=== PATIENT | male | born 1970 | race Caucasian/White ===

== ENCOUNTER 2017-02-27 18:07 | Emergency (ER) | payer SELFPAY ==
[2017-02-27 18:12] VITALS: BP 128/78
[2017-02-27] MEDS ORDERED: IBUPROFEN 800 MG TABLET PO ONE (21:12)
[2017-02-27] MEDS ORDERED: DIPH/PERTUSS(ACELL)/TETANUS VAC/PF 0.5 ML SYR (>=10YO) IM ONE (21:12)
[2017-02-27] MEDS ORDERED: AMOXICILLIN TR/POT CLAVULANATE 500-125 MG TAB PO ONE (21:12)
[2017-02-27] MEDS ORDERED: AMOXICILLIN TRIHYD 250 MG CAPSULE PO ONE (21:12)
[2017-02-27] MEDS ORDERED: CIPROFLOXACIN HCL 500 MG TABLET PO ONE (21:12)
--- NOTE | 2017-02-27 21:18 | ER Document Report ---
HPI - HPI Patient complains to provider of: Skin rash, arm swelling Onset: Other - 3 days Onset/Duration: Worse Quality of pain: Achy Pain Level: 2 Context: Patient complains of skin rash for the past several weeks to the extremities. Patient is concerned that he might have scabies. Patient additionally complains of a swollen knot to his right upper arm for the past 3 days. Patient does state that he got scratched and bit by a 4 days ago. Patient denies any fever. Associated Symptoms: Other - Skin rash, swollen not to right upper extremity. denies: Fever Exacerbated by: Movement Relieved by: Denies Similar symptoms previously: No Recently seen / treated by doctor: No - ROS ROS below otherwise negative: Yes Systems Reviewed and Negative: Yes All other systems reviewed and negative - CONSTITUTIONAL Constitutional: DENIES: Fever, Chills - EENT EENT: DENIES: Sore Throat, Ear Pain, Eye problems - NEURO Neurology: DENIES: Headache - CARDIOVASCULAR Cardiovascular: DENIES: Chest pain - RESPIRATORY Respiratory: DENIES: Trouble Breathing, Coughing - GASTROINTESTINAL Gastrointestinal: DENIES: Abdominal Pain, Black / Bloody Stools - URINARY Urinary: DENIES: Dysuria, Urgency, Frequency - MUSCULOSKELETAL Musculoskeletal: REPORTS: Extremity pain - DERM Skin Color: Erythema Skin Problems: Rash Past Medical History - General Information source: Patient - Social History Smoking Status: Current Every Day Smoker Frequency of alcohol use: None Drug Abuse: None Family History: Reviewed & Not Pertinent, Hypertension Patient has suicidal ideation: No Patient has homicidal ideation: No - Past Medical History Cardiac Medical History: Reports: Hx Congestive Heart Failure, Hx Heart Attack Renal/ Medical History: Denies: Hx Peritoneal Dialysis Past Surgical History: Reports: Hx Cardiac Surgery - AICD. Denies: Hx Cardiac Catheterization Vertical Provider Document - CONSTITUTIONAL Agree With Documented VS: Yes Exam Limitations: No Limitations General Appearance: WD/WN, No Apparent Distress - INFECTION CONTROL TRAVEL OUTSIDE OF THE [place] IN LAST 30 DAYS: No - HEENT HEENT: Atraumatic, Normal ENT Exam, Normocephalic - NECK Neck: Normal Inspection, Supple. negative: Lymphadenopathy-Left, Lymphadenopathy-Right - RESPIRATORY Respiratory: Breath Sounds Normal, No Respiratory Distress O2 Sat by Pulse Oximetry: 97 - CARDIOVASCULAR Cardiovascular: Regular Rate, Regular Rhythm Pulses: Normal: Radial - BACK Back: Normal Inspection - MUSCULOSKELETAL/EXTREMETIES Musculoskeletal/Extremeties: MAEW, Tender - Right epitrochlear lymph node tenderness swelling with mild erythema over the area, full range of motion to joint, no concern for joint infection at this time, Edema. negative: Eccymosis Notes: Patient with mildly enlarged right axillary lymph node, normal skin color and temperature - NEURO Level of Consciousness: Awake, Alert, Appropriate Motor/Sensory: No Motor Deficit - DERM Integumentary: Warm, Dry, Rash Course - Re-evaluation Re-evalutation: 02/27/17 21:14 Consulted with an antibiotic choice to treat both cat scratch disease as well as Bite. Recommends Augmentin and Cipro for coverage. 02/27/17 21:15 Patient without fever patient with symptoms concerning for cat scratch disease given lymphadenopathy to right epitrochlear area and right axillary area. No concern for drainable abscess at this time. No concern for sepsis. - Vital Signs Vital signs: Temp Pulse Resp BP Pulse Ox 98.5 F 107 H 18 128/78 H 97 02/27/17 18:11 02/27/17 18:11 02/27/17 18:11 02/27/17 18:11 02/27/17 18:11 Discharge - Discharge Clinical Impression: Cat-scratch disease, Scabies Cat bite Qualifiers: Encounter type: initial encounter Qualified Code(s): W55.01XA - Bitten by cat, initial encounter Condition: Stable Disposition: HOME, SELF-CARE Instructions: Animal Bites ([facility]), Anti-Mite Skin Creams, Augmentin ([facility]), Cat Scratch Fever ([facility]), Ciprofloxacin ([facility]), Scabies ([facility]), Tetanus Immunization Given ([facility]) Additional Instructions: Return immediately for any new or worsening symptoms Followup with your primary care provider, call tomorrow to make a followup appointment If it is determined that you need the rabies vaccination series, return here for additional treatment. Follow-up with animal control regarding rabies vaccination status of the cat. Prescriptions: Amox Tr/Potassium Clavulanate [Augmentin 875-125 Tablet] 1 tab PO BID 5 Days tablet Ciprofloxacin HCl [Cipro 500 mg Tablet] 500 mg PO BID #20 tablet Naproxen [Naprosyn 250 Nmg Tablet] 1 tab PO BID #14 tablet Permethrin [Elimite] 60 gm TP ONCE #60 gm Forms: Return to Work Referrals: [facility] [NO LOCAL MD] - Follow up as needed [facility] [Provider Group] - Follow up as needed
== END 2017-02-27 21:38 | disposition home or self-care (01) ==
LOC: ER 18:07
DX: A28.1 Cat-scratch disease (principal); B86 Scabies; R21 Rash and other nonspecific skin eruption; M79.89 Other specified soft tissue disorders; F17.200 Nicotine dependence, unspecified, uncomplicated; W55.01XA Bitten by cat, initial encounter
CPT/HCPCS: 99282; 90471; 90715; J3490

== ENCOUNTER 2017-03-26 15:01 | Inpatient (IN) | payer SELFPAY ==
--- NOTE | 2017-03-26 16:08 | ER Document Report ---
ED Medical Screen (RME) - General Chief Complaint: Breathing Difficulty Stated Complaint: COUGH,DIZZY Time Seen by Provider: 03/26/17 16:06 Mode of Arrival: Ambulatory Information source: Patient TRAVEL OUTSIDE OF THE [place] IN LAST 30 DAYS: No - HPI Patient complains to provider of: sob Onset: This morning - pt with h/o chf with c/o coughing up blood and sob -- "I think I have fluid in my lungs." - Related Data Allergies/Adverse Reactions: No Known Allergies Allergy (Verified 03/26/17 15:03) Past Medical History - Social History Chew tobacco use (# tins/day): No Frequency of alcohol use: None Drug Abuse: None - Past Medical History Cardiac Medical History: Reports: Hx Congestive Heart Failure, Hx Heart Attack Renal/ Medical History: Denies: Hx Peritoneal Dialysis Past Surgical History: Reports: Hx Cardiac Surgery - AICD. Denies: Hx Cardiac Catheterization Physical Exam - Vital signs Vitals: Temp Pulse Resp BP Pulse Ox 99.5 F 115 H 16 116/82 90 L 03/26/17 15:06 03/26/17 15:06 03/26/17 15:06 03/26/17 15:06 03/26/17 15:06 Course - Vital Signs Vital signs: Temp Pulse Resp BP Pulse Ox 99.5 F 115 H 16 116/82 90 L 03/26/17 15:06 03/26/17 15:06 03/26/17 15:06 03/26/17 15:06 03/26/17 15:06
[2017-03-26 16:51] LABS: ABSOLUTE BASOPHILS # (AUTO) 0.1 10^3/uL (0.0-0.2); ABSOLUTE EOSINOPHILS # (AUTO) 0.1 10^3/uL (0.0-0.6); ABSOLUTE MONOCYTES (AUTO) 1.9 10^3/uL (0.1-1.4); BASOPHILS % (AUTO) 0.5 % (0-2); EOSINOPHILS % (AUTO) 0.6 % (0-6); HEMATOCRIT 46.2 % (37.9-51.0); HEMOGLOBIN 15.4 g/dL (13.5-17.0); LYMPHOCYTES % (AUTO) 11.9 % (13-45); MEAN CORPUSCULAR HEMOGLOBIN 28.9 pg (27.0-33.4); MEAN CORPUSCULAR HGB CONC 33.4 g/dL (32.0-36.0); MEAN CORPUSCULAR VOLUME 87 fl (80-97); MONOCYTES % (AUTO) 11.3 % (3-13); PLATELET COUNT 296 10^3/uL (150-450); RED BLOOD COUNT 5.33 10^6/uL (4.35-5.55); RED CELL DISTRIBUTION WIDTH 13.6 % (11.5-14.0); SEGMENTED NEUTROPHILS % (AUTO) 75.7 % (42-78); TOTAL CELLS COUNTED % (AUTO) 100 %; WHITE BLOOD COUNT 17.1 10^3/uL (4.0-10.5)
--- NOTE | 2017-03-26 16:58 | RADIOLOGY REPORT (SQ) ---
EXAM DESCRIPTION: CHEST PA/LAT COMPLETED DATE/TIME: 03/26/2017 4:49 pm REASON FOR STUDY: sob COMPARISON: 01/06/2016 EXAM PARAMETERS: NUMBER OF VIEWS: two views TECHNIQUE: Digital Frontal and Lateral radiographic views of the chest acquired. RADIATION DOSE: NA LIMITATIONS: none FINDINGS: LUNGS AND PLEURA: Patchy airspace opacities are seen throughout the right lobes. No pneum othorax. No pleural effusion. MEDIASTINUM AND HILAR STRUCTURES: No masses or contour abnormalities. HEART AND VASCULAR STRUCTURES: Borderline cardiomegaly. No evidence for failure. BONES: No acute findings. HARDWARE: Cardiac pacer appears stable in position and appearance. OTHER: No other significant finding. IMPRESSION: In the appropriate clinical setting, findings are consistent with multi lobar pneumonia. TECHNICAL DOCUMENTATION: JOB ID: [id number] [employer]- All Rights Reserved
[2017-03-26 17:09] LABS: ALANINE AMINOTRANSFERASE 31 U/L (21-72); ALBUMIN 3.9 g/dL (3.5-5.0); ALKALINE PHOSPHATASE 56 U/L (38-126); ANION GAP 7 (5-19); ASPARTATE AMINO TRANSFERASE 28 U/L (17-59); BILIRUBIN,DIRECT 0.4 mg/dL (0.0-0.4); BILIRUBIN,TOTAL 1.3 mg/dL (0.2-1.3); BLOOD UREA NITROGEN 15 mg/dL (7-20); CALCIUM 9.5 mg/dL (8.4-10.2); CARBON DIOXIDE 27 mmol/L (22-30); CHLORIDE 107 mmol/L (98-107); GLUCOSE 111 mg/dL (75-110); POTASSIUM 4.7 mmol/L (3.6-5.0); SODIUM 141.1 mmol/L (137-145); TOTAL PROTEIN 6.8 g/dL (6.3-8.2)
[2017-03-26] MEDS ORDERED: FUROSEMIDE INJ/PF 40 MG/4 ML SDV IV ONE (19:19)
[2017-03-26] MEDS ORDERED: CEFTRIAXONE 1 GM/D5W RTU 1 GM/50 ML RTUPB IV ONE (19:20)
[2017-03-26] MEDS ORDERED: AZITHROMYCIN INJ 500 MG VIAL IV ONE (19:20)
--- NOTE | 2017-03-26 19:31 | ER Document Report ---
ED Respiratory Problem - General Chief Complaint: Breathing Difficulty Stated Complaint: COUGH,DIZZY Time Seen by Provider: 03/26/17 16:06 Mode of Arrival: Ambulatory Notes: Patient is a 47-year-old male that comes emergency department for chief complaint of 3 days of worsening difficulty breathing, cough, intermittent chills, and the sensation of "fluid on the lungs". He reports intermittent pain in his chest, mostly with cough. He states that today he coughed up a few flecks of blood. He smokes a few cigarettes daily, has a history of ID in 2015 , AICD, CHF. He is supposed to be on carvedilol, lisinopril, and an unknown dose of a diuretic but he is currently taking no medications, he sees no provider currently. He has not had the influenza vaccine this year. TRAVEL OUTSIDE OF THE [place] IN LAST 30 DAYS: No - Related Data Allergies/Adverse Reactions: No Known Allergies Allergy (Verified 03/26/17 15:03) Past Medical History - General Information source: Patient - Social History Smoking Status: Current Some Day Smoker Chew tobacco use (# tins/day): No Smoking Education Provided: Yes - <3 min Frequency of alcohol use: None Drug Abuse: None Lives with: Family Family History: Reviewed & Not Pertinent, Hypertension Patient has suicidal ideation: No Patient has homicidal ideation: No - Past Medical History Cardiac Medical History: Reports: Hx Congestive Heart Failure, Hx Heart Attack - 2013 Renal/ Medical History: Denies: Hx Peritoneal Dialysis Past Surgical History: Reports: Hx Cardiac Surgery - AICD. Denies: Hx Cardiac Catheterization Review of Systems - Review of Systems Constitutional: See HPI EENT: No symptoms reported Cardiovascular: See HPI Respiratory: See HPI Gastrointestinal: No symptoms reported Genitourinary: No symptoms reported Male Genitourinary: No symptoms reported Musculoskeletal: No symptoms reported Skin: No symptoms reported Hematologic/Lymphatic: No symptoms reported Neurological/Psychological: No symptoms reported Physical Exam - Vital signs Vitals: Temp Pulse Resp BP Pulse Ox 99.5 F 115 H 16 116/82 90 L 03/26/17 15:06 03/26/17 15:06 03/26/17 15:06 03/26/17 15:06 03/26/17 15:06 Interpretation: Normal - General General appearance: Appears well, Alert In distress: None - HEENT Head: Normocephalic, Atraumatic Eyes: Normal Conjunctiva: Normal Extraocular movements intact: Yes Eyelashes: Normal Pupils: PERRL Mouth/Lips: Normal Mucous membranes: Normal Pharynx: Normal Neck: Normal - Respiratory Respiratory status: Tachypnea - Patient has very mild tachypnea, no labored breathing or retractions Chest status: Nontender Breath sounds: Nonproductive cough, Rales, Rhonchi, Other - Bilateral rales and rhonchi in the lower lobes, slightly worse on the right, air movement is still good, no wheezing. No: Wheezing Chest palpation: Normal - Cardiovascular Rhythm: Regular, Tachycardia Heart sounds: Normal auscultation, S1 appreciated, S2 appreciated Murmur: No - Abdominal Inspection: Normal Distension: No distension Bowel sounds: Normal Tenderness: Nontender. No: Tender, Guarding - Back Back: No: Tender, CVA tenderness - Extremities General upper extremity: Normal inspection, Nontender, Normal color, Normal ROM , Normal temperature General lower extremity: Normal inspection, Nontender, Normal color, Normal ROM , Normal temperature, Normal weight bearing. No: Edema - Neurological Neuro grossly intact: Yes Cognition: Normal Orientation: AAOx4 Keyes Coma Scale Eye Opening: Spontaneous Darrick Coma Scale Verbal: Oriented Darrick Coma Scale Motor: Obeys Commands Darrick Coma Scale Total: 15 Speech: Normal Cranial nerves: Normal Cerebellar coordination: Normal Motor strength normal: LUE, RUE, LLE, RLE Additional motor exam normals: Equal promotion producer Sensory: Normal - Psychological Associated symptoms: Normal affect, Normal mood - Skin Skin Temperature: Warm Skin Moisture: Dry Skin Color: Normal Course - Re-evaluation Re-evalutation: Patient with mild tachypnea on exam, rales and rhonchi in the lung bases, tachycardia. CBC shows leukocytosis at greater than 17,000 with no bandemia. Blood pressure is normal. BNP is elevated. No lower extremity edema. Chest x- ray consistent with multifocal pneumonia, probable vascular congestion as well per my read and based on patient's presentation. Starting Lasix, antibiotics. Because of tachypnea, hypoxia (occasionally drops down to 90-92 on room air just while sitting), tachycardia, multifocal pneumonia I discussed with patient potential admission to the hospital. He is agreeable with this. 03/26/[address] Dennis, internal medicine, patient will be admitted to the hospital. - Vital Signs Vital signs: Temp Pulse Resp BP Pulse Ox 102.0 F H 129 H 27 H 114/71 91 L 03/27/17 00:00 03/27/17 00:00 03/27/17 00:00 03/27/17 00:00 03/27/17 02:32 - Laboratory Result Diagrams: 03/26/17 16:30 03/26/17 16:30 Laboratory results interpreted by me: 03/26/17 03/26/17 03/26/17 16:30 16:30 16:30 WBC 17.1 H Lymphocytes % 11.9 L Absolute Neutrophils 13.0 H Absolute Monocytes 1.9 H Glucose 111 H NT-Pro-B Natriuret Pep 1050 H Discharge - Discharge Clinical Impression: Hypoxia, Tachycardia, Cough Pneumonia Qualifiers: Pneumonia type: due to unspecified organism Laterality: bilateral Lung location : unspecified part of lung Qualified Code(s): J18.9 - Pneumonia, unspecified organism Acute exacerbation of CHF (congestive heart failure) Qualifiers: Heart failure type: unspecified Qualified Code(s): I50.9 - Heart failure, unspecified Condition: Fair Disposition: ADMITTED INPATIENT Admitting Provider: Hospitalist Unit Admitted: Telemetry
[2017-03-26] MEDS ORDERED: CEFTRIAXONE INJ 1000 MG VIAL IV ONE (19:51)
[2017-03-26] MEDS ORDERED: NORMAL SALINE 1000 ML 1,000 ML IV PRN ×2 (20:43→20:51)
[2017-03-26] MEDS ORDERED: NICOTINE 7 MG/24 HR PATCH.TD24 TD SCH (21:00)
[2017-03-26] MEDS ORDERED: OSELTAMIVIR PHOSPHATE 75 MG CAPSULE PO ONE (21:14)
[2017-03-26] MEDS ORDERED: HYDROCODONE BIT/HOMATROPINE 5-1.5 MG TABLET PO PRN (21:26)
[2017-03-26] MEDS ORDERED: ACETAMINOPHEN 325 MG TABLET PO PRN (21:27)
[2017-03-26] MEDS ORDERED: LEVALBUTEROL HCL NEB 1.25 MG/3 ML AMPUL NEB ONE (21:30)
[2017-03-26] MEDS ORDERED: LANSOPRAZOLE 30 MG TAB.RAP.DR PO ONE (21:45)
--- NOTE | 2017-03-26 21:51 | PDOC H&P ---
History of Present Illness Admission Date/PCP: 03/26/17 20:39 Patient complains of: Not feeling well for the last several days History of Present Illness: PRISCA ARMENTA is a 47 year old male history of IL and possible CHF status post AICD in June of 2014. Patient states that he has not been feeling well. Patient reports flu like symptoms. He reports being hot and cold. Patient having cough and shortness of breathe. 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 Patient states that he cannot lay flat to sleep. He denies any swelling in the feet. Patient states he has some chest discomfort with coughing. The ED staff patient is very dyspneic with ambulation and has been hypoxic without oxygen. He started coughing up blood will in the ED. In the ED patient was given ceftriaxone and azithromycin. Patient chest x-ray was concerning for multifocal pneumonia. Patient was found to be tachycardic, hypoxic with leukocytosis. Hospitalist was called to admit patient for multifocal pneumonia and hypoxia. Past Medical History Cardiac Medical History: Reports: Congestive Heart Failure, Myocardial Infarction - 2013 Past Surgical History Past Surgical History: Reports: Other - AICD in June of 2014 Denies: Cardiac Catheterization Social History Smoking Status: Current Some Day Smoker Frequency of Alcohol Use: None Hx Recreational Drug Use: No Hx Prescription Drug Abuse: No - Advance Directive Resuscitation Status: Full Code Family History Family History: Other - Patient adopted and does not know history Parental Family History Reviewed: No Children Family History Reviewed: No Sibling(s) Family History Reviewed.: No Medication/Allergy Home Medications: Nicotine [Nicotine Patch] 1 each TD ASDIR #5 patch.td24 10/17/14 Furosemide [Lasix 20 mg Tablet] 40 mg PO BID #360 tablet 01/15/15 Amox Tr/Potassium Clavulanate [Augmentin 875-125 Tablet] 1 tab PO BID 5 Days tablet 02/27/17 Ciprofloxacin HCl [Cipro 500 mg Tablet] 500 mg PO BID #20 tablet 02/27/17 Naproxen [Naprosyn 250 Nmg Tablet] 1 tab PO BID #14 tablet 02/27/17 Permethrin [Elimite] 60 gm TP ONCE #60 gm 02/27/17 Allergies/Adverse Reactions: No Known Allergies Allergy (Verified 03/26/17 15:03) Review of Systems Constitutional: PRESENT: chills, fever(s). ABSENT: headache(s), weight gain, weight loss Eyes: ABSENT: visual disturbances Ears: ABSENT: hearing changes Cardiovascular: PRESENT: chest pain. ABSENT: dyspnea on exertion, edema, orthropnea, palpitations Respiratory: PRESENT: cough, sputum. ABSENT: hemoptysis Gastrointestinal: ABSENT: abdominal pain, constipation, diarrhea, hematemesis, hematochezia, nausea, vomiting Genitourinary: ABSENT: dysuria, hematuria Musculoskeletal: ABSENT: joint swelling Integumentary: ABSENT: rash, wounds Neurological: ABSENT: abnormal gait, abnormal speech, confusion, dizziness, focal weakness, syncope Psychiatric: ABSENT: anxiety, depression, homidical ideation, suicidal ideation Endocrine: ABSENT: cold intolerance, heat intolerance, polydipsia, polyuria Hematologic/Lymphatic: ABSENT: easy bleeding, easy bruising Physical Exam Vital Signs: Temp Pulse Resp BP Pulse Ox 99.5 F 115 H 14 142/89 H 93 03/26/17 15:06 03/26/17 15:06 03/26/17 19:00 03/26/17 19:00 03/26/17 19:00 Intake & Output 03/25/17 03/26/17 03/27/17 06:59 06:59 06:59 Output Total 700 Balance -700 General appearance: PRESENT: no acute distress, well-developed, well-nourished Head exam: PRESENT: normocephalic Eye exam: PRESENT: EOMI. ABSENT: scleral icterus Ear exam: PRESENT: normal external ear exam Mouth exam: PRESENT: moist Neck exam: ABSENT: carotid bruit, JVD, lymphadenopathy, thyromegaly Respiratory exam: PRESENT: crackles, decreased breath sounds. ABSENT: rales, rhonchi, unlabored, wheezes Cardiovascular exam: PRESENT: RRR. ABSENT: diastolic murmur, rubs, systolic murmur Pulses: PRESENT: normal dorsalis pedis pul Vascular exam: PRESENT: normal capillary refill GI/Abdominal exam: PRESENT: normal bowel sounds, soft. ABSENT: distended, guarding, mass, organolmegaly, rebound, tenderness Rectal exam: PRESENT: deferred Extremities exam: PRESENT: full ROM. ABSENT: calf tenderness, clubbing, pedal edema Neurological exam: PRESENT: alert, awake, oriented to person, oriented to place , oriented to time, oriented to situation, CN II-XII grossly intact. ABSENT: motor sensory deficit Psychiatric exam: PRESENT: appropriate affect, normal mood. ABSENT: homicidal ideation, suicidal ideation Skin exam: PRESENT: dry, intact, warm. ABSENT: cyanosis, rash Results Laboratory Results: 03/26/17 03/26/17 03/26/17 16:30 16:30 16:30 WBC 17.1 H RBC 5.33 Hgb 15.4 Hct 46.2 MCV 87 MCH 28.9 MCHC 33.4 RDW 13.6 Plt Count 296 Seg Neutrophils % 75.7 Lymphocytes % 11.9 L Monocytes % 11.3 Eosinophils % 0.6 Basophils % 0.5 Absolute Neutrophils 13.0 H Absolute Lymphocytes 2.0 Absolute Monocytes 1.9 H Absolute Eosinophils 0.1 Absolute Basophils 0.1 Sodium 141.1 Potassium 4.7 Chloride 107 Carbon Dioxide 27 Anion Gap 7 BUN 15 Creatinine 1.09 Est GFR ( Amer) > 60 Est GFR (Non-Af Amer) > 60 Glucose 111 H Calcium 9.5 Total Bilirubin 1.3 Direct Bilirubin 0.4 AST 28 ALT 31 Alkaline Phosphatase 56 NT-Pro-B Natriuret Pep 1050 H Total Protein 6.8 Albumin 3.9 Impressions: Chest X-Ray 03/26/17 16:06 IMPRESSION: In the appropriate clinical setting, findings are consistent with multi lobar pneumonia. Assessment & Plan - Diagnosis (1) Sepsis Is this a current diagnosis for this admission?: Yes Plan: Patient presented with tachycardia, leukocytosis and pneumonia. Patient started on ceftriaxone and azithromycin in the ED. Will continue this management. Patient pneumonia appears multifocal and could be viral in nature. Patient reports having flulike symptoms and working with the public. Rapid influenza ordered and patient started on Tamiflu. Blood cultures are ordered. Patient being given gentle hydration. (2) Pneumonia Qualifiers: Pneumonia type: due to unspecified organism Laterality: bilateral Lung location: unspecified part of lung Qualified Code(s): J18.9 - Pneumonia, unspecified organism Plan: Patient currently on ceftriaxone and azithromycin. Patient pneumonia is multifocal and could be viral. Patient also started on Tamiflu and rapid flu ordered. CT a ordered to evaluate the complexity of the pneumonia as patient is also having hemoptysis. Blood cultures were ordered. Incentive spirometry ordered. Will encourage activity as tolerated. (3) Respiratory failure with hypoxia Qualifiers: Chronicity: acute Qualified Code(s): J96.01 - Acute respiratory failure with hypoxia Is this a current diagnosis for this admission?: Yes Plan: This is mostly secondary to his multifocal pneumonia. The lowest recorded oxygen saturation was 90. However the ED reports that patient was desaturating even lower. Patient currently on supplemental oxygen. Will monitor and wean as tolerated. (4) Hemoptysis Is this a current diagnosis for this admission?: Yes Plan: Patient reports hemoptysis. This could be due to irritation from the lungs from the pneumonia. Will order a CTA of the chest to make sure we are not dealing with a more complicated pneumonia. Will monitor. NICHOLAS precious for DVT prophylaxis no subcu heparin or Lovenox. (5) Tobacco abuse Is this a current diagnosis for this admission?: Yes Plan: Patient continues to smoke. Will patient financial counselor patient on smoking cessation. Nicotine patch ordered. (6) AICD (automatic cardioverter/defibrillator) present Is this a current diagnosis for this admission?: Yes Plan: She reports AICD secondary to IL. Uncertain if patient develops CHF as a result of his IL. This was about 3 years ago. Will order cardiac echo to evaluate. Patient BNP is elevated and has some crackles however these can both be due to his multifocal pneumonia. Will monitor for signs for a volume overload. - Time Time Spent: 30 to 50 Minutes
[2017-03-26] MEDS ORDERED: GUAIFENESIN 600 MG TABLET.SA PO SCH (22:00)
[2017-03-26 22:25] LABS: A TYPE INFLUENZA AG NEGATIVE (NEGATIVE); B INFLUENZA AG NEGATIVE (NEGATIVE)
--- NOTE | 2017-03-26 22:55 | RADIOLOGY REPORT (SQ) ---
EXAM DESCRIPTION: CTA CHEST COMPLETED DATE/TIME: 03/26/2017 10:39 pm REASON FOR STUDY: hypoxia COMPARISON: Chest radiograph 03/26/2017 TECHNIQUE: CT scan of the chest performed using helical scanning technique with dynamic intravenous contrast injection. Images reviewed with lung, soft tissue and bone windows. Reconstructed coronal and sagittal MPR images reviewed. Additional 3 dimensional post-processing performed to develop Maximal Intensity Projection images (DE P). All images stored on PACS. All CT scanners at this facility use dose modulation, iterative reconstruction, and/or weight based d osing when appropriate to reduce radiation dose to as low as reasonably achievable (ALARA). [facility]: Dose Right [facility]: CareDose [facility]: Dose Right [facility]: Teradose 4D [facility]: SoothEase CONTRAST TYPE AND DOSE: contrast/concentration: Isovue 370.00 mg/ml; Total Contrast Delivered: 90.0 ml; Total Saline Delivered: 74.0 ml Contrast bolus optimized for the pulmonary arteries. Not diagnostic for the aorta. RENAL FUNCTION: BUN 15; creatinine 1.09 RADIATION DOSE: CT Rad equipment meets quality standard of care and radiation dose reduction techniq ues were employed. CTDIvol: 16.6 - 26.4 mGy. DLP: 649 mGy-cm. . LIMITATIONS: None. FINDINGS: LUNGS AND PLEURA: Re- demonstration of diffuse airspace and ground-glass opacities with re lative subpleural sparing. Small bilateral pleural effusions. No pneumothorax. AORTA AND GREAT VESSELS: No aneurysm. Contrast bolus not optimized for the aorta. HEART: Trace pericardial fluid. No significant coronary artery calcifications. PULMONARY ARTERIES: No emboli visualized in the main pulmonary arteries or the segmental branches. HILAR AND MEDIASTINAL STRUCTURES: No identified masses or abnormal nodes. HARDWARE: Dual-chamber pacer. UPPER ABDOMEN: No significant findings. Limited exam. THYROID AND OTHER SOFT TISSUES: No masses. No adenopathy. BONES: No acute or significant finding. 3D MIPS: Confirm above findings. OTHER: No other significant finding. IMPRESSION: 1. No pulmonary emboli. 2. Diffuse mixed interstitial and airspace opacities remain in nonspecific finding. In the appropri ate clinical setting, findings are consistent with a multi lobar pneumonia ; given distribution, hardik mmend consideration for atypical organisms in treatment planning. Alternate processes to include inf lammatory and neoplastic causes are not entirely excluded. COMMENT: Quality ID # [id number]: Final reports with documentation of one or more dose reduction techniques (e.g., Automated exposure control, adjustment of the mA and/or kV according to patient size, use of iterative reconstruction technique) TECHNICAL DOCUMENTATION: JOB ID: [id number] [employer]- All Rights Reserved
[2017-03-27] MEDS ORDERED: INFLUENZA ADLT QUAD (36MOS+) 2017-18 VAC 0.5 ML SYR IM PRN (00:49)
[2017-03-27] MEDS ORDERED: RINGERS SOLUTION,LACTATED 1,000 ML IV PRN ×2 (01:07→01:08)
[2017-03-27 06:20] LABS: ABSOLUTE BASOPHILS # (AUTO) 0.1 10^3/uL (0.0-0.2); ABSOLUTE EOSINOPHILS # (AUTO) 0.1 10^3/uL (0.0-0.6); ABSOLUTE LYMPHOCYTES (AUTO) 2.5 10^3/uL (0.5-4.7); BASOPHILS % (AUTO) 0.5 % (0-2); EOSINOPHILS % (AUTO) 0.7 % (0-6); HEMATOCRIT 43.7 % (37.9-51.0); HEMOGLOBIN 14.9 g/dL (13.5-17.0); LYMPHOCYTES % (AUTO) 13.4 % (13-45); MEAN CORPUSCULAR HEMOGLOBIN 29.4 pg (27.0-33.4); MEAN CORPUSCULAR VOLUME 87 fl (80-97); MONOCYTES % (AUTO) 10.8 % (3-13); PLATELET COUNT 249 10^3/uL (150-450); RED BLOOD COUNT 5.05 10^6/uL (4.35-5.55); RED CELL DISTRIBUTION WIDTH 13.6 % (11.5-14.0); SEGMENTED NEUTROPHILS % (AUTO) 74.6 % (42-78); TOTAL CELLS COUNTED % (AUTO) 100 %; WHITE BLOOD COUNT 18.7 10^3/uL (4.0-10.5)
[2017-03-27] MEDS: LANSOPRAZOLE 30 MG TAB.RAP.DR PO SCH (06:44)
[2017-03-27 06:46] LABS: ANION GAP 9 (5-19); BLOOD UREA NITROGEN 16 mg/dL (7-20); CALCIUM 9.2 mg/dL (8.4-10.2); CARBON DIOXIDE 27 mmol/L (22-30); CHLORIDE 105 mmol/L (98-107); GLUCOSE 109 mg/dL (75-110); POTASSIUM 4.6 mmol/L (3.6-5.0)
[2017-03-27] MEDS ORDERED: LEVALBUTEROL HCL NEB 1.25 MG/3 ML AMPUL NEB SCH (08:00)
--- NOTE | 2017-03-27 09:04 | EKG REPORT ---
SEVERITY:- ABNORMAL ECG - SINUS TACHYCARDIA PROBABLE LEFT ATRIAL ABNORMALITY NONSPECIFIC T ABNORMALITIES, LATERAL LEADS : Confirmed by: Uli Willams 27-Mar-2017 09:03:37
[2017-03-27] MEDS ORDERED: CEFTRIAXONE 1 GM/D5W RTU 1 GM/50 ML RTUPB IV SCH (10:00)
[2017-03-27] MEDS ORDERED: ENOXAPARIN SODIUM INJ 40 MG/0.4 ML DISP.SYRIN SUBCUT SCH (10:00)
[2017-03-27] MEDS: AZITHROMYCIN 250 MG TABLET PO SCH (10:26)
[2017-03-27] MEDS ORDERED: DEXTROSE 40% GEL 15 GM TUBE PO PRN ×2 (13:13)
[2017-03-27] MEDS ORDERED: DEXTROSE 50%-WATER 25 GM/50 ML DISP.SYRIN IV PRN ×2 (13:13)
[2017-03-27] MEDS ORDERED: GLUCAGON,HUMAN RECOMB 1 MG INJ IM PRN (13:13)
--- NOTE | 2017-03-27 13:33 | PDOC PROGRESS REPORT ---
Subjective Progress Note for:: 03/27/17 Subjective:: Patient refers that the breathing is slightly better when compared to admission. Review of systems All organ systems evaluated and negative except as in subjective All significant laboratories and diagnostics have been reviewed Reason For Visit: PNEUMONIA Physical Exam Vital Signs: Temp Pulse Resp BP Pulse Ox 102.0 F H 129 H 27 H 114/71 91 L 03/27/17 00:00 03/27/17 00:00 03/27/17 00:00 03/27/17 00:00 03/27/17 04:00 Pulse Oximeter Continuous Start: 03/26/17 20: 44 Freq: RTQ4 Status: Active Document 03/27/17 04:00 SFL (Rec: 03/27/17 05:52 SFL [email or web address]) Pulse Oximetry Assessment Oxygen Saturation (92-100) 91 Oxygen Delivery Method Room Air Equipment Usage Equipment in Use Continuous SpO2 Machine # 4 Intake & Output 03/26/17 03/27/17 03/28/17 06:59 06:59 06:59 Intake Total 400 Output Total 1950 Balance -1550 Weight 82.3 kg General appearance: PRESENT: cooperative, obese Head exam: PRESENT: atraumatic, normocephalic Eye exam: PRESENT: conjunctiva pink, EOMI, PERRLA Ear exam: PRESENT: normal external ear exam, TM's normal bilaterally Neck exam: PRESENT: full ROM. ABSENT: JVD, lymphadenopathy, tenderness Respiratory exam: PRESENT: crackles, decreased breath sounds, wheezes Cardiovascular exam: PRESENT: RRR Vascular exam: PRESENT: normal capillary refill GI/Abdominal exam: PRESENT: normal bowel sounds, soft. ABSENT: tenderness Extremities exam: PRESENT: full ROM. ABSENT: pedal edema Musculoskeletal exam: PRESENT: ambulatory Neurological exam: PRESENT: alert, awake, oriented to person, oriented to place , oriented to time, oriented to situation, CN II-XII grossly intact Psychiatric exam: PRESENT: appropriate affect Skin exam: PRESENT: intact, normal color Results Laboratory Results: 03/27/17 05:56 03/27/17 05:56 03/27/17 03/27/17 05:56 05:56 WBC 18.7 H RBC 5.05 Hgb 14.9 Hct 43.7 MCV 87 MCH 29.4 MCHC 34.0 RDW 13.6 Plt Count 249 Seg Neutrophils % 74.6 Lymphocytes % 13.4 Monocytes % 10.8 Eosinophils % 0.7 Basophils % 0.5 Absolute Neutrophils 14.0 H Absolute Lymphocytes 2.5 Absolute Monocytes 2.0 H Absolute Eosinophils 0.1 Absolute Basophils 0.1 Sodium 141.0 Potassium 4.6 Chloride 105 Carbon Dioxide 27 Anion Gap 9 BUN 16 Creatinine 1.16 Est GFR ( Amer) > 60 Est GFR (Non-Af Amer) > 60 Glucose 109 Calcium 9.2 Impressions: Chest/Abdomen CTA 03/26/17 00:00 IMPRESSION: 1. No pulmonary emboli. 2. Diffuse mixed interstitial and airspace opacities remain in nonspecific finding. In the appropriate clinical setting, findings are consistent with a multi lobar pneumonia ; given distribution, recommend consideration for atypical organisms in treatment planning. Alternate processes to include inflammatory and neoplastic causes are not entirely excluded. Chest X-Ray 03/26/17 16:06 IMPRESSION: In the appropriate clinical setting, findings are consistent with multi lobar pneumonia. Assessment & Plan - Diagnosis (1) Acute respiratory failure with hypoxia Is this a current diagnosis for this admission?: Yes Plan: Continue oxygen supplementation and wean off as tolerated (2) Pneumonia Qualifiers: Pneumonia type: due to unspecified organism Laterality: bilateral Lung location: unspecified part of lung Qualified Code(s): J18.9 - Pneumonia, unspecified organism Is this a current diagnosis for this admission?: Yes Plan: Continue current management. Will place on DuoNeb's and IV steroids and suspecting his COPD component (3) Tobacco abuse Is this a current diagnosis for this admission?: Yes Plan: Has been educated about quitting (4) Acute on chronic systolic CHF (congestive heart failure) Is this a current diagnosis for this admission?: Yes Plan: To place on Lasix IV - Time Time Spent with patient: 15-24 minutes Medications reviewed and adjusted accordingly: Yes Anticipated discharge: Home Within: within 72 hours - Inpatient Certification Based on my medical assessment, after consideration of the patient's comorbidities, presenting symptoms, or acuity I expect that the services needed warrant INPATIENT care.: Yes I certify that my determination is in accordance with my understanding of Medicare's requirements for reasonable and necessary INPATIENT services [42 CFR 412.3e].: Yes Medical Necessity: Need Close Monitoring Due to Risk of Patient Decompensation, Need for Nebulizer Therapy and Monitoring of Response, Need for IV Antibiotics
[2017-03-27] MEDS ORDERED: METOPROLOL SUCCINATE 25 MG TAB.SR.24H PO ONE (13:34)
[2017-03-27] MEDS: IPRATROPIUM/ALBUTEROL 0.5-2.5 MG/3 ML AMPUL NEB SCH ×2 (14:23→21:09)
[2017-03-27] MEDS: OSELTAMIVIR PHOSPHATE 75 MG CAPSULE PO SCH ×2 (15:25→17:14)
[2017-03-27] MEDS: GUAIFENESIN 600 MG TABLET.SA PO SCH (17:14)
[2017-03-27] MEDS: CEFTRIAXONE SODIUM 1,000 MG in DEXTROSE 5%-WATER 100 ML IV SCH (17:14)
[2017-03-27] MEDS: FUROSEMIDE INJ/PF 20 MG/2 ML SDV IV SCH (21:09)
[2017-03-27] MEDS: METHYLPREDNISOLONE INJ 40 MG/1 ML SDV IV SCH (21:09)
[2017-03-28 06:48] LABS: HEMATOCRIT 38.9 % (37.9-51.0); HEMOGLOBIN 13.1 g/dL (13.5-17.0); MEAN CORPUSCULAR HEMOGLOBIN 29.1 pg (27.0-33.4); MEAN CORPUSCULAR HGB CONC 33.6 g/dL (32.0-36.0); MEAN CORPUSCULAR VOLUME 87 fl (80-97); PLATELET COUNT 237 10^3/uL (150-450); RED BLOOD COUNT 4.49 10^6/uL (4.35-5.55); RED CELL DISTRIBUTION WIDTH 13.4 % (11.5-14.0); WHITE BLOOD COUNT 15.7 10^3/uL (4.0-10.5)
[2017-03-28 06:58] LABS: ANION GAP 13 (5-19); BLOOD UREA NITROGEN 16 mg/dL (7-20); CALCIUM 8.6 mg/dL (8.4-10.2); CARBON DIOXIDE 22 mmol/L (22-30); CHLORIDE 104 mmol/L (98-107); GLUCOSE 217 mg/dL (75-110); MAGNESIUM 2.1 mg/dL (1.6-2.3); POTASSIUM 4.3 mmol/L (3.6-5.0); SODIUM 139.3 mmol/L (137-145)
[2017-03-28 07:16] LABS: ABSOLUTE LYMPHOCYTES# (MANUAL) 1.1 10^3/uL (0.5-4.7); ABSOLUTE MONOCYTES # (MANUAL) 0.5 10^3/uL (0.1-1.4); ABSOLUTE NEUTROPHILS# (MANUAL) 14.1 10^3/uL (1.7-8.2); BASOPHILS % (MANUAL) 0 % (0-2); EOSINOPHILS % (MANUAL) 0 % (0-6); LYMPHOCYTES % (MANUAL) 7 % (13-45); MONOCYTES % (MANUAL) 3 % (3-13); SEGMENTED NEUTROPHILS % (MAN) 90 % (42-78); TOTAL CELLS COUNTED 100
[2017-03-28 07:17] LABS: PLATELET COMMENT ADEQUATE; PLATELET LARGE PRESENT; SCHISTOCYTES SLIGHT; TOXIC GRANULATION 1+
[2017-03-28] MEDS: GUAIFENESIN 600 MG TABLET.SA PO SCH ×2 (07:55→18:14)
[2017-03-28] MEDS: LANSOPRAZOLE 30 MG TAB.RAP.DR PO SCH (07:55)
[2017-03-28] MEDS: IPRATROPIUM/ALBUTEROL 0.5-2.5 MG/3 ML AMPUL NEB SCH ×3 (08:16→20:52)
[2017-03-28] MEDS: INSULIN LISPRO 100 UNIT/ML 3 ML VIAL SUBCUT PRN ×2 (08:45→18:14)
[2017-03-28] MEDS ORDERED: LISINOPRIL 5 MG TABLET PO SCH (10:00)
[2017-03-28] MEDS: AZITHROMYCIN 250 MG TABLET PO SCH (10:22)
[2017-03-28] MEDS: FUROSEMIDE INJ/PF 20 MG/2 ML SDV IV SCH (10:23)
[2017-03-28] MEDS: METHYLPREDNISOLONE INJ 40 MG/1 ML SDV IV SCH ×2 (10:24→21:31)
--- NOTE | 2017-03-28 16:00 | PDOC PROGRESS REPORT ---
Subjective Progress Note for:: 03/28/17 Subjective:: Patient reports that breathing is getting better and has been able to ambulate. Went down on oxygen at bedside and patient desaturated to the upper 80s Review of systems All organ systems evaluated and negative except as in subjective All significant laboratories and diagnostics have been reviewed Reason For Visit: PNEUMONIA Physical Exam Vital Signs: Temp Pulse Resp BP Pulse Ox 98.8 F 108 H 18 113/74 95 03/28/17 04:00 03/28/17 04:00 03/28/17 04:00 03/28/17 04:00 03/28/17 04:00 Pulse Oximeter Continuous Start: 03/26/17 20: 44 Freq: RTQ4 Status: Active Document 03/28/17 04:00 SFL (Rec: 03/28/17 05:35 SFL [email or web address]) Pulse Oximetry Assessment Oxygen Saturation (92-100) 95 Oxygen Flow Rate (L/min) 4 Oxygen Delivery Method Nasal Cannula Equipment Usage Equipment in Use Continuous SpO2 Machine # 4 Intake & Output 03/27/17 03/28/17 03/29/17 06:59 06:59 06:59 Intake Total 400 5224 Output Total 1950 1850 Balance -1550 3374 Weight 82.3 kg 85 kg General appearance: PRESENT: cooperative, obese Head exam: PRESENT: atraumatic, normocephalic Eye exam: PRESENT: conjunctiva pink, EOMI, PERRLA Ear exam: PRESENT: normal external ear exam Mouth exam: PRESENT: moist, neck supple Neck exam: PRESENT: full ROM, tenderness. ABSENT: JVD, lymphadenopathy Respiratory exam: PRESENT: other - Improvement of movement of air with scattered crackles. ABSENT: tachypnea, unlabored Cardiovascular exam: PRESENT: RRR. ABSENT: diastolic murmur, systolic murmur Vascular exam: PRESENT: normal capillary refill GI/Abdominal exam: PRESENT: normal bowel sounds, soft. ABSENT: tenderness Extremities exam: PRESENT: full ROM. ABSENT: pedal edema Musculoskeletal exam: PRESENT: ambulatory Neurological exam: PRESENT: alert, awake, oriented to person, oriented to place , oriented to time, oriented to situation, CN II-XII grossly intact Psychiatric exam: PRESENT: appropriate affect, normal mood Skin exam: PRESENT: intact, normal color Results Laboratory Results: 03/28/17 05:12 03/28/17 05:12 03/28/17 03/28/17 05:12 05:12 WBC 15.7 H RBC 4.49 Hgb 13.1 L Hct 38.9 MCV 87 MCH 29.1 MCHC 33.6 RDW 13.4 Plt Count 237 Seg Neutrophils % Not Reportable Lymphocytes % Not Reportable Monocytes % Not Reportable Eosinophils % Not Reportable Basophils % Not Reportable Absolute Neutrophils Not Reportable Absolute Lymphocytes Not Reportable Absolute Monocytes Not Reportable Absolute Eosinophils Not Reportable Absolute Basophils Not Reportable Sodium 139.3 Potassium 4.3 Chloride 104 Carbon Dioxide 22 Anion Gap 13 BUN 16 Creatinine 0.94 Est GFR ( Amer) > 60 Est GFR (Non-Af Amer) > 60 Glucose 217 H Calcium 8.6 Magnesium 2.1 03/27/17 07:35 Troponin I 0.062 Impressions: Chest/Abdomen CTA 03/26/17 00:00 IMPRESSION: 1. No pulmonary emboli. 2. Diffuse mixed interstitial and airspace opacities remain in nonspecific finding. In the appropriate clinical setting, findings are consistent with a multi lobar pneumonia ; given distribution, recommend consideration for atypical organisms in treatment planning. Alternate processes to include inflammatory and neoplastic causes are not entirely excluded. Chest X-Ray 03/26/17 16:06 IMPRESSION: In the appropriate clinical setting, findings are consistent with multi lobar pneumonia. Assessment & Plan - Diagnosis (1) Acute respiratory failure with hypoxia Is this a current diagnosis for this admission?: Yes Plan: Continue oxygen supplementation and wean off as tolerated (2) Pneumonia Qualifiers: Pneumonia type: due to unspecified organism Laterality: bilateral Lung location: unspecified part of lung Qualified Code(s): J18.9 - Pneumonia, unspecified organism Is this a current diagnosis for this admission?: Yes Plan: Continue current management. Continue duo nebs and IV steroids for the possibility of COPD (3) Tobacco abuse Is this a current diagnosis for this admission?: Yes Plan: Has been educated about quitting (4) Acute on chronic systolic CHF (congestive heart failure) Is this a current diagnosis for this admission?: Yes Plan: Discontinue IV Lasix and lisinopril and follow up response. BNP elevation on admission could relate to pneumonia - Time Time Spent with patient: 15-24 minutes Medications reviewed and adjusted accordingly: Yes Anticipated discharge: Home Within: within 48 hours - Inpatient Certification Based on my medical assessment, after consideration of the patient's comorbidities, presenting symptoms, or acuity I expect that the services needed warrant INPATIENT care.: Yes I certify that my determination is in accordance with my understanding of Medicare's requirements for reasonable and necessary INPATIENT services [42 CFR 412.3e].: Yes Medical Necessity: Need Close Monitoring Due to Risk of Patient Decompensation, Need For Continuous Telemetry Monitoring, Need for Nebulizer Therapy and Monitoring of Response
[2017-03-28] MEDS: CEFTRIAXONE SODIUM 1,000 MG in DEXTROSE 5%-WATER 100 ML IV SCH (18:14)
[2017-03-29 05:23] LABS: HEMATOCRIT 36.2 % (37.9-51.0); HEMOGLOBIN 12.3 g/dL (13.5-17.0); MEAN CORPUSCULAR HEMOGLOBIN 29.2 pg (27.0-33.4); MEAN CORPUSCULAR HGB CONC 33.9 g/dL (32.0-36.0); MEAN CORPUSCULAR VOLUME 86 fl (80-97); PLATELET COUNT 221 10^3/uL (150-450); RED BLOOD COUNT 4.21 10^6/uL (4.35-5.55); RED CELL DISTRIBUTION WIDTH 13.5 % (11.5-14.0); WHITE BLOOD COUNT 21.5 10^3/uL (4.0-10.5)
[2017-03-29] MEDS: INSULIN LISPRO 100 UNIT/ML 3 ML VIAL SUBCUT PRN (05:39)
[2017-03-29] MEDS: GUAIFENESIN 600 MG TABLET.SA PO SCH (05:39)
[2017-03-29 05:40] LABS: ANION GAP 11 (5-19); BLOOD UREA NITROGEN 29 mg/dL (7-20); CALCIUM 8.9 mg/dL (8.4-10.2); CARBON DIOXIDE 20 mmol/L (22-30); CHLORIDE 109 mmol/L (98-107); GLUCOSE 157 mg/dL (75-110); POTASSIUM 4.5 mmol/L (3.6-5.0); SODIUM 140.3 mmol/L (137-145)
[2017-03-29] MEDS: LANSOPRAZOLE 30 MG TAB.RAP.DR PO SCH (05:40)
[2017-03-29 06:37] LABS: ABSOLUTE LYMPHOCYTES# (MANUAL) 0.4 10^3/uL (0.5-4.7); ABSOLUTE MONOCYTES # (MANUAL) 1.3 10^3/uL (0.1-1.4); ABSOLUTE NEUTROPHILS# (MANUAL) 19.8 10^3/uL (1.7-8.2); BASOPHILS % (MANUAL) 0 % (0-2); EOSINOPHILS % (MANUAL) 0 % (0-6); LYMPHOCYTES % (MANUAL) 2 % (13-45); MONOCYTES % (MANUAL) 6 % (3-13); SEGMENTED NEUTROPHILS % (MAN) 92 % (42-78); TOTAL CELLS COUNTED 100
[2017-03-29 06:38] LABS: PLATELET COMMENT ADEQUATE; PLATELET LARGE PRESENT; RBC MORPHOLOGY COMMENT NORMO-CYTIC/CHROMIC
[2017-03-29] MEDS: IPRATROPIUM/ALBUTEROL 0.5-2.5 MG/3 ML AMPUL NEB SCH ×2 (07:52→13:39)
[2017-03-29] MEDS: AZITHROMYCIN 250 MG TABLET PO SCH (11:13)
[2017-03-29] MEDS: METHYLPREDNISOLONE INJ 40 MG/1 ML SDV IV SCH (11:14)
--- NOTE | 2017-03-29 12:49 | PDOC DISCHARGE SUMMARY ---
General - Admit/Disc Date/PCP Admission Date/Primary Care Provider: 03/26/17 20:39 No primary care provider. He has been set up with the [facility] at the time of discharge. Discharge Date: 03/29/17 - Discharge Diagnosis (1) Acute respiratory failure with hypoxia Is this a current diagnosis for this admission?: Yes Summary: Secondary to multifocal pneumonia. Resolved. There also may have been an element of acute congestive heart failure as well. (2) Pneumonia Is this a current diagnosis for this admission?: Yes Summary: Concerns for gram positives are atypicals. This is most likely an atypical pneumonia. He will complete a course of Zithromax as well as Keflex as an outpatient. His pneumonia is much improved. He did have a multifocal pneumonia at the time of admission. (3) Acute on chronic systolic CHF (congestive heart failure) Is this a current diagnosis for this admission?: Yes Summary: He was diuresed with IV Lasix. Currently he is euvolemic. He would like to be placed back on his heart failure medications as he had run out of refills and no longer has insurance. I have held his lisinopril. I wrote him a prescription for his carvedilol as well as his daily Lasix to take at home. I have asked him to check his blood pressure prior to taking these and if his systolic blood pressure is less than 100 to hold them. We are getting him an appointment to follow-up with the [facility]. (4) Sepsis Is this a current diagnosis for this admission?: Yes Summary: Present on admission manifested by high fever, elevated white blood cell count, tachypnea and tachycardia associated with a multifocal pneumonia. Resolved (5) Tobacco abuse Is this a current diagnosis for this admission?: Yes Summary: The patient is encouraged not to smoke. (6) Hemoptysis Is this a current diagnosis for this admission?: Yes Summary: He reported hemoptysis at the time of admission. He had no further episodes. His hemoglobin is stable. CT of the chest revealed groundglass opacities but no evidence of nodules or underlying malignancies. Certainly needs to quit smoking. This will need to be followed up as an outpatient. (7) AICD (automatic cardioverter/defibrillator) present Is this a current diagnosis for this admission?: Yes Summary: The patient has lost his medical insurance and has not been following with cardiology. We will get him set up at the [facility] and hopefully they can refer him. (8) Hyperglycemia Is this a current diagnosis for this admission?: Yes Summary: Secondary to steroids. Hopefully this will improve after he stops his steroid burst that is prescribed at discharge. - Additional Information Resuscitation Status: Full Code Discharge Diet: Cardiac, Other (Comments) - no added salt Discharge Activity: Activity As Tolerated, Balance Activity w/Rest, Slowly Increase Activity Prescriptions: Hydrocodone Bit/Homatropine [Hycodan Syrup 5-1.5 mg/5 ml Ud Cup] 5 ml PO Q4HP PRN #120 ml PRN Reason: Azithromycin [Zithromax 250 mg Tablet] 500 mg PO DAILY #2 tablet Carvedilol 12.5 mg PO BID #30 tablet Cephalexin [Cephalexin 500 MG Capsule] 1 cap PO QID #12 capsule Furosemide [Lasix 20 mg Tablet] 20 mg PO QAM #30 tablet Prednisone 60 mg PO DAILY #15 tablet Home Medications: Azithromycin [Zithromax 250 mg Tablet] 500 mg PO DAILY #2 tablet 03/29/17 Carvedilol 12.5 mg PO BID #30 tablet 03/29/17 Cephalexin [Cephalexin 500 MG Capsule] 1 cap PO QID #12 capsule 03/29/17 Furosemide [Lasix 20 mg Tablet] 20 mg PO QAM #30 tablet 03/29/17 Hydrocodone Bit/Homatropine [Hycodan Syrup 5-1.5 mg/5 ml Ud Cup] 5 ml PO Q4HP PRN #120 ml 03/29/17 Prednisone 60 mg PO DAILY #15 tablet 03/29/17 History of Present Illness History of Present Illness: PRISCA ARMENTA is a 47 year old male Hospital Course Hospital Course: The patient is an extremely pleasant 47-year-old male with a past medical history significant for an NM and possible congestive heart failure status post AICD placement in June 2014. 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 In any event the patient presented to the emergency room with flulike symptoms. He was running fevers and had increased cough and congestion. In the emergency room he was found to be hypoxic with evidence of a septic picture. A CT angiography and chest x-ray was concerning for multifocal pneumonia. At the time of admission the patient had been complaining of hemoptysis and actually coughed up some blood in the ED. He was admitted to the hospital start. He was started on IV Zithromax and Rocephin. He was also started on IV Solu-Medrol and aggressive breathing treatments. Over the next several the patient did respond quite well to therapy. He is totally been weaned off of his oxygen at this point. He is up ambulating around the unit and desires to go home. I am going to ask the discharge planners to please get him set up at the [facility] in [place] as he does need a physician to follow him closely as an outpatient in light of his cardiac history. He is requesting refills for his cardiac medications to include carvedilol, Lasix and lisinopril. I have written him a prescription at discharge for carvedilol as well as his Lasix however I did not write for lisinopril. The patient's blood pressure has been on the low side. I have asked the patient to check his bloods blood pressure prior to taking the medication and if his systolic blood pressures less than 100 to hold it. Hopefully [facility] and they can manage this going forward. At this point maximum hospital benefit has been reached. The patient will be discharged home today in stable condition Physical Exam Vital Signs: Temp Pulse Resp BP Pulse Ox 98.2 F 108 H 20 93/60 L 94 03/29/17 08:00 03/29/17 08:00 03/29/17 08:00 03/29/17 08:00 03/29/17 08:00 Pulse Oximeter Continuous Start: 03/26/17 20: 44 Freq: RTQ4 Status: Active Document 03/29/17 07:52 [facility] (Rec: 03/29/17 12:33 [facility] [id number]) Pulse Oximetry Assessment Oxygen Saturation (92-100) 95 Oxygen Delivery Method Room Air Fraction of Inspired Oxygen (FIO2) 21 Equipment Usage Equipment in Use Continuous SpO2 Machine # N 4 Intake & Output 03/28/17 03/29/17 03/30/17 06:59 06:59 06:59 Intake Total 5204 1756 Output Total 1850 Balance 3374 1756 Weight 85 kg 86 kg General appearance: PRESENT: no acute distress, well-developed, well-nourished Head exam: PRESENT: atraumatic, normocephalic Eye exam: PRESENT: conjunctiva pink, EOMI, PERRLA. ABSENT: scleral icterus Mouth exam: PRESENT: moist, tongue midline Neck exam: ABSENT: carotid bruit, JVD, lymphadenopathy, thyromegaly Respiratory exam: PRESENT: clear to auscultation brigido, decreased breath sounds. ABSENT: rales, rhonchi, wheezes Cardiovascular exam: PRESENT: RRR. ABSENT: diastolic murmur, rubs, systolic murmur Pulses: PRESENT: normal dorsalis pedis pul GI/Abdominal exam: PRESENT: normal bowel sounds, soft. ABSENT: distended, guarding, mass, organolmegaly, rebound, tenderness Rectal exam: PRESENT: deferred Extremities exam: PRESENT: full ROM. ABSENT: calf tenderness, clubbing, pedal edema Musculoskeletal exam: PRESENT: ambulatory Neurological exam: PRESENT: alert, awake, oriented to person, oriented to place , oriented to time, oriented to situation, CN II-XII grossly intact. ABSENT: motor sensory deficit Psychiatric exam: PRESENT: appropriate affect, normal mood. ABSENT: homicidal ideation, suicidal ideation Skin exam: PRESENT: dry, intact, warm. ABSENT: cyanosis, rash Results Laboratory Results: 03/29/17 04:31 03/29/17 04:31 03/29/17 03/29/17 04:31 04:31 WBC 21.5 H RBC 4.21 L Hgb 12.3 L Hct 36.2 L MCV 86 MCH 29.2 MCHC 33.9 RDW 13.5 Plt Count 221 Seg Neutrophils % Not Reportable Lymphocytes % Not Reportable Monocytes % Not Reportable Eosinophils % Not Reportable Basophils % Not Reportable Absolute Neutrophils Not Reportable Absolute Lymphocytes Not Reportable Absolute Monocytes Not Reportable Absolute Eosinophils Not Reportable Absolute Basophils Not Reportable Sodium 140.3 Potassium 4.5 Chloride 109 H Carbon Dioxide 20 L Anion Gap 11 BUN 29 H Creatinine 0.95 Est GFR ( Amer) > 60 Est GFR (Non-Af Amer) > 60 Glucose 157 H Calcium 8.9 03/27/17 07:35 Troponin I 0.062 Impressions: Chest/Abdomen CTA 03/26/17 00:00 IMPRESSION: 1. No pulmonary emboli. 2. Diffuse mixed interstitial and airspace opacities remain in nonspecific finding. In the appropriate clinical setting, findings are consistent with a multi lobar pneumonia ; given distribution, recommend consideration for atypical organisms in treatment planning. Alternate processes to include inflammatory and neoplastic causes are not entirely excluded. Chest X-Ray 03/26/17 16:06 IMPRESSION: In the appropriate clinical setting, findings are consistent with multi lobar pneumonia. Qualifiers PATEINT BEING DISCHARGED WITH ANY OF THE FOLLOWING DIAGNOSIS?: Heart Failure HF Pt being discharged on ACEI for LVEF less than 40%?: No Plan Discharge Plan: Discharge to home Time Spent: Greater than 30 Minutes
[2017-03-29 13:02] VITALS: BP 93/60
== END 2017-03-29 14:30 | disposition home or self-care (01) | DRG 871 ==
LOC: ER 15:01 → EH 20:39 → 4W 23:50
PROVIDERS: ADMIT Pediatrics; ATTEND Pediatrics
PROC: 3E0234Z Introduction of Serum, Toxoid and Vaccine into Muscle, Percutaneous Approach (ICD-10-PCS; principal; 2017-03-29)
DX: A41.9 Sepsis, unspecified organism (principal); J18.9 Pneumonia, unspecified organism; J96.01 Acute respiratory failure with hypoxia; I50.23 Acute on chronic systolic (congestive) heart failure; R04.2 Hemoptysis; R73.9 Hyperglycemia, unspecified; F17.210 Nicotine dependence, cigarettes, uncomplicated; I25.2 Old myocardial infarction; Z95.810 Presence of automatic (implantable) cardiac defibrillator; Z23 Encounter for immunization
CPT/HCPCS: 36415; 71046; 71275; 80048; 80053; 82962; 83735; 83880; 84484; 85025; 87040; 87804; 90686; 93005; 93010; 94762; 94799; 96374; 99285; J0456; J0696; J1815; J1940; J2920; J3490; J7030; J7120; J7620

== ENCOUNTER 2017-04-01 14:34 | Inpatient (IN) | payer SELFPAY ==
--- NOTE | 2017-04-01 16:05 | ER Document Report ---
ED Medical Screen (RME) - General Chief Complaint: Productive Cough Stated Complaint: COUGHING UP BLOOD Time Seen by Provider: 04/01/17 15:55 Mode of Arrival: Ambulatory Information source: Patient Notes: This is a 47-year-old man with underlying heart disease (CHF, pacemaker defibrillator), status post recent multifocal pneumonia with admission ( discharged last Tuesday) who presents to the emergency room with persistent cough, blood in the sputum, shortness of breath. Patient does say that other than the blood in the sputum, he has improved. TRAVEL OUTSIDE OF THE [place] IN LAST 30 DAYS: No - Related Data Allergies/Adverse Reactions: No Known Allergies Allergy (Verified 04/01/17 14:36) Past Medical History - Social History Chew tobacco use (# tins/day): No Frequency of alcohol use: None Drug Abuse: None - Past Medical History Cardiac Medical History: Reports: Hx Congestive Heart Failure, Hx Heart Attack - 2013 Pulmonary Medical History: Reports: Hx Pneumonia Renal/ Medical History: Denies: Hx Peritoneal Dialysis Psychiatric Medical History: Reports: Hx Depression Past Surgical History: Reports: Hx Cardiac Surgery - AICD, Other - AICD in June of 2014. Denies: Hx Cardiac Catheterization - Immunizations History of Influenza Vaccine for 11/2016 - 04/2017 Season: No Physical Exam - Vital signs Vitals: Temp Pulse Resp BP Pulse Ox 98.7 F 117 H 20 133/84 H 92 04/01/17 14:45 04/01/17 14:45 04/01/17 14:45 04/01/17 14:45 04/01/17 14:45 Course - Vital Signs Vital signs: Temp Pulse Resp BP Pulse Ox 98.7 F 117 H 20 133/84 H 92 04/01/17 14:45 04/01/17 14:45 04/01/17 14:45 04/01/17 14:45 04/01/17 14:45
[2017-04-01 16:43] LABS: HEMATOCRIT 41.6 % (37.9-51.0); HEMOGLOBIN 13.8 g/dL (13.5-17.0); MEAN CORPUSCULAR HEMOGLOBIN 28.9 pg (27.0-33.4); MEAN CORPUSCULAR HGB CONC 33.3 g/dL (32.0-36.0); MEAN CORPUSCULAR VOLUME 87 fl (80-97); PLATELET COUNT 368 10^3/uL (150-450); RED BLOOD COUNT 4.79 10^6/uL (4.35-5.55); WHITE BLOOD COUNT 28.9 10^3/uL (4.0-10.5)
[2017-04-01 16:58] LABS: ALANINE AMINOTRANSFERASE 157 U/L (21-72); ALBUMIN 3.2 g/dL (3.5-5.0); ALKALINE PHOSPHATASE 80 U/L (38-126); ANION GAP 11 (5-19); ASPARTATE AMINO TRANSFERASE 47 U/L (17-59); BILIRUBIN,DIRECT 0.1 mg/dL (0.0-0.4); BILIRUBIN,TOTAL 0.4 mg/dL (0.2-1.3); BLOOD UREA NITROGEN 23 mg/dL (7-20); CALCIUM 8.6 mg/dL (8.4-10.2); CARBON DIOXIDE 23 mmol/L (22-30); CHLORIDE 106 mmol/L (98-107); GLUCOSE 205 mg/dL (75-110); SODIUM 139.9 mmol/L (137-145); TOTAL PROTEIN 5.7 g/dL (6.3-8.2)
--- NOTE | 2017-04-01 16:59 | RADIOLOGY REPORT (SQ) ---
EXAM DESCRIPTION: CHEST PA/LAT COMPLETED DATE/TIME: 04/01/2017 4:44 pm REASON FOR STUDY: cough, sob COMPARISON: 03/26/2017 NUMBER OF VIEWS: Two view TECHNIQUE: Frontal and lateral radiographic images of the chest acquired. LIMITATIONS: None. FINDINGS: LUNGS AND PLEURA: Bilateral airspace disease with increasing density in the right lung. MEDIASTINUM AND HILAR STRUCTURES: Stable heart size and mediastinal structures. HEART AND VASCULAR STRUCTURES: Stable appearance. SUPPORT DEVICES: Stable position of defibrillator. BONES: No acute findings. OTHER: No other significant finding. IMPRESSION: Rehydration versus progressing pneumonia. Perihilar distribution could represent concur rent volume overload or congestive heart failure. Clinical correlation is needed. TECHNICAL DOCUMENTATION: JOB ID: [id number] [employer]- All Rights Reserved
[2017-04-01 17:05] LABS: BASOPHILS % (MANUAL) 0 % (0-2); EOSINOPHILS % (MANUAL) 0 % (0-6)
[2017-04-01 17:06] LABS: ABSOLUTE LYMPHOCYTES# (MANUAL) 1.2 10^3/uL (0.5-4.7); ABSOLUTE NEUTROPHILS# (MANUAL) 25.7 10^3/uL (1.7-8.2); LYMPHOCYTES % (MANUAL) 4 % (13-45); MONOCYTES % (MANUAL) 7 % (3-13); SEGMENTED NEUTROPHILS % (MAN) 89 % (42-78); TOTAL CELLS COUNTED 100
[2017-04-01 17:09] LABS: PLATELET CLUMPS PRESENT; PLATELET COMMENT ADEQUATE; PLATELET LARGE PRESENT; RBC MORPHOLOGY COMMENT NORMO-CYTIC/CHROMIC
--- NOTE | 2017-04-01 19:02 | ER Document Report ---
ED General - General Chief Complaint: Productive Cough Stated Complaint: COUGHING UP BLOOD Time Seen by Provider: 04/01/17 15:55 Mode of Arrival: Ambulatory Notes: Patient is a 47-year-old male with a past medical history of an PA with associated congestive heart failure status post AICD placement who presents with ongoing shortness of breath, cough, hemoptysis, and fever. Patient was seen 6 days ago and hospitalized for 3 days with the diagnosis of an acute pneumonia. He states he completed the entirety of the antibiotic course but has not had any improvement of his symptoms and reports they have gotten significantly worse. He reports a constant shortness of breath that is worsened by exertion. Nothing improves his symptoms. He notes that he feels much worse at night and typically becomes diaphoretic and febrile in the evening and feels relatively well during the day. He has been unable to follow- up with any primary care physician as he does not have access to insurance. He denies any medication noncompliance, dietary indiscretions, or significant lower extremity edema. He denies that anything improves his symptoms. He denies any syncope, chest pain, headache, neck pain or altered mental status. TRAVEL OUTSIDE OF THE [place] IN LAST 30 DAYS: No - Related Data Allergies/Adverse Reactions: No Known Allergies Allergy (Verified 04/01/17 14:36) Past Medical History - General Information source: Patient - Social History Smoking Status: Former Smoker Chew tobacco use (# tins/day): No Frequency of alcohol use: None Drug Abuse: None Lives with: Alone Family History: Reviewed & Not Pertinent, Hypertension Patient has suicidal ideation: No Patient has homicidal ideation: No - Past Medical History Cardiac Medical History: Reports: Hx Congestive Heart Failure, Hx Heart Attack - 2013 Pulmonary Medical History: Reports: Hx Pneumonia Renal/ Medical History: Denies: Hx Peritoneal Dialysis Psychiatric Medical History: Reports: Hx Depression Past Surgical History: Reports: Hx Cardiac Surgery - AICD, Other - AICD in June of 2014. Denies: Hx Cardiac Catheterization Review of Systems - Review of Systems Notes: Constitutional: Positive for fever. HENT: Negative for sore throat. Eyes: Negative for visual changes. Cardiovascular: Negative for chest pain. Respiratory: Positive for shortness of breath. Gastrointestinal: Negative for abdominal pain, vomiting or diarrhea. Genitourinary: Negative for dysuria. Musculoskeletal: Negative for back pain. Skin: Negative for rash. Neurological: Negative for headaches, weakness or numbness. 10 point ROS negative except as marked above and in HPI. Physical Exam - Vital signs Vitals: Temp Pulse Resp BP Pulse Ox 98.7 F 117 H 20 133/84 H 92 04/01/17 14:45 04/01/17 14:45 04/01/17 14:45 04/01/17 14:45 04/01/17 14:45 Interpretation: Tachycardic, Hypoxic, Tachypneic Notes: PHYSICAL EXAMINATION: GENERAL: Appears moderately uncomfortable but in no acute distress HEAD: Atraumatic, normocephalic. EYES: Pupils equal round and reactive to light, extraocular movements intact, sclera anicteric, conjunctiva are normal. ENT: nares patent, oropharynx clear without exudates. Mild dry mucous membranes. NECK: Normal range of motion, supple without lymphadenopathy LUNGS: Rhonchorous breath sounds throughout. Mild tachypnea but no respiratory distress. HEART: Regular tachycardia without murmurs ABDOMEN: Soft, nontender, normoactive bowel sounds. No guarding, no rebound. No masses appreciated. EXTREMITIES: Normal range of motion, trace edema bilateral lower extremities. No cyanosis. NEUROLOGICAL: No focal neurological deficits. Moves all extremities spontaneously and on command. PSYCH: Normal mood, normal affect. SKIN: Warm, Dry, normal turgor, no rashes or lesions noted. Course - Re-evaluation Re-evalutation: 04/01/17 19:00 Patient presents with signs and symptoms very worrisome for possible tuberculosis. Patient is having night sweats, nighttime fevers, exertional dyspnea, gross hemoptysis, and has had clinical worsening of his symptoms despite appropriate treatment for community-acquired and atypical pneumonia. He presents tachycardic, tachypneic, but in no acute distress. The patient has multiple risk factors for tuberculosis including a prior extended period of incarceration, prior IV drug use, and his mother had tuberculosis as a child. I immediately placed the patient on isolation with respiratory precautions. I have spoke with radiology regarding his chest x-ray which is clearly much worse than the chest x-ray from the . He confirms that tuberculosis can have this appearance but that the chest x-ray itself is not diagnostic. I have sent appropriate TB tests, and will discuss with hospitalist for admission. 04/01/17 19:39 I discussed this case with Dr. Murphy who is agreed to hospitalize the patient and begin the appropriate antibiotic therapies. - Vital Signs Vital signs: Temp Pulse Resp BP Pulse Ox 98.7 F 102 H 40 H 109/87 H 97 04/01/17 14:45 04/02/17 01:55 04/02/17 01:55 04/02/17 00:33 04/02/17 01:00 - Laboratory Result Diagrams: 04/01/17 16:16 04/01/17 16:16 Laboratory results interpreted by me: 04/01/17 04/01/17 04/01/17 16:16 16:16 16:16 WBC 28.9 H Seg Neuts % (Manual) 89 H Lymphocytes % (Manual) 4 L Abs Neuts (Manual) 25.7 H Abs Monocytes (Manual) 2.0 H BUN 23 H Glucose 205 H Hemoglobin A1c % ALT 157 H Lactate Dehydrogenase 968 H Total Protein 5.7 L Albumin 3.2 L 04/01/17 16:16 WBC Seg Neuts % (Manual) Lymphocytes % (Manual) Abs Neuts (Manual) Abs Monocytes (Manual) BUN Glucose Hemoglobin A1c % 6.1 H ALT Lactate Dehydrogenase Total Protein Albumin - Diagnostic Test Radiology reviewed: Image reviewed, Reports reviewed Radiology results interpreted by me: 04/01/17 19:39 Chest x-ray: Markedly increased prominence of infiltrates bilaterally worse in the right in the perihilar region - EKG Interpretation by Me Additional EKG results interpreted by me: 04/02/17 02:55 Sinus tachycardia. Rate 120. No ST elevations or depressions. QTC is 470. Discharge - Discharge Clinical Impression: Hemoptysis, Hypoxia, Acute respiratory failure with hypoxia Sepsis Qualifiers: Sepsis type: sepsis due to unspecified organism Qualified Code(s): A41.9 - Sepsis, unspecified organism Condition: Fair Disposition: ADMITTED INPATIENT Admitting Provider: Giuliano Murphy Unit Admitted: [facility]
[2017-04-01] MEDS ORDERED: NORMAL SALINE 1000 ML 1,000 ML IV ONE (19:37)
[2017-04-01] MEDS ORDERED: ACETAMINOPHEN 325 MG TABLET PO PRN (19:46)
[2017-04-01] MEDS ORDERED: IPRATROPIUM/ALBUTEROL 0.5-2.5 MG/3 ML AMPUL NEB PRN (19:46)
[2017-04-01] MEDS ORDERED: GUAIFENESIN SYRP 200 MG/10 ML UDC PO PRN (19:46)
[2017-04-01] MEDS ORDERED: CEFTRIAXONE 1 GM/D5W RTU 50 ML IV SCH (20:00)
[2017-04-01] MEDS: IPRATROPIUM/ALBUTEROL 0.5-2.5 MG/3 ML AMPUL NEB SCH (21:10)
[2017-04-01] MEDS: CARVEDILOL 12.5 MG TABLET PO SCH (21:58)
[2017-04-01] MEDS: GUAIFENESIN 600 MG TABLET.SA PO SCH (21:59)
[2017-04-01] MEDS: METHYLPREDNISOLONE INJ 125 MG/2 ML SDV IV SCH (21:59)
[2017-04-01] MEDS: HEPARIN SOD (PORCINE) 5,000 UNIT/ML 1 ML SYRINGE SUBCUT SCH (22:00)
[2017-04-01] MEDS ORDERED: TUBERCULIN,PURIF.PROT.DERIV. 5 TU/0.1 ML TEST 1 ML VIAL ID ONE (22:00)
[2017-04-01] MEDS ORDERED: AZITHROMYCIN 500 MG in DEXTROSE 5%-WATER 250 ML IV SCH (22:00)
[2017-04-01] MEDS ORDERED: FUROSEMIDE INJ/PF 40 MG/4 ML SDV IV ONE (22:15)
[2017-04-01] MEDS ORDERED: CEFTRIAXONE SODIUM 1,000 MG in NORMAL SALINE 100 ML IV SCH (23:00)
[2017-04-01 23:54] LABS: CREATINE KINASE MB 2.03 ng/mL (<4.55)
[2017-04-02 00:05] LABS: TROPONIN I 0.057 ng/mL
[2017-04-02] MEDS ORDERED: MORPHINE SULFATE 10 MG/ML INJ IV ONE (00:23)
[2017-04-02] MEDS: PIPERACILLIN SODIUM/TAZOBACTAM 4.5 GM in NORMAL SALINE 100 ML IV SCH ×2 (00:50→05:54)
[2017-04-02 01:34] LABS: ARTERIAL BLOOD BASE EXCESS -2.8 mmol/L; ARTERIAL BLOOD H2CO3 0.95 mmol/L (1.05-1.35); ARTERIAL BLOOD HCO3 20.4 mmol/L (20-26); ARTERIAL BLOOD O2 SATURATION 97.7 % (94-98); ARTERIAL BLOOD PCO2 31.4 mmHg (35-45); ARTERIAL BLOOD PH 7.43 (7.35-7.45); ARTERIAL BLOOD PO2 97.8 mmHg (80-100); ARTERIAL BLOOD TOTAL CO2 21.4 mmol/L (23-27)
[2017-04-02] MEDS: IPRATROPIUM/ALBUTEROL 0.5-2.5 MG/3 ML AMPUL NEB SCH ×4 (01:57→20:36)
[2017-04-02 02:25] LABS: INTERNATIONAL RATION (INR) 1.02; PROTHROMBIN TIME 14.1 SEC (11.4-15.4)
[2017-04-02 02:29] LABS: URINE AMPHETAMINES SCREEN NEGATIVE; URINE BARBITURATES SCREEN NEGATIVE; URINE BENZODIAZEPINES SCREEN NEGATIVE; URINE COCAINE SCREEN NEGATIVE; URINE MARIJUANA (THC) SCREEN NEGATIVE; URINE METHADONE SCREEN NEGATIVE; URINE PHENCYCLIDINE SCREEN NEGATIVE
[2017-04-02 04:28] LABS: HEMATOCRIT 40.2 % (37.9-51.0); HEMOGLOBIN 13.5 g/dL (13.5-17.0); MEAN CORPUSCULAR HGB CONC 33.5 g/dL (32.0-36.0); MEAN CORPUSCULAR VOLUME 87 fl (80-97); PLATELET COUNT 337 10^3/uL (150-450); RED BLOOD COUNT 4.64 10^6/uL (4.35-5.55); WHITE BLOOD COUNT 25.7 10^3/uL (4.0-10.5)
[2017-04-02 04:45] LABS: ANION GAP 11 (5-19); BLOOD UREA NITROGEN 24 mg/dL (7-20); CALCIUM 8.5 mg/dL (8.4-10.2); CARBON DIOXIDE 19 mmol/L (22-30); CHLORIDE 105 mmol/L (98-107); CREATINE KINASE 89 U/L (55-170); GLUCOSE 266 mg/dL (75-110); POTASSIUM 5.4 mmol/L (3.6-5.0); SODIUM 134.9 mmol/L (137-145)
[2017-04-02 04:57] LABS: CREATINE KINASE MB 1.95 ng/mL (<4.55); TROPONIN I 0.055 ng/mL
[2017-04-02 05:00] LABS: ABSOLUTE LYMPHOCYTES# (MANUAL) 1.8 10^3/uL (0.5-4.7); ABSOLUTE NEUTROPHILS# (MANUAL) 22.9 10^3/uL (1.7-8.2); BASOPHILS % (MANUAL) 0 % (0-2); EOSINOPHILS % (MANUAL) 0 % (0-6); LYMPHOCYTES % (MANUAL) 7 % (13-45); MONOCYTES % (MANUAL) 4 % (3-13); SEGMENTED NEUTROPHILS % (MAN) 89 % (42-78); TOTAL CELLS COUNTED 100
[2017-04-02 05:03] LABS: ANISOCYTOSIS SLIGHT; PLATELET COMMENT ADEQUATE; PLATELET LARGE PRESENT; POLYCHROMASIA SLIGHT
[2017-04-02] MEDS: HEPARIN SOD (PORCINE) 5,000 UNIT/ML 1 ML SYRINGE SUBCUT SCH ×3 (06:30→21:20)
[2017-04-02] MEDS: METHYLPREDNISOLONE INJ 125 MG/2 ML SDV IV SCH (06:30)
--- NOTE | 2017-04-02 06:53 | PDOC H&P ---
History of Present Illness Admission Date/PCP: 04/01/17 19:54 Patient complains of: Shortness of breath and orthopnea History of Present Illness: PRISCA ARMENTA is a 47 year old male with a past medical history of coronary artery disease, congestive heart failure status post permanent pacemaker defibrillator placement, polysubstance abuse, tobacco, incarceration and recent pneumonia. Patient was treated and released 3 days ago for pneumonia, he was unable to fill prescriptions for antibiotic. He returns without fever but tachypnea, cough, orthopnea, markedly leukocytosis, BNP of 3000 and a chest x- ray suggestive of pulmonary edema versus multifocal pneumonia. He is placed on empiric antibiotics and referred to the hospitalist for admission. Past Medical History Cardiac Medical History: Reports: Congestive Heart Failure, Myocardial Infarction - 2013 Pulmonary Medical History: Reports: Pneumonia Psychiatric Medical History: Reports: Depression, Substance Abuse, Tobacco Dependency Past Surgical History Past Surgical History: Reports: Other - AICD in June of 2014 Denies: Cardiac Catheterization Social History Information Source: Patient, [facility] Records Lives with: Alone Smoking Status: Former Smoker Frequency of Alcohol Use: None Hx Recreational Drug Use: Yes Drugs: Cocaine, Other Hx Prescription Drug Abuse: No - denied Family History Family History: Hypertension Parental Family History Reviewed: Yes Children Family History Reviewed: Yes Sibling(s) Family History Reviewed.: Yes Medication/Allergy Home Medications: Carvedilol 12.5 mg PO BID #30 tablet 03/29/17 Furosemide [Lasix 20 mg Tablet] 20 mg PO QAM #30 tablet 03/29/17 Prednisone 60 mg PO DAILY #15 tablet 03/29/17 Allergies/Adverse Reactions: No Known Allergies Allergy (Verified 04/01/17 14:36) Physical Exam Vital Signs: Temp Pulse Resp BP Pulse Ox 98.7 F 102 H 34 H 93/70 L 89 L 04/01/17 14:45 04/02/17 01:55 04/02/17 06:31 04/02/17 06:31 04/02/17 06:31 General appearance: PRESENT: cooperative, severe distress Head exam: PRESENT: atraumatic, normocephalic Eye exam: PRESENT: conjunctiva pink, EOMI, PERRLA. ABSENT: scleral icterus Ear exam: PRESENT: normal external ear exam Mouth exam: PRESENT: moist, tongue midline Neck exam: PRESENT: JVD Respiratory exam: PRESENT: accessory muscle use, decreased breath sounds, rales , retraction, tachypnea, wheezes Cardiovascular exam: PRESENT: gallop, RRR, tachycardia. ABSENT: diastolic murmur, rubs, systolic murmur Pulses: PRESENT: normal dorsalis pedis pul Vascular exam: PRESENT: normal capillary refill GI/Abdominal exam: PRESENT: normal bowel sounds, soft. ABSENT: distended, guarding, mass, organolmegaly, rebound, tenderness Rectal exam: PRESENT: deferred Extremities exam: PRESENT: +1 edema Neurological exam: PRESENT: alert, awake, oriented to person, oriented to place , oriented to time, oriented to situation, CN II-XII grossly intact. ABSENT: motor sensory deficit Psychiatric exam: PRESENT: appropriate affect, normal mood. ABSENT: homicidal ideation, suicidal ideation Skin exam: PRESENT: dry, intact, warm. ABSENT: cyanosis, rash Results Laboratory Results: 04/02/17 04:08 04/02/17 04:08 04/02/17 04/02/17 04/02/17 00:55 04:08 04:08 WBC 25.7 H RBC 4.64 Hgb 13.5 Hct 40.2 MCV 87 MCH 29.0 MCHC 33.5 RDW 14.0 Plt Count 337 Seg Neutrophils % Not Reportable Lymphocytes % Not Reportable Monocytes % Not Reportable Eosinophils % Not Reportable Basophils % Not Reportable Absolute Neutrophils Not Reportable Absolute Lymphocytes Not Reportable Absolute Monocytes Not Reportable Absolute Eosinophils Not Reportable Absolute Basophils Not Reportable Carbonic Acid 0.95 L HCO3/H2CO3 Ratio 21:1 ABG pH 7.43 ABG pCO2 31.4 L ABG pO2 97.8 ABG HCO3 20.4 ABG O2 Saturation 97.7 ABG Base Excess -2.8 FiO2 41% Sodium 134.9 L Potassium 5.4 H Chloride 105 Carbon Dioxide 19 L Anion Gap 11 BUN 24 H Creatinine 0.96 Est GFR ( Amer) > 60 Est GFR (Non-Af Amer) > 60 Glucose 266 H Calcium 8.5 04/01/17 04/01/17 04/01/17 23:20 23:20 23:20 Creatine Kinase 92 CK-MB (CK-2) 2.03 Troponin I 0.057 NT-Pro-B Natriuret Pep 2780 H 04/02/17 04/02/17 04:08 04:08 Creatine Kinase 89 CK-MB (CK-2) 1.95 Troponin I 0.055 NT-Pro-B Natriuret Pep Impressions: Chest X-Ray 04/01/17 16:04 IMPRESSION: Rehydration versus progressing pneumonia. Perihilar distribution could represent concurrent volume overload or congestive heart failure. Clinical correlation is needed. Assessment & Plan - Diagnosis (1) Acute exacerbation of congestive heart failure Is this a current diagnosis for this admission?: Yes Plan: BiPAP, loop diuretic, NIKHIL inhibitor and education obtain 2D echo follow-up cardiac enzymes. (2) Acute respiratory failure with hypoxia Is this a current diagnosis for this admission?: Yes Plan: Likely multifactorial secondary to pneumonia and congestive heart failure. Please see #1 and 3, supplemental oxygen and BiPAP (3) Pneumonia Qualifiers: Pneumonia type: due to unspecified organism Laterality: bilateral Lung location: unspecified part of lung Qualified Code(s): J18.9 - Pneumonia, unspecified organism Is this a current diagnosis for this admission?: Yes Plan: Given history of IV drug abuse and incarceration AFB and mycoplasma PCR pending , otherwise empiric antibiotics as patient felt improved following Rocephin and azithromycin 3 days. Follow-up CBC, blood culture and PPD. - Time Time Spent: 50 to 70 Minutes - Inpatient Certification Medical Necessity: Need Close Monitoring Due to Risk of Patient Decompensation
[2017-04-02] MEDS ORDERED: VANCOMYCIN HCL 0 MG in DEXTROSE 5%-WATER 250 ML IV NR (08:45)
[2017-04-02] MEDS ORDERED: CEFEPIME 1 GM/D5W RTU 1 GM/50 ML RTUPB IV SCH (09:00)
--- NOTE | 2017-04-02 09:53 | EKG REPORT ---
SEVERITY:- BORDERLINE ECG - SINUS TACHYCARDIA PROBABLE LEFT ATRIAL ABNORMALITY BORDERLINE LEFT AXIS DEVIATION : Confirmed by: Uli Willams 02-Apr-2017 09:53:08
[2017-04-02] MEDS: GUAIFENESIN 600 MG TABLET.SA PO SCH ×2 (10:38→21:21)
[2017-04-02] MEDS: CARVEDILOL 12.5 MG TABLET PO SCH ×2 (10:39→21:20)
[2017-04-02] MEDS ORDERED: NORMAL SALINE 1000 ML 1,000 ML IV PRN (10:58)
[2017-04-02] MEDS: VANCOMYCIN HCL 1,500 MG in DEXTROSE 5%-WATER 250 ML IV SCH ×2 (11:06→23:20)
[2017-04-02] MEDS ORDERED: NORMAL SALINE 1000 ML 1,000 ML IV ONE (11:30)
--- NOTE | 2017-04-02 12:05 | PDOC PROGRESS REPORT ---
Subjective Progress Note for:: 04/02/17 Subjective:: F/U PNEUMONIA, acute hypoxic resp failure, hemoptysis SUMMARY: per H&P - "PRISCA ARMENTA is a 47 year old male with a past medical history of coronary artery disease, congestive heart failure status post permanent pacemaker defibrillator placement, polysubstance abuse, tobacco, incarceration and recent pneumonia. Patient was treated and released 3 days ago for pneumonia, he was unable to fill prescriptions for antibiotic. He returns without fever but tachypnea, cough, orthopnea, markedly leukocytosis, BNP of 3000 and a chest x-ray suggestive of pulmonary edema versus multifocal pneumonia. He is placed on empiric antibiotics and referred to the hospitalist for admission." I inherited his care the next morning and he is resting comfortably on BiPAP for increased WOB, FiO2 40% and maintaining his sats at present. he is able to speak in sentences without pausing for resp's and overall feels better. he reports to me that he DID get his abx filled and has been taking at home; he didn't get the coreg or the lasix Rx'd at discharge. ROS: he denies chest pain, fevers/chills, ENRIQUE, swelling of his legs, orthopnea, weight gain or loss, night sweats; all systems reviewed, see above, remaining systems negative. Reason For Visit: HEMOPTYSIS,HYPOXIA,ACUTE RESPIRATORY FAILURE WITH Physical Exam Vital Signs: Temp Pulse Resp BP Pulse Ox 97.5 F 102 H 41 H 92/75 L 91 L 04/02/17 06:54 04/02/17 01:55 04/02/17 09:31 04/02/17 10:32 04/02/17 10:32 General appearance: PRESENT: no acute distress, well-developed, well-nourished Head exam: PRESENT: atraumatic, normocephalic Eye exam: PRESENT: EOMI. ABSENT: scleral icterus Mouth exam: PRESENT: moist, neck supple Neck exam: PRESENT: full ROM. ABSENT: carotid bruit, JVD, lymphadenopathy, tenderness Respiratory exam: PRESENT: crackles - and coarse throughout both lung ramos. ABSENT: accessory muscle use Cardiovascular exam: PRESENT: RRR, systolic murmur - soft at apex Pulses: PRESENT: normal carotid pulses, normal radial pulses GI/Abdominal exam: PRESENT: normal bowel sounds, soft. ABSENT: tenderness Extremities exam: ABSENT: calf tenderness, pedal edema Musculoskeletal exam: PRESENT: ambulatory, full ROM Neurological exam: PRESENT: alert, awake, oriented to person, oriented to place , oriented to time, oriented to situation Psychiatric exam: PRESENT: appropriate affect, normal mood Skin exam: PRESENT: warm. ABSENT: dry Results Laboratory Results: 04/02/17 04:08 04/02/17 04:08 04/02/17 04/02/17 04/02/17 00:55 04:08 04:08 WBC 25.7 H RBC 4.64 Hgb 13.5 Hct 40.2 MCV 87 MCH 29.0 MCHC 33.5 RDW 14.0 Plt Count 337 Seg Neutrophils % Not Reportable Lymphocytes % Not Reportable Monocytes % Not Reportable Eosinophils % Not Reportable Basophils % Not Reportable Absolute Neutrophils Not Reportable Absolute Lymphocytes Not Reportable Absolute Monocytes Not Reportable Absolute Eosinophils Not Reportable Absolute Basophils Not Reportable Carbonic Acid 0.95 L HCO3/H2CO3 Ratio 21:1 ABG pH 7.43 ABG pCO2 31.4 L ABG pO2 97.8 ABG HCO3 20.4 ABG O2 Saturation 97.7 ABG Base Excess -2.8 FiO2 41% Sodium 134.9 L Potassium 5.4 H Chloride 105 Carbon Dioxide 19 L Anion Gap 11 BUN 24 H Creatinine 0.96 Est GFR ( Amer) > 60 Est GFR (Non-Af Amer) > 60 Glucose 266 H Lactic Acid Calcium 8.5 04/02/17 09:24 WBC RBC Hgb Hct MCV MCH MCHC RDW Plt Count Seg Neutrophils % Lymphocytes % Monocytes % Eosinophils % Basophils % Absolute Neutrophils Absolute Lymphocytes Absolute Monocytes Absolute Eosinophils Absolute Basophils Carbonic Acid HCO3/H2CO3 Ratio ABG pH ABG pCO2 ABG pO2 ABG HCO3 ABG O2 Saturation ABG Base Excess FiO2 Sodium Potassium Chloride Carbon Dioxide Anion Gap BUN Creatinine Est GFR ( Amer) Est GFR (Non-Af Amer) Glucose Lactic Acid 3.3 H Calcium 04/01/17 04/01/17 04/01/17 23:20 23:20 23:20 Creatine Kinase 92 CK-MB (CK-2) 2.03 Troponin I 0.057 NT-Pro-B Natriuret Pep 2780 H 04/02/17 04/02/17 04:08 04:08 Creatine Kinase 89 CK-MB (CK-2) 1.95 Troponin I 0.055 NT-Pro-B Natriuret Pep Impressions: Chest X-Ray 04/01/17 16:04 IMPRESSION: Rehydration versus progressing pneumonia. Perihilar distribution could represent concurrent volume overload or congestive heart failure. Clinical correlation is needed. Status: Image reviewed by me - bilquita airspace disease R>L, worse than when he left the hospital a few days ago. Assessment & Plan - Diagnosis (1) Pneumonia Qualifiers: Pneumonia type: due to unspecified organism Laterality: bilateral Lung location: unspecified part of lung Qualified Code(s): J18.9 - Pneumonia, unspecified organism Is this a current diagnosis for this admission?: Yes Plan: unchanged; broaden his abx for nosocomial and resistant pathogens. continue prn BiPAP for increased WOB or distress and wean as tolerated. wean O2 as afshan. Agree with pulmonary consult for bronch. monitor for ARDS, clearly at risk. if worsens, then get repeat ct chest to monitor for empyema, cxr hard to interpret due to dense airspace disease. agree with airborne precautions; ck sputum for TB given his risk factors. place ppd (2) Acute respiratory failure with hypoxia Is this a current diagnosis for this admission?: Yes Plan: unchanged; aggressive pulm toilet, o/w as above (3) Hemoptysis Plan: unclear whether true hemoptysis, to me he described pulm edema type, pink frothy sputum and no bright red blood. continue to monitor and f/u on testing as ordered above (4) Sepsis Qualifiers: Sepsis type: sepsis due to unspecified organism Qualified Code(s): A41.9 - Sepsis, unspecified organism Is this a current diagnosis for this admission?: Yes Plan: present on admission evidenced by tachypnea, leukocytosis and a bacterial pneumonia as source (5) Tobacco abuse Is this a current diagnosis for this admission?: Yes Plan: says he quit as of this admission. - Time Time Spent with patient: 35 or more minutes Medications reviewed and adjusted accordingly: Yes Anticipated discharge: Home Within: within 72 hours
[2017-04-02 12:15] LABS: CREATINE KINASE MB 1.65 ng/mL (<4.55); TROPONIN I 0.037 ng/mL
--- NOTE | 2017-04-02 13:59 | CONSULTATION REPORT E ---
Consultation Report NAME: PRISCA ARMENTA : 1970 AGE: 47Y DATE: 04/02/2017 335 A TO: LUZ QUINONES M.D. FROM: JESSICA YOUNGER M.D. Requesting Physician HISTORY OF PRESENT ILLNESS: Patient is a 47-year-old male who came in for increased shortness of breath yesterday, worsening, coughing yellow-green phlegm and blood-streaked sputum. Patient claimed that he was admitted last week, Sunday 03/26, and was hospitalized for 3 days, managed and treated for CHF and pneumonia, and sent home on Augmentin and Z-Galdino and prednisone on Tuesday. Came back Tuesday, yesterday, about 4 days later, with worsening dyspnea. Chest x-ray showed worsening pulmonary infiltrate, right lung more than the left lung, compared to the chest x-ray when the patient came on 03/26/2017. Patient denied any fever. Patient was started on IV vancomycin, IV azithromycin, and IV cefepime. This morning, blood pressure dipped down to 90/60. Patient was given 2 boluses of 1 L of 0.9 NS in the ED. Patient was given Lasix and carvedilol since last hospitalization. No chest pain and no nausea. No vomiting. No diarrhea. 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. Patient was incarcerated in the past, at least several years ago. Patient has a history of illicit drug use when he was younger. Currently he has 1 sex partner, his girlfriend for the last several years. Claims that he was tested for HIV several years ago in [place], and he was negative. PAST MEDICAL HISTORY: History of heart attack and history of heart failure. No previous cardiac cath done. Patient was on Lasix and carvedilol. No known history of asthma. ALLERGIES: None. SOCIAL HISTORY: Patient lives with girlfriend, has 1 child. Has been having 1 sex partner for the last several years. Has history of illicit drug use when he was younger. The patient smokes about 3-5 cigarettes a day, never smoked heavily in the past. MEDICATIONS AT HOME: Include azithromycin which he was taking every day for the last 5 days since hospital discharge. Also claimed to be taking Augmentin for the last several days but also noted Keflex 500 mg 4 times daily. Patient is on Lasix, varvidelol, hydrocodone, and prednisone 60 mg daily since discharge. Patient reported taking 2 antibiotics since hospital discharge and prednisone. Review of discharge medications was a bit murky, but patient reported that he was taking 2 antibiotics since he was discharged. REVIEW OF SYSTEMS: CONSTITUTIONAL: No fever or chills. EYES: No jaundice or pallor or eye pain. EARS, NOSE AND THROAT: No ear drainage. No nasal discharge. HEAD AND NECK: No scalp swelling. No neck pain. No headache. CHEST AND LUNGS/RESPIRATION: Complaining of increased shortness of breath, increasing coughing with purulent sputum production and blood-tinged sputum production. CARDIAC: History of heart failure. History of hypertension, heart attack. GASTROINTESTINAL: No nausea, vomiting, diarrhea. GENITOURINARY: No dysuria or hematuria. EXTREMITIES: No joint swelling. No cellulitis. No bipedal edema. PHYSICAL EXAMINATION: GENERAL: Patient is awake, alert, oriented. Slight respiratory distress. VITAL SIGNS: Blood pressure of 92/75 around 10:00 and recently about 107/70. Heart rate is 98 per minute. Respiratory rate is 24 per minute. Saturation is 91% on BiPAP. EYES: No jaundice or pallor. EARS, NOSE AND THROAT: No ear drainage. No nasal discharge. HEAD AND NECK: No scalp swelling. No neck tenderness. CHEST AND LUNGS: No wheezing. Fine rales bilaterally. No coarse crackles. No rhonchi. CARDIOVASCULAR: S1, S2 distinct. Normal rate and regular rate. ABDOMEN: Flabby. Positive bowel sounds. Soft. Nondistended. Nontender. EXTREMITIES: No joint swelling. No cellulitis. LABORATORY: CBC done today showed white count of 25.7, down from 28.9 yesterday. Hemoglobin is 13.5. Hematocrit is 40.2. Platelet count is 237. No bands noted. Neutrophils are about 89%, which is high. PT is 14.4, and INR is 1.02. ABG done at midnight last night showed a pH of 7.43; pCO2 is 31.4; pO2 is 97.8 on 41% FIO2. Chemistry showed sodium of 134.9, potassium 5.4, chloride 105. CO2 is 19. Anion gap is 11. Creatinine is 0.96. Glucose is 266. Lactate is 3.3. Calcium is 8.5. Cardiac enzymes appeared to be normal. CK-MB is 1.95 and troponin I 0.055. Chest x-ray on 04/01/2017 showed worsening pulmonary infiltrate bilaterally, more on the right side and worse than the previous x-ray on 03/26/2017. Chest CT scan done on 03/26/2017 showed infiltrate, ground glass opacities alveolar bilaterally suggestive of pulmonary edema versus pneumonia or other atypical infection. ASSESSMENT: 1. PNEUMONIA, MULTILOBAR AND BILATERAL. APPEARS TO BE WORSENING. 2. HYPOTENSION. 3. HEMOPTYSIS PROBABLY DUE TO CONCOMITANT PULMONARY EDEMA PLUS PNEUMONIA. ATYPICAL MYCOBACTERIUM OR PULMONARY TUBERCULOSIS COULD NOT BE COMPLETELY EXCLUDED. 4. HISTORY OF HEART FAILURE AND HEART ATTACK. PLAN/RECOMMENDATIONS: 1. Will do a sputum AFB for 3 days and will discontinue the respiratory isolation after 3 negative sputum AFB exams. 2. Blood cultures and sputum cultures. 3. Will discontinue the IV azithromycin and IV cefepime. Patient is a little bit sicker. Patient will require broader-spectrum antibiotics for now, considering the hypotension noted this morning to 90/60 and markedly severe leukocytosis. Patient also was on azithromycin and Augmentin or cephalexin when he was discharged 5 days ago, and he was taking the 2 antibiotics for the last 5 days prior to this hospitalization. We will start patient on IV Levaquin 750 mg IV piggyback now and once daily thereafter, and we will start patient on IV Zosyn 3.375 gm IV piggyback every 6 hours, first dose now. We will continue the vancomycin 1 gm IV piggyback once daily. Pharmacy to adjust dosing the vancomycin dose based on the serum vancomycin trough level. 4. Will continue the albuterol nebulizer treatment every 6 hours. 5. Continue to optimize CHF therapy. Currently on carvedilol and Lasix. May need to hold Lasix and carvedilol if patient becomes more hypotensive. May use BiPAP therapy as already prescribed. Continuous pulse ox at bedside. DICTATING PHYSICIAN: LUZ QUINONES MD,GREGG,MPH [id number] PHY#: [id number] ID: [id number] JOB#: [id number] ACCT: [id number] cc:LUZ QUINONES M.D. > YAHIR
[2017-04-02] MEDS: LEVOFLOXACIN 750 MG/D5W RTU 750 MG/150 ML RTUPB IV SCH (14:53)
[2017-04-02] MEDS: PIPERACILLIN SODIUM/TAZOBACTAM 3.375 GM in NORMAL SALINE 100 ML IV SCH ×2 (17:58→21:20)
[2017-04-03] MEDS: IPRATROPIUM/ALBUTEROL 0.5-2.5 MG/3 ML AMPUL NEB SCH ×4 (02:10→21:27)
[2017-04-03] MEDS: HEPARIN SOD (PORCINE) 5,000 UNIT/ML 1 ML SYRINGE SUBCUT SCH ×3 (06:20→22:43)
[2017-04-03] MEDS: PIPERACILLIN SODIUM/TAZOBACTAM 3.375 GM in NORMAL SALINE 100 ML IV SCH ×4 (06:23→21:46)
[2017-04-03 06:59] LABS: HEMOGLOBIN 13.3 g/dL (13.5-17.0); MEAN CORPUSCULAR HEMOGLOBIN 28.5 pg (27.0-33.4); MEAN CORPUSCULAR HGB CONC 32.3 g/dL (32.0-36.0); MEAN CORPUSCULAR VOLUME 88 fl (80-97); PLATELET COUNT 359 10^3/uL (150-450); RED BLOOD COUNT 4.65 10^6/uL (4.35-5.55); RED CELL DISTRIBUTION WIDTH 14.1 % (11.5-14.0); WHITE BLOOD COUNT 29.2 10^3/uL (4.0-10.5)
[2017-04-03 07:01] LABS: ANION GAP 11 (5-19); BLOOD UREA NITROGEN 31 mg/dL (7-20); CALCIUM 8.6 mg/dL (8.4-10.2); CARBON DIOXIDE 23 mmol/L (22-30); CHLORIDE 105 mmol/L (98-107); GLUCOSE 194 mg/dL (75-110); SODIUM 139.3 mmol/L (137-145)
[2017-04-03 07:03] LABS: ABSOLUTE LYMPHOCYTES# (MANUAL) 2.3 10^3/uL (0.5-4.7); ABSOLUTE MONOCYTES # (MANUAL) 3.2 10^3/uL (0.1-1.4); ABSOLUTE NEUTROPHILS# (MANUAL) 23.7 10^3/uL (1.7-8.2); BAND NEUTROPHILS % (MANUAL) 1 % (3-5); BASOPHILS % (MANUAL) 0 % (0-2); EOSINOPHILS % (MANUAL) 0 % (0-6); LYMPHOCYTES % (MANUAL) 5 % (13-45); MONOCYTES % (MANUAL) 11 % (3-13); NUCLEATED RED BLOOD CELLS 1 /100 WBC (0); SEGMENTED NEUTROPHILS % (MAN) 80 % (42-78); TOTAL CELLS COUNTED 100
[2017-04-03 07:04] LABS: PLATELET CLUMPS PRESENT; PLATELET COMMENT ADEQUATE
[2017-04-03 07:05] LABS: ANISOCYTOSIS SLIGHT; POLYCHROMASIA SLIGHT
[2017-04-03 07:15] LABS: POTASSIUM 4.8 mmol/L (3.6-5.0)
[2017-04-03] MEDS: GUAIFENESIN 600 MG TABLET.SA PO SCH ×2 (10:10→22:42)
[2017-04-03] MEDS: CARVEDILOL 12.5 MG TABLET PO SCH (10:13)
[2017-04-03] MEDS ORDERED: DIAZEPAM 2 MG TABLET PO PRN (10:52)
[2017-04-03] MEDS: VANCOMYCIN HCL 1,000 MG in DEXTROSE 5%-WATER 250 ML IV SCH (12:38)
--- NOTE | 2017-04-03 13:10 | PDOC PROGRESS REPORT ---
Subjective Progress Note for:: 04/03/17 Subjective:: F/U PNEUMONIA, acute hypoxic resp failure, hemoptysis SUMMARY: per H&P - "PRISCA ARMENTA is a 47 year old male with a past medical history of coronary artery disease, congestive heart failure status post permanent pacemaker defibrillator placement, polysubstance abuse, tobacco, incarceration and recent pneumonia. Patient was treated and released 3 days ago for pneumonia, he was unable to fill prescriptions for antibiotic. He returns without fever but tachypnea, cough, orthopnea, markedly leukocytosis, BNP of 3000 and a chest x-ray suggestive of pulmonary edema versus multifocal pneumonia. He is placed on empiric antibiotics and referred to the hospitalist for admission." I inherited his care the next morning and he appeared comfortable on BiPAP with FiO2 40% and maintaining his sats, overall seemed improved. This morning however , he behaving very bizarre, almost manic like a steroid chito though he isn't receiving those at present. He refuses to wear the BiPAP now due to claustrophobia, he insists on sitting on his hands and knees in the bed, has inappropriately forceful cough to the point of gagging and vomiting bright pink , sometimes blood tinged phlegm. he will take his meds and cooperate with the nurses otherwise. he denies chest pain, palpitations, fevers/chills. he reports to me that he DID get his abx filled and has been taking at home; he didn't get the coreg or the lasix Rx'd at discharge. ROS: he denies chest pain, fevers/chills, ENRIQUE, swelling of his legs, orthopnea, weight gain or loss, night sweats; all systems reviewed, see above, remaining systems negative. Reason For Visit: HEMOPTYSIS,HYPOXIA,ACUTE RESPIRATORY FAILURE WITH Physical Exam Vital Signs: Temp Pulse Resp BP Pulse Ox 97.9 F 123 H 31 H 93/63 L 88 L 04/03/17 07:49 04/03/17 07:49 04/03/17 07:49 04/03/17 07:49 04/03/17 07:49 Intake & Output 04/02/17 04/03/17 04/04/17 06:59 06:59 06:59 Intake Total 657 Output Total 550 Balance 107 Weight 88.8 kg General appearance: PRESENT: mod emotional distress, well-developed, well- nourished Head exam: PRESENT: atraumatic, normocephalic Mouth exam: PRESENT: moist, neck supple Neck exam: PRESENT: full ROM. ABSENT: carotid bruit, JVD, lymphadenopathy, tenderness Respiratory exam: PRESENT: crackles - and coarse throughout both lung ramos. ABSENT: accessory muscle use, wheeze, rales or rhonchi Cardiovascular exam: PRESENT: tachycardic, RRR, systolic murmur - soft at apex Pulses: PRESENT: normal carotid pulses, normal radial pulses GI/Abdominal exam: PRESENT: normal bowel sounds, soft. ABSENT: tenderness Extremities exam: ABSENT: calf tenderness, pedal edema Neurological exam: PRESENT: alert, awake, oriented to person, oriented to place , oriented to time, oriented to situation Psychiatric exam: PRESENT: pressured speech, tangential thinking and perseverating about the BiPAP mask refusing to wear it, odd behaviors - insisting on sleeping on his hands and knees in the bed for instance. cooperative with the staff otherwise Skin exam: PRESENT: warm. ABSENT: dry Results Laboratory Results: 04/03/17 05:45 04/03/17 05:45 04/02/17 04/03/17 04/03/17 13:34 05:45 05:45 WBC 29.2 H RBC 4.65 Hgb 13.3 L Hct 41.0 MCV 88 MCH 28.5 MCHC 32.3 RDW 14.1 H Plt Count 359 Seg Neutrophils % Not Reportable Lymphocytes % Not Reportable Monocytes % Not Reportable Eosinophils % Not Reportable Basophils % Not Reportable Absolute Neutrophils Not Reportable Absolute Lymphocytes Not Reportable Absolute Monocytes Not Reportable Absolute Eosinophils Not Reportable Absolute Basophils Not Reportable Sodium 139.3 Potassium 4.8 Chloride 105 Carbon Dioxide 23 Anion Gap 11 BUN 31 H Creatinine 1.22 Est GFR ( Amer) > 60 Est GFR (Non-Af Amer) > 60 Glucose 194 H Lactic Acid 2.5 H Calcium 8.6 04/01/17 21:15 Sputum Gram Stain - Final 04/01/17 21:15 Sputum Sputum Culture - Final NORMAL KOFI 04/01/17 04/01/17 04/01/17 23:20 23:20 23:20 Creatine Kinase 92 CK-MB (CK-2) 2.03 Troponin I 0.057 NT-Pro-B Natriuret Pep 2780 H 04/02/17 04/02/17 04/02/17 04:08 04:08 11:15 Creatine Kinase 89 72 CK-MB (CK-2) 1.95 Troponin I 0.055 NT-Pro-B Natriuret Pep 04/02/17 11:15 Creatine Kinase CK-MB (CK-2) 1.65 Troponin I 0.037 NT-Pro-B Natriuret Pep Assessment & Plan - Diagnosis (1) Pneumonia Qualifiers: Pneumonia type: due to unspecified organism Laterality: bilateral Lung location: unspecified part of lung Qualified Code(s): J18.9 - Pneumonia, unspecified organism Is this a current diagnosis for this admission?: Yes Plan: unchanged; broad spectrum abx, pathogen unclear. continue prn BiPAP for increased WOB or distress and wean as tolerated. Agree with pulmonary consult for possible bronch. monitor for ARDS, clearly at risk. if worsens, then get repeat ct chest to monitor for empyema, cxr hard to interpret due to dense airspace disease. agree with airborne precautions; ck sputum for TB given his risk factors. read ppd Tuesday (2) Acute respiratory failure with hypoxia Is this a current diagnosis for this admission?: Yes Plan: unchanged; aggressive pulm toilet, o/w as above (3) Hemoptysis Is this a current diagnosis for this admission?: Yes Plan: unclear whether true hemoptysis, to me he described pulm edema type, pink frothy sputum and no bright red blood initially but today is blood tinged, concerned for forceful paroxysms of cough contributing; add tessalon perles. continue to monitor and f/u on testing as ordered above (4) Sepsis Qualifiers: Sepsis type: sepsis due to unspecified organism Qualified Code(s): A41.9 - Sepsis, unspecified organism Is this a current diagnosis for this admission?: Yes Plan: unchanged; present on admission evidenced by tachypnea, leukocytosis and a bacterial pneumonia as source (5) Tobacco abuse Is this a current diagnosis for this admission?: Yes (6) Manic behavior Is this a current diagnosis for this admission?: Yes Plan: unclear etiology, not sure if he has an undiagnosed psychiatric ailment or just sequela of his acute illness and sepsis. will add low dose valium and monitor for response. - Time Time Spent with patient: 35 or more minutes - Plan Summary Plan Summary: appreciate pulmonary assistance. still in a very dangerous place at high risk for morbidity and mortality due to the sepsis.
[2017-04-03] MEDS ORDERED: SUCCINYLCHOLINE CHLORIDE INJ 200 MG/10 ML VIAL ONE (13:51)
[2017-04-03] MEDS: LEVOFLOXACIN 750 MG/D5W RTU 750 MG/150 ML RTUPB IV SCH (14:40)
--- NOTE | 2017-04-03 16:37 | RADIOLOGY REPORT (SQ) ---
EXAM DESCRIPTION: CHEST SINGLE VIEW COMPLETED DATE/TIME: 04/03/2017 4:26 pm REASON FOR STUDY: hypoxia, acute respiratory failure COMPARISON: 04/01/2017 EXAM PARAMETERS: NUMBER OF VIEWS: One view. TECHNIQUE: Single frontal radiographic view of the chest acquired. RADIATION DOSE: NA LIMITATIONS: None. FINDINGS: LUNGS AND PLEURA: Increased bilateral airspace opacities, particularly on the left compare d with the prior study. No significant effusion. No pneumothorax. MEDIASTINUM AND HILAR STRUCTURES: Stable. HEART AND VASCULAR STRUCTURES: Similar cardiomegaly. BONES: No acute findings. HARDWARE: Single lead cardiac defibrillator. OTHER: No other significant finding. IMPRESSION: Increased bilateral airspace opacities, particularly on the left compared with the prior study. TECHNICAL DOCUMENTATION: JOB ID: [id number] [place]-72 2010 [email or web address]- All Rights Reserved
--- NOTE | 2017-04-03 16:43 | PROGRESS NOTE E ---
Progress Note NAME: PRISCA ARMENTA : 1970 AGE: 47Y DATE: 04/03/2017 ROOM: 335 SUBJECTIVE: Patient is a 47-year-old male who came in with increased shortness of breath, coughing yellow-green phlegm with hemoptysis. Treated for bacterial pneumonia and sepsis. Currently on Zosyn 3.375 gm, Levaquin 750 mg, and vancomycin. Still coughing blood-tinged sputum. No fever overnight. No nausea, vomiting or diarrhea. Still short of breath, but breathing appeared to be stable. OBJECTIVE: GENERAL: Patient is awake, alert, coherent, afebrile, not in acute respiratory distress. VITAL SIGNS: Temperature is 98.1 with a T-MAX of 98.3. Blood pressure is 125/88. Pulse rate of 106 beats per minute. Respiratory rate is 26. Saturation is 94% on 6 L of oxygen. EYES: No jaundice or pallor. EARS, NOSE AND THROAT: No ear drainage noted. No nasal discharge. HEAD AND NECK: No scalp swelling, tenderness. Neck supple. CHEST AND LUNGS: No wheezing. No rhonchi noted. Fine rales bilaterally. HEART: S1, S2 distinct. Normal rate. Regular rhythm. ABDOMEN: Flabby. Positive bowel sounds. Soft, nondistended. EXTREMITIES: No joint pain. No cellulitis. LABORATORY: CBC done at 5:45 today showed white count was 29.2, up from 25.7. Hemoglobin is 13.3. Hematocrit is 41. Platelet count is 259. Neutrophils are 80%. Band neutrophils are 1%. Chemistry done today showed sodium 139, potassium 4.8. Chloride is 105. Bicarbonate 23. BUN is 31. Creatinine is 1.22. Glucose 194. Calcium is 8.9. Lactate was 2.5 at 1:00 p.m. yesterday. ASSESSMENT: 1. HEMOPTYSIS - possible due to pulmonary tuberculosis vs atypical mycobacterial infection vs pneumonia vs pulmonary edema vs auto-immune vasculitis 2. PNEUMONIA, BILATERAL. 3. PULMONARY EDEMA. 4. SEVERE SEPSIS. Currently on 3 antibiotics, Zosyn, Levaquin 750 mg, and vancomycin. PLAN: 1. Will discontinue the respiratory isolation after 3 negative sputum AFBs. The third sputum AFB will be done tomorrow. 2. Will do a CBC and differential and PT/PTT and INR at 6:00 p.m. tonight to evaluate progression of the sepsis and etiology of the hemoptysis. 3. Continue IV antibiotics, Zosyn, Levaquin and vancomycin. 4. Will plan to perform bronchoscopy on Tuesday if that third sputum AFB collected tomorrow will be negative. DICTATING PHYSICIAN: LUZ QUINONES MD,GREGG,MPH [id number] PHY#: [id number] ID: [id number] JOB#: [id number] ACCT: [id number] cc: > MTDD
[2017-04-03] MEDS ORDERED: HYDROMORPHONE HCL INJ/PF 2 MG/ML AMPULE IV PRN (16:56)
[2017-04-03] MEDS ORDERED: FLUCONAZOLE 200 MG/NS RTU 100 ML IV ONE (17:30)
[2017-04-03] MEDS: HYDROMORPHONE HCL INJ/PF 2 MG/ML AMPULE IV PRN (17:54)
[2017-04-03] MEDS ORDERED: THIAMINE HCL 100 MG TABLET PO ONE (18:30)
[2017-04-03 19:13] LABS: HEMATOCRIT 41.3 % (37.9-51.0); HEMOGLOBIN 13.2 g/dL (13.5-17.0); MEAN CORPUSCULAR HEMOGLOBIN 28.4 pg (27.0-33.4); MEAN CORPUSCULAR VOLUME 89 fl (80-97); PLATELET COUNT 412 10^3/uL (150-450); RED BLOOD COUNT 4.66 10^6/uL (4.35-5.55); RED CELL DISTRIBUTION WIDTH 14.4 % (11.5-14.0)
[2017-04-03 19:17] LABS: INTERNATIONAL RATION (INR) 1.15; PROTHROMBIN TIME 15.5 SEC (11.4-15.4)
[2017-04-03 19:44] LABS: ABSOLUTE LYMPHOCYTES# (MANUAL) 1.5 10^3/uL (0.5-4.7); ABSOLUTE MONOCYTES # (MANUAL) 3.4 10^3/uL (0.1-1.4); ABSOLUTE NEUTROPHILS# (MANUAL) 25.8 10^3/uL (1.7-8.2); BASOPHILS % (MANUAL) 0 % (0-2); EOSINOPHILS % (MANUAL) 0 % (0-6); LYMPHOCYTES % (MANUAL) 5 % (13-45); MONOCYTES % (MANUAL) 11 % (3-13); SEGMENTED NEUTROPHILS % (MAN) 84 % (42-78); TOTAL CELLS COUNTED 100
[2017-04-03 19:45] LABS: TOXIC GRANULATION SLIGHT; TOXIC VACUOLATION PRESENT
[2017-04-03 19:46] LABS: ANISOCYTOSIS SLIGHT; PLATELET COMMENT ADEQUATE
[2017-04-03 19:50] LABS: WHITE BLOOD COUNT 30.7 10^3/uL (4.0-10.5)
[2017-04-03] MEDS: LORAZEPAM INJ 2 MG/1 ML VIAL IV PRN (20:38)
[2017-04-03] MEDS ORDERED: DILTIAZEM HCL/D5W 125 MG/125 ML RTUINJ IV PRN (21:30)
[2017-04-03 22:12] LABS: ARTERIAL BLOOD BASE EXCESS -3.5 mmol/L; ARTERIAL BLOOD H2CO3 1.06 mmol/L (1.05-1.35); ARTERIAL BLOOD HCO3 20.7 mmol/L (20-26); ARTERIAL BLOOD PCO2 35.2 mmHg (35-45); ARTERIAL BLOOD PH 7.39 (7.35-7.45); ARTERIAL BLOOD TOTAL CO2 21.8 mmol/L (23-27)
[2017-04-03 22:14] LABS: ARTERIAL BLOOD FIO2 6L
[2017-04-03 22:18] LABS: ARTERIAL BLOOD PO2 40.8 mmHg (80-100)
[2017-04-03 22:28] LABS: CREATINE KINASE MB 3.44 ng/mL (<4.55); TROPONIN I 0.053 ng/mL
[2017-04-03] MEDS ORDERED: FUROSEMIDE INJ/PF 40 MG/4 ML SDV IV ONE (22:41)
[2017-04-03] MEDS ORDERED: DEXTROSE 5%-WATER 250 ML with PHENYLEPHRINE HCL 40 MG IV PRN ×2 (22:41)
[2017-04-03] MEDS ORDERED: PHARMACY COMMUNICATION ORDER MC NR (22:45)
[2017-04-03] MEDS ORDERED: IMIPENEM/CILASTATIN SODIUM 500 MG in NORMAL SALINE 100 ML IV ONE (23:15)
--- NOTE | 2017-04-04 00:30 | RADIOLOGY REPORT (SQ) ---
EXAM DESCRIPTION: CHEST SINGLE VIEW CLINICAL HISTORY: 47 years Male, sob COMPARISON: 2.18.18 NUMBER OF VIEWS/TECHNIQUE: 1/AP LIMITATIONS: None. FINDINGS: Extensive moderate to severe patchy airspace opacities of both lung ramos, mildly enlarged cardiac silhouette, left cardiac stimulation device and leads, no pneumothorax, no acute bone defect. IMPRESSION: Interval worsening includes moderate to severe extensive bilateral airspace opacities.
--- NOTE | 2017-04-04 00:32 | RADIOLOGY REPORT (SQ) ---
EXAM DESCRIPTION: CHEST SINGLE VIEW CLINICAL HISTORY: 47 years Male, intubation COMPARISON: 2.18.18 NUMBER OF VIEWS/TECHNIQUE: 1/AP LIMITATIONS: None. FINDINGS: Moderate to severe extensive airspace opacities of both lung ramos, mildly enlarged cardiac silhouette, moderate lung volume, endotracheal tube tip is 1 cm from the baljinder; recommend 2 cm retraction of the endotracheal tube. Likely adequate and enteric tube tip obscured distally. Left cardiac stimulation device and leads. No pneumothorax. No acute bone defect. IMPRESSION: Endotracheal tube tip is 1 cm from the baljinder; 2 cm endotracheal tube retraction recommended. Interval worsening includes moderate-severe extensive airspace opacities.
[2017-04-04] MEDS ORDERED: NOREPINEPHRINE BITARTRATE INJ/PF 4 MG/4 ML SDV IV ONE (00:46)
[2017-04-04] MEDS ORDERED: LIDOCAINE 2% INJ (20 MG/ML) 20 ML MDV ONE (01:02)
[2017-04-04] MEDS ORDERED: EPINEPHRINE INJ 1 MG/10 ML DISP.SYRIN ONE (01:02)
[2017-04-04 01:07] LABS: APPEARANCE,URINE CLEAR; BILIRUBIN,URINE NEGATIVE (NEGATIVE); COLOR,URINE YELLOW; GLUCOSE, URINE NEGATIVE (NEGATIVE); KETONES,URINE NEGATIVE (NEGATIVE); LEUKOCYTE ESTERASE,URINE NEGATIVE (NEGATIVE); NITRITE,URINE NEGATIVE (NEGATIVE); PROTEIN,URINE 30 mg/dL (NEGATIVE); URINE SPECIFIC GRAVITY 1.029; UROBILINOGEN,URINE NEGATIVE mg/dL (<2.0)
--- NOTE | 2017-04-04 01:10 | RADIOLOGY REPORT (SQ) ---
EXAM DESCRIPTION: CHEST SINGLE VIEW CLINICAL HISTORY: 47 years Male, after endotracheal tube pulled out by 2 cm COMPARISON: 2.19.18 NUMBER OF VIEWS/TECHNIQUE: 1/AP LIMITATIONS: None. FINDINGS: Moderate to severe extensive airspace opacities of both lung ramos, mild-moderate cardiac enlargement, left cardiac stimulation device and leads, adequate endotracheal tube tip is 3.4 cm from the baljinder with interval tube adjustment, likely adequate enteric tube with distal tip partially obscured, no pneumothorax, and no acute bone defect. IMPRESSION: No significant change.
[2017-04-04] MEDS: VANCOMYCIN HCL 1,000 MG in DEXTROSE 5%-WATER 250 ML IV SCH ×3 (01:16→16:17)
[2017-04-04] MEDS: DEXTROSE 5%-WATER 250 ML with NOREPINEPHRINE BITARTRATE 4 MG IV PRN ×4 (01:20→21:40)
[2017-04-04] MEDS: LORAZEPAM 24 MG/240 ML BAG IV PRN ×5 (01:21→21:39)
[2017-04-04] MEDS ORDERED: PROPOFOL 100 ML IV ONE (01:22)
[2017-04-04 01:29] LABS: CREATINE KINASE MB 2.92 ng/mL (<4.55); TROPONIN I 0.054 ng/mL
[2017-04-04] MEDS: FENTANYL CITRATE INJ/PF 100 MCG/2 ML AMPUL IV PRN ×3 (02:07→16:21)
[2017-04-04] MEDS: IMIPENEM/CILASTATIN SODIUM INJ 500 MG VIAL IV PRN ×2 (02:08→06:33)
[2017-04-04] MEDS: IPRATROPIUM/ALBUTEROL 0.5-2.5 MG/3 ML AMPUL NEB SCH ×4 (02:54→19:27)
[2017-04-04 03:07] LABS: ARTERIAL BLOOD BASE EXCESS -2.9 mmol/L; ARTERIAL BLOOD H2CO3 1.22 mmol/L (1.05-1.35); ARTERIAL BLOOD HCO3 22.4 mmol/L (20-26); ARTERIAL BLOOD O2 SATURATION 97.1 % (94-98); ARTERIAL BLOOD PCO2 40.5 mmHg (35-45); ARTERIAL BLOOD PH 7.36 (7.35-7.45); ARTERIAL BLOOD PO2 95.8 mmHg (80-100); ARTERIAL BLOOD TOTAL CO2 23.6 mmol/L (23-27)
[2017-04-04 03:11] LABS: ARTERIAL BLOOD FIO2 80%
[2017-04-04] MEDS: PROPOFOL 100 ML IV PRN ×5 (05:30→23:47)
[2017-04-04] MEDS: HEPARIN SOD (PORCINE) 5,000 UNIT/ML 1 ML SYRINGE SUBCUT SCH ×3 (06:33→21:41)
[2017-04-04] MEDS: IMIPENEM/CILASTATIN SODIUM 500 MG in NORMAL SALINE 100 ML IV SCH ×4 (06:34→23:47)
--- NOTE | 2017-04-04 06:59 | OPERATIVE REPORT E ---
Operative Report NAME: PRISCA ARMENTA : 1970 AGE: 47Y DATE OF SURGERY: 04/03/2017 ROOM: 604 PROCEDURE: Flexible bronchoscopy with bronchial washings. INDICATIONS: Pulmonary hemorrhage, massive hemoptysis. Acute respiratory failure requiring invasive mechanical ventilation. SURGEON: LUZ QUINONES M.D. SPECIMENS: Obtained bronchial washings both lungs. PROCEDURE DETAIL: Consent was from obtained the patient's girlfriend, who has power of air defense artillery senior sergeant for healthcare for the patient. The patient was adopted and no parents. Flexible bronchoscopy was inserted through the endotracheal tube. The patient was endotracheally intubated about 2 hours ago because of acute respiratory failure due to worsening pneumonia, massive hemoptysis and severe sepsis. Bronchial washing was performed on the right lung and the left lung. There are no active lesions or active bleeding noted from the trachea, mainstem bronchi, secondary bronchi, tertiary bronchi in both lungs. No active bleeding noted. Some hemes were suctioned plus yellow phlegm suctioned from the left lung more than right lung. There is more profuse secretions in the left lung. The patient was on propofol and Versed drip. Fentanyl 50 mcg IV was given during the flexible bronchoscopy procedure. The patient tolerated the procedure well. The bronchial washing specimen will be sent for cytology, bronchial washing culture for AFB, bacteria and fungi. DICTATING PHYSICIAN: LUZ QUINONES MD,GREGG,MPH [id number] PHY#: [id number] ID: [id number] JOB#: [id number] ACCT: [id number] cc:LUZ QUINONES M.D. > [facility]ITALCecilio
[2017-04-04 07:27] LABS: HEMATOCRIT 34.1 % (37.9-51.0); HEMOGLOBIN 11.2 g/dL (13.5-17.0); MEAN CORPUSCULAR HEMOGLOBIN 28.8 pg (27.0-33.4); MEAN CORPUSCULAR HGB CONC 32.8 g/dL (32.0-36.0); MEAN CORPUSCULAR VOLUME 88 fl (80-97); PLATELET COUNT 340 10^3/uL (150-450); RED BLOOD COUNT 3.88 10^6/uL (4.35-5.55); RED CELL DISTRIBUTION WIDTH 14.4 % (11.5-14.0); WHITE BLOOD COUNT 24.1 10^3/uL (4.0-10.5)
[2017-04-04 07:50] LABS: ANION GAP 5 (5-19); BLOOD UREA NITROGEN 22 mg/dL (7-20); CALCIUM 7.5 mg/dL (8.4-10.2); CARBON DIOXIDE 25 mmol/L (22-30); CHLORIDE 106 mmol/L (98-107); GLUCOSE 205 mg/dL (75-110); POTASSIUM 4.7 mmol/L (3.6-5.0); SODIUM 136.4 mmol/L (137-145)
[2017-04-04 07:56] LABS: CREATINE KINASE MB 2.36 ng/mL (<4.55); TROPONIN I 0.051 ng/mL
[2017-04-04 08:16] LABS: ABSOLUTE LYMPHOCYTES# (MANUAL) 1.9 10^3/uL (0.5-4.7); ABSOLUTE MONOCYTES # (MANUAL) 0.7 10^3/uL (0.1-1.4); ABSOLUTE NEUTROPHILS# (MANUAL) 21.4 10^3/uL (1.7-8.2); BAND NEUTROPHILS % (MANUAL) 2 % (3-5); BASOPHILS % (MANUAL) 0 % (0-2); EOSINOPHILS % (MANUAL) 0 % (0-6); LYMPHOCYTES % (MANUAL) 8 % (13-45); MONOCYTES % (MANUAL) 3 % (3-13); SEGMENTED NEUTROPHILS % (MAN) 87 % (42-78); TOTAL CELLS COUNTED 100
[2017-04-04 08:17] LABS: ANISOCYTOSIS SLIGHT; OVALOCYTES SLIGHT; PLATELET COMMENT ADEQUATE; POIKILOCYTOSIS SLIGHT; POLYCHROMASIA SLIGHT; TOXIC VACUOLATION PRESENT
[2017-04-04] MEDS: GUAIFENESIN 600 MG TABLET.SA PO SCH ×2 (08:54→21:39)
[2017-04-04] MEDS: FLUCONAZOLE 200 MG/NS RTU 100 ML IV SCH (08:55)
[2017-04-04] MEDS: THIAMINE HCL 100 MG TABLET NG SCH (08:56)
--- NOTE | 2017-04-04 09:06 | PDOC PROGRESS REPORT ---
Subjective Progress Note for:: 04/04/17 Subjective:: This is a follow-up visit for acute respiratory failure secondary to pneumonia. unfortunately the patient has been intubated and review of systems cannot be obtained. Overnight the patient received a bronchoscopy. No source of hemoptysis was discovered on bronchoscopy. Sputum samples were obtained and sent. Reason For Visit: ACUTE RESPIRATORY FAILURE Physical Exam Vital Signs: Temp Pulse Resp BP Pulse Ox 98.2 F 87 25 H 97/70 L 100 04/04/17 08:00 04/04/17 08:00 04/04/17 08:00 04/04/17 08:00 04/04/17 08:00 Intake & Output 04/03/17 04/04/17 04/05/17 06:59 06:59 06:59 Intake Total 1099 Output Total 2159 230 Balance -1060 -230 Weight 91.4 kg Ventilator: FiO2 30%. Tidal volume 500. Respiratory rate Drips: Deprivation, Levophed, Ativan, Lines: 2 peripheral lines established. 118 and 120-gauge. Antibiotics: Primaxin, Levaquin, vancomycin and fluconazole GENERAL: This is a well-developed and nourished appearing white male resting in bed currently intubated. HEART: [Regular rate and rhythm. No murmurs, rubs or gallops.] LUNGS: [Clear to auscultation anteriorly bilaterally with equal rise and fall of the chest. Endotracheal tube in place. Scant old blood in the tube. : Toney catheter is in place draining wu colored urine] ABDOMEN: [Soft, nontender, nondistended with hypoactive bowel sounds] EXTREMETIES: [No clubbing, cyanosis. 1+ nonpitting edema. 2+ peripheral pulses bilaterally.] NEURO: Sedated and intubated. Results Laboratory Results: 04/04/17 07:10 04/04/17 07:10 04/04/17 04/04/17 04/04/17 00:50 02:42 07:10 WBC 24.1 H RBC 3.88 L Hgb 11.2 L Hct 34.1 L MCV 88 MCH 28.8 MCHC 32.8 RDW 14.4 H Plt Count 340 Seg Neutrophils % Not Reportable Lymphocytes % Not Reportable Monocytes % Not Reportable Eosinophils % Not Reportable Basophils % Not Reportable Absolute Neutrophils Not Reportable Absolute Lymphocytes Not Reportable Absolute Monocytes Not Reportable Absolute Eosinophils Not Reportable Absolute Basophils Not Reportable Carbonic Acid 1.22 HCO3/H2CO3 Ratio 18:1 ABG pH 7.36 ABG pCO2 40.5 ABG pO2 95.8 ABG HCO3 22.4 ABG O2 Saturation 97.1 ABG Base Excess -2.9 FiO2 80% Sodium Potassium Chloride Carbon Dioxide Anion Gap BUN Creatinine Est GFR ( Amer) Est GFR (Non-Af Amer) Glucose Calcium Urine Color YELLOW Urine Appearance CLEAR Urine pH 5.0 Ur Specific [place] 1.029 Urine Protein 30 H Urine Glucose (UA) NEGATIVE Urine Ketones NEGATIVE Urine Blood NEGATIVE Urine Nitrite NEGATIVE Ur Leukocyte Esterase NEGATIVE Urine WBC (Auto) 1 Urine RBC (Auto) 1 04/04/17 07:10 WBC RBC Hgb Hct MCV MCH MCHC RDW Plt Count Seg Neutrophils % Lymphocytes % Monocytes % Eosinophils % Basophils % Absolute Neutrophils Absolute Lymphocytes Absolute Monocytes Absolute Eosinophils Absolute Basophils Carbonic Acid HCO3/H2CO3 Ratio ABG pH ABG pCO2 ABG pO2 ABG HCO3 ABG O2 Saturation ABG Base Excess FiO2 Sodium 136.4 L Potassium 4.7 Chloride 106 Carbon Dioxide 25 Anion Gap 5 BUN 22 H Creatinine 0.92 Est GFR ( Amer) > 60 Est GFR (Non-Af Amer) > 60 Glucose 205 H Calcium 7.5 L Urine Color Urine Appearance Urine pH Ur Specific [place] Urine Protein Urine Glucose (UA) Urine Ketones Urine Blood Urine Nitrite Ur Leukocyte Esterase Urine WBC (Auto) Urine RBC (Auto) 04/04/17 04/04/17 04/04/17 00:30 00:30 07:10 Creatine Kinase 181 H CK-MB (CK-2) 2.92 2.36 Troponin I 0.054 0.051 Impressions: Chest X-Ray 04/04/17 00:33 IMPRESSION: No significant change. Assessment & Plan - Diagnosis (1) Acute respiratory failure with hypoxia Is this a current diagnosis for this admission?: Yes Plan: Multifactorial secondary to underlying diastolic heart failure as well as left lower lobe pneumonia. Continue endotracheal intubation. FiO2 is currently at 30%. We will try and wean some sedation as tolerated. Patient is status post bronchoscopy with TB rule out. Sputum cultures have been sent. Further workup for CHITO and rheumatologic disorders have also been sent (2) Sepsis Qualifiers: Sepsis type: sepsis due to unspecified organism Qualified Code(s): A41.9 - Sepsis, unspecified organism Is this a current diagnosis for this admission?: Yes Plan: Sepsis secondary to underlying pneumonia. Sepsis as evidenced by tachypnea, hypotension, elevated white blood cell count, acute respiratory failure with a depressed PaO2 FiO2 ratio. The patient is currently on Primaxin, Levaquin and vancomycin. Patient is also on fluconazole. He is status post bronched to rule out etiology for hemoptysis. He is currently on isolation until TB is also ruled out. I do not see a lactic acid. (3) Pneumonia Qualifiers: Pneumonia type: due to unspecified organism Laterality: bilateral Lung location: unspecified part of lung Qualified Code(s): J18.9 - Pneumonia, unspecified organism Is this a current diagnosis for this admission?: Yes Plan: Mostly left lower lobe pneumonia. Likely from gram-negative organisms. This is superimposed on heart failure. Status post bronchoscopy as mentioned above. Continue above antibiotics. Pulmonary is following. (4) Acute exacerbation of CHF (congestive heart failure) Qualifiers: Heart failure type: diastolic Qualified Code(s): I50.33 - Acute on chronic diastolic (congestive) heart failure Is this a current diagnosis for this admission?: Yes Plan: Presumed diastolic heart failure. Check echocardiogram. Cardiology has already been consulted. The patient received diuresis overnight. Caution with hypotension. (5) Hemoptysis Is this a current diagnosis for this admission?: Yes Plan: No source for hemoptysis identified. No bronchiectasis on bronchoscopy. Patient did have pulmonary edema from underlying CHF. Certainly bleeding could have occurred secondary to this. Pulmonology is following. (6) Tobacco abuse Is this a current diagnosis for this admission?: Yes Plan: Smoking cessation is advised. (7) Anemia Is this a current diagnosis for this admission?: Yes Plan: Likely delusional from fluid resuscitation. Hemoglobin was 13 and is now down to 11. Continue to monitor. (8) Hyponatremia Is this a current diagnosis for this admission?: Yes Plan: Likely SIADH from underlying pneumonia and sepsis. Continue to monitor. Continue fluid administration. (9) Hypoalbuminemia Is this a current diagnosis for this admission?: Yes Plan: Likely due to underlying sepsis and depressed p.o. intake over the last several days. The patient does not look malnourished on exam. He will begin tube feeds today after dietary has been consulted. - Time Time Spent with patient: 35 or more minutes - Inpatient Certification Medical Necessity: Need for IV Antibiotics
[2017-04-04 11:11] LABS: CREATINE KINASE 106 U/L (55-170)
[2017-04-04 11:14] LABS: VANCOMYCIN,TROUGH 8.8 ug/mL (5.0-20.0)
[2017-04-04] MEDS: LEVOFLOXACIN 750 MG/D5W RTU 750 MG/150 ML RTUPB IV SCH (13:57)
[2017-04-04 14:27] LABS: PATH REVIEW PATHOLOGIST REVIEWED
--- NOTE | 2017-04-04 19:34 | XCELERA REPORT ---
[address] [address] Transthoracic Echocardiogram Report Name: PRISCA ARMENTA Age: 47 yrs Gender: Male : 1970 Patient Status: Inpatient Patient Location: ICU^604^A Study Date: 04/04/2017 09:30 AM Height: 66 in Weight: 195 lb BSA: 2.0 m2 Procedure: A complete two-dimensional transthoracic echocardiogram was performed (2D, M-mode, spectral and color flow Doppler). The study was technically difficult with many images being suboptimal in quality. Reason For Study: pulmon edema; poss severe mitral stenosis/PuHTN Ordering Physician: LUZ QUINONES Performed By: Marcella Baltazar Interpretation Summary LV EF is 35% Left ventricular systolic function is moderate to severely reduced. Doppler measurements suggest reversible restrictive left ventricular relaxation, which is associated with grade III/IV or moderate diastolic dysfunction Regional wall motion abnormalities cannot be excluded due to limited visualization. The right ventricular systolic function is normal. The left atrium is mildly dilated. The right atrium is normal in size There is a moderate amount of mitral regurgitation There is no mitral valve stenosis. No aortic regurgitation is present. There is no aortic valve stenosis There is a moderate to severe amount of tricuspid regurgitation There is moderate pulmonary hypertension by echo Right ventricular systolic pressure is estimated to be elevated at 50- 60mmHg. The aortic root is not well visualized but is probably normal size. The inferior vena cava appeared dilated and decreased < 50% with respiration (RAP 15-20 mmHg) Minimal pericardial effusion. MMode/2D Measurements & Calculations RVDd: 3.1 cm LVIDd: 6.1 cm FS: 20.1 % EPSS: 1.8 cm IVSd: 0.90 cm LVIDs: 4.9 cm EDV(Teich): 189.0 mlMV Diam: 3.2 cm LVPWd: 0.86 cm ESV(Teich): 112.8 ml EF(Teich): 40.3 % Ao root diam: 2.9 cm LVOT diam: 2.3 cm Ao root area: 6.5 [id number] area: 4.1 cm2 LA dimension: 4.2 cm Doppler Measurements & Calculations MV E max reece: MV area (1 diam): MV P1/2t max reece: Ao V2 max: 130.8 cm/sec 8.0 cm2 131.8 cm/sec 93.6 cm/sec MV A max reece: MV Flow area MV P1/2t: 37.1 msec Ao max P.4 cm/sec (1diam): 8.0 cm2 MVA(P1/2t): 5.9 cm2 3.5 mmHg MV E/A: 3.0 MV dec slope: KAILYN(V,D): 3.2 cm2 1040 cm/sec2 LV V1 max PG: MR max reece: PA V2 max: PI end-d reece: 2.2 mmHg 455.5 cm/sec 72.1 cm/sec 194.1 cm/sec LV V1 max: MR max PG: PA max P.1 mmHg 73.7 cm/sec 83.0 mmHg LV dP/dt: 757.0 mmHg/s TR max reece: 323.1 cm/sec TR max P.7 mmHg Left Ventricle The left ventricle is mildly dilated. There is borderline concentric left ventricular hypertrophy. Left ventricular systolic function is moderate to severely reduced. LV EF is 35%. Doppler measurements suggest reversible restrictive left ventricular relaxation, which is associated with grade III/IV or moderate diastolic dysfunction. Regional wall motion abnormalities cannot be excluded due to limited visualization. Right Ventricle The right ventricle is grossly normal size. The right ventricular systolic function is normal. Atria The right atrium is normal in size. The left atrium is mildly dilated. Interarterial septum not well visualized and not well dopplered. Cannot comment on ASD/PFO presence. Mitral Valve There is mild mitral leaflet calcification. There is no mitral valve stenosis. There is a moderate amount of mitral regurgitation. Aortic Valve The aortic valve is grossly normal. There is no aortic valve stenosis. No aortic regurgitation is present. Tricuspid Valve The tricuspid valve is not well visualized, but is grossly normal. There is no tricuspid stenosis. There is a moderate to severe amount of tricuspid regurgitation. There is moderate pulmonary hypertension by echo. Right ventricular systolic pressure is estimated to be elevated at 50-60mmHg. Pulmonic Valve The pulmonic valve is not well visualized. Great Vessels The aortic root is not well visualized but is probably normal size. The inferior vena cava appeared dilated and decreased < 50% with respiration (RAP 15-20 mmHg). Effusions Minimal pericardial effusion. Incidental Findings Pacemaker wire noted. : LUZ QUINONES > Uli Willams
--- NOTE | 2017-04-04 19:55 | PDOC CONSULTATION ---
Consultation Consult Date: 04/04/17 Attending physician:: NORBERT QUAN Consult reason:: Respiratory distress History of Present Illness Admission Date/PCP: 04/03/17 23:04 Patient complains of: Shortness of breath History of Present Illness: PRISCA ARMENTA is a 47 year old male with a past medical history of coronary artery disease, congestive heart failure status post permanent pacemaker defibrillator placement, polysubstance abuse, tobacco, incarceration and recent pneumonia. Patient was treated and released 3 days ago for pneumonia, he was unable to fill prescriptions for antibiotic. He returns without fever but tachypnea, cough, orthopnea, markedly leukocytosis, BNP of 3000 and a chest x- ray suggestive of pulmonary edema versus multifocal pneumonia. He is placed on empiric antibiotics and referred to the hospitalist for admission. This history was reviewed and confirmed. Patient unable to give any history at this point. Patient currently intubated. No family members available. Chart reviewed. Discussed with nurse and also hospitalist. Past Medical History Cardiac Medical History: Reports: Congestive Heart Failure, Myocardial Infarction - 2013 Pulmonary Medical History: Reports: Pneumonia Neurological Medical History: Denies: Seizures Psychiatric Medical History: Reports: Depression, Substance Abuse, Tobacco Dependency Past Surgical History Past Surgical History: Reports: Other - AICD in June of 2014 Denies: Cardiac Catheterization Social History Information Source: [facility] Records Lives with: Alone Smoking Status: Former Smoker Frequency of Alcohol Use: None Hx Recreational Drug Use: Yes Drugs: Cocaine, Other Hx Prescription Drug Abuse: No - denied - Advance Directive Resuscitation Status: Full Code Surrogate healthcare decision maker:: Surrogate decision not available at this point Family History Family History: Hypertension Parental Family History Reviewed: No Children Family History Reviewed: No Sibling(s) Family History Reviewed.: No - No family member available to confirm Medication/Allergy Home Medications: Carvedilol 12.5 mg PO BID #30 tablet 03/29/17 Furosemide [Lasix 20 mg Tablet] 20 mg PO QAM #30 tablet 03/29/17 Prednisone 60 mg PO DAILY #15 tablet 03/29/17 Allergies/Adverse Reactions: No Known Allergies Allergy (Verified 04/01/17 14:36) Review of Systems ROS unobtainable: Due to endotracheal tube Physical Exam Vital Signs: Temp Pulse Resp BP Pulse Ox 98.2 F 87 25 H 97/70 L 100 04/04/17 08:00 04/04/17 08:00 04/04/17 08:00 04/04/17 08:00 04/04/17 08:00 Intake & Output 04/03/17 04/04/17 04/05/17 06:59 06:59 06:59 Intake Total 1099 Output Total 2159 230 Balance -1060 -230 Weight 91.4 kg Exam: GENERAL: well-nourished and in no acute distress. Patient is intubated and sedated. Orientation cannot be checked HEAD: Atraumatic, normocephalic. EYES: Pupils equal round and reactive to light, extraocular movements could not be checked, sclera anicteric, conjunctiva are normal. ENT: TMs normal, nares patent, oropharynx clear without exudates. Moist mucous membranes. No oral ulcerations or bleeding gums noted NECK: supple without lymphadenopathy or JVD. Trachea is central. No cervical or axillary lymphadenopathy noted. Carotids are 2+ LUNGS: Breath sounds mostly clear to auscultation patient is noted to have bibasal crackles. Occasional scattered wheezing noted CHEST: Palpation of the chest wall shows no significant chest wall tenderness or abnormalities. Defibrillator related noted left-sided chest HEART: [place] [employer], No PSH, 2/6 SOPHIE aortic area, 1/6 anaya systolic murmur mitral area , no rubs or gallops. ABDOMEN: Soft, no significant tenderness appreciated, normoactive bowel sounds. No guarding, no rebound. No rigidity noted . No masses appreciated. EXTREMITIES: Pedal pulses are 1-2+, no calf tenderness noted, 1+ pedal edema noted. No clubbing or cyanosis. NEUROLOGICAL: The patient cannot participate in the neurological exam but no facial asymmetry noted. Extremities slightly hypotonic PSYCH: This cannot be evaluated. Patient cannot participate. SKIN: No significant ecchymosis, rash, or signs of pruritus noted. MUSCULOSKELETAL EXAM: No significant joint swelling noted. Patient cannot participate in musculoskeletal exam Results Laboratory Results: 04/04/17 07:10 04/04/17 04/04/17 04/04/17 00:50 02:42 07:10 WBC 24.1 H RBC 3.88 L Hgb 11.2 L Hct 34.1 L MCV 88 MCH 28.8 MCHC 32.8 RDW 14.4 H Plt Count 340 Seg Neutrophils % Not Reportable Lymphocytes % Not Reportable Monocytes % Not Reportable Eosinophils % Not Reportable Basophils % Not Reportable Absolute Neutrophils Not Reportable Absolute Lymphocytes Not Reportable Absolute Monocytes Not Reportable Absolute Eosinophils Not Reportable Absolute Basophils Not Reportable Carbonic Acid 1.22 HCO3/H2CO3 Ratio 18:1 ABG pH 7.36 ABG pCO2 40.5 ABG pO2 95.8 ABG HCO3 22.4 ABG O2 Saturation 97.1 ABG Base Excess -2.9 FiO2 80% Sodium Potassium Chloride Carbon Dioxide Anion Gap BUN Creatinine Est GFR ( Amer) Est GFR (Non-Af Amer) Glucose Calcium Urine Color YELLOW Urine Appearance CLEAR Urine pH 5.0 Ur Specific [place] 1.029 Urine Protein 30 H Urine Glucose (UA) NEGATIVE Urine Ketones NEGATIVE Urine Blood NEGATIVE Urine Nitrite NEGATIVE Ur Leukocyte Esterase NEGATIVE Urine WBC (Auto) 1 Urine RBC (Auto) 1 04/04/17 07:10 WBC RBC Hgb Hct MCV MCH MCHC RDW Plt Count Seg Neutrophils % Lymphocytes % Monocytes % Eosinophils % Basophils % Absolute Neutrophils Absolute Lymphocytes Absolute Monocytes Absolute Eosinophils Absolute Basophils Carbonic Acid HCO3/H2CO3 Ratio ABG pH ABG pCO2 ABG pO2 ABG HCO3 ABG O2 Saturation ABG Base Excess FiO2 Sodium 136.4 L Potassium 4.7 Chloride 106 Carbon Dioxide 25 Anion Gap 5 BUN 22 H Creatinine 0.92 Est GFR ( Amer) > 60 Est GFR (Non-Af Amer) > 60 Glucose 205 H Calcium 7.5 L Urine Color Urine Appearance Urine pH Ur Specific [place] Urine Protein Urine Glucose (UA) Urine Ketones Urine Blood Urine Nitrite Ur Leukocyte Esterase Urine WBC (Auto) Urine RBC (Auto) 04/04/17 04/04/17 04/04/17 00:30 00:30 07:10 Creatine Kinase 181 H CK-MB (CK-2) 2.92 2.36 Troponin I 0.054 0.051 EKG Comments: Sinus tachycardia, without any acute ST-T wave changes Impressions: Chest X-Ray 04/04/17 00:33 IMPRESSION: No significant change. Assessment & Plan - Diagnosis (1) Acute respiratory failure with hypoxia Is this a current diagnosis for this admission?: Yes (2) Pneumonia Qualifiers: Pneumonia type: due to unspecified organism Laterality: bilateral Lung location: unspecified part of lung Qualified Code(s): J18.9 - Pneumonia, unspecified organism Is this a current diagnosis for this admission?: Yes (3) Tachycardia Is this a current diagnosis for this admission?: Yes (4) Cardiomyopathy Qualifiers: Cardiomyopathy type: unspecified Qualified Code(s): I42.9 - Cardiomyopathy , unspecified Is this a current diagnosis for this admission?: Yes (5) Presence of automatic cardioverter/defibrillator (AICD) Is this a current diagnosis for this admission?: Yes (6) Hypotension Qualifiers: Hypotension type: unspecified hypotension type Qualified Code(s): I95.9 - Hypotension, unspecified Is this a current diagnosis for this admission?: Yes - Notes Notes: Acute respiratory failure: Patient has predominantly hypoxemic respiratory failure. Currently intubated and being artificially ventilated. Respiratory failure most likely related to bilateral pneumonia. Do not see much evidence of fluid overload or CHF this point. However will recommend obtaining a 2D echo as this will help in overall management. Bilateral pneumonia: Chest x-ray showed this being very significant. Continue antibiotic therapy. Cardiomyopathy: Patient does have a single-chamber defibrillator present. Will consider starting therapy with entresto once blood pressure is noted to be stable. Continue carvedilol. We will consider adding digoxin. Hypotension: Use vasopressors only for symptomatic hypotension with reduced urine output. Presence of AICD: Will evaluate this but so far patient is maintaining a good heart rhythm. - Time Time Spent: 30 to 50 Minutes - More than 50% of the time spent coordinating care , discussing management plans with involved caregivers. Management plans discussed with involved personnels. Medical decision making was of moderate to high complexity, patient's has multiple comorbidities. Medications reviewed and adjusted accordingly: Yes
[2017-04-04] MEDS ORDERED: DIGOXIN 0.125 MG TABLET PO ONE (20:00)
[2017-04-05] MEDS: VANCOMYCIN HCL 1,000 MG in DEXTROSE 5%-WATER 250 ML IV SCH ×3 (01:13→16:02)
[2017-04-05] MEDS: LORAZEPAM 24 MG/240 ML BAG IV PRN ×4 (01:14→20:09)
[2017-04-05] MEDS: IPRATROPIUM/ALBUTEROL 0.5-2.5 MG/3 ML AMPUL NEB SCH ×4 (02:04→19:43)
[2017-04-05] MEDS: PROPOFOL 100 ML IV PRN ×4 (04:07→22:33)
[2017-04-05 05:21] LABS: ARTERIAL BLOOD BASE EXCESS 3.1 mmol/L; ARTERIAL BLOOD H2CO3 1.18 mmol/L (1.05-1.35); ARTERIAL BLOOD HCO3 27.1 mmol/L (20-26); ARTERIAL BLOOD O2 SATURATION 94.1 % (94-98); ARTERIAL BLOOD PCO2 39.1 mmHg (35-45); ARTERIAL BLOOD PH 7.46 (7.35-7.45); ARTERIAL BLOOD PO2 66.2 mmHg (80-100); ARTERIAL BLOOD TOTAL CO2 28.3 mmol/L (23-27)
[2017-04-05 05:21] LABS: HEMATOCRIT 32.8 % (37.9-51.0); HEMOGLOBIN 10.9 g/dL (13.5-17.0); MEAN CORPUSCULAR HGB CONC 33.2 g/dL (32.0-36.0); MEAN CORPUSCULAR VOLUME 87 fl (80-97); PLATELET COUNT 277 10^3/uL (150-450); RED BLOOD COUNT 3.75 10^6/uL (4.35-5.55); RED CELL DISTRIBUTION WIDTH 14.5 % (11.5-14.0); WHITE BLOOD COUNT 19.8 10^3/uL (4.0-10.5)
[2017-04-05 05:22] LABS: ARTERIAL BLOOD FIO2 35%
[2017-04-05 05:39] LABS: ALANINE AMINOTRANSFERASE 93 U/L (21-72); ALBUMIN 2.4 g/dL (3.5-5.0); ALKALINE PHOSPHATASE 62 U/L (38-126); ANION GAP 6 (5-19); ASPARTATE AMINO TRANSFERASE 34 U/L (17-59); BILIRUBIN,DIRECT 0.1 mg/dL (0.0-0.4); BILIRUBIN,TOTAL 0.3 mg/dL (0.2-1.3); BLOOD UREA NITROGEN 14 mg/dL (7-20); CALCIUM 7.7 mg/dL (8.4-10.2); CARBON DIOXIDE 27 mmol/L (22-30); CHLORIDE 107 mmol/L (98-107); GLUCOSE 179 mg/dL (75-110); POTASSIUM 4.7 mmol/L (3.6-5.0); SODIUM 139.8 mmol/L (137-145); TOTAL PROTEIN 4.5 g/dL (6.3-8.2)
[2017-04-05 06:00] LABS: ABSOLUTE LYMPHOCYTES# (MANUAL) 1.6 10^3/uL (0.5-4.7); ABSOLUTE NEUTROPHILS# (MANUAL) 16.6 10^3/uL (1.7-8.2); BAND NEUTROPHILS % (MANUAL) 2 % (3-5); BASOPHILS % (MANUAL) 0 % (0-2); EOSINOPHILS % (MANUAL) 3 % (0-6); LYMPHOCYTES % (MANUAL) 8 % (13-45); MONOCYTES % (MANUAL) 5 % (3-13); NUCLEATED RED BLOOD CELLS 2 /100 WBC (0); SEGMENTED NEUTROPHILS % (MAN) 82 % (42-78); TOTAL CELLS COUNTED 100
[2017-04-05] MEDS: HEPARIN SOD (PORCINE) 5,000 UNIT/ML 1 ML SYRINGE SUBCUT SCH ×3 (06:08→22:33)
[2017-04-05] MEDS: IMIPENEM/CILASTATIN SODIUM 500 MG in NORMAL SALINE 100 ML IV SCH ×3 (06:08→18:00)
[2017-04-05 06:15] LABS: ANISOCYTOSIS SLIGHT
[2017-04-05 06:18] LABS: PLATELET COMMENT ADEQUATE; PLATELET LARGE PRESENT; POLYCHROMASIA SLIGHT
[2017-04-05 07:04] LABS: MYCOPLASMA PNEUMONIAE IGG AB 313 U/mL (0-99); MYCOPLASMA PNEUMONIAE IGM AB <770 U/mL (0-769)
--- NOTE | 2017-04-05 07:09 | RADIOLOGY REPORT (SQ) ---
EXAM DESCRIPTION: CHEST SINGLE VIEW CLINICAL HISTORY: acute respiratory failure; ventilator dependence COMPARISON: 04/04/2017 FINDINGS: Single frontal view of the chest. Endotracheal tube with tip 6 cm above the baljinder. NG tube with tip below the diaphragm. Left-sided pacemaker. Improved aeration bilaterally with patchy bilateral airspace opacities. Heart is not enlarged. No pneumothorax. Leads overlie the chest. No acute osseous abnormality. Upper abdominal soft tissues are unremarkable. IMPRESSION: 1. Improved aeration bilaterally with persistent diffuse bilateral airspace opacity.
[2017-04-05 09:45] LABS: GLOMERULAR BASMENT MEMBRANE AB 4 units (0-20)
[2017-04-05] MEDS ORDERED: DEXTROSE 50%-WATER 25 GM/50 ML DISP.SYRIN IV PRN ×2 (09:46)
[2017-04-05] MEDS ORDERED: GLUCAGON,HUMAN RECOMB 1 MG INJ IM PRN (09:46)
[2017-04-05] MEDS ORDERED: DEXTROSE 40% GEL 15 GM TUBE PO PRN ×2 (09:46)
[2017-04-05] MEDS ORDERED: INSULIN LISPRO 100 UNIT/ML 3 ML VIAL SUBCUT PRN (09:46)
--- NOTE | 2017-04-05 09:52 | PDOC PROGRESS REPORT ---
Subjective Progress Note for:: 04/05/17 Subjective:: Nursing states that family has called requesting for update on patient's care. Also spoke to community organization worker who states that family has called her as well and have reported that they will be arriving to the hospital today. Reason For Visit: ACUTE RESPIRATORY FAILURE Physical Exam Vital Signs: Temp Pulse Resp BP Pulse Ox 98.6 F 83 24 H 107/81 94 04/05/17 07:29 04/05/17 08:22 04/05/17 08:22 04/05/17 07:29 04/05/17 08:22 Intake & Output 04/04/17 04/05/17 04/06/17 06:59 06:59 06:59 Intake Total 2192 3814 Output Total 2459 1695 650 Balance -267 239 -650 Weight 91.4 kg 90.7 kg General appearance: PRESENT: other - Sedated Head exam: PRESENT: atraumatic, normocephalic Eye exam: PRESENT: other - Sedated Ear exam: PRESENT: normal external ear exam Mouth exam: PRESENT: moist, tongue midline, other - ETT in place Neck exam: ABSENT: carotid bruit, JVD, lymphadenopathy, thyromegaly Respiratory exam: PRESENT: other - + right upper lobe coarse breath sounds. Diminished breath sounds at bases Cardiovascular exam: PRESENT: RRR, other - + trace edema of lower ext.. ABSENT : diastolic murmur, rubs, systolic murmur Pulses: PRESENT: normal dorsalis pedis pul Vascular exam: PRESENT: normal capillary refill GI/Abdominal exam: PRESENT: normal bowel sounds, soft. ABSENT: distended, guarding, mass, organolmegaly, rebound, tenderness Rectal exam: PRESENT: deferred Extremities exam: PRESENT: pedal edema - trace edema bilaterally. ABSENT: calf tenderness, clubbing Neurological exam: PRESENT: other - sedated Psychiatric exam: PRESENT: other - sedated Skin exam: PRESENT: dry, intact, warm Results Laboratory Results: 04/05/17 05:14 04/05/17 05:14 04/04/17 04/05/17 04/05/17 10:32 05:05 05:14 WBC 19.8 H RBC 3.75 L Hgb 10.9 L Hct 32.8 L MCV 87 MCH 29.0 MCHC 33.2 RDW 14.5 H Plt Count 277 Seg Neutrophils % Not Reportable Lymphocytes % Not Reportable Monocytes % Not Reportable Eosinophils % Not Reportable Basophils % Not Reportable Absolute Neutrophils Not Reportable Absolute Lymphocytes Not Reportable Absolute Monocytes Not Reportable Absolute Eosinophils Not Reportable Absolute Basophils Not Reportable Carbonic Acid 1.18 HCO3/H2CO3 Ratio 22:1 ABG pH 7.46 H ABG pCO2 39.1 ABG pO2 66.2 L ABG HCO3 27.1 H ABG O2 Saturation 94.1 ABG Base Excess 3.1 FiO2 35% Sodium Potassium Chloride Carbon Dioxide Anion Gap BUN Creatinine 0.87 Est GFR ( Amer) > 60 Est GFR (Non-Af Amer) > 60 Glucose Calcium Magnesium Total Bilirubin AST ALT Alkaline Phosphatase Total Protein Albumin 04/05/17 05:14 WBC RBC Hgb Hct MCV MCH MCHC RDW Plt Count Seg Neutrophils % Lymphocytes % Monocytes % Eosinophils % Basophils % Absolute Neutrophils Absolute Lymphocytes Absolute Monocytes Absolute Eosinophils Absolute Basophils Carbonic Acid HCO3/H2CO3 Ratio ABG pH ABG pCO2 ABG pO2 ABG HCO3 ABG O2 Saturation ABG Base Excess FiO2 Sodium 139.8 Potassium 4.7 Chloride 107 Carbon Dioxide 27 Anion Gap 6 BUN 14 Creatinine 0.78 Est GFR ( Amer) > 60 Est GFR (Non-Af Amer) > 60 Glucose 179 H Calcium 7.7 L Magnesium 2.5 H Total Bilirubin 0.3 AST 34 ALT 93 H Alkaline Phosphatase 62 Total Protein 4.5 L Albumin 2.4 L 04/01/17 04/01/17 04/01/17 23:20 23:20 23:20 Creatine Kinase 92 CK-MB (CK-2) 2.03 Troponin I 0.057 NT-Pro-B Natriuret Pep 2780 H 04/02/17 04/02/17 04/02/17 04:08 04:08 11:15 Creatine Kinase 89 72 CK-MB (CK-2) 1.95 Troponin I 0.055 NT-Pro-B Natriuret Pep 04/02/17 04/03/17 04/03/17 11:15 18:35 18:35 Creatine Kinase 235 H CK-MB (CK-2) 1.65 3.44 Troponin I 0.037 0.053 NT-Pro-B Natriuret Pep 2540 H 04/04/17 04/04/17 04/04/17 00:30 00:30 07:10 Creatine Kinase 181 H CK-MB (CK-2) 2.92 2.36 Troponin I 0.054 0.051 NT-Pro-B Natriuret Pep 04/04/17 10:32 Creatine Kinase 106 CK-MB (CK-2) Troponin I NT-Pro-B Natriuret Pep Impressions: Chest X-Ray 04/05/17 05:30 IMPRESSION: 1. Improved aeration bilaterally with persistent diffuse bilateral airspace opacity. Assessment & Plan - Diagnosis (1) Acute respiratory failure with hypoxia Is this a current diagnosis for this admission?: Yes Plan: Secondary to nosocomial acquired pneumonia and acute on chronic CHF exacerbation : We will continue patient on vancomycin, Levaquin, and Primaxin. We will try to wean patient off of propofol in hopes that patient's blood pressure improved which will allow us to be due to diurese patient. Will also repeat CT of chest. (2) Leukocytosis Is this a current diagnosis for this admission?: Yes Plan: Patient's white blood cell count is trending down. Will continue current antibiotics. (3) Glucose intolerance (impaired glucose tolerance) Is this a current diagnosis for this admission?: Yes Plan: Hemoglobin A1c of 6.1: We will place on sliding scale insulin. (4) Acute exacerbation of congestive heart failure Is this a current diagnosis for this admission?: Yes Plan: Patient with history of known EF of 35% with AICD in place: We will try to wean patient off of propofol in order to be able to diurese patient. Patient is currently hypotensive most likely secondary to medication. CT of chest is pending to evaluate pneumonia and also for pulmonary edema. (5) Anemia Is this a current diagnosis for this admission?: Yes Plan: We will monitor patient's hemoglobin closely. Will order for occult stools. Will also do anemia workup. (6) Cardiomyopathy Qualifiers: Cardiomyopathy type: unspecified Qualified Code(s): I42.9 - Cardiomyopathy , unspecified Is this a current diagnosis for this admission?: Yes Plan: Patient with known EF of 35% with AICD placed: Patient with evidence of acute on chronic CHF exacerbation secondary to IV fluid administration. We will try to diurese patient once blood pressure has improved. Patient is currently hypotensive. (7) Presence of automatic cardioverter/defibrillator (AICD) Is this a current diagnosis for this admission?: Yes Plan: in setting of EF 35%: Will continue to monitor. (8) Tachycardia Is this a current diagnosis for this admission?: Yes (9) Obesity (BMI 30.0-34.9) Is this a current diagnosis for this admission?: Yes Plan: Will encourage dietary changes. (10) Sepsis Qualifiers: Sepsis type: sepsis due to unspecified organism Qualified Code(s): A41.9 - Sepsis, unspecified organism Is this a current diagnosis for this admission?: Yes Plan: ( RR 24, WBC 23,0000, Resp Failure, identified source, and hypotension) secondary to nosocomial acquired pneumonia: We will continue patient with current antibiotics. Patient has been bronched by pulmonary. Cultures have not demonstrated any growth. Patient is currently being evaluated for tuberculosis. (11) Hypotension Is this a current diagnosis for this admission?: Yes Plan: Most likely secondary to Propofol: Plan is to try to wean patient off of propofol in hopes that blood pressure will improve. Goal will be to try to diurese patient. - Time Time Spent with patient: 25-34 minutes
[2017-04-05] MEDS: GUAIFENESIN 600 MG TABLET.SA PO SCH ×2 (11:26→22:32)
[2017-04-05] MEDS: DIGOXIN 0.125 MG TABLET PO SCH (11:27)
[2017-04-05] MEDS: ACETAMINOPHEN 325 MG TABLET NG PRN (11:27)
[2017-04-05] MEDS: THIAMINE HCL 100 MG TABLET NG SCH (11:29)
[2017-04-05] MEDS: FLUCONAZOLE 200 MG/NS RTU 100 ML IV SCH (11:29)
[2017-04-05] MEDS: FENTANYL CITRATE INJ/PF 100 MCG/2 ML AMPUL IV PRN (11:30)
--- NOTE | 2017-04-05 12:52 | PROGRESS NOTE E ---
Progress Note NAME: PRISCA ARMENTA : 1970 AGE: 47Y DATE: 04/04/2017 ROOM: 604 SUBJECTIVE: The patient is a 47-year-old male who was transferred to ICU at 10:00 p.m. because of increased worsening of breath, acute respiratory failure requiring endotracheal intubation and invasive mechanical ventilation. When the patient was in ICU, profuse amount of the blood was suctioned from the endotracheal tube. Patient underwent flexible bronchoscopy last night around 2:00 in the morning. There was no bleeding around the airway. There was no bleeding from the trachea. No bleeding from the baljinder, mainstem bronchi, secondary bronchi, and tertiary bronchi. Some hemes were noted coming out peripherally. Secretions were suctioned as the bronchoscope was advanced. About 2 cups of bronchial secretions and washing fluids were collected from the patient. No tumors noted in the trachea and in the airway. No bleeding lesions also noted in the trachea and airway. No Levophed was started last night because the patient's blood pressure was on the low side. Levophed drip has been weaned down and blood pressure seems to be becoming stable. No fever spikes noted overnight. Saturation has improved on a SIMV rate of 24 tidal volume of 500, FiO2 of about 40%, pressure support of 10, PEEP of 5, and rate of 24. This afternoon, patient became tachypneic and pressure support was increased to 16 cm of water pressure. Patient appeared to do better afterwards. OBJECTIVE: GENERAL: Patient currently sedated, afebrile, breathing comfortably. VITAL SIGNS: Saturation of about 97% on SIMV rate of 24, tidal volume 500, pressure support of 16, PEEP of 8, FiO2 40% with a peak airway pressure of 29 and a plateau of 27 and mean airway pressure of 17. EYES: No jaundice or pallor. EAR NOSE AND THROAT: No ear drainage noted. No nasal discharge. HEAD AND NECK: No scalp swelling. No neck swelling or erythema. CHEST AND LUNGS: Fine rales bilaterally. No coarse crackles. No wheezing noted. CARDIOVASCULAR: S1, S2 distant. Normal rate. Regular rhythm. ABDOMEN: Flabby. Positive bowel sounds. Soft, nondistended, nontender. EXTREMITIES: No joint swelling or cellulitis. LABORATORY: A CBC done today showed white count of 24.1, hemoglobin is 11.2, hematocrit is 34.1, platelet count is 240. ABG done at 2:00 this morning showed pH of 7.36, pCO2 40.5, the oxygen saturation 97.1. Chemistry done this morning showed sodium of 136.4, potassium 4.7, chloride is 106, CO2 is 25, BUN 22, creatinine is 0.92, glucose is 205, calcium 7.5. CK-MB is 2.36. Troponin is 0.051. Chest x-ray done this morning at 12:33 a.m. showed the endotracheal tube is in place, more pulmonary edema bilaterally with cardiomegaly and pacemaker in place. ASSESSMENT: 1. ACUTE RESPIRATORY FAILURE REQUIRING INVASIVE MECHANICAL VENTILATION. 2. PULMONARY EDEMA BILATERALLY. 3. HEMOPTYSIS, MOST LIKELY DUE TO PULMONARY EDEMA +/- MULTIPLE LOBAR PNEUMONIA BILATERAL, currently on IV Primaxin 500 mg IV piggyback every 6 hours, Levaquin 750 mg IV piggyback once daily, and vancomycin 1 g daily, and pharmacy dosing the vancomycin IV. 4. SEVERE SEPSIS. PLAN AND RECOMMENDATIONS: 1. We will continue IV antibiotics, Primaxin 500 mg, vancomycin, Levaquin 750. 2. We will continue the ventilator support. We will decrease the FiO2 to 35% and titrate to keep saturation 91-95% and decrease the PEEP to 6 and decrease pressure support to 12. 3. We will start the patient on NG tube feeding using Jevity 1.2 at 20 mL per hour. DICTATING PHYSICIAN: LUZ QUINONES MD,GREGG,MPH [id number] PHY#: [id number] ID: [id number] JOB#: [id number] ACCT: [id number] cc: > [facility]
[2017-04-05 15:10] LABS: ANTINUCLEAR ANTIBODIES Negative (Negative)
[2017-04-05] MEDS: LEVOFLOXACIN 750 MG/D5W RTU 750 MG/150 ML RTUPB IV SCH (15:19)
[2017-04-05 21:07] LABS: ANTIMYELOPEROXIDASE (MPO) AB <9.0 U/mL (0.0-9.0); ANTIPROTEINASE 3 (PR-3) AB <3.5 U/mL (0.0-3.5); CYTOPLASMIC (C-ANCA) <1:20 titer (Neg:<1:20)
--- NOTE | 2017-04-05 22:09 | RADIOLOGY REPORT (SQ) ---
EXAM DESCRIPTION: CT CHEST WITHOUT COMPLETED DATE/TIME: 04/05/2017 9:36 pm REASON FOR STUDY: Resp Failure COMPARISON: None. TECHNIQUE: CT scan performed of the chest without intravenous contrast. Images reviewed with lung, soft tissue and bone windows. Reconstructed coronal and sagittal MPR images reviewed. All images st ored on PACS. All CT scanners at this facility use dose modulation, iterative reconstruction, and/or weight based d osing when appropriate to reduce radiation dose to as low as reasonably achievable (ALARA). [facility]: Dose Right [facility]: CareDose [facility]: Dose Right [facility]: Teradose 4D [facility]: [employer] RADIATION DOSE: CT Rad equipment meets quality standard of care and radiation dose reduction techniq ues were employed. CTDIvol: 20.5 mGy. DLP: 734 mGy-cm. mGy. LIMITATIONS: No technical limitations. FINDINGS: LUNGS AND PLEURA: Diffuse consolidation is present throughout both lungs. Small pleural e ffusions, right greater than left. No pneumothorax. HILAR AND MEDIASTINAL STRUCTURES: Multiple reactive nodes. No obvious aneurysm. HEART AND VASCULAR STRUCTURES: No aneurysm. No pericardial effusion. UPPER ABDOMEN: No significant findings. Limited exam. THYROID AND OTHER SOFT TISSUES: No masses. No adenopathy. BONES: No acute finding. HARDWARE: Endotracheal tube is present with tip approximately 3.5 cm above the level of the baljinder. Nasogastric catheter is present with tip overlying the body of the stomach. Cardiac defibrillator is present. OTHER: No other significant findings. IMPRESSION: Diffuse consolidation is present throughout both lungs. Small pleural effusions, right g reater than left. Endotracheal tube is present with tip approximately 3.5 cm above the level of the c radha. Nasogastric catheter is present with tip overlying the body of the stomach. TECHNICAL DOCUMENTATION: JOB ID: [id number] [place]-72 Quality ID # [id number]: Final reports with documentation of one or more dose reduction techniques (e.g., Au tomated exposure control, adjustment of the mA and/or kV according to patient size, use of iterative reconstruction technique) 2010 [employer]- All Rights Reserved
--- NOTE | 2017-04-05 23:25 | PROGRESS NOTE E ---
Progress Note NAME: PRISCA ARMENTA : 1970 AGE: 47Y DATE: 04/05/2017 ROOM: 604 SUBJECTIVE: The patient is a 47-year-old male who came to the ICU 2 days ago for acute respiratory failure requiring invasive mechanical ventilation due to pulmonary edema, hemoptysis, and pneumonia. There were scanty endotracheal secretions noted this morning. No vomiting. No diarrhea. Blood pressure has been stable. The patient was not started on NG tube feeding yet. The sputum AFB and bronchial washing, AFB smears are still pending. Blood cultures are also pending. OBJECTIVE: GENERAL: The patient is sedated, afebrile, not in apparent respiratory distress currently. VITAL SIGNS: Temperature of 99 degrees Fahrenheit, pulse rate of 90, respiratory rate is 25, the blood pressure is 118/84. The patient is not on vasopressors. Saturation is 96% on SIMV rate of 24, tidal volume 500, pressure support of 12, PEEP of 5, and FiO2 is 35%, peak area pressure is 24, O2 pressure is a minute, intubation is 10. EYES: No jaundice or pallor. EARS, NOSE, AND THROAT: No ear drainage. No nasal discharge. HEAD AND NECK: No scalp swelling. Neck is supple. CHEST AND LUNGS: No wheezing, no rhonchi, no coarse crackles. CARDIOVASCULAR: S1/S2 distant. Normal rate and rhythm. ABDOMEN: Flabby, positive bowel sounds, soft, nondistended, nontender. EXTREMITIES: There is no joint swelling, no cellulitis. LABORATORY DATA: CBC done today showed a white count of 19,800 down from 24,100 yesterday; hemoglobin is 10.9; hematocrit 32.8; platelet count is 227; bands is 2%. Chemistry done today showed sodium of 139, potassium 4.7, chloride 107, CO2 is 27, BUN 14, creatinine 0.78, calcium is 7.7, glucose 179, SGOT is 93, SGPT is 62, albumin 2.4. IMAGING STUDIES: Chest x-ray done today showed endotracheal tube tip is in place about 4 cm above the baljinder below the clavicle. Pacemaker appeared in place. No pneumothorax noted. Pulmonary infiltrate bilaterally. Chest x-ray done today showed consolidation on both lungs, a small amount of pleural effusion bilaterally. ASSESSMENT: 1. ACUTE RESPIRATORY FAILURE REQUIRING INVASIVE MECHANICAL VENTILATION. 2. PULMONARY EDEMA, STATUS POST ICD PLACEMENT. 3. HEMOPTYSIS, CURRENTLY RESOLVED. 4. PNEUMONIA, MOST LIKELY COMORBID CONDITION. 5. SEVERE LEUKOCYTOSIS, SEVERE SEPSIS. CURRENTLY APPEARS TO BE IMPROVING. PLAN/RECOMMENDATIONS: 1. We will continue the IV vancomycin, Levaquin 750 mg, and Primaxin. 2. We will continue to optimize ventilator support. Currently on SIMV rate of 34, tidal volume of 500, pressure support 12, PEEP of 6, and FiO2 of 35% and titrated to keep sats between 91-94%. 3. We will start NG tube feeding tonight. DICTATING PHYSICIAN: LUZ QUINONES MD,GREGG,MPH [id number] [id number] PHY#: [id number] ID: [id number] JOB#: [id number] ACCT: [id number] cc: > [facility]
[2017-04-06] MEDS: IMIPENEM/CILASTATIN SODIUM 500 MG in NORMAL SALINE 100 ML IV SCH ×5 (00:35→23:43)
[2017-04-06] MEDS: LORAZEPAM 24 MG/240 ML BAG IV PRN ×2 (00:36→03:39)
[2017-04-06] MEDS: VANCOMYCIN HCL 1,000 MG in DEXTROSE 5%-WATER 250 ML IV SCH ×3 (00:36→17:06)
[2017-04-06] MEDS: IPRATROPIUM/ALBUTEROL 0.5-2.5 MG/3 ML AMPUL NEB SCH ×4 (02:07→20:04)
[2017-04-06] MEDS: FENTANYL CITRATE INJ/PF 100 MCG/2 ML AMPUL IV PRN ×3 (02:46→19:37)
[2017-04-06] MEDS: PROPOFOL 100 ML IV PRN (03:38)
[2017-04-06] MEDS: HEPARIN SOD (PORCINE) 5,000 UNIT/ML 1 ML SYRINGE SUBCUT SCH ×3 (05:20→21:11)
[2017-04-06 06:52] LABS: ALANINE AMINOTRANSFERASE 105 U/L (21-72); ALBUMIN 2.2 g/dL (3.5-5.0); ALKALINE PHOSPHATASE 67 U/L (38-126); ANION GAP 6 (5-19); ASPARTATE AMINO TRANSFERASE 62 U/L (17-59); BILIRUBIN,DIRECT 0.3 mg/dL (0.0-0.4); BILIRUBIN,TOTAL 0.3 mg/dL (0.2-1.3); BLOOD UREA NITROGEN 13 mg/dL (7-20); CALCIUM 7.3 mg/dL (8.4-10.2); CARBON DIOXIDE 28 mmol/L (22-30); CHLORIDE 106 mmol/L (98-107); FOLATE 6.96 ng/mL (>2.76); GLUCOSE 118 mg/dL (75-110); POTASSIUM 4.2 mmol/L (3.6-5.0); SODIUM 139.9 mmol/L (137-145); TOTAL PROTEIN 4.5 g/dL (6.3-8.2)
[2017-04-06 07:20] LABS: IRON(TIBC) 30.3 ug/dL (49-181)
[2017-04-06 08:06] LABS: ATYPICAL PANCA <1:20 titer (Neg:<1:20); PERINUCLEAR (P-ANCA) <1:20 titer (Neg:<1:20)
[2017-04-06 08:43] LABS: ABSOLUTE RETICS # 0.134 10^6/uL (0.028-0.122); HEMOGLOBIN 10.4 g/dL (13.5-17.0); MEAN CORPUSCULAR HEMOGLOBIN 28.3 pg (27.0-33.4); MEAN CORPUSCULAR HGB CONC 31.6 g/dL (32.0-36.0); MEAN CORPUSCULAR VOLUME 90 fl (80-97); PLATELET COUNT 235 10^3/uL (150-450); RED BLOOD COUNT 3.68 10^6/uL (4.35-5.55); RED CELL DISTRIBUTION WIDTH 14.9 % (11.5-14.0); RETICULOCYTE COUNT (AUTO) 3.64 % (0.66-2.85); WHITE BLOOD COUNT 20.3 10^3/uL (4.0-10.5)
[2017-04-06] MEDS: GUAIFENESIN 600 MG TABLET.SA PO SCH (09:33)
[2017-04-06] MEDS: FAMOTIDINE INJ/PF 20 MG/2 ML SDV IV SCH ×2 (09:48→21:09)
[2017-04-06] MEDS: FLUCONAZOLE 200 MG/NS RTU 100 ML IV SCH (09:48)
[2017-04-06] MEDS: DIGOXIN 0.125 MG TABLET PO SCH (09:48)
[2017-04-06] MEDS: THIAMINE HCL 100 MG TABLET NG SCH (09:48)
[2017-04-06] MEDS: MIDAZOLAM HCL 50 MG/100 ML RTUINJ IV PRN ×3 (09:49→23:43)
[2017-04-06] MEDS: HYDROMORPHONE HCL INJ/PF 2 MG/ML AMPULE IV PRN ×2 (09:49→23:43)
--- NOTE | 2017-04-06 09:50 | PDOC PROGRESS REPORT ---
Subjective Progress Note for:: 04/06/17 Subjective:: Nursing overnight states that patient has remained stable. Nurse states that patient's respiratory rate was in the 30s and therefore she increased his propofol. Have asked that they try to wean patient off of propofol. Explained that propofol is drop in patient's blood pressure requiring a staff to give him additional fluid. Explained to nurse that patient has an EF of around 35% and when it comes time to extubate the patient will have to focus on diuresing for that process to be successful. Reason For Visit: ACUTE RESPIRATORY FAILURE Physical Exam Vital Signs: Temp Pulse Resp BP Pulse Ox 101.5 F H 105 H 34 H 109/80 99 04/06/17 07:59 04/06/17 07:59 04/06/17 07:59 04/06/17 07:59 04/06/17 07:59 Intake & Output 04/05/17 04/06/17 04/07/17 06:59 06:59 06:59 Intake Total 3814 2971 Output Total 3575 2875 175 Balance 239 96 -175 Weight 90.7 kg 90.8 kg General appearance: PRESENT: other - sedated Head exam: PRESENT: atraumatic, normocephalic Eye exam: PRESENT: conjunctiva pink Ear exam: PRESENT: normal external ear exam Mouth exam: PRESENT: moist, other - ETT in place Neck exam: ABSENT: carotid bruit, JVD, lymphadenopathy, thyromegaly Respiratory exam: PRESENT: other - diminished breath sounds at bases bilaterally , + fair airmovement Cardiovascular exam: PRESENT: RRR. ABSENT: diastolic murmur, rubs, systolic murmur Pulses: PRESENT: normal dorsalis pedis pul Vascular exam: PRESENT: normal capillary refill GI/Abdominal exam: PRESENT: normal bowel sounds, soft. ABSENT: distended, guarding, mass, organolmegaly, rebound, tenderness Rectal exam: PRESENT: deferred Extremities exam: PRESENT: other - trace edema bilateral lower ext.. ABSENT: calf tenderness, clubbing Musculoskeletal exam: ABSENT: tenderness Neurological exam: PRESENT: other - sedated Psychiatric exam: PRESENT: other - sedated. ABSENT: homicidal ideation, suicidal ideation Skin exam: PRESENT: dry, intact, warm. ABSENT: cyanosis, rash Results Laboratory Results: 04/06/17 03:52 04/06/17 03:52 Sodium 139.9 Potassium 4.2 Chloride 106 Carbon Dioxide 28 Anion Gap 6 BUN 13 Creatinine 0.81 Est GFR ( Amer) > 60 Est GFR (Non-Af Amer) > 60 Glucose 118 H Calcium 7.3 L Phosphorus 3.0 Magnesium 2.4 H Iron 30.3 L TIBC 215 L % Saturation 14 Ferritin 475.00 H Total Bilirubin 0.3 AST 62 H ALT 105 H Alkaline Phosphatase 67 Total Protein 4.5 L Albumin 2.2 L Vitamin B12 > 1000.0 H Folate 6.96 04/04/17 01:43 Bronchial Washings AFB Smear Concentration - Final 04/04/17 01:43 Bronchial Washings Acid Fast Bacilli Smear - Final 04/04/17 00:10 Sputum AFB Smear Concentration - Final 04/04/17 00:10 Sputum Acid Fast Bacilli Smear - Final 04/03/17 06:30 Sputum AFB Smear Concentration - Final 04/03/17 06:30 Sputum Acid Fast Bacilli Smear - Final 04/04/17 01:43 Bronchial Washings Gram Stain - Final 04/04/17 01:43 Bronchial Washings Bronchial Washings Culture - Final C.albicans/C.dubliniensis Normal Dayanna Absent 04/02/17 08:45 Sputum Fungal Smear - Final 04/02/17 08:45 Sputum Fungal Smear - Final 04/02/17 18:02 Sputum Gram Stain - Final 04/02/17 18:02 Sputum Sputum Culture - Final C.albicans/C.dubliniensis Greatly Reduced Normal Dayanna 04/01/17 04/01/17 04/01/17 23:20 23:20 23:20 Creatine Kinase 92 CK-MB (CK-2) 2.03 Troponin I 0.057 NT-Pro-B Natriuret Pep 2780 H 04/02/17 04/02/17 04/02/17 04:08 04:08 11:15 Creatine Kinase 89 72 CK-MB (CK-2) 1.95 Troponin I 0.055 NT-Pro-B Natriuret Pep 04/02/17 04/03/17 04/03/17 11:15 18:35 18:35 Creatine Kinase 235 H CK-MB (CK-2) 1.65 3.44 Troponin I 0.037 0.053 NT-Pro-B Natriuret Pep 2540 H 04/04/17 04/04/17 04/04/17 00:30 00:30 07:10 Creatine Kinase 181 H CK-MB (CK-2) 2.92 2.36 Troponin I 0.054 0.051 NT-Pro-B Natriuret Pep 04/04/17 10:32 Creatine Kinase 106 CK-MB (CK-2) Troponin I NT-Pro-B Natriuret Pep Impressions: Chest CT 04/05/17 00:00 IMPRESSION: Diffuse consolidation is present throughout both lungs. Small pleural effusions, right greater than left. Endotracheal tube is present with tip approximately 3.5 cm above the level of the baljinder. Nasogastric catheter is present with tip overlying the body of the stomach. Chest X-Ray 04/05/17 05:30 IMPRESSION: 1. Improved aeration bilaterally with persistent diffuse bilateral airspace opacity. Assessment & Plan - Diagnosis (1) Acute respiratory failure with hypoxia Is this a current diagnosis for this admission?: Yes Plan: Secondary to nosocomial acquired pneumonia and acute on chronic CHF exacerbation : Will continue vancomycin, Levaquin, and Primaxin. CT of chest demonstrates diffuse consolidation throughout both lungs. Only small pleural effusion was noted right greater than left. Appreciate pulmonary's assistance with assistant corporate controller with patient's care. (2) Leukocytosis Is this a current diagnosis for this admission?: Yes Plan: Patient noted to be afebrile. White count today is 20,000. Will continue current antibiotics. (3) Glucose intolerance (impaired glucose tolerance) Is this a current diagnosis for this admission?: Yes Plan: Hemoglobin A1c of 6.1: We will continue sliding scale insulin (4) Acute exacerbation of congestive heart failure Is this a current diagnosis for this admission?: Yes Plan: Patient with history of known EF of 35% with AICD in place: We will discontinue propofol and place patient on Versed drip and will also DC Ativan drip. If blood pressure improves will place on diuretics. We will continue to monitor patient's urine output closely. Patient's CT of chest demonstrates small pleural effusions right greater than left (5) Anemia Is this a current diagnosis for this admission?: Yes Plan: Consistent with component of iron deficiency anemia: Once patient has been extubated will place patient on iron replacement. (6) Cardiomyopathy Qualifiers: Cardiomyopathy type: unspecified Qualified Code(s): I42.9 - Cardiomyopathy , unspecified Is this a current diagnosis for this admission?: Yes Plan: Patient with known EF of 35% with AICD placed: Patient with evidence of acute on chronic CHF exacerbation secondary to IV fluid administration. We will try to diurese patient once blood pressure has improved. Patient is currently hypotensive. Requested for patient to be put on Versed drip. Will discontinue Ativan and DC propofol drip (7) Presence of automatic cardioverter/defibrillator (AICD) Is this a current diagnosis for this admission?: Yes Plan: in setting of EF 35%: Will continue to monitor. (8) Tachycardia Is this a current diagnosis for this admission?: Yes Plan: Secondary to fever: We will continue to monitor patient closely. (9) Obesity (BMI 30.0-34.9) Is this a current diagnosis for this admission?: Yes Plan: Will encourage dietary changes. (10) Sepsis Qualifiers: Sepsis type: sepsis due to unspecified organism Qualified Code(s): A41.9 - Sepsis, unspecified organism Is this a current diagnosis for this admission?: Yes Plan: ( RR 24, WBC 23,0000, Resp Failure, identified source, and hypotension) secondary to nosocomial acquired pneumonia: We will continue patient with current antibiotics. Patient has been bronched by pulmonary. Cultures have not demonstrated any growth. Patient is currently being evaluated for tuberculosis. (11) Hypotension Is this a current diagnosis for this admission?: Yes Plan: Most likely secondary to Propofol: Plan is to try to wean patient off of propofol in hopes that blood pressure will improve. Goal will be to try to diurese patient. (12) Pleural effusion Is this a current diagnosis for this admission?: Yes Plan: In setting of EF of 35%: Will continue to monitor. We will continue to monitor patient's urine output. Once patient's blood pressure is improved we will try to diurese patient. - Time Time Spent with patient: 25-34 minutes
--- NOTE | 2017-04-06 11:12 | PDOC PROGRESS REPORT ---
Subjective Progress Note for:: 04/05/17 Subjective:: Patient about the same and has made very little progress. There is no significant change in general condition. Patient remains on vasopressors. Patient remains intubated, sedated, patient however looks comfortable and in acute distress. Medications reviewed. Reason For Visit: ACUTE RESPIRATORY FAILURE Physical Exam Vital Signs: Temp Pulse Resp BP Pulse Ox 37.7 F L 92 32 H 118/84 96 04/05/17 18:14 04/05/17 14:20 04/05/17 16:01 04/05/17 16:00 04/05/17 16:34 Intake & Output 04/04/17 04/05/17 04/06/17 06:59 06:59 06:59 Intake Total 2192 3814 1480 Output Total 2459 3575 1500 Balance -267 239 -20 Weight 91.4 kg 90.7 kg Exam: GENERAL: well-nourished and in no acute distress. Patient is intubated and sedated. Orientation cannot be checked HEAD: Atraumatic, normocephalic. EYES: Pupils equal round and reactive to light, extraocular movements could not be checked, sclera anicteric, conjunctiva are normal. ENT: TMs normal, nares patent, oropharynx clear without exudates. Moist mucous membranes. No oral ulcerations or bleeding gums noted NECK: supple without lymphadenopathy or JVD. Trachea is central. No cervical or axillary lymphadenopathy noted. Carotids are 2+ LUNGS: Breath sounds mostly clear to auscultation patient is noted to have bibasal crackles at the extreme bases CHEST: Palpation of the chest wall shows no significant chest wall tenderness or abnormalities. 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 ABDOMEN: Soft, no significant tenderness appreciated, normoactive bowel sounds. No guarding, no rebound. No rigidity noted . No masses appreciated. EXTREMITIES: Pedal pulses are 1-2+, no calf tenderness noted, 1+ pedal edema noted. No clubbing or cyanosis. NEUROLOGICAL: The patient cannot participate in the neurological exam but no facial asymmetry noted. Extremities slightly hypotonic PSYCH: This cannot be evaluated. Patient cannot participate. SKIN: No significant ecchymosis, rash, or signs of pruritus noted. MUSCULOSKELETAL EXAM: No significant joint swelling noted. Patient cannot participate in musculoskeletal exam Results Laboratory Results: 04/05/17 05:14 04/05/17 05:14 04/05/17 04/05/17 04/05/17 05:05 05:14 05:14 WBC 19.8 H RBC 3.75 L Hgb 10.9 L Hct 32.8 L MCV 87 MCH 29.0 MCHC 33.2 RDW 14.5 H Plt Count 277 Seg Neutrophils % Not Reportable Lymphocytes % Not Reportable Monocytes % Not Reportable Eosinophils % Not Reportable Basophils % Not Reportable Absolute Neutrophils Not Reportable Absolute Lymphocytes Not Reportable Absolute Monocytes Not Reportable Absolute Eosinophils Not Reportable Absolute Basophils Not Reportable Carbonic Acid 1.18 HCO3/H2CO3 Ratio 22:1 ABG pH 7.46 H ABG pCO2 39.1 ABG pO2 66.2 L ABG HCO3 27.1 H ABG O2 Saturation 94.1 ABG Base Excess 3.1 FiO2 35% Sodium 139.8 Potassium 4.7 Chloride 107 Carbon Dioxide 27 Anion Gap 6 BUN 14 Creatinine 0.78 Est GFR ( Amer) > 60 Est GFR (Non-Af Amer) > 60 Glucose 179 H Calcium 7.7 L Magnesium 2.5 H Total Bilirubin 0.3 AST 34 ALT 93 H Alkaline Phosphatase 62 Total Protein 4.5 L Albumin 2.4 L 04/04/17 01:43 Bronchial Washings Gram Stain - Final 04/04/17 01:43 Bronchial Washings Bronchial Washings Culture - Final C.albicans/C.dubliniensis Normal Dayanna Absent 04/02/17 08:45 Sputum Fungal Smear - Final 04/02/17 08:45 Sputum Fungal Smear - Final 04/02/17 18:02 Sputum Gram Stain - Final 04/02/17 18:02 Sputum Sputum Culture - Final C.albicans/C.dubliniensis Greatly Reduced Normal Dayanna 04/01/17 04/01/17 04/01/17 23:20 23:20 23:20 Creatine Kinase 92 CK-MB (CK-2) 2.03 Troponin I 0.057 NT-Pro-B Natriuret Pep 2780 H 04/02/17 04/02/17 04/02/17 04:08 04:08 11:15 Creatine Kinase 89 72 CK-MB (CK-2) 1.95 Troponin I 0.055 NT-Pro-B Natriuret Pep 04/02/17 04/03/17 04/03/17 11:15 18:35 18:35 Creatine Kinase 235 H CK-MB (CK-2) 1.65 3.44 Troponin I 0.037 0.053 NT-Pro-B Natriuret Pep 2540 H 04/04/17 04/04/17 04/04/17 00:30 00:30 07:10 Creatine Kinase 181 H CK-MB (CK-2) 2.92 2.36 Troponin I 0.054 0.051 NT-Pro-B Natriuret Pep 04/04/17 10:32 Creatine Kinase 106 CK-MB (CK-2) Troponin I NT-Pro-B Natriuret Pep EKG Comments: Telemetry strip shows sinus rhythm with intermittent sinus tachycardia Impressions: Chest X-Ray 04/05/17 05:30 IMPRESSION: 1. Improved aeration bilaterally with persistent diffuse bilateral airspace opacity. Assessment & Plan - Diagnosis (1) Acute respiratory failure with hypoxia Is this a current diagnosis for this admission?: Yes (2) Pneumonia Qualifiers: Pneumonia type: due to unspecified organism Laterality: bilateral Lung location: unspecified part of lung Qualified Code(s): J18.9 - Pneumonia, unspecified organism Is this a current diagnosis for this admission?: Yes (3) Tachycardia Is this a current diagnosis for this admission?: Yes (4) Cardiomyopathy Qualifiers: Cardiomyopathy type: unspecified Qualified Code(s): I42.9 - Cardiomyopathy , unspecified Is this a current diagnosis for this admission?: Yes (5) Presence of automatic cardioverter/defibrillator (AICD) Is this a current diagnosis for this admission?: Yes (6) Hypotension Qualifiers: Hypotension type: unspecified hypotension type Qualified Code(s): I95.9 - Hypotension, unspecified Is this a current diagnosis for this admission?: Yes - Notes Notes: Acute respiratory failure: Patient has predominantly hypoxemic respiratory failure. Currently intubated and being artificially ventilated. Respiratory failure most likely related to bilateral pneumonia. Do not see much evidence of fluid overload or CHF this point. 2D echo shows severely depressed LVEF with moderate valvular regurgitation. 2D echo results discussed with and other nurses. Will try optimize therapy for underlying cardiomyopathy. Bilateral pneumonia: Chest x-ray showed this being very significant. Continue antibiotic therapy. Cardiomyopathy: Patient does have a single-chamber defibrillator present. Will consider starting therapy with entresto once blood pressure is noted to be stable. Continue carvedilol. We will add digoxin. Hypotension: Patient no longer on vasopressors. If vasopressors are used, vasopressin is probably the preferred first-line agent. Presence of AICD: Will evaluate this but so far patient is maintaining a good heart rhythm. - Time Time with patient: Greater than 35 minutes - CODE STATUS was discussed, patient remains full code. Surrogate decision-maker unchanged. Multiple medical problems were addressed. More than 50% of the time spent coordinating care, discussing management plans with involved caregivers. Management plans discussed with involved personnels. Medical decision making was of moderate to high complexity, patient's has multiple comorbidities. Medications reviewed and adjusted accordingly: Yes
[2017-04-06 11:29] LABS: VANCOMYCIN,TROUGH 10.4 ug/mL (5.0-20.0)
--- NOTE | 2017-04-06 11:32 | PDOC PROGRESS REPORT ---
Subjective Progress Note for:: 04/06/17 Subjective:: Patient about the same and has made very little progress. There is no significant change in general condition. Patient currently off vasopressors and just on propofol drip and antibiotics. Patient's mother in the room.. Patient remains intubated, sedated, patient however looks comfortable and in acute distress. Medications reviewed. Reason For Visit: ACUTE RESPIRATORY FAILURE Physical Exam Vital Signs: Temp Pulse Resp BP Pulse Ox 101.1 F H 96 30 H 90/70 L 94 04/06/17 10:35 04/06/17 10:00 04/06/17 10:35 04/06/17 10:35 04/06/17 10:35 Intake & Output 04/05/17 04/06/17 04/07/17 06:59 06:59 06:59 Intake Total 3814 2971 Output Total 3575 2875 275 Balance 239 96 -275 Weight 90.7 kg 90.8 kg Exam: GENERAL: well-nourished and in no acute distress. Patient is intubated and sedated. Orientation cannot be checked HEAD: Atraumatic, normocephalic. EYES: Pupils equal round and reactive to light, extraocular movements could not be checked, sclera anicteric, conjunctiva are normal. ENT: TMs normal, nares patent, oropharynx clear without exudates. Moist mucous membranes. No oral ulcerations or bleeding gums noted NECK: supple without lymphadenopathy or JVD. Trachea is central. No cervical or axillary lymphadenopathy noted. Carotids are 2+ LUNGS: Breath sounds mostly clear to auscultation patient is noted to have bibasal crackles right more than left at the extreme bases CHEST: Palpation of the chest wall shows no significant chest wall tenderness or abnormalities. 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 ABDOMEN: Soft, no significant tenderness appreciated, normoactive bowel sounds. No guarding, no rebound. No rigidity noted . No masses appreciated. EXTREMITIES: Pedal pulses are 1-2+, no calf tenderness noted, 1+ pedal edema noted. No clubbing or cyanosis. NEUROLOGICAL: The patient cannot participate in the neurological exam but no facial asymmetry noted. Extremities slightly hypotonic PSYCH: This cannot be evaluated. Patient cannot participate. SKIN: No significant ecchymosis, rash, or signs of pruritus noted. MUSCULOSKELETAL EXAM: No significant joint swelling noted. Patient cannot participate in musculoskeletal exam Results Laboratory Results: 04/06/17 03:52 04/06/17 04/06/17 03:52 03:52 WBC 20.3 H RBC 3.68 L Hgb 10.4 L Hct 33.0 L MCV 90 MCH 28.3 MCHC 31.6 L RDW 14.9 H Plt Count 235 Retic Count (auto) 3.64 H Absolute Retic 0.134 H Sodium 139.9 Potassium 4.2 Chloride 106 Carbon Dioxide 28 Anion Gap 6 BUN 13 Creatinine 0.81 Est GFR ( Amer) > 60 Est GFR (Non-Af Amer) > 60 Glucose 118 H Calcium 7.3 L Phosphorus 3.0 Magnesium 2.4 H Iron 30.3 L TIBC 215 L % Saturation 14 Ferritin 475.00 H Total Bilirubin 0.3 AST 62 H ALT 105 H Alkaline Phosphatase 67 Total Protein 4.5 L Albumin 2.2 L Vitamin B12 > 1000.0 H Folate 6.96 04/04/17 01:43 Bronchial Washings AFB Smear Concentration - Final 04/04/17 01:43 Bronchial Washings Acid Fast Bacilli Smear - Final 04/04/17 00:10 Sputum AFB Smear Concentration - Final 04/04/17 00:10 Sputum Acid Fast Bacilli Smear - Final 04/03/17 06:30 Sputum AFB Smear Concentration - Final 04/03/17 06:30 Sputum Acid Fast Bacilli Smear - Final 04/04/17 01:43 Bronchial Washings Gram Stain - Final 04/04/17 01:43 Bronchial Washings Bronchial Washings Culture - Final C.albicans/C.dubliniensis Normal Dayanna Absent 04/02/17 08:45 Sputum Fungal Smear - Final 04/02/17 08:45 Sputum Fungal Smear - Final 04/02/17 18:02 Sputum Gram Stain - Final 04/02/17 18:02 Sputum Sputum Culture - Final C.albicans/C.dubliniensis Greatly Reduced Normal Dayanna 04/01/17 04/01/17 04/01/17 23:20 23:20 23:20 Creatine Kinase 92 CK-MB (CK-2) 2.03 Troponin I 0.057 NT-Pro-B Natriuret Pep 2780 H 04/02/17 04/02/17 04/02/17 04:08 04:08 11:15 Creatine Kinase 89 72 CK-MB (CK-2) 1.95 Troponin I 0.055 NT-Pro-B Natriuret Pep 04/02/17 04/03/17 04/03/17 11:15 18:35 18:35 Creatine Kinase 235 H CK-MB (CK-2) 1.65 3.44 Troponin I 0.037 0.053 NT-Pro-B Natriuret Pep 2540 H 04/04/17 04/04/17 04/04/17 00:30 00:30 07:10 Creatine Kinase 181 H CK-MB (CK-2) 2.92 2.36 Troponin I 0.054 0.051 NT-Pro-B Natriuret Pep 04/04/17 10:32 Creatine Kinase 106 CK-MB (CK-2) Troponin I NT-Pro-B Natriuret Pep Impressions: Chest CT 04/05/17 00:00 IMPRESSION: Diffuse consolidation is present throughout both lungs. Small pleural effusions, right greater than left. Endotracheal tube is present with tip approximately 3.5 cm above the level of the baljinder. Nasogastric catheter is present with tip overlying the body of the stomach. Chest X-Ray 04/05/17 05:30 IMPRESSION: 1. Improved aeration bilaterally with persistent diffuse bilateral airspace opacity. Assessment & Plan - Diagnosis (1) Acute respiratory failure with hypoxia Is this a current diagnosis for this admission?: Yes (2) Pneumonia Qualifiers: Pneumonia type: due to unspecified organism Laterality: bilateral Lung location: unspecified part of lung Qualified Code(s): J18.9 - Pneumonia, unspecified organism Is this a current diagnosis for this admission?: Yes (3) Tachycardia Is this a current diagnosis for this admission?: Yes (4) Cardiomyopathy Qualifiers: Cardiomyopathy type: unspecified Qualified Code(s): I42.9 - Cardiomyopathy , unspecified Is this a current diagnosis for this admission?: Yes (5) Presence of automatic cardioverter/defibrillator (AICD) Is this a current diagnosis for this admission?: Yes (6) Hypotension Qualifiers: Hypotension type: unspecified hypotension type Qualified Code(s): I95.9 - Hypotension, unspecified Is this a current diagnosis for this admission?: Yes - Notes Notes: Acute respiratory failure: Patient has predominantly hypoxemic respiratory failure. Currently intubated and being artificially ventilated. Respiratory failure most likely related to bilateral pneumonia. Do not see much evidence of fluid overload or CHF this point. 2D echo results were reviewed with hospitalist and other staffs. Bilateral pneumonia: Chest x-ray showed this being very significant. Continue antibiotic therapy. Cardiomyopathy: Patient does have a single-chamber defibrillator present. Will consider starting therapy with entresto once blood pressure is noted to be stable. Continue carvedilol. Digoxin added yesterday. Hypotension: Currently resolved. Presence of AICD: Will evaluate this but so far patient is maintaining a good heart rhythm. - Time Time with patient: Greater than 35 minutes - CODE STATUS was discussed, patient remains full code. Surrogate decision-maker unchanged. Multiple medical problems were addressed. More than 50% of the time spent coordinating care, discussing management plans with involved caregivers. Management plans discussed with involved personnels. Medical decision making was of moderate to high complexity, patient's has multiple comorbidities. Medications reviewed and adjusted accordingly: Yes
[2017-04-06] MEDS ORDERED: SACUBITRIL/VALSARTAN 24 MG/26 MG TABLET PO ONE (13:00)
[2017-04-06] MEDS: LEVOFLOXACIN 750 MG/D5W RTU 750 MG/150 ML RTUPB IV SCH (14:46)
[2017-04-06 18:45] LABS: ARTERIAL BLOOD BASE EXCESS 3.9 mmol/L; ARTERIAL BLOOD H2CO3 1.15 mmol/L (1.05-1.35); ARTERIAL BLOOD HCO3 27.5 mmol/L (20-26); ARTERIAL BLOOD O2 SATURATION 96.5 % (94-98); ARTERIAL BLOOD PCO2 38.1 mmHg (35-45); ARTERIAL BLOOD PH 7.48 (7.35-7.45); ARTERIAL BLOOD PO2 79.4 mmHg (80-100); ARTERIAL BLOOD TOTAL CO2 28.7 mmol/L (23-27)
[2017-04-06 18:46] LABS: ARTERIAL BLOOD FIO2 50%
--- NOTE | 2017-04-06 20:13 | PROGRESS NOTE E ---
Progress Note NAME: PRISCA ARMENTA : 1970 AGE: 47Y DATE: 04/06/2017 ROOM: 604 SUBJECTIVE: Patient is a 47-year-old male admitted for acute respiratory failure requiring invasive mechanical ventilation, pulmonary edema, hemoptysis and pneumonia, bilateral. Patient was admitted, evaluated and mechanical ventilated about 2 days ago, and transferred to ICU from the floor. Sputum, AFB and bronchial washings were negative. The rest of the cultures are pending. There are scanty endotracheal tube secretions. Patient spiked a fever to 100 degrees Fahrenheit. No vomiting, no diarrhea. Tolerated the NG tube feeding at 20 mL per hour. OBJECTIVE: VITAL SIGNS: The patient appears sedated, slightly febrile, and not in acute respiratory distress, with a blood pressure of 104/80, temperature is 100.6, with T-max of 100.8, heart rate of 101, respiratory rate is 28, saturation is 96% on FiO2 of 50%, pressure support of 12, PEEP of 6, tidal volume of 500, with a peak airway pressure of 28, plateau pressure is 26 and ventilation is 11. EYES: No jaundice or pallor. EARS, NOSE AND THROAT: No ear drainage. No nasal discharge. HEAD AND NECK: No scalp swelling or tenderness. Neck supple. CHEST: No rhonchi, no wheezing. CARDIOVASCULAR: S1, S2 distinct. Slightly tachycardic. Regular rate. ABDOMEN: Flabby. Positive bowel sounds. Nondistended. EXTREMITIES: No joint swelling or cellulitis. LABORATORY DATA: CBC done today showed white count of 20,300 from 19,800 yesterday. Chemistry done today showed sodium 139.9, potassium 4.2, chloride is 106, CO2 is 28, BUN 13, creatinine 0.81. Glucose 118. Calcium is 7.3, phosphorus 3, magnesium is 2.4. Total bilirubin is 0.3 and direct bilirubin is 0.3. SGOT is 52, slightly elevated, and SGPT 105. Alkaline phosphatase 57. Chest x-ray showed infiltrate bilaterally. Aortic arch is in place. ASSESSMENT: 1. ACUTE RESPIRATORY FAILURE, REQUIRING INVASIVE MECHANICAL VENTILATION. - not ready to be extubated yet 2. SEVERE SEPSIS, DUE TO MARKEDLY ELEVATED LEUKOCYTOSIS. 3. PNEUMONIA, BILATERAL. 4. CONCOMITANT PULMONARY EDEMA. Low ejection fraction of about 40%. 5. HISTORY OF RECENT DRUG USE. PLAN: Continue the IV antibiotics. Will repeat the CBC and chemistry tomorrow. Check ABGs tomorrow. Increase the NG tube feeding to 40 mL/hr. We will continue the same antibiotics for now, vancomycin 1 gram, Levaquin 750 mg and meropenem 5 mg q.6 hours. DICTATING PHYSICIAN: LUZ QUINONES MD,GREGG,MPH [id number] 1948 PHY#: [id number] ID: [id number] JOB#: [id number] ACCT: [id number] cc: > MTDD
[2017-04-06] MEDS: SACUBITRIL/VALSARTAN 24 MG/26 MG TABLET PO SCH (21:08)
[2017-04-06] MEDS: CARVEDILOL 3.125 MG TABLET PO SCH (21:10)
[2017-04-07] MEDS: VANCOMYCIN HCL 1,000 MG in DEXTROSE 5%-WATER 250 ML IV SCH ×2 (00:57→09:49)
[2017-04-07] MEDS: IPRATROPIUM/ALBUTEROL 0.5-2.5 MG/3 ML AMPUL NEB SCH ×3 (01:52→13:19)
[2017-04-07] MEDS: FENTANYL CITRATE INJ/PF 100 MCG/2 ML AMPUL IV PRN (02:32)
[2017-04-07] MEDS: LORAZEPAM INJ 2 MG/1 ML VIAL IV PRN (02:49)
[2017-04-07] MEDS: MIDAZOLAM HCL 50 MG/100 ML RTUINJ IV PRN ×4 (03:42→15:55)
[2017-04-07 04:33] LABS: HEMATOCRIT 30.5 % (37.9-51.0); MEAN CORPUSCULAR HEMOGLOBIN 28.8 pg (27.0-33.4); MEAN CORPUSCULAR HGB CONC 32.6 g/dL (32.0-36.0); MEAN CORPUSCULAR VOLUME 88 fl (80-97); PLATELET COUNT 263 10^3/uL (150-450); RED BLOOD COUNT 3.45 10^6/uL (4.35-5.55); RED CELL DISTRIBUTION WIDTH 14.5 % (11.5-14.0); WHITE BLOOD COUNT 23.6 10^3/uL (4.0-10.5)
[2017-04-07 04:41] LABS: ALANINE AMINOTRANSFERASE 92 U/L (21-72); ALBUMIN 2.2 g/dL (3.5-5.0); ALKALINE PHOSPHATASE 68 U/L (38-126); ANION GAP 5 (5-19); ASPARTATE AMINO TRANSFERASE 58 U/L (17-59); BILIRUBIN,DIRECT 0.4 mg/dL (0.0-0.4); BILIRUBIN,TOTAL 0.5 mg/dL (0.2-1.3); BLOOD UREA NITROGEN 15 mg/dL (7-20); CALCIUM 7.4 mg/dL (8.4-10.2); CARBON DIOXIDE 27 mmol/L (22-30); CHLORIDE 106 mmol/L (98-107); GLUCOSE 106 mg/dL (75-110); PHOSPHORUS 3.2 mg/dL (2.5-4.5); POTASSIUM 4.3 mmol/L (3.6-5.0); SODIUM 138.2 mmol/L (137-145); TOTAL PROTEIN 4.6 g/dL (6.3-8.2)
[2017-04-07 05:02] LABS: ABSOLUTE LYMPHOCYTES# (MANUAL) 2.4 10^3/uL (0.5-4.7); ABSOLUTE MONOCYTES # (MANUAL) 0.9 10^3/uL (0.1-1.4); ABSOLUTE NEUTROPHILS# (MANUAL) 20.3 10^3/uL (1.7-8.2); BAND NEUTROPHILS % (MANUAL) 2 % (3-5); BASOPHILS % (MANUAL) 0 % (0-2); EOSINOPHILS % (MANUAL) 0 % (0-6); LYMPHOCYTES % (MANUAL) 10 % (13-45); MONOCYTES % (MANUAL) 4 % (3-13); SEGMENTED NEUTROPHILS % (MAN) 84 % (42-78); TOTAL CELLS COUNTED 100
[2017-04-07 05:04] LABS: PLATELET COMMENT ADEQUATE; POLYCHROMASIA SLIGHT; SCHISTOCYTES SLIGHT; TEAR DROP CELLS SLIGHT; TOXIC GRANULATION 1+; TOXIC VACUOLATION PRESENT
[2017-04-07 05:07] LABS: ARTERIAL BLOOD BASE EXCESS 1.3 mmol/L; ARTERIAL BLOOD FIO2 50%; ARTERIAL BLOOD H2CO3 1.08 mmol/L (1.05-1.35); ARTERIAL BLOOD HCO3 24.9 mmol/L (20-26); ARTERIAL BLOOD O2 SATURATION 88.9 % (94-98); ARTERIAL BLOOD PCO2 35.9 mmHg (35-45); ARTERIAL BLOOD PH 7.46 (7.35-7.45); ARTERIAL BLOOD PO2 52.1 mmHg (80-100)
[2017-04-07] MEDS: IMIPENEM/CILASTATIN SODIUM 500 MG in NORMAL SALINE 100 ML IV SCH ×2 (05:10→12:47)
[2017-04-07] MEDS: HEPARIN SOD (PORCINE) 5,000 UNIT/ML 1 ML SYRINGE SUBCUT SCH ×2 (05:11→14:01)
[2017-04-07] MEDS: ACETAMINOPHEN 325 MG TABLET NG PRN ×2 (05:15→15:03)
--- NOTE | 2017-04-07 06:13 | RADIOLOGY REPORT (SQ) ---
EXAM DESCRIPTION: CHEST SINGLE VIEW CLINICAL HISTORY: on ventilator; intubated COMPARISON: 04/05/2017 FINDINGS: Single frontal view of the chest. Endotracheal tube with tip 6 cm above the baljinder. NG tube with tip below the diaphragm. Left-sided pacemaker. Interval increase in bilateral patchy airspace opacities. Heart is enlarged. No pneumothorax. Leads overlie the chest. No acute osseous abnormality. Upper abdominal soft tissues are unremarkable. IMPRESSION: 1. Interval increase in diffuse bilateral airspace opacity. This could be seen with ARDS, bilateral pneumonia or alveolar edema. Electronically signed by: Eder Ibrahim 04/07/2017 5:12 AM
--- NOTE | 2017-04-07 08:48 | PDOC PROGRESS REPORT ---
Subjective Progress Note for:: 04/07/17 Subjective:: Spoke with patient's mother this morning. Patient's mother states that she does not feel that her son is doing well. Mother also states that she understands that patient has used drugs for several years and that this has damages body. Reason For Visit: ACUTE RESPIRATORY FAILURE Physical Exam Vital Signs: Temp Pulse Resp BP Pulse Ox 99.9 F 83 28 H 94/66 L 98 04/07/17 08:00 04/07/17 08:05 04/07/17 08:05 04/07/17 08:00 04/07/17 08:05 Intake & Output 04/06/17 04/07/17 04/08/17 06:59 06:59 06:59 Intake Total 2971 2902 Output Total 2875 1360 20 Balance 96 1542 -20 Weight 90.8 kg 92.7 kg General appearance: PRESENT: other - sedated Head exam: PRESENT: atraumatic, normocephalic Eye exam: PRESENT: conjunctiva pink. ABSENT: scleral icterus Ear exam: PRESENT: normal external ear exam Mouth exam: PRESENT: moist, tongue midline, other - ETT in place Neck exam: ABSENT: carotid bruit, JVD, lymphadenopathy, thyromegaly Respiratory exam: PRESENT: decreased breath sounds. ABSENT: rales, rhonchi, wheezes Cardiovascular exam: PRESENT: RRR. ABSENT: diastolic murmur, rubs, systolic murmur Pulses: PRESENT: normal dorsalis pedis pul Vascular exam: PRESENT: normal capillary refill GI/Abdominal exam: PRESENT: normal bowel sounds, soft. ABSENT: distended, guarding, mass, organolmegaly, rebound, tenderness Rectal exam: PRESENT: deferred Extremities exam: ABSENT: calf tenderness, clubbing, pedal edema Neurological exam: PRESENT: other - sedated Psychiatric exam: PRESENT: other - sedated Skin exam: PRESENT: dry, intact, warm Results Laboratory Results: 04/07/17 03:59 04/07/17 03:59 04/06/17 04/06/17 04/06/17 03:52 03:52 10:39 WBC 20.3 H RBC 3.68 L Hgb 10.4 L Hct 33.0 L MCV 90 MCH 28.3 MCHC 31.6 L RDW 14.9 H Plt Count 235 Seg Neutrophils % Lymphocytes % Monocytes % Eosinophils % Basophils % Absolute Neutrophils Absolute Lymphocytes Absolute Monocytes Absolute Eosinophils Absolute Basophils Retic Count (auto) 3.64 H Absolute Retic 0.134 H Carbonic Acid HCO3/H2CO3 Ratio ABG pH ABG pCO2 ABG pO2 ABG HCO3 ABG O2 Saturation ABG Base Excess FiO2 Sodium Potassium Chloride Carbon Dioxide Anion Gap BUN Creatinine 0.80 Est GFR ( Amer) > 60 Est GFR (Non-Af Amer) > 60 Glucose Calcium Phosphorus Magnesium Transferrin 129 L Total Bilirubin AST ALT Alkaline Phosphatase Total Protein Albumin 04/06/17 04/07/17 04/07/17 17:57 03:59 03:59 WBC 23.6 H RBC 3.45 L Hgb 10.0 L Hct 30.5 L MCV 88 MCH 28.8 MCHC 32.6 RDW 14.5 H Plt Count 263 Seg Neutrophils % Not Reportable Lymphocytes % Not Reportable Monocytes % Not Reportable Eosinophils % Not Reportable Basophils % Not Reportable Absolute Neutrophils Not Reportable Absolute Lymphocytes Not Reportable Absolute Monocytes Not Reportable Absolute Eosinophils Not Reportable Absolute Basophils Not Reportable Retic Count (auto) Absolute Retic Carbonic Acid 1.15 HCO3/H2CO3 Ratio 23:1 ABG pH 7.48 H ABG pCO2 38.1 ABG pO2 79.4 L ABG HCO3 27.5 H ABG O2 Saturation 96.5 ABG Base Excess 3.9 FiO2 50% Sodium 138.2 Potassium 4.3 Chloride 106 Carbon Dioxide 27 Anion Gap 5 BUN 15 Creatinine 0.75 Est GFR ( Amer) > 60 Est GFR (Non-Af Amer) > 60 Glucose 106 Calcium 7.4 L Phosphorus 3.2 Magnesium 2.4 H Transferrin Total Bilirubin 0.5 AST 58 ALT 92 H Alkaline Phosphatase 68 Total Protein 4.6 L Albumin 2.2 L 04/07/17 05:00 WBC RBC Hgb Hct MCV MCH MCHC RDW Plt Count Seg Neutrophils % Lymphocytes % Monocytes % Eosinophils % Basophils % Absolute Neutrophils Absolute Lymphocytes Absolute Monocytes Absolute Eosinophils Absolute Basophils Retic Count (auto) Absolute Retic Carbonic Acid 1.08 HCO3/H2CO3 Ratio 23:1 ABG pH 7.46 H ABG pCO2 35.9 ABG pO2 52.1 L ABG HCO3 24.9 ABG O2 Saturation 88.9 L ABG Base Excess 1.3 FiO2 50% Sodium Potassium Chloride Carbon Dioxide Anion Gap BUN Creatinine Est GFR ( Amer) Est GFR (Non-Af Amer) Glucose Calcium Phosphorus Magnesium Transferrin Total Bilirubin AST ALT Alkaline Phosphatase Total Protein Albumin 04/02/17 08:45 Sputum AFB Smear Concentration - Final 04/02/17 08:45 Sputum Acid Fast Bacilli Smear - Final 04/04/17 00:10 Sputum Fungal Smear - Final 04/04/17 00:10 Sputum Fungal Smear - Final 04/04/17 01:43 Bronchial Washings Fungal Smear - Final 04/04/17 01:43 Bronchial Washings Fungal Smear - Final 04/03/17 06:30 Sputum Fungal Smear - Final 04/03/17 06:30 Sputum Fungal Smear - Final 04/04/17 01:43 Bronchial Washings AFB Smear Concentration - Final 04/04/17 01:43 Bronchial Washings Acid Fast Bacilli Smear - Final 04/04/17 00:10 Sputum AFB Smear Concentration - Final 04/04/17 00:10 Sputum Acid Fast Bacilli Smear - Final 04/03/17 06:30 Sputum AFB Smear Concentration - Final 04/03/17 06:30 Sputum Acid Fast Bacilli Smear - Final 04/01/17 04/01/17 04/01/17 23:20 23:20 23:20 Creatine Kinase 92 CK-MB (CK-2) 2.03 Troponin I 0.057 NT-Pro-B Natriuret Pep 2780 H 04/02/17 04/02/17 04/02/17 04:08 04:08 11:15 Creatine Kinase 89 72 CK-MB (CK-2) 1.95 Troponin I 0.055 NT-Pro-B Natriuret Pep 04/02/17 04/03/17 04/03/17 11:15 18:35 18:35 Creatine Kinase 235 H CK-MB (CK-2) 1.65 3.44 Troponin I 0.037 0.053 NT-Pro-B Natriuret Pep 2540 H 04/04/17 04/04/17 04/04/17 00:30 00:30 07:10 Creatine Kinase 181 H CK-MB (CK-2) 2.92 2.36 Troponin I 0.054 0.051 NT-Pro-B Natriuret Pep 04/04/17 10:32 Creatine Kinase 106 CK-MB (CK-2) Troponin I NT-Pro-B Natriuret Pep Impressions: Chest CT 04/05/17 00:00 IMPRESSION: Diffuse consolidation is present throughout both lungs. Small pleural effusions, right greater than left. Endotracheal tube is present with tip approximately 3.5 cm above the level of the baljinder. Nasogastric catheter is present with tip overlying the body of the stomach. Chest X-Ray 04/07/17 05:00 IMPRESSION: 1. Interval increase in diffuse bilateral airspace opacity. This could be seen with ARDS, bilateral pneumonia or alveolar edema. Assessment & Plan - Diagnosis (1) Acute respiratory failure with hypoxia Is this a current diagnosis for this admission?: Yes Plan: Secondary to nosocomial acquired pneumonia and acute on chronic CHF exacerbation : Will continue vancomycin, Levaquin, and Primaxin. CT of chest demonstrates diffuse consolidation throughout both lungs. Only small pleural effusion was noted right greater than left. Appreciate pulmonary's assistance with facilities maintenance assistant with patient's care. (2) Leukocytosis Is this a current diagnosis for this admission?: Yes Plan: Patient noted to be febrile. White count today is 23,000. Will continue current antibiotics. (3) Glucose intolerance (impaired glucose tolerance) Is this a current diagnosis for this admission?: Yes Plan: Hemoglobin A1c of 6.1: We will continue sliding scale insulin (4) Acute exacerbation of congestive heart failure Is this a current diagnosis for this admission?: Yes Plan: Patient with history of known EF of 35% with AICD in place: Patient currently off propofol. Patient is only on Versed. Patient's blood pressure is improving. We will continue to monitor today. If patient's blood pressure remained stable will order low-dose diuretic (5) Anemia Is this a current diagnosis for this admission?: Yes Plan: Consistent with component of iron deficiency anemia: Once patient has been extubated will place patient on iron replacement. (6) Cardiomyopathy Qualifiers: Cardiomyopathy type: unspecified Qualified Code(s): I42.9 - Cardiomyopathy , unspecified Is this a current diagnosis for this admission?: Yes Plan: Patient with known EF of 35% with AICD placed: Patient off propofol. Patient on Versed drip. Patient's blood pressure has improved. We will try to place patient on low dose diuretic and blood pressure remained stable throughout today. (7) Presence of automatic cardioverter/defibrillator (AICD) Is this a current diagnosis for this admission?: Yes Plan: in setting of EF 35%: Will continue to monitor. (8) Tachycardia Is this a current diagnosis for this admission?: Yes Plan: Secondary to fever: We will continue to monitor patient closely. (9) Obesity (BMI 30.0-34.9) Is this a current diagnosis for this admission?: Yes Plan: Will encourage dietary changes. (10) Sepsis Qualifiers: Sepsis type: sepsis due to unspecified organism Qualified Code(s): A41.9 - Sepsis, unspecified organism Is this a current diagnosis for this admission?: Yes Plan: ( RR 24, WBC 23,0000, Resp Failure, identified source, and hypotension) secondary to nosocomial acquired pneumonia: We will continue patient with current antibiotics. Patient has been bronched by pulmonary. Cultures have not demonstrated any growth. AFB negative. Will check HIV (11) Hypotension Qualifiers: Hypotension type: unspecified hypotension type Qualified Code(s): I95.9 - Hypotension, unspecified Is this a current diagnosis for this admission?: Yes Plan: Most likely secondary to Propofol: Patient currently off propofol. Blood pressure has improved. Will monitor blood pressure throughout today if it remains stable will start patient on low-dose diuretic. (12) Pleural effusion Is this a current diagnosis for this admission?: Yes Plan: In setting of EF of 35%: Will continue to monitor. - Time Time Spent with patient: 25-34 minutes - Spoke to patient's mother this morning. Mother states the patient is not therefore have encouraged that mother remains patient's medical decision-maker.
[2017-04-07] MEDS: SACUBITRIL/VALSARTAN 24 MG/26 MG TABLET PO SCH (09:41)
[2017-04-07] MEDS: CARVEDILOL 3.125 MG TABLET PO SCH (09:41)
[2017-04-07] MEDS: FLUCONAZOLE 200 MG/NS RTU 100 ML IV SCH (09:49)
[2017-04-07] MEDS: THIAMINE HCL 100 MG TABLET NG SCH (09:49)
[2017-04-07] MEDS: FAMOTIDINE INJ/PF 20 MG/2 ML SDV IV SCH (09:49)
[2017-04-07] MEDS: DIGOXIN 0.125 MG TABLET PO SCH (09:49)
--- NOTE | 2017-04-07 13:11 | PDOC PROGRESS REPORT ---
Subjective Progress Note for:: 04/07/17 Subjective:: Patient about the same and has made very little progress. In fact the nurse is telling me that it is difficult to ventilate him. His BNP has not been that high. There is no significant change in general condition. Patient currently off vasopressors. Chest x-ray showed significant infiltrate indicative of possible pneumonia. Patient remains intubated, sedated, patient however looks comfortable and in acute distress. Telemetry strip shows sinus rhythm. Medications reviewed. Reason For Visit: ACUTE RESPIRATORY FAILURE Physical Exam Vital Signs: Temp Pulse Resp BP Pulse Ox 99.7 F 90 28 H 106/80 97 04/07/17 10:00 04/07/17 10:00 04/07/17 10:00 04/07/17 10:00 04/07/17 10:00 Intake & Output 04/06/17 04/07/17 04/08/17 06:59 06:59 06:59 Intake Total 2971 2902 Output Total 2875 1360 145 Balance 96 1542 -145 Weight 90.8 kg 92.7 kg Exam: GENERAL: well-nourished and in no acute distress. Patient is intubated and sedated. Orientation cannot be checked HEAD: Atraumatic, normocephalic. EYES: Pupils equal round and reactive to light, extraocular movements could not be checked, sclera anicteric, conjunctiva are normal. ENT: TMs normal, nares patent, oropharynx clear without exudates. Moist mucous membranes. No oral ulcerations or bleeding gums noted NECK: supple without lymphadenopathy or JVD. Trachea is central. No cervical or axillary lymphadenopathy noted. Carotids are 2+ LUNGS: Bilateral coarse crackles are noted. CHEST: Palpation of the chest wall shows no significant chest wall tenderness or abnormalities. HEART: [place] ACCESS MANAGER, No PSH, 2/6 SOPHIE aortic area, 1/6 anaya systolic murmur mitral area , no rubs or gallops. ABDOMEN: Soft, no significant tenderness appreciated, normoactive bowel sounds. No guarding, no rebound. No rigidity noted . No masses appreciated. EXTREMITIES: Pedal pulses are 1-2+, no calf tenderness noted, 1+ pedal edema noted. No clubbing or cyanosis. NEUROLOGICAL: The patient cannot participate in the neurological exam but no facial asymmetry noted. Extremities slightly hypotonic PSYCH: This cannot be evaluated. Patient cannot participate. SKIN: No significant ecchymosis, rash, or signs of pruritus noted. MUSCULOSKELETAL EXAM: No significant joint swelling noted. Patient cannot participate in musculoskeletal exam Results Laboratory Results: 04/07/17 03:59 04/07/17 03:59 04/06/17 04/06/17 04/07/17 03:52 17:57 03:59 WBC 23.6 H RBC 3.45 L Hgb 10.0 L Hct 30.5 L MCV 88 MCH 28.8 MCHC 32.6 RDW 14.5 H Plt Count 263 Seg Neutrophils % Not Reportable Lymphocytes % Not Reportable Monocytes % Not Reportable Eosinophils % Not Reportable Basophils % Not Reportable Absolute Neutrophils Not Reportable Absolute Lymphocytes Not Reportable Absolute Monocytes Not Reportable Absolute Eosinophils Not Reportable Absolute Basophils Not Reportable Carbonic Acid 1.15 HCO3/H2CO3 Ratio 23:1 ABG pH 7.48 H ABG pCO2 38.1 ABG pO2 79.4 L ABG HCO3 27.5 H ABG O2 Saturation 96.5 ABG Base Excess 3.9 FiO2 50% Sodium Potassium Chloride Carbon Dioxide Anion Gap BUN Creatinine Est GFR ( Amer) Est GFR (Non-Af Amer) Glucose Calcium Phosphorus Magnesium Transferrin 129 L Total Bilirubin AST ALT Alkaline Phosphatase Total Protein Albumin 04/07/17 04/07/17 03:59 05:00 WBC RBC Hgb Hct MCV MCH MCHC RDW Plt Count Seg Neutrophils % Lymphocytes % Monocytes % Eosinophils % Basophils % Absolute Neutrophils Absolute Lymphocytes Absolute Monocytes Absolute Eosinophils Absolute Basophils Carbonic Acid 1.08 HCO3/H2CO3 Ratio 23:1 ABG pH 7.46 H ABG pCO2 35.9 ABG pO2 52.1 L ABG HCO3 24.9 ABG O2 Saturation 88.9 L ABG Base Excess 1.3 FiO2 50% Sodium 138.2 Potassium 4.3 Chloride 106 Carbon Dioxide 27 Anion Gap 5 BUN 15 Creatinine 0.75 Est GFR ( Amer) > 60 Est GFR (Non-Af Amer) > 60 Glucose 106 Calcium 7.4 L Phosphorus 3.2 Magnesium 2.4 H Transferrin Total Bilirubin 0.5 AST 58 ALT 92 H Alkaline Phosphatase 68 Total Protein 4.6 L Albumin 2.2 L 04/02/17 08:45 Sputum AFB Smear Concentration - Final 04/02/17 08:45 Sputum Acid Fast Bacilli Smear - Final 04/04/17 00:10 Sputum Fungal Smear - Final 04/04/17 00:10 Sputum Fungal Smear - Final 04/04/17 01:43 Bronchial Washings Fungal Smear - Final 04/04/17 01:43 Bronchial Washings Fungal Smear - Final 04/03/17 06:30 Sputum Fungal Smear - Final 04/03/17 06:30 Sputum Fungal Smear - Final 04/01/17 04/01/17 04/01/17 23:20 23:20 23:20 Creatine Kinase 92 CK-MB (CK-2) 2.03 Troponin I 0.057 NT-Pro-B Natriuret Pep 2780 H 04/02/17 04/02/17 04/02/17 04:08 04:08 11:15 Creatine Kinase 89 72 CK-MB (CK-2) 1.95 Troponin I 0.055 NT-Pro-B Natriuret Pep 04/02/17 04/03/17 04/03/17 11:15 18:35 18:35 Creatine Kinase 235 H CK-MB (CK-2) 1.65 3.44 Troponin I 0.037 0.053 NT-Pro-B Natriuret Pep 2540 H 04/04/17 04/04/17 04/04/17 00:30 00:30 07:10 Creatine Kinase 181 H CK-MB (CK-2) 2.92 2.36 Troponin I 0.054 0.051 NT-Pro-B Natriuret Pep 04/04/17 10:32 Creatine Kinase 106 CK-MB (CK-2) Troponin I NT-Pro-B Natriuret Pep EKG Comments: Telemetry shows sinus rhythm without any sustained tacky or bradycardia arrhythmias. Impressions: Chest CT 04/05/17 00:00 IMPRESSION: Diffuse consolidation is present throughout both lungs. Small pleural effusions, right greater than left. Endotracheal tube is present with tip approximately 3.5 cm above the level of the baljinder. Nasogastric catheter is present with tip overlying the body of the stomach. Chest X-Ray 04/07/17 05:00 IMPRESSION: 1. Interval increase in diffuse bilateral airspace opacity. This could be seen with ARDS, bilateral pneumonia or alveolar edema. Assessment & Plan - Diagnosis (1) Acute respiratory failure with hypoxia Is this a current diagnosis for this admission?: Yes (2) Pneumonia Qualifiers: Pneumonia type: due to unspecified organism Laterality: bilateral Lung location: unspecified part of lung Qualified Code(s): J18.9 - Pneumonia, unspecified organism Is this a current diagnosis for this admission?: Yes (3) Tachycardia Is this a current diagnosis for this admission?: Yes (4) Cardiomyopathy Qualifiers: Cardiomyopathy type: unspecified Qualified Code(s): I42.9 - Cardiomyopathy , unspecified Is this a current diagnosis for this admission?: Yes (5) Presence of automatic cardioverter/defibrillator (AICD) Is this a current diagnosis for this admission?: Yes (6) Hypotension Qualifiers: Hypotension type: unspecified hypotension type Qualified Code(s): I95.9 - Hypotension, unspecified Is this a current diagnosis for this admission?: Yes - Notes Notes: Acute respiratory failure: Patient has predominantly hypoxemic respiratory failure. Currently intubated and being artificially ventilated. Respiratory failure most likely related to bilateral pneumonia. Do not see much evidence of fluid overload or CHF this point. However, based on arcade games mechanic recommendation, will try patient on IV diuretics on a trial basis. Patient however may need tertiary care in view of significant pneumonia, ARDS and that patient has not made much progress here in this institution. May also need ID consultation. Bilateral pneumonia: Chest x-ray showed this being very significant. Continue antibiotic therapy. Cardiomyopathy: Patient does have a single-chamber defibrillator present. Will consider starting therapy with entresto once blood pressure is noted to be stable. Continue carvedilol. Digoxin added yesterday. Hypotension: Currently resolved. Presence of AICD: Will evaluate this but so far patient is maintaining a good heart rhythm. - Time Time with patient: Greater than 35 minutes - CODE STATUS was discussed, patient remains full code. Surrogate decision-maker unchanged. Multiple medical problems were addressed. More than 50% of the time spent coordinating care, discussing management plans with involved caregivers. Management plans discussed with involved personnels. Medical decision making was of moderate to high complexity, patient's has multiple comorbidities. Medications reviewed and adjusted accordingly: Yes
[2017-04-07] MEDS: LEVOFLOXACIN 750 MG/D5W RTU 750 MG/150 ML RTUPB IV SCH (14:01)
--- NOTE | 2017-04-07 14:10 | PDOC TRANSFER SUMMARY ---
General Admission Date/PCP: 04/01/17 19:47 Admission Date: 04/02/17 Transfer Date: 04/07/17 Accepting Facility: [facility] Accepting Physician: Dr. Salgado Resuscitation Status: Full Code - Transfer Diagnosis (1) Acute respiratory failure with hypoxia Is this a current diagnosis for this admission?: Yes Diagnosis Summary: Patient was readmitted to hospital due to respiratory distress. Patient was placed on BiPAP and respiratory function continued to worsen. Patient was intubated and bronched. Patient's cultures have demonstrated no growth from bronc. Patient is also been evaluated for TB and AFBs were negative. Patient is currently on broad-spectrum antibiotics with no signs of improvement. Pulmonary is requesting transfer to tertiary center due to patient exceeding care that our facility is not able to provide. Pulmonary and cardiology feel that patient would benefit from ID and footwear stitcher. Feel that patient's presentation could represent viral illness. Patient did not have flu screen. (2) Leukocytosis Is this a current diagnosis for this admission?: Yes Diagnosis Summary: White count today is 23,000. Patient is on broad-spectrum antibiotics. Feel that this could most likely represent a viral illness. Patient did not have flu screen. (3) Acute exacerbation of congestive heart failure Is this a current diagnosis for this admission?: Yes (4) Glucose intolerance (impaired glucose tolerance) Is this a current diagnosis for this admission?: Yes Diagnosis Summary: Patient on sliding scale insulin. (5) Anemia Is this a current diagnosis for this admission?: Yes Diagnosis Summary: We will continue to monitor. (6) Cardiomyopathy Is this a current diagnosis for this admission?: Yes Diagnosis Summary: Patient with EF of 35%. Cardiology does not feel that patient is exhibiting evidence of volume overload/congestive heart failure. (7) Presence of automatic cardioverter/defibrillator (AICD) Is this a current diagnosis for this admission?: Yes Diagnosis Summary: Due to EF of 35%. Patient has history of polysubstance abuse and coronary disease (8) Tachycardia Is this a current diagnosis for this admission?: Yes Diagnosis Summary: Supportive care. (9) Obesity (BMI 30.0-34.9) Is this a current diagnosis for this admission?: Yes Diagnosis Summary: Supportive care. Patient is receiving tube feeds. (10) Sepsis Is this a current diagnosis for this admission?: Yes Diagnosis Summary: Patient currently being treated for nosocomial acquired pneumonia however suspect that this most likely is a viral. Patient on broad-spectrum antibiotics. (11) Hypotension Is this a current diagnosis for this admission?: Yes Diagnosis Summary: Hypotension secondary to propofol. Patient has been off propofol now for 2 days and blood pressure is much improved. Patient is currently sedated with Versed. (12) Pleural effusion Is this a current diagnosis for this admission?: Yes Diagnosis Summary: CT of chest demonstrated of small pleural effusions. CT however does demonstrate diffuse bilateral consolidation of lungs. - Transfer Medications Transfer Medications: Current Medications Acetaminophen (Tylenol 325 Mg Tablet) 650 mg NG Q4HP PRN PRN Reason: pain or temp greater than 101F Stop: 05/01/17 19:45 Last Admin: 04/07/17 05:15 Dose: 650 mg Albuterol/Ipratropium (Duoneb 3 Ml Ampul) 3 ml NEB RTQ6 EDMUND Stop: 05/06/17 19:59 Last Admin: 04/07/17 13:19 Dose: 3 ml Carvedilol (Coreg 3.125 Mg Tablet) 3.125 mg PO Q12 EDMUND Stop: 05/06/17 21:59 Last Admin: 04/07/17 09:41 Dose: Not Given Dextrose (Dextrose Inj 50% Syringe (25 Gm/50 Ml)) 12.5 gm IV PRN PRN; Protocol PRN Reason: FOR BG 50-69 IN ALERT PATIENT Stop: 05/05/17 09:45 Dextrose (Dextrose Inj 50% Syringe (25 Gm/50 Ml)) 25 gm IV PRN PRN; Protocol PRN Reason: PER PROTOCOL Stop: 05/05/17 09:45 Digoxin (Lanoxin 0.125 Mg Tablet) 0.125 mg PO DAILY EDMUND Stop: 05/05/17 09:59 Last Admin: 04/07/17 09:49 Dose: 0.125 mg Famotidine (Pepcid Inj/Pf 20 Mg/2 Ml Sdv) 20 mg IV Q12 EDMUND Stop: 05/06/17 09:59 Last Admin: 04/07/17 09:49 Dose: 20 mg Fentanyl Citrate (Sublimaze Inj/Pf 100 Mcg/2 Ml Ampule) 100 mcg IV Q4HP PRN Stop: 04/10/17 22:40 Last Admin: 04/07/17 02:32 Dose: 100 mcg Furosemide (Lasix Inj/Pf 20 Mg/2 Ml Sdv) 20 mg IV DAILY [facility] Stop: 05/07/17 13:14 Glucagon (Glucagen Inj 1 Mg Vial) 1 mg IM PRN PRN; Protocol PRN Reason: Evaluate for BG < 70 Stop: 05/05/17 09:45 Glucose (Glutose 40% Gel 15 Gm Tube) 15 gm PO PRN PRN; Protocol PRN Reason: FOR BG 50-69 IN ALERT PATIENT Stop: 05/05/17 09:45 Glucose (Glutose 40% Gel 15 Gm Tube) 30 gm PO PRN PRN; Protocol PRN Reason: FOR BG < 50 IN ALERT PATIENT Stop: 05/05/17 09:45 Heparin Sodium (Porcine) (Heparin Inj 5,000 Units/Ml 1 Ml Syringe) 5,000 unit SUBCUT Q8 [facility] Stop: 05/01/17 21:59 Last Admin: 04/07/17 05:11 Dose: 5,000 unit Hydromorphone HCl (Dilaudid Inj/Pf 2 Mg/Ml Ampule) 1 mg IV Q4HP PRN PRN Reason: ANXIETY/AGITATION Stop: 04/10/17 16:55 Last Admin: 04/06/17 23:43 Dose: 1 mg Levofloxacin/Dextrose (Levaquin Rtu 750 Mg/D5w 150 Ml Premix) 750 mg in 150 mls @ 100 mls/hr IV DAILY@1400 [facility] Stop: 04/09/17 13:59 Last Admin: 04/06/17 14:46 Dose: 150 ml Fluconazole/Sodium Chloride (Diflucan Rtu 200 Mg/Ns 100 Ml Premix) 100 mls @ 100 mls/hr IV DAILY [facility] Stop: 04/11/17 09:59 Last Admin: 04/07/17 09:49 Dose: 100 ml Hard Fat/Phenylephrine 40 mg/ (Dextrose) 250 mls @ 0 mls/hr IV CONTINUOUS PRN; Protocol; Titrate PRN Reason: THIS MED IS NOT "PRN" Stop: 05/03/17 22:40 Imipenem/Cilastatin Sodium 500 (mg/ Sodium Chloride) 100 mls @ 100 mls/hr IV Q6 [facility] Stop: 04/11/17 05:59 Last Admin: 04/07/17 12:47 Dose: 500 mg Norepinephrine Bitartrate 4 mg (/ Dextrose) 250 mls @ 0 mls/hr IV CONTINUOUS PRN; Protocol; Titrate PRN Reason: THIS MED IS NOT "PRN" Stop: 05/04/17 00:29 Last Admin: 04/04/17 21:40 Dose: 4 mg Vancomycin HCl 1,000 mg/ (Dextrose) 250 mls @ 166.667 mls/hr IV Q8@0100,0900, 1700 [facility] Stop: 04/11/17 16:59 Last Admin: 04/07/17 09:49 Dose: 1,000 mg Midazolam HCl (Versed Rtu 50 Mg/100 Ml Premix Bag) 50 mg in 100 mls @ 0 mls/hr IV CONTINUOUS PRN; Protocol; Titrate PRN Reason: THIS MED IS NOT "PRN" Stop: 04/13/17 09:28 Last Admin: 04/07/17 12:46 Dose: 100 ml Insulin Human Lispro (Humalog Insulin 100 Unit/1 Ml 3 Ml Vial) 0 - 12 unit SUBCUT Q6HP PRN; Protocol PRN Reason: PER PROTOCOL Stop: 05/05/17 09:45 Lorazepam (Ativan Inj 2 Mg/1 Ml Vial) 1 mg IV Q4HP PRN PRN Reason: ANXIETY/AGITATION Stop: 04/10/17 16:55 Last Admin: 04/07/17 02:49 Dose: 1 mg Pharmacy Profile Note (Medication Communication Order) 1 each [facility] .NOTICE NR Stop: 05/03/17 22:44 Sacubitril/Valsartan (Entresto 24 Mg/26 Mg Tablet) 1 tab PO Q12 [facility] Stop: 05/06/17 21:59 Last Admin: 04/07/17 09:41 Dose: Not Given Sodium Chloride (Saline Flush 2.5 Ml Monoject Prefil Syrin) 2.5 ml IV Q8 [facility] Stop: 05/01/17 21:59 Last Admin: 04/07/17 05:13 Dose: Not Given Thiamine HCl (Thiamine 100 Mg Tablet) 100 mg NG DAILY [facility] Stop: 05/04/17 09:59 Last Admin: 04/07/17 09:49 Dose: 100 mg - Allergies Allergies/Adverse Reactions: No Known Allergies Allergy (Verified 04/01/17 14:36) - Diet/Activity Discharge Diet: Tube Feeding (Comments) Discharge Activity: Bedrest Hospital Course Hospital Course: Patient is a 47-year-old gentleman that was admitted to our facility after worsening respiratory function. Patient had presented earlier where he stayed for 3 days and received treatment and was discharged home with antibiotics. Patient reappeared due to worsening respiratory symptoms. On readmission patient was placed on BiPAP however patient's Restoril function continued to worsen and therefore patient was intubated. Patient underwent bronchial that has demonstrated no obvious source of infection. Patient do not have flu screen done at time of admission. Concerned that patient most likely has a viral etiology that is resulting in patient's current clinical picture. Patient had been placed on propofol which cause hypotension which resulted in patient receiving IV fluids and pressors. Once propofol was discontinued and patient was placed on Versed we were able to wean patient off of pressors. Patient has not required pressors for 2 days. Cardiology has evaluated patient and found the patient has an EF of 35% patient has been placed on entresto. Patient has not received any diuretics at this time due to blood pressures range in the low 100s. Cardiology does not feel that patient is volume overloaded at this time. On exam patient does have evidence of trace edema and CT demonstrated small pleural effusions. Pulmonry has requested for transfer due to patient exceeding what he feels comfortable doing here at this facility. Pulmonary feels that patient would benefit from infectious disease and footwear stitcher care. Physical Exam Vital Signs: Temp Pulse Resp BP Pulse Ox 101.3 F H 97 26 H 119/89 H 98 04/07/17 13:00 04/07/17 13:22 04/07/17 13:22 04/07/17 12:55 04/07/17 13:22 Intake & Output 04/06/17 04/07/17 04/08/17 06:59 06:59 06:59 Intake Total 2971 2902 Output Total 2875 1360 145 Balance 96 1542 -145 Weight 90.8 kg 92.7 kg General appearance: PRESENT: other - sedated Head exam: PRESENT: atraumatic, normocephalic Eye exam: PRESENT: other - ETT in place Ear exam: PRESENT: normal external ear exam Mouth exam: PRESENT: other - ETT in place Neck exam: ABSENT: carotid bruit, JVD, lymphadenopathy, thyromegaly Respiratory exam: PRESENT: other - Coarse breath sounds heard bilaterally diminished at bases Cardiovascular exam: PRESENT: RRR. ABSENT: diastolic murmur, rubs, systolic murmur Pulses: PRESENT: normal dorsalis pedis pul Vascular exam: PRESENT: normal capillary refill GI/Abdominal exam: PRESENT: normal bowel sounds, soft. ABSENT: distended, guarding, mass, organolmegaly, rebound, tenderness Rectal exam: PRESENT: deferred Extremities exam: PRESENT: other - Trace lower extremity edema of lower extremities Neurological exam: PRESENT: other - Sedated Psychiatric exam: PRESENT: other - Sedated Focused psych exam: PRESENT: other - Sedated Skin exam: PRESENT: dry, intact, warm Results Laboratory Results: 04/07/17 03:59 04/07/17 03:59 04/06/17 04/06/17 04/07/17 03:52 17:57 03:59 WBC 23.6 H RBC 3.45 L Hgb 10.0 L Hct 30.5 L MCV 88 MCH 28.8 MCHC 32.6 RDW 14.5 H Plt Count 263 Seg Neutrophils % Not Reportable Lymphocytes % Not Reportable Monocytes % Not Reportable Eosinophils % Not Reportable Basophils % Not Reportable Absolute Neutrophils Not Reportable Absolute Lymphocytes Not Reportable Absolute Monocytes Not Reportable Absolute Eosinophils Not Reportable Absolute Basophils Not Reportable Carbonic Acid 1.15 HCO3/H2CO3 Ratio 23:1 ABG pH 7.48 H ABG pCO2 38.1 ABG pO2 79.4 L ABG HCO3 27.5 H ABG O2 Saturation 96.5 ABG Base Excess 3.9 FiO2 50% Sodium Potassium Chloride Carbon Dioxide Anion Gap BUN Creatinine Est GFR ( Amer) Est GFR (Non-Af Amer) Glucose Calcium Phosphorus Magnesium Transferrin 129 L Total Bilirubin AST ALT Alkaline Phosphatase Total Protein Albumin 04/07/17 04/07/17 03:59 05:00 WBC RBC Hgb Hct MCV MCH MCHC RDW Plt Count Seg Neutrophils % Lymphocytes % Monocytes % Eosinophils % Basophils % Absolute Neutrophils Absolute Lymphocytes Absolute Monocytes Absolute Eosinophils Absolute Basophils Carbonic Acid 1.08 HCO3/H2CO3 Ratio 23:1 ABG pH 7.46 H ABG pCO2 35.9 ABG pO2 52.1 L ABG HCO3 24.9 ABG O2 Saturation 88.9 L ABG Base Excess 1.3 FiO2 50% Sodium 138.2 Potassium 4.3 Chloride 106 Carbon Dioxide 27 Anion Gap 5 BUN 15 Creatinine 0.75 Est GFR ( Amer) > 60 Est GFR (Non-Af Amer) > 60 Glucose 106 Calcium 7.4 L Phosphorus 3.2 Magnesium 2.4 H Transferrin Total Bilirubin 0.5 AST 58 ALT 92 H Alkaline Phosphatase 68 Total Protein 4.6 L Albumin 2.2 L 04/02/17 08:45 Sputum AFB Smear Concentration - Final 04/02/17 08:45 Sputum Acid Fast Bacilli Smear - Final 04/04/17 00:10 Sputum Fungal Smear - Final 04/04/17 00:10 Sputum Fungal Smear - Final 04/04/17 01:43 Bronchial Washings Fungal Smear - Final 04/04/17 01:43 Bronchial Washings Fungal Smear - Final 04/03/17 06:30 Sputum Fungal Smear - Final 04/03/17 06:30 Sputum Fungal Smear - Final 04/01/17 04/01/17 04/01/17 23:20 23:20 23:20 Creatine Kinase 92 CK-MB (CK-2) 2.03 Troponin I 0.057 NT-Pro-B Natriuret Pep 2780 H 04/02/17 04/02/17 04/02/17 04:08 04:08 11:15 Creatine Kinase 89 72 CK-MB (CK-2) 1.95 Troponin I 0.055 NT-Pro-B Natriuret Pep 04/02/17 04/03/17 04/03/17 11:15 18:35 18:35 Creatine Kinase 235 H CK-MB (CK-2) 1.65 3.44 Troponin I 0.037 0.053 NT-Pro-B Natriuret Pep 2540 H 04/04/17 04/04/17 04/04/17 00:30 00:30 07:10 Creatine Kinase 181 H CK-MB (CK-2) 2.92 2.36 Troponin I 0.054 0.051 NT-Pro-B Natriuret Pep 04/04/17 10:32 Creatine Kinase 106 CK-MB (CK-2) Troponin I NT-Pro-B Natriuret Pep Impressions: Chest CT 04/05/17 00:00 IMPRESSION: Diffuse consolidation is present throughout both lungs. Small pleural effusions, right greater than left. Endotracheal tube is present with tip approximately 3.5 cm above the level of the baljinder. Nasogastric catheter is present with tip overlying the body of the stomach. Chest X-Ray 04/07/17 05:00 IMPRESSION: 1. Interval increase in diffuse bilateral airspace opacity. This could be seen with ARDS, bilateral pneumonia or alveolar edema. Plan Time Spent: Greater than 30 Minutes
[2017-04-07] MEDS ORDERED: FUROSEMIDE INJ/PF 20 MG/2 ML SDV IV ONE (14:15)
--- NOTE | 2017-04-07 14:22 | PROGRESS NOTE E ---
Progress Note NAME: PRISCA ARMENTA : 1970 AGE: 47Y DATE: 04/07/2017 ROOM: 604 SUBJECTIVE: The patient is a 47-year-old male who came in with hemoptysis and increased respiratory distress, who got worse during 1-2 days upon the admission; went into respiratory failure requiring invasive mechanical ventilation. The patient went on to have severe pulmonary edema and massive hemoptysis. Bronchial washing was done following endotracheal intubation. Bronchial washing of both lungs showed negative cultures for AFB and bacteria. Today, the patient is still expectorating blood-tinged secretions through the ET when coughing, and the pulmonary edema in both lungs appeared to be worsening. The patient is requiring higher FIO2 to 7 and 8 cm H2O pressure and 100% FIO2, and the tidal volume adjusted to 7.8 mL per predicted body weight. Leukocytosis spiked to 22,000 also this morning. Blood cultures and sputum cultures and urine cultures were sent. OBJECTIVE: GENERAL: The patient is afebrile, sedated, and not in apparent respiratory distress. VITAL SIGNS: Temperature of 99.7 with a T-max of 99.9, blood pressure is 106/80, heart rate is 90, respiratory rate is 28, saturation is 97% and goes down to 88 and 78 earlier. Suction was done with blood-tinged secretions, but not purulent. EYES: No jaundice or pallor. EARS, NOSE, MOUTH, THROAT: No ear drainage noted. No nasal discharge. Orotracheal tube is intact. HEAD/NECK: No scalp swelling. No neck swelling. CHEST/LUNGS: Crackling sounds bilaterally. No wheezing. rhonchi on both sides. CARDIOVASCULAR: S1 and S2 distant. Normal rate and regular rhythm. ABDOMEN: Flabby. Positive bowel sounds. Nondistended. EXTREMITIES: No joint swelling or cellulitis. DIAGNOSTIC DATA: CBC done today showed white count of 23,600 from 20,300; hemoglobin is 10; hematocrit is 30.5; platelet count is 253 and bands of 2%. ABG done this morning at 5:00 a.m. showed pH of 7.46, pCO2 is 35.9, PO2 is 52.1, and saturation is 89% on 50% FIO2, pressure support of 10, PEEP of 7, and tidal volume of 500, ventilatory rate of 24. Chemistries done today showed a sodium of 138, potassium 4.3, chloride 106, CO2 is 27, BUN 15, creatinine 0.75, calcium 7.4, magnesium is 2.4, phosphorus 3.2, SGPT is 92, alkaline phos 68, SGOT is 59. Chest x-ray done today showed pulmonary edema, infiltrates bilaterally, and the endotracheal tube is in place. ASSESSMENT: 1. ACUTE RESPIRATORY FAILURE REQUIRING INVASIVE MECHANICAL VENTILATION DUE TO WORSENING PULMONARY EDEMA DUE TO DILATED CARDIOMYOPATHY, STATUS POST AICD PLACEMENT, WITH AN ECHO SHOWING EJECTION FRACTIONLESS THAN 30% ON 02/01/2017, ALTHOUGH REPORTED 40%. 2. PNEUMONIA, BILATERAL. BRONCHIAL WASHING CULTURES AND SPUTUM CULTURES APPEAR NEGATIVE AT THIS TIME. BLOOD CULTURES WERE NEGATIVE WELL. 3. PNEUMONIA, BILATERAL, MOST LIKELY. CURRENTLY ON IV VANCOMYCIN, IV LEVAQUIN 250 MG, AND IV PRIMAXIN 500 MG. ASSOCIATED WITH WORSENING LEUKOCYTOSIS. SPUTUM CULTURES AND BRONCHIAL WASHINGS WERE NEGATIVE FOR AFB, AND BACTERIA. INFECTIVE ENDOCARDITIS MAY BE THE SOURCE OF WORSENING SEVERE LEUKOCYTOSIS. THE PATIENT MAY REQUIRE A TRANSESOPHAGEAL ECHOCARDIOGRAPHY. PLAN AND RECOMMENDATIONS: 1. I spoke to the equipment maintenance supervisor - Dr Willams about the patient's situation and he recommended that patient be transferred to a tertiary care center for further evaluation and treatment. 2. I spoke to the hospitalist and discussed about the patient's condition. We will continue the same IV antibiotics. We will try to optimize ventilatory support. 3. Recommend transferring the patient to a tertiary care center for further evaluation and management. DICTATING PHYSICIAN: LUZ QUINONES MD,GREGG,MPH [id number] PHY#: [id number] [id number] JOB#: [id number] ACCT: [id number] cc: > MTDD
[2017-04-07 16:40] VITALS: BP 111/79
[2017-04-08] MEDS ORDERED: FUROSEMIDE INJ/PF 20 MG/2 ML SDV IV SCH (10:00)
== END 2017-04-07 16:50 | disposition short-term general hospital (02) | DRG 853 ==
LOC: ER 14:34 → EH 19:47 → UNDOADMIN 19:54 → EH 19:54 → 3S 04-02 12:37 → EH 04-03 23:04 → UNDOADMIN 04-03 23:04 → 3S 04-03 23:25 → ICU 04-03 23:25
PROVIDERS: ADMIT Internal Medicine; ATTEND Internal Medicine
PROC: 5A09357 Assistance with Respiratory Ventilation, Less than 24 Consecutive Hours, Continuous Positive Airway Pressure (ICD-10-PCS; 2017-04-01)
PROC: 3E0F73Z Introduction of Anti-inflammatory into Respiratory Tract, Via Natural or Artificial Opening (ICD-10-PCS; 2017-04-02)
PROC: 0B9M8ZZ Drainage of Bilateral Lungs, Via Natural or Artificial Opening Endoscopic (ICD-10-PCS; principal; 2017-04-03)
PROC: 5A1945Z Respiratory Ventilation, 24-96 Consecutive Hours (ICD-10-PCS; 2017-04-04)
PROC: 0BH17EZ Insertion of Endotracheal Airway into Trachea, Via Natural or Artificial Opening (ICD-10-PCS; 2017-04-04)
DX: A41.9 Sepsis, unspecified organism (principal); J96.01 Acute respiratory failure with hypoxia; J18.9 Pneumonia, unspecified organism; I50.33 Acute on chronic diastolic (congestive) heart failure; I42.9 Cardiomyopathy, unspecified; R04.2 Hemoptysis; F30.9 Manic episode, unspecified; E22.2 Syndrome of inappropriate secretion of antidiuretic hormone; R73.02 Impaired glucose tolerance (oral); R00.0 Tachycardia, unspecified; I95.9 Hypotension, unspecified; E66.9 Obesity, unspecified; F40.240 Claustrophobia; F32.9 Major depressive disorder, single episode, unspecified; I25.10 Atherosclerotic heart disease of native coronary artery without angina pectoris; D50.9 Iron deficiency anemia, unspecified; E88.09 Other disorders of plasma-protein metabolism, not elsewhere classified; Z68.30 Body mass index [BMI] 30.0-30.9, adult; I25.2 Old myocardial infarction; Z95.810 Presence of automatic (implantable) cardiac defibrillator; Z87.891 Personal history of nicotine dependence; Z79.4 Long term (current) use of insulin; Z79.899 Other long term (current) drug therapy; Z60.2 Problems related to living alone; Z78.1 Physical restraint status; Z82.49 Family history of ischemic heart disease and other diseases of the circulatory system
CPT/HCPCS: 31500; 31624; 36415; 36600; 71045; 71046; 71250; 80048; 80053; 80202; 80307; 81001; 82550; 82553; 82565; 82607; 82728; 82746; 82803; 82962; 83036; 83516; 83540; 83550; 83605; 83615; 83735; 83880; 84100; 84466; 84484; 85025; 85027; 85045; 85610; 85652; 85730; 86038; 86256; 86701; 86738; 87015; 87040; 87070; 87101; 87116; 87205; 87206; 88104; 93005; 93010; 93306; 94002; 94003; 94640; 94660; 99285; J0171; J0330; J0456; J0692; J0696; J0743; J1170; J1450; J1644; J1940; J1956; J2060; J2250; J2270; J2543; J2704; J2930; J3010; J3370; J3490; J7030; J7060; J7620; S0028

== ENCOUNTER 2017-11-03 06:19 | Inpatient (IN) | payer SELFPAY ==
--- NOTE | 2017-11-03 06:52 | ER Document Report ---
ED General - General Mode of Arrival: Ambulatory Information source: Patient TRAVEL OUTSIDE OF THE [place] IN LAST 30 DAYS: No <HUNTER ASH - Last Filed: 11/03/17 06:54> <LYNETTE HANNAH - Last Filed: 11/03/17 10:27> - General Chief Complaint: Chest Pain Stated Complaint: CHEST PAIN Time Seen by Provider: 11/03/17 06:45 Notes: 47-year-old male who presents to the emergency department today with complaints of 2 weeks of "edema". Patient goes on to describe the "edema" as epigastric abdominal pain. Patient states he ran out of most of his medication today, he ran out of Lasix yesterday so did not take his morning dose however did take his daily dose of all other medications. (HUNTER ASH) - Related Data Allergies/Adverse Reactions: No Known Allergies Allergy (Verified 04/01/17 14:36) Past Medical History - General Information source: Patient - Social History Smoking Status: Current Every Day Smoker Cigarette use (# per day): Yes Drug Abuse: Methamphetamine Family History: Hypertension Patient has suicidal ideation: No Patient has homicidal ideation: No - Past Medical History Cardiac Medical History: Reports: Hx Congestive Heart Failure, Hx Heart Attack - 2013 Pulmonary Medical History: Reports: Hx Pneumonia Psychiatric Medical History: Reports: Hx Depression Past Surgical History: Reports: Hx Cardiac Surgery - AICD, Other - AICD in June of 2014 <HUNTER ASH - Last Filed: 11/03/17 06:54> Review of Systems - Review of Systems Constitutional: See HPI, Other - "the edema" EENT: No symptoms reported Cardiovascular: No symptoms reported Respiratory: No symptoms reported Gastrointestinal: See HPI, Abdominal pain Genitourinary: No symptoms reported Male Genitourinary: No symptoms reported Musculoskeletal: No symptoms reported Skin: No symptoms reported Hematologic/Lymphatic: No symptoms reported Neurological/Psychological: No symptoms reported -: Yes All other systems reviewed and negative <HUNTER ASH - Last Filed: 11/03/17 06:54> Physical Exam <HUNTER ASH - Last Filed: 11/03/17 06:54> <LYNETTE HANNAH - Last Filed: 11/03/17 10:27> - Vital signs Vitals: Resp Pulse Ox 34 H 98 11/03/17 06:36 11/03/17 06:36 - Notes Notes: Physical Exam: General: Alert. HEENT: Normocephalic. Atraumatic. PERRL. Extraocular movements intact. Oropharynx clear. Neck: Supple. Non-tender. Respiratory: No respiratory distress. Clear and equal breath sounds bilaterally. Cardiovascular: Regular rate and rhythm. Abdominal: Exquisite tenderness over the epigastrium. No distension. Normal Bowel Sounds. Back: Non-tender. No deformity or step off. Extremities: Moves all four extremities. Upper extremities: Normal inspection. Normal ROM. Lower extremities: Normal inspection. No edema. Normal ROM. Neurological: Normal cognition. AAOx4. Normal speech. Psychological: Normal affect. Normal Mood. Skin: Warm. Dry. Normal color. (HUNTER ASH) Course - Laboratory Result Diagrams: 11/03/17 06:44 11/03/17 06:44 - Diagnostic Test Radiology reviewed: Image reviewed, Reports reviewed - Chest x-ray shows cardiomegaly without heart failure. A bladder ultrasound shows gallstones, gallbladder wall thickening, trace pericholecystic fluid worrisome for cholecystitis. Negative De La Cruz sign. - EKG Interpretation by Ok EKG shows normal: Sinus rhythm, [place]. abnormal: Intervals - Borderline prolonged QT interval, QRS Complexes - Old anterior NH, ST-T Waves - Borderline diffuse ST abnormalities Rate: Normal - 91 Rhythm: NSR [place]/QRS: LAHB/LAFB When compared to previous EKG there are: No significant change - Consults Dr. Quinones Consulted provider: will see as inpatient Tiffanie Greer NP Consulted provider: will come to ER <LYNETTE HANNAH - Last Filed: 11/03/17 10:27> - Vital Signs Vital signs: Temp Pulse Resp BP Pulse Ox 97.7 F 14 81/63 L 100 11/03/17 07:12 11/03/17 08:01 11/03/17 08:01 11/03/17 08:01 - Laboratory Laboratory results interpreted by me: 11/03/17 11/03/17 11/03/17 06:44 06:44 06:44 WBC 11.9 H RDW 15.6 H Absolute Neutrophils 8.8 H Sodium 135.8 L Potassium 5.7 H BUN 24 H Creatinine 1.51 H Est GFR (Non-Af Amer) 49 L Glucose 144 H Total Bilirubin 1.8 H Direct Bilirubin 1.0 H AST 263 H ALT 230 H NT-Pro-B Natriuret Pep 2570 H Discharge <HUNTER ASH - Last Filed: 11/03/17 06:54> - Discharge Admitting Provider: Hospitalist Unit Admitted: IMCU <LYNETTE HANNAH - Last Filed: 11/03/17 10:27> - Discharge Clinical Impression: Cholelithiasis and cholecystitis without obstruction Qualifiers: Cholelithiasis location: gallbladder Cholecystitis acuity: unspecified acuity Qualified Code(s): K80.10 - Calculus of gallbladder with chronic cholecystitis without obstruction Condition: Stable Disposition: ADMITTED INPATIENT Scribe Attestation: 11/03/17 07:42 I personally performed the services described in the documentation, reviewed and edited the documentation which was dictated to the scribe in my presence, and it accurately records my words and actions. (LYNETTE HANNAH) Scribe Documentation - Scribe Written by Juan:: Juan Gramajo, 11/03/2017 0719 acting as scribe for :: Elizabeth <HUNTER ASH - Last Filed: 11/03/17 06:54>
[2017-11-03 07:09] LABS: ABSOLUTE BASOPHILS # (AUTO) 0.1 10^3/uL (0.0-0.2); ABSOLUTE EOSINOPHILS # (AUTO) 0.1 10^3/uL (0.0-0.6); ABSOLUTE MONOCYTES (AUTO) 0.9 10^3/uL (0.1-1.4); ABSOLUTE NEUT (AUTO) 8.8 10^3/uL (1.7-8.2); BASOPHILS % (AUTO) 0.8 % (0-2); HEMATOCRIT 44.5 % (37.9-51.0); HEMOGLOBIN 14.4 g/dL (13.5-17.0); LYMPHOCYTES % (AUTO) 16.7 % (13-45); MEAN CORPUSCULAR HEMOGLOBIN 27.8 pg (27.0-33.4); MEAN CORPUSCULAR HGB CONC 32.5 g/dL (32.0-36.0); MEAN CORPUSCULAR VOLUME 86 fl (80-97); MONOCYTES % (AUTO) 7.8 % (3-13); PLATELET COUNT 291 10^3/uL (150-450); RED CELL DISTRIBUTION WIDTH 15.6 % (11.5-14.0); SEGMENTED NEUTROPHILS % (AUTO) 73.7 % (42-78); TOTAL CELLS COUNTED % (AUTO) 100 %; WHITE BLOOD COUNT 11.9 10^3/uL (4.0-10.5)
[2017-11-03 07:23] LABS: ALANINE AMINOTRANSFERASE 230 U/L (21-72); ALBUMIN 3.6 g/dL (3.5-5.0); ALKALINE PHOSPHATASE 86 U/L (38-126); ANION GAP 9 (5-19); ASPARTATE AMINO TRANSFERASE 263 U/L (17-59); BILIRUBIN,TOTAL 1.8 mg/dL (0.2-1.3); BLOOD UREA NITROGEN 24 mg/dL (7-20); CALCIUM 8.8 mg/dL (8.4-10.2); CARBON DIOXIDE 27 mmol/L (22-30); CHLORIDE 100 mmol/L (98-107); CREATINE KINASE 161 U/L (55-170); GLUCOSE 144 mg/dL (75-110); LIPASE 113.1 U/L (23-300); POTASSIUM 5.7 mmol/L (3.6-5.0); SODIUM 135.8 mmol/L (137-145); TOTAL PROTEIN 6.8 g/dL (6.3-8.2)
[2017-11-03] MEDS ORDERED: NORMAL SALINE 1000 ML 250 ML IV ONE (07:23)
--- NOTE | 2017-11-03 07:25 | RADIOLOGY REPORT (SQ) ---
EXAM DESCRIPTION: XR CHEST 1 VIEW COMPLETED DATE/TME: 11/03/2017 06:53 CLINICAL HISTORY: Short of breath, ran out of Lasix COMPARISON: 04/07/2017 FINDINGS: Single frontal view of the chest. Cardiomegaly. Left-sided pacemaker. Leads overlie the chest. No consolidation, pneumothorax, or pleural effusion. No displaced rib fractures identified. Upper abdominal soft tissues are unremarkable. IMPRESSION: 1. No acute pulmonary process identified. Cardiomegaly.
[2017-11-03 07:34] LABS: CREATINE KINASE MB 1.66 ng/mL (<4.55); TROPONIN I 0.031 ng/mL
--- NOTE | 2017-11-03 09:43 | RADIOLOGY REPORT (SQ) ---
EXAM DESCRIPTION: U/S ABDOMEN LIMITED W/O DOP COMPLETED DATE/TIME: 11/03/2017 8:58 am REASON FOR STUDY: Abdominal pain with elevated liver enzymes COMPARISON: CT chest 04/05/2017, 03/26/2017 TECHNIQUE: Dynamic and static grayscale images acquired of the abdomen and recorded on PACS. Additio nal selected color Doppler and spectral images recorded. LIMITATIONS: None. FINDINGS: PANCREAS: Midline pancreas unremarkable LIVER: No masses. Echotexture normal. LIVER VASCULATURE: Normal directional flow of the main portal vein and hepatic veins. GALLBLADDER: Multiple shadowing gallstones are present in the gallbladder. Diffuse gallbladder wall thickening and pericholecystic fluid. ULTRASOUND-DETECTED DE LA CRUZ'S SIGN: Negative. INTRAHEPATIC DUCTS AND COMMON DUCT: CBD and intrahepatic ducts normal caliber. No filling defects. INFERIOR VENA CAVA: Normal flow. AORTA: No aneurysm. RIGHT KIDNEY: Normal size. Normal echogenicity. No solid or suspicious masses. No hydronephrosis. No calcifications. PERITONEAL AND RIGHT PLEURAL SPACE: No ascites or effusions. OTHER: No other significant findings. IMPRESSION: Gallstones, gallbladder wall thickening and trace pericholecystic fluid worrisome for ch olecystitis. However, patient's sonographic De La Cruz's sign is negative. TECHNICAL DOCUMENTATION: JOB ID: [id number] [employer]- All Rights Reserved Reading location - IP/workstation name: [email or web address]
[2017-11-03] MEDS ORDERED: PIPERACILLIN/TAZOBACTAM 3.375 GM VIAL IV ONE (10:25)
[2017-11-03 11:20] LABS: APPEARANCE,URINE SLIGHTLY-CLOUDY; BILIRUBIN,URINE SMALL (NEGATIVE); COLOR,URINE AMBER; GLUCOSE, URINE NEGATIVE (NEGATIVE); KETONES,URINE NEGATIVE (NEGATIVE); LEUKOCYTE ESTERASE,URINE NEGATIVE (NEGATIVE); NITRITE,URINE NEGATIVE (NEGATIVE); PROTEIN,URINE 30 mg/dL (NEGATIVE); URINE SPECIFIC GRAVITY 1.024
[2017-11-03] MEDS ORDERED: DEXTROSE 40% GEL 15 GM TUBE PO PRN ×2 (13:12)
[2017-11-03] MEDS ORDERED: GLUCAGON,HUMAN RECOMB 1 MG INJ SUBCUT PRN (13:12)
[2017-11-03] MEDS ORDERED: DEXTROSE 50%-WATER 25 GM/50 ML DISP.SYRIN IV PRN ×2 (13:12)
--- NOTE | 2017-11-03 13:12 | PDOC CONSULTATION ---
History of Present Illness Admission Date/PCP: 11/03/17 10:40 Patient complains of: Lower chest and right upper quadrant abdominal pain History of Present Illness: PRISCA ARMENTA is a 47 year old male with history of congestive heart failure with EF of 30% with a frequent episodes of chest pain now presenting with lower chest pain along with right upper quadrant abdominal pain for the past couple of weeks. Patient has had associated nausea and vomiting. No fevers or chills. Some loose bowel movements. Patient has chronic dyspnea on exertion. He has had multiple MIs in the past. He has a defibrillator implant. He has had no prior abdominal surgeries. He denies any history of jaundice. Denies any history of liver disease in the past. Past Medical History Cardiac Medical History: Reports: Congestive Heart Failure, Myocardial Infarction - 2013 Pulmonary Medical History: Reports: Pneumonia Neurological Medical History: Denies: Seizures Endocrine Medical History: Reports: Diabetes Mellitus Type 2 Psychiatric Medical History: Reports: Bipolar Disorder, Depression Past Surgical History Past Surgical History: Reports: Other - AICD in June of 2014 Denies: Cardiac Catheterization Social History Smoking Status: Current Every Day Smoker Frequency of Alcohol Use: None Hx Recreational Drug Use: Yes Drugs: Cocaine, Other - Methamphetamine abuse Hx Prescription Drug Abuse: No - denied Family History Family History: Hypertension Parental Family History Reviewed: No Children Family History Reviewed: No Sibling(s) Family History Reviewed.: No Medication/Allergy Home Medications: Aspirin [Adult Low Dose Aspirin EC] 81 mg PO DAILY 11/03/17 Carvedilol [Coreg 3.125 mg Tablet] 3.125 mg PO BID 11/03/17 Furosemide [Lasix 40 mg Tablet] 40 mg PO DAILY 11/03/17 Lisinopril [Zestril] 5 mg PO DAILY 11/03/17 Simvastatin [Zocor 40 mg Tablet] 40 mg PO QPM 11/03/17 Allergies/Adverse Reactions: No Known Allergies Allergy (Verified 04/01/17 14:36) Physical Exam Vital Signs: Temp Pulse Resp BP Pulse Ox 97.7 F 14 81/63 L 100 11/03/17 07:12 11/03/17 08:01 11/03/17 08:01 11/03/17 08:01 General appearance: PRESENT: no acute distress, cooperative Eye exam: PRESENT: conjunctiva pink Neck exam: PRESENT: other - Supple with no masses and no tenderness Respiratory exam: PRESENT: clear to auscultation brigido Cardiovascular exam: PRESENT: RRR GI/Abdominal exam: PRESENT: other - Soft, protuberant, focal tenderness to palpation in the right upper quadrant. Extremities exam: PRESENT: other - No swelling and no tenderness Neurological exam: PRESENT: alert, awake Psychiatric exam: PRESENT: appropriate affect Skin exam: PRESENT: warm Results Impressions: Chest X-Ray 11/03/17 06:53 IMPRESSION: 1. No acute pulmonary process identified. Cardiomegaly. Abdomen Ultrasound 11/03/17 08:21 IMPRESSION: Gallstones, gallbladder wall thickening and trace pericholecystic fluid worrisome for cholecystitis. However, patient's sonographic De La Cruz's sign is negative. Assessment & Plan - Diagnosis (1) Cholecystitis with cholelithiasis Qualifiers: Cholecystitis acuity: acute and chronic Is this a current diagnosis for this admission?: Yes Plan: Possible associated choledocholithiasis as well as indicated by elevated liver enzymes. Patient would benefit from a laparoscopic cholecystectomy with intraoperative cholangiogram however he does have a significant cardiac history with a diminished ejection fraction and active cardiac symptoms. Patient will be admitted to the medical service. We will initially treat with antibiotics and bowel rest. Will consult cardiology and determine fitness for surgery. If he is an extremely high risk for perioperative complications, will plan cholecystostomy tube placement and MRCP with possible ERCP. If he is a surgical candidate but with significant cardiac risk, he may be better served to have his gallbladder surgery at a tertiary care institution. Will await cardiology recommendation.
--- NOTE | 2017-11-03 13:46 | EKG REPORT ---
SEVERITY:- ABNORMAL ECG - SINUS RHYTHM LEFT ANTERIOR FASCICULAR BLOCK CONSIDER ANTERIOR INFARCT BORDERLINE T ABNORMALITIES, DIFFUSE LEADS BORDERLINE PROLONGED QT INTERVAL : Confirmed by: Gale Hewitt MD 03-Nov-2017 13:46:02
[2017-11-03] MEDS: PIPERACILLIN SODIUM/TAZOBACTAM 3.375 GM in NORMAL SALINE 100 ML IV SCH (18:08)
[2017-11-03] MEDS: LANSOPRAZOLE 30 MG TAB.RAP.DR PO SCH (18:08)
--- NOTE | 2017-11-03 19:22 | PDOC CONSULTATION ---
Consultation Consult Date: 11/03/17 Attending physician:: KAILYN CULVER Consult reason:: Abdominal pain History of Present Illness Admission Date/PCP: 11/03/17 10:40 Patient complains of: Abdominal pain History of Present Illness: PRISCA ARMENTA is a 47 year old male with history of congestive heart failure with EF of 35% with a frequent episodes of chest pain now presenting with lower chest pain along with right upper quadrant abdominal pain for the past couple of weeks. Patient has had associated nausea and vomiting. No fevers or chills. Some loose bowel movements. Patient has chronic dyspnea on exertion. He has had multiple MIs in the past. He has a defibrillator implant. He has had no prior abdominal surgeries. He denies any history of jaundice. Denies any history of liver disease in the past. Patient claims having had heart catheterization, [place] catheterization etc. in the past. He had a defibrillator placed which is noted to be single-chamber on chest x-ray at the [facility] in [place] where he also had a heart catheterization. I have requested these records and is pending. Past Medical History Cardiac Medical History: Reports: Congestive Heart Failure, Myocardial Infarction - 2013 Pulmonary Medical History: Reports: Pneumonia Neurological Medical History: Denies: Seizures Endocrine Medical History: Reports: Diabetes Mellitus Type 2 Psychiatric Medical History: Reports: Bipolar Disorder, Depression Past Surgical History Past Surgical History: Reports: Cardiac Catheterization, Internal Defibrillator , Other - AICD in June of 2014 Social History Information Source: Patient Smoking Status: Current Every Day Smoker Cigarettes Packs Per Day: 0.5 Number of Years Smokin Last Time Smoked: 11/03/17 Frequency of Alcohol Use: None Hx Recreational Drug Use: Yes Drugs: Cocaine, Other - Methamphetamine abuse Hx Prescription Drug Abuse: No - Advance Directive Resuscitation Status: Full Code Family History Family History: Hypertension Parental Family History Reviewed: Yes Children Family History Reviewed: Yes Sibling(s) Family History Reviewed.: Yes Medication/Allergy Home Medications: Aspirin [Adult Low Dose Aspirin EC] 81 mg PO DAILY 11/03/17 Carvedilol [Coreg 3.125 mg Tablet] 3.125 mg PO BID 11/03/17 Furosemide [Lasix 40 mg Tablet] 40 mg PO DAILY 11/03/17 Lisinopril [Zestril] 5 mg PO DAILY 11/03/17 Simvastatin [Zocor 40 mg Tablet] 40 mg PO QPM 11/03/17 Allergies/Adverse Reactions: No Known Allergies Allergy (Unverified 11/03/17 18:01) Review of Systems Review of Systems: Please see history of present illness and past medical history as wall. Constitutional: No fever or chills reported. Head : No recent chronic headaches, recent head injury. Eyes: No recent eye pain, diplopia, redness, discharge, acute visual changes. Ears: No recent chronic ear pain, acute hearing loss, ear discharge. Oral cavity: No recent ulcerations, bleeding, oral cavity discomfort. Neck: No recent acute neck pain reported. Hematologic: No recent easy bruising or bleeding. Lymphatic: No recent lymph node enlargement reported. Cardiovascular system review: See history of present illness. Respiratory system review: No hemoptysis or blood clots in the lungs reported. Mild Shortness of breath on exertion Gastrointestinal system review: Negative for any recent acute hematemesis, melena. Genitourinary system review: No recent acute or chronic hematuria, flank pain, UTI etc. reported. Skin system review: Negative for any recent abnormal bruising, no rash, no pruritus reported. Neurologic: No prior history of strokes, mini strokes, seizure disorder. Psychologic: No history of major psychosis or major depression reported. Musculoskeletal: Minor aches and pains reported. No acute joint swelling reported. Endocrine: No recent polyuria, polydipsia, recent heat or cold intolerance. Physical Exam Vital Signs: Temp Pulse Resp BP Pulse Ox 97.9 F 99 20 101/82 100 11/03/17 17:35 11/03/17 17:35 11/03/17 17:35 11/03/17 17:35 11/03/17 17:35 Intake & Output 11/02/17 11/03/17 11/04/17 06:59 06:59 06:59 Intake Total 0 Balance 0 Weight 81.8 kg Exam: GENERAL: well-nourished and in no acute distress. Alert and oriented x3 HEAD: Atraumatic, normocephalic. EYES: Pupils equal round and reactive to light, extraocular movements intact, sclera anicteric, conjunctiva are normal. ENT: TMs normal, nares patent, oropharynx clear without exudates. Moist mucous membranes. No oral ulcerations or bleeding gums noted NECK: supple without lymphadenopathy. Trachea is central. No cervical or axillary lymphadenopathy noted. Carotids are 2+, JVD WNL LUNGS: Respiration seems nonlabored, no significant accessory muscle action noted. Breath sounds clear to auscultation bilaterally and equal noted. No wheezes rales or rhonchi noted. No significant dullness noted on percussion. CHEST: Palpation of the chest wall shows no significant chest wall tenderness. Defibrillator noted left-sided chest HEART: [place] CURATOR, No PSH, 1/6 SOPHIE aortic area, 1/6 anaya systolic murmur mitral area, no rubs, no gallops. ABDOMEN: Soft, right upper quadrant mild tenderness appreciated, normoactive bowel sounds. No guarding, no rebound. No rigidity noted . No masses appreciated. EXTREMITIES: Pedal pulses are 1-2+, no calf tenderness noted. No clubbing or cyanosis. negative pedal edema noted NEUROLOGICAL: Focused neurological exam showed no significant neurologic deficit. Normal speech, no focal weakness appreciated. PSYCH: Normal mood, normal affect. Judgment and insight within normal limits. SKIN: No significant ecchymosis, skin is noted to be warm. MUSCULOSKELETAL EXAM: No significant acute joint swelling noted. Results Laboratory Results: 11/03/17 11/03/17 12:20 12:20 Creatine Kinase 151 Troponin I 0.025 EKG Comments: Sinus rhythm, left axis deviation, LVH, nonspecific T-wave changes Impressions: Chest X-Ray 11/03/17 06:53 IMPRESSION: 1. No acute pulmonary process identified. Cardiomegaly. Abdomen Ultrasound 11/03/17 08:21 IMPRESSION: Gallstones, gallbladder wall thickening and trace pericholecystic fluid worrisome for cholecystitis. However, patient's sonographic De La Cruz's sign is negative. Assessment & Plan - Diagnosis (1) Cholecystitis with cholelithiasis Qualifiers: Cholecystitis acuity: acute and chronic Is this a current diagnosis for this admission?: Yes (2) Cardiomyopathy Qualifiers: Cardiomyopathy type: unspecified Qualified Code(s): I42.9 - Cardiomyopathy , unspecified Is this a current diagnosis for this admission?: Yes (3) Tobacco abuse Is this a current diagnosis for this admission?: Yes (4) Hyperkalemia Is this a current diagnosis for this admission?: Yes (5) Preoperative cardiovascular examination Is this a current diagnosis for this admission?: Yes - Notes Notes: Cholecystitis with cholelithiasis: Patient is noted to have that. Currently on antibiotic therapy. Congestive heart failure: BNP is elevated. Patient may have some element of right-sided heart failure. Recommend resuming diuretics and also other home medications. Chest x-ray shows cardiomegaly and no pulmonary venous congestion. Cardiomyopathy: Have requested a 2D echo to be performed. Have requested previous cardiac evaluation from outside hospital. Will add digoxin, beta- leola, NIKHIL inhibitor/ARB/entresto as tolerated by blood pressure and renal functions as well as potassium level. Tobacco abuse: Patient has been advised to quit smoking. Hyperkalemia: Recommend low potassium diet and repeat potassium. Preop cardiovascular assessment: Patient to present increased risk. At this point will obtain a 2D echo. We are trying to obtain records of previous cardiac evaluation. In the meantime continue with IV antibiotics. Will consider a nuclear stress test. However if surgery is felt to be urgent, surgeons can proceed. - Time Time Spent: 30 to 50 Minutes - CODE STATUS was discussed, patient remains full code. Surrogate decision-maker unchanged. Multiple medical problems were addressed. More than 50% of the time spent coordinating care, discussing management plans with involved caregivers. Management plans discussed with involved personnels. Medical decision making was of moderate to high complexity , patient's has multiple comorbidities. Medications reviewed and adjusted accordingly: Yes
[2017-11-03] MEDS ORDERED: DIGOXIN 0.25 MG TABLET PO ONE (19:23)
--- NOTE | 2017-11-03 20:04 | PDOC H&P ---
History of Present Illness Admission Date/PCP: 11/03/17 10:40 Patient complains of: ABDOMINAL PAIN History of Present Illness: PRISCA ARMENTA is a 47 year old male who presented to the emergency department with a two-week history of epigastric/RUQ abdominal pain. His PMH includes CHF (EF 30%), AICD, HTN, DM 2, anxiety, depression, PTSD, bipolar disorder. The patient states that for the last 2 weeks he has been experiencing intermittent epigastric/RUQ abdominal pain. He describes the pain as dull, sometimes experiencing heartburn-like pain. The patient endorses nausea, one episode of vomiting this morning, and endorses postprandial abdominal pain. Denies symptoms of diarrhea, fever or chills. The patient did not attempt to take any [id number] medications to alleviate his symptoms. Patient states that his symptoms have become so severe that they keep him up at night, which is what prompted him to seek treatment in the emergency department. Upon arrival to the ED, the patient's lab work was significant for hyperkalemia (K 5.7), DANNIE (Cr 1.51), transaminitis (AST 263 ALT 230), elevated ProBNP (2570) and mildly elevated troponin (0.031). All other lab work relatively benign. EKG shows NSR, inverted T waves in V2 and V3, no other evidence of acute infarction or ischemia. Abdominal ultrasound reveals gallstones, gallbladder wall thickening and trace pericholecystic fluid worrisome for cholecystitis. Review sign negative. Surgery was consulted. Given the patient's extensive cardiac history, initial management of cholecystitis will be with IV antibiotics. Patient will require cardiac clearance prior to any surgical procedure. Plan to admit to hospitalist service for cholecystitis with surgery and cardiology consulted. Past Medical History Cardiac Medical History: Reports: Congestive Heart Failure, Myocardial Infarction - 2013 Pulmonary Medical History: Reports: Pneumonia Neurological Medical History: Denies: Seizures Endocrine Medical History: Reports: Diabetes Mellitus Type 2 Psychiatric Medical History: Reports: Bipolar Disorder, Depression, General Anxiety Disorder, Post Traumatic Stress Disorder Past Surgical History Past Surgical History: Reports: Cardiac Catheterization, Internal Defibrillator , Other - AICD in June of 2014 Social History Information Source: Patient Lives with: Alone Smoking Status: Current Every Day Smoker Cigarettes Packs Per Day: 0.5 Number of Years Smokin Last Time Smoked: 11/03/17 Frequency of Alcohol Use: None Hx Recreational Drug Use: Yes Drugs: Cocaine, Other - Methamphetamine abuse Hx Prescription Drug Abuse: No - Advance Directive Resuscitation Status: Do Not Resuscitate Family History Family History: Other - PATIENT REPORTS HE IS ADOPTED Parental Family History Reviewed: No Children Family History Reviewed: NA Sibling(s) Family History Reviewed.: NA Medication/Allergy Home Medications: Aspirin [Adult Low Dose Aspirin EC] 81 mg PO DAILY 11/03/17 Carvedilol [Coreg 3.125 mg Tablet] 3.125 mg PO BID 11/03/17 Furosemide [Lasix 40 mg Tablet] 40 mg PO DAILY 11/03/17 Lisinopril [Zestril] 5 mg PO DAILY 11/03/17 Simvastatin [Zocor 40 mg Tablet] 40 mg PO QPM 11/03/17 Allergies/Adverse Reactions: No Known Allergies Allergy (Unverified 11/03/17 18:01) Review of Systems All systems: reviewed and no additional remarkable complaints except as stated Physical Exam Vital Signs: Temp Pulse Resp BP Pulse Ox 97.9 F 99 20 101/82 100 11/03/17 17:35 11/03/17 17:35 11/03/17 17:35 11/03/17 17:35 11/03/17 17:35 Intake & Output 11/02/17 11/03/17 11/04/17 06:59 06:59 06:59 Intake Total 100 Balance 100 Weight 81.8 kg General appearance: PRESENT: no acute distress, well-developed, well-nourished Head exam: PRESENT: atraumatic Eye exam: PRESENT: conjunctiva pink, PERRLA Mouth exam: PRESENT: moist, neck supple Neck exam: PRESENT: full ROM Respiratory exam: PRESENT: clear to auscultation brigido, symmetrical, unlabored Cardiovascular exam: PRESENT: +S1, +S2 Pulses: PRESENT: normal radial pulses, normal dorsalis pedis pul Vascular exam: PRESENT: normal capillary refill GI/Abdominal exam: PRESENT: normal bowel sounds, soft, tenderness - RUQ. ABSENT : distended, De La Cruz's sign Rectal exam: PRESENT: deferred Extremities exam: PRESENT: full ROM. ABSENT: pedal edema Musculoskeletal exam: PRESENT: ambulatory, full ROM Neurological exam: PRESENT: alert, awake, oriented to person, oriented to place , oriented to time, oriented to situation Skin exam: PRESENT: dry, intact, normal color Results Laboratory Results: 11/03/17 11/03/17 11/03/17 12:20 12:20 18:30 Creatine Kinase 151 127 Troponin I 0.025 11/03/17 18:30 Creatine Kinase Troponin I 0.026 Impressions: Chest X-Ray 11/03/17 06:53 IMPRESSION: 1. No acute pulmonary process identified. Cardiomegaly. Abdomen Ultrasound 11/03/17 08:21 IMPRESSION: Gallstones, gallbladder wall thickening and trace pericholecystic fluid worrisome for cholecystitis. However, patient's sonographic De La Cruz's sign is negative. Status: Imported from PACS Assessment & Plan - Diagnosis (1) Cholecystitis with cholelithiasis Qualifiers: Cholecystitis acuity: acute and chronic Is this a current diagnosis for this admission?: Yes Plan: Abdominal ultrasound indicative of cholecystitis -gallstones, gallbladder wall thickening and trace pericholecystic fluid. De La Cruz sign is negative. Surgery consulted, their recommendation is the patient would benefit from a laparoscopic cholecystectomy with intraoperative cholangiogram however due to very significant cardiac history and a low ejection fraction - patient requires pre-operative clearance from cardiology. Empiric coverage with IV Zosyn NPO (2) Tobacco abuse Is this a current diagnosis for this admission?: Yes Plan: Patient admits to smoking 5 cigarettes per day Has been smoking approximately 40 years (3) CHF (congestive heart failure) Qualifiers: Heart failure type: systolic Is this a current diagnosis for this admission?: Yes Plan: History of CHF with EF 30% Elevated BNP >2500 Of note, the patient is currently taking carvedilol, lisinopril, Lasix, simvastatin and aspirin. The patient admits to noncompliance with these medications. States that he last filled all of his prescriptions '2 months ago. ' The patient states that he is not very compliant with his medical care because he does not have health insurance. He plans to relocate to his home state in [place], where he has just recently qualified for Medicaid. Continue Anti-HTN medications ASA and statin therapy 2D ECHO pending No stress test at this time (4) Diabetes Qualifiers: Diabetes mellitus type: type 2 Diabetes mellitus complication status: without complication Is this a current diagnosis for this admission?: Yes Plan: Patient endorses history of DM 2 Accu-Cheks before meals at bedtime Humalog sliding scale insulin Currently n.p.o. (5) HTN (hypertension) Qualifiers: Hypertension type: essential hypertension Qualified Code(s): I10 - Essential (primary) hypertension Is this a current diagnosis for this admission?: Yes Plan: Patient has a history of HTN Resume home dose carvedilol, lisinopril, Lasix - Time Time Spent: 30 to 50 Minutes Medications reviewed and adjusted accordingly: Yes Anticipated discharge: Home - Inpatient Certification Based on my medical assessment, after consideration of the patient's comorbidities, presenting symptoms, or acuity I expect that the services needed warrant INPATIENT care.: Yes I certify that my determination is in accordance with my understanding of Medicare's requirements for reasonable and necessary INPATIENT services [42 CFR 412.3e].: Yes Medical Necessity: Need For IV Fluids, Need for IV Antibiotics, Risk of Complication if Not Cared For in Hospital - Plan Summary Plan Summary: IV ABX. ECHOCARDIOGRAM. CONTINUOUS TELE MONITORING
[2017-11-03] MEDS ORDERED: MORPHINE SULFATE 10 MG/ML INJ ONE (20:58)
--- NOTE | 2017-11-03 20:58 | PDOC PROGRESS REPORT ---
Subjective Progress Note for:: 11/03/17 Subjective:: pain tele medicine was paged from nurse markus patient with complain of pain and anxiety ordered morphine 2 mg IV q4 hr and ativan 0.5 mg q8hr for anxiety Reason For Visit: CHOLECYSTITIS Physical Exam Vital Signs: Temp Pulse Resp BP Pulse Ox 97.4 F 99 22 H 104/79 95 11/03/17 19:51 11/03/17 19:51 11/03/17 19:51 11/03/17 19:51 11/03/17 19:51 Intake & Output 11/02/17 11/03/17 11/04/17 06:59 06:59 06:59 Intake Total 100 Balance 100 Weight 81.8 kg Results Laboratory Results: 11/03/17 11/03/17 11/03/17 12:20 12:20 18:30 Creatine Kinase 151 127 Troponin I 0.025 11/03/17 18:30 Creatine Kinase Troponin I 0.026 Impressions: Chest X-Ray 11/03/17 06:53 IMPRESSION: 1. No acute pulmonary process identified. Cardiomegaly. Abdomen Ultrasound 11/03/17 08:21 IMPRESSION: Gallstones, gallbladder wall thickening and trace pericholecystic fluid worrisome for cholecystitis. However, patient's sonographic De La Cruz's sign is negative.
[2017-11-03] MEDS ORDERED: LORAZEPAM INJ 2 MG/1 ML VIAL ONE (20:59)
[2017-11-03] MEDS: LORAZEPAM INJ 2 MG/1 ML VIAL IV PRN (21:00)
[2017-11-03] MEDS: MORPHINE SULFATE 10 MG/ML INJ IV PRN (21:00)
[2017-11-03] MEDS: CARVEDILOL 3.125 MG TABLET PO SCH (22:04)
[2017-11-04] MEDS: PIPERACILLIN SODIUM/TAZOBACTAM 3.375 GM in NORMAL SALINE 100 ML IV SCH ×5 (00:22→23:41)
[2017-11-04 05:48] LABS: HEMATOCRIT 42.1 % (37.9-51.0); HEMOGLOBIN 13.8 g/dL (13.5-17.0); MEAN CORPUSCULAR HGB CONC 32.7 g/dL (32.0-36.0); MEAN CORPUSCULAR VOLUME 85 fl (80-97); PLATELET COUNT 261 10^3/uL (150-450); RED BLOOD COUNT 4.93 10^6/uL (4.35-5.55); RED CELL DISTRIBUTION WIDTH 15.7 % (11.5-14.0); WHITE BLOOD COUNT 14.5 10^3/uL (4.0-10.5)
[2017-11-04 06:19] LABS: ALANINE AMINOTRANSFERASE 412 U/L (21-72); ALKALINE PHOSPHATASE 96 U/L (38-126); ANION GAP 14 (5-19); ASPARTATE AMINO TRANSFERASE 479 U/L (17-59); BILIRUBIN,DIRECT 1.8 mg/dL (0.0-0.4); BILIRUBIN,TOTAL 3.1 mg/dL (0.2-1.3); BLOOD UREA NITROGEN 33 mg/dL (7-20); CALCIUM 8.6 mg/dL (8.4-10.2); CARBON DIOXIDE 18 mmol/L (22-30); CHLORIDE 100 mmol/L (98-107); CHOLESTEROL 96.52 mg/dL (0-200); GLUCOSE 82 mg/dL (75-110); POTASSIUM 5.4 mmol/L (3.6-5.0); TRIGLYCERIDES 95 mg/dL (<150)
[2017-11-04] MEDS: LANSOPRAZOLE 30 MG TAB.RAP.DR PO SCH ×2 (06:20→18:12)
[2017-11-04 06:30] LABS: DIRECT LDL 56 mg/dL (<100)
--- NOTE | 2017-11-04 09:45 | PDOC PROGRESS REPORT ---
Subjective Progress Note for:: 11/04/17 Subjective:: no c/o Reason For Visit: CHOLECYSTITIS Physical Exam Vital Signs: Temp Pulse Resp BP Pulse Ox 98.9 F 93 16 97/58 L 93 11/04/17 07:25 11/04/17 07:25 11/04/17 07:25 11/04/17 07:25 11/04/17 07:25 Intake & Output 11/03/17 11/04/17 11/05/17 06:59 06:59 06:59 Intake Total 315 100 Balance 315 100 Weight 83.8 kg General appearance: PRESENT: no acute distress GI/Abdominal exam: PRESENT: distended, soft, tenderness - RUQ Results Laboratory Results: 11/04/17 04:41 11/04/17 04:41 11/04/17 11/04/17 04:41 04:41 WBC 14.5 H RBC 4.93 Hgb 13.8 Hct 42.1 MCV 85 MCH 28.0 MCHC 32.7 RDW 15.7 H Plt Count 261 Sodium 132.0 L Potassium 5.4 H Chloride 100 Carbon Dioxide 18 L Anion Gap 14 BUN 33 H Creatinine 1.58 H Est GFR ( Amer) 57 L Est GFR (Non-Af Amer) 47 L Glucose 82 Calcium 8.6 Magnesium 2.3 Total Bilirubin 3.1 H AST 479 H ALT 412 H Alkaline Phosphatase 96 Total Protein 6.0 L Albumin 3.0 L Triglycerides 95 Cholesterol 96.52 LDL Cholesterol Direct 56 VLDL Cholesterol 19.0 HDL Cholesterol 20 L 11/03/17 11/03/17 11/03/17 12:20 12:20 18:30 Creatine Kinase 151 127 Troponin I 0.025 NT-Pro-B Natriuret Pep 11/03/17 11/04/17 11/04/17 18:30 00:19 00:19 Creatine Kinase 198 H Troponin I 0.026 0.038 NT-Pro-B Natriuret Pep 11/04/17 04:41 Creatine Kinase Troponin I NT-Pro-B Natriuret Pep 1700 H Impressions: Chest X-Ray 11/03/17 06:53 IMPRESSION: 1. No acute pulmonary process identified. Cardiomegaly. Abdomen Ultrasound 11/03/17 08:21 IMPRESSION: Gallstones, gallbladder wall thickening and trace pericholecystic fluid worrisome for cholecystitis. However, patient's sonographic De La Cruz's sign is negative. 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
[2017-11-04] MEDS: DIGOXIN 0.125 MG TABLET PO SCH (09:50)
[2017-11-04] MEDS: CARVEDILOL 3.125 MG TABLET PO SCH ×2 (09:51→21:20)
[2017-11-04] MEDS: ENOXAPARIN SODIUM INJ 30 MG/0.3 ML DISP.SYRIN SUBCUT SCH (09:51)
[2017-11-04] MEDS ORDERED: FUROSEMIDE 40 MG TABLET PO SCH (10:00)
[2017-11-04] MEDS: NORMAL SALINE 1000 ML 1,000 ML IV PRN (10:05)
[2017-11-04] MEDS: LORAZEPAM INJ 2 MG/1 ML VIAL IV PRN ×2 (10:05→21:37)
--- NOTE | 2017-11-04 10:25 | EKG REPORT ---
SEVERITY:- ABNORMAL ECG - SINUS RHYTHM PROBABLE LEFT ATRIAL ABNORMALITY LEFT AXIS DEVIATION LOW VOLTAGE IN FRONTAL LEADS CONSIDER ANTERIOR INFARCT NONSPECIFIC T ABNORMALITIES, DIFFUSE LEADS BORDERLINE PROLONGED QT INTERVAL : Confirmed by: Gale Hewitt MD 04-Nov-2017 10:25:15
--- NOTE | 2017-11-04 19:24 | XCELERA REPORT ---
[address] [address] Transthoracic Echocardiogram Report Name: PRISCA ARMENTA Age: 47 yrs Gender: Male : 1970 Patient Status: Inpatient Patient Location: [facility]^A Study Date: 11/04/2017 10:30 AM Height: 66 in Weight: 180 lb BSA: 1.9 m2 Procedure: A complete two-dimensional transthoracic echocardiogram was performed (2D, M-mode, spectral and color flow Doppler). The study was technically difficult with many images being suboptimal in quality. Reason For Study: CHF, pulmonary hypertension Ordering Physician: ULI RINCON Performed By: Christiano Brooke Interpretation Summary LV EF is 35% Left ventricular systolic function is severely reduced. The left ventricle is mildly dilated. The left ventricle is grossly normal size. Doppler measurements suggest reversible restrictive left ventricular relaxation, which is associated with grade III/IV or moderate diastolic dysfunction Regional wall motion abnormalities cannot be excluded due to limited visualization. The right ventricle is grossly normal size. The right ventricular systolic function is mildly reduced. The right atrium is normal in size The left atrium is moderately dilated. There is a moderate amount of mitral regurgitation There is no mitral valve stenosis. No aortic regurgitation is present. There is no aortic valve stenosis There is a mild amount of tricuspid regurgitation There is mild to moderate pulmonary hypertension by echo Right ventricular systolic pressure is estimated to be elevated at 40-50mmHg. The aortic root is not well visualized. The inferior vena cava appeared dilated and decreased < 50% with respiration (RAP 15-20 mmHg) There is no pericardial effusion. MMode/2D Measurements & Calculations RVDd: 3.9 cm LVIDd: 6.3 cm FS: 17.1 % Ao root diam: 2.8 cm IVSd: 0.85 cm LVIDs: 5.2 cm EDV(Teich): 197.8 ml Ao root area: 6.3 cm2 LVPWd: 1.1 cm ESV(Teich): 128.7 ml LA dimension: 5.0 cm EF(Teich): 34.9 % Doppler Measurements & Calculations MV E max reece: MV P1/2t max reece: Ao V2 max: LV V1 max P.7 cm/sec 152.8 cm/sec 92.3 cm/sec 2.2 mmHg MV A max reece: MV P1/2t: 38.1 msec Ao max PG: LV V1 max: 65.4 cm/sec MVA(P1/2t): 5.8 cm2 3.4 mmHg 74.4 cm/sec MV E/A: 2.5 MV dec slope: LV dP/dt: 757.0 mmHg/s 1175 cm/sec2 MV dec time: 0.10 sec PA V2 max: PI end-d reece: TR max reece: MV P1/2t-pr_phl: 41.1 cm/sec 146.6 cm/sec 289.0 cm/sec 38.1 msec PA max PG: TR max P.68 mmHg 33.4 mmHg Left Ventricle The left ventricle is grossly normal size. The left ventricle is mildly dilated. Left ventricular systolic function is severely reduced. LV EF is 35%. Doppler measurements suggest reversible restrictive left ventricular relaxation, which is associated with grade III/IV or moderate diastolic dysfunction. Regional wall motion abnormalities cannot be excluded due to limited visualization. Right Ventricle The right ventricle is grossly normal size. There is normal right ventricular wall thickness. The right ventricular systolic function is mildly reduced. Atria The right atrium is normal in size. The left atrium is moderately dilated. Interarterial septum not well visualized and not well dopplered. Cannot comment on ASD/PFO presence. Mitral Valve The mitral valve is grossly normal. There is no mitral valve stenosis. There is a moderate amount of mitral regurgitation. Aortic Valve The aortic valve is grossly normal. There is no aortic valve stenosis. No aortic regurgitation is present. Tricuspid Valve The tricuspid valve is not well visualized, but is grossly normal. There is no tricuspid stenosis. There is a mild amount of tricuspid regurgitation. There is mild to moderate pulmonary hypertension by echo. Right ventricular systolic pressure is estimated to be elevated at 40-50mmHg. Pulmonic Valve The pulmonic valve is not well visualized. Great Vessels The aortic root is not well visualized. The inferior vena cava appeared dilated and decreased < 50% with respiration (RAP 15-20 mmHg). Effusions There is no pericardial effusion. : ULI RINCON > Uli Rincon
--- NOTE | 2017-11-04 20:13 | PDOC PROGRESS REPORT ---
Subjective Progress Note for:: 11/04/17 Subjective:: Patient seems to be doing better. Patient still has some abdominal discomfort. Pt is denying any chest arm or neck discomfort. Patient denying any PND, orthopnea. Patient denied any sustained palpitations, dizziness, syncope, near syncope. Patient denying any fever chills. Patient is maintaining sinus rhythm. Review of systems: Rest review of systems negative. Medications: Medications have been reviewed. Reason For Visit: CHOLECYSTITIS Physical Exam Vital Signs: Temp Pulse Resp BP Pulse Ox 98.5 F 90 20 104/79 100 11/04/17 19:32 11/04/17 19:32 11/04/17 19:32 11/04/17 19:32 11/04/17 19:32 Intake & Output 11/03/17 11/04/17 11/05/17 06:59 06:59 06:59 Intake Total 315 200 Balance 315 200 Weight 83.8 kg Exam: GENERAL: well-nourished and in no acute distress. Alert and oriented x3 HEAD: Atraumatic, normocephalic. EYES: Pupils equal round and reactive to light, extraocular movements intact, sclera anicteric, conjunctiva are normal. ENT: TMs normal, nares patent, oropharynx clear without exudates. Moist mucous membranes. No oral ulcerations or bleeding gums noted NECK: supple without lymphadenopathy. Trachea is central. No cervical or axillary lymphadenopathy noted. Carotids are 2+, JVD 8-10 cm LUNGS: Respiration seems nonlabored, no significant accessory muscle action noted. Breath sounds clear to auscultation bilaterally and equal noted. No wheezes rales or rhonchi noted. No significant dullness noted on percussion. CHEST: Palpation of the chest wall shows no significant chest wall tenderness. HEART: [place] [employer], No PSH, 1/6 SOPHIE aortic area, 2/6 anaya systolic murmur mitral area, no rubs, no gallops. ABDOMEN: Soft, no significant tenderness appreciated, normoactive bowel sounds. No guarding, no rebound. No rigidity noted . No masses appreciated. EXTREMITIES: Pedal pulses are 1-2+, no calf tenderness noted. No clubbing or cyanosis. negative pedal edema noted NEUROLOGICAL: Focused neurological exam showed no significant neurologic deficit. Normal speech, no focal weakness appreciated. PSYCH: Normal mood, normal affect. Judgment and insight within normal limits. SKIN: No significant ecchymosis, skin is noted to be warm. MUSCULOSKELETAL EXAM: No significant acute joint swelling noted. Results Laboratory Results: 11/04/17 04:41 11/04/17 04:41 11/04/17 11/04/17 04:41 04:41 WBC 14.5 H RBC 4.93 Hgb 13.8 Hct 42.1 MCV 85 MCH 28.0 MCHC 32.7 RDW 15.7 H Plt Count 261 Sodium 132.0 L Potassium 5.4 H Chloride 100 Carbon Dioxide 18 L Anion Gap 14 BUN 33 H Creatinine 1.58 H Est GFR ( Amer) 57 L Est GFR (Non-Af Amer) 47 L Glucose 82 Calcium 8.6 Magnesium 2.3 Total Bilirubin 3.1 H AST 479 H ALT 412 H Alkaline Phosphatase 96 Total Protein 6.0 L Albumin 3.0 L Triglycerides 95 Cholesterol 96.52 LDL Cholesterol Direct 56 VLDL Cholesterol 19.0 HDL Cholesterol 20 L 11/03/17 11/03/17 11/03/17 12:20 12:20 18:30 Creatine Kinase 151 127 Troponin I 0.025 NT-Pro-B Natriuret Pep 11/03/17 11/04/17 11/04/17 18:30 00:19 00:19 Creatine Kinase 198 H Troponin I 0.026 0.038 NT-Pro-B Natriuret Pep 11/04/17 11/04/17 11/04/17 04:41 04:41 10:25 Creatine Kinase Troponin I 0.032 0.034 NT-Pro-B Natriuret Pep 1700 H 11/04/17 17:50 Creatine Kinase Troponin I 0.037 NT-Pro-B Natriuret Pep EKG Comments: Shows sinus rhythm without any sustained tachycardia or bradycardia Impressions: Chest X-Ray 11/03/17 06:53 IMPRESSION: 1. No acute pulmonary process identified. Cardiomegaly. Abdomen Ultrasound 11/03/17 08:21 IMPRESSION: Gallstones, gallbladder wall thickening and trace pericholecystic fluid worrisome for cholecystitis. However, patient's sonographic De La Cruz's sign is negative. Assessment & Plan - Diagnosis (1) Cholecystitis with cholelithiasis Qualifiers: Cholecystitis acuity: acute and chronic Is this a current diagnosis for this admission?: Yes (2) Cardiomyopathy Qualifiers: Cardiomyopathy type: unspecified Qualified Code(s): I42.9 - Cardiomyopathy , unspecified Is this a current diagnosis for this admission?: Yes (3) Tobacco abuse Is this a current diagnosis for this admission?: Yes (4) Hyperkalemia Is this a current diagnosis for this admission?: Yes (5) Preoperative cardiovascular examination Is this a current diagnosis for this admission?: Yes - Notes Notes: 2D echo shows severely depressed LVEF at approximately 35%. In addition patient also noted to have moderate mitral regurgitation. This will falsely elevate LVEF to some extent. We are awaiting previous heart cath report from hospital in [place]. Overall feels that due to depressed LVEF, patient is at risk for cardiac decompensation with anesthesia especially precipitation of CHF. I have provisionally scheduled patient for a stress test tomorrow, pending cath report. Cholecystitis with cholelithiasis: Patient is noted to have that. Currently on antibiotic therapy. Congestive heart failure: BNP is elevated. Patient may have some element of right-sided heart failure. Recommend resuming diuretics and also other home medications. Chest x-ray shows cardiomegaly and no pulmonary venous congestion. Cardiomyopathy: 2D echo shows severely depressed LVEF. Have requested previous cardiac evaluation from outside hospital. Will add digoxin, beta-leola, NIKHIL inhibitor/ARB/entresto as tolerated by blood pressure and renal functions as well as potassium level. Tobacco abuse: Patient has been advised to quit smoking. Hyperkalemia: Recommend low potassium diet and repeat potassium. Preop cardiovascular assessment: Patient felt to be at increased risk of cardiac decompensation. We are trying to obtain records of previous cardiac evaluation. In the meantime continue with IV antibiotics. If medical therapy is an option, this should also be considered. - Time Time with patient: Greater than 35 minutes Medications reviewed and adjusted accordingly: Yes
--- NOTE | 2017-11-04 20:40 | PDOC PROGRESS REPORT ---
Subjective Progress Note for:: 11/04/17 Subjective:: PRISCA ARMENTA is a 47 year old male who presented to the emergency department with a two-week history of epigastric/RUQ abdominal pain. His PMH includes CHF (EF 30%), AICD, HTN, DM 2, anxiety, depression, PTSD, bipolar disorder. The patient was seen this morning on rounds. He is resting comfortably in bed on room air. The patient states that his RUQ pain has greatly improved today. He denies N/V/D. Denies fever or chills. Upon assessment, the patient's abdomen is S/NT/ND. (+) BS. At this time, the [facility] nuclear medicine lab is unable to perform stress tests, therefore not able to complete the patient's cardiac clearance workup. Multiple other facilities were contacted regarding potential transfer to a hospital that would be able to complete the workup in a more timely manner. [facility], [facility] and [facility] all declined. [facility] surgeon, Dr. Dominguez, was made aware. He agreed to keep the patient at [facility] while he waits to complete his cardiac clearance workup. Without health insurance and a history of treatment noncompliance, the patient has a high risk of getting lost to follow up if this should be managed on an outpatient basis. The plan is to pursue cholecystectomy once cardiac clearance is completed. Reason For Visit: CHOLECYSTITIS Physical Exam Vital Signs: Temp Pulse Resp BP Pulse Ox 97.7 F 96 19 107/76 100 11/04/17 15:23 11/04/17 19:00 11/04/17 15:23 11/04/17 15:23 11/04/17 15:23 Intake & Output 11/03/17 11/04/17 11/05/17 06:59 06:59 06:59 Intake Total 315 200 Balance 315 200 Weight 83.8 kg General appearance: PRESENT: no acute distress, well-developed, well-nourished Head exam: PRESENT: atraumatic Eye exam: PRESENT: conjunctiva pink, PERRLA Mouth exam: PRESENT: moist Neck exam: PRESENT: full ROM. ABSENT: JVD Respiratory exam: PRESENT: clear to auscultation brigido, symmetrical, unlabored Cardiovascular exam: PRESENT: RRR, +S1, +S2 Pulses: PRESENT: normal radial pulses, normal dorsalis pedis pul GI/Abdominal exam: PRESENT: normal bowel sounds, soft, tenderness - very milt TTP in RUQ. ABSENT: ascites Rectal exam: PRESENT: deferred Extremities exam: PRESENT: full ROM, pedal edema Musculoskeletal exam: PRESENT: ambulatory, full ROM Neurological exam: PRESENT: alert, awake, oriented to person, oriented to place , oriented to time, oriented to situation Psychiatric exam: PRESENT: appropriate affect Skin exam: PRESENT: dry, intact, normal color Results Laboratory Results: 11/04/17 04:41 11/04/17 04:41 11/04/17 11/04/17 04:41 04:41 WBC 14.5 H RBC 4.93 Hgb 13.8 Hct 42.1 MCV 85 MCH 28.0 MCHC 32.7 RDW 15.7 H Plt Count 261 Sodium 132.0 L Potassium 5.4 H Chloride 100 Carbon Dioxide 18 L Anion Gap 14 BUN 33 H Creatinine 1.58 H Est GFR ( Amer) 57 L Est GFR (Non-Af Amer) 47 L Glucose 82 Calcium 8.6 Magnesium 2.3 Total Bilirubin 3.1 H AST 479 H ALT 412 H Alkaline Phosphatase 96 Total Protein 6.0 L Albumin 3.0 L Triglycerides 95 Cholesterol 96.52 LDL Cholesterol Direct 56 VLDL Cholesterol 19.0 HDL Cholesterol 20 L 11/03/17 11/03/17 11/03/17 12:20 12:20 18:30 Creatine Kinase 151 127 Troponin I 0.025 NT-Pro-B Natriuret Pep 11/03/17 11/04/17 11/04/17 18:30 00:19 00:19 Creatine Kinase 198 H Troponin I 0.026 0.038 NT-Pro-B Natriuret Pep 11/04/17 11/04/17 11/04/17 04:41 04:41 10:25 Creatine Kinase Troponin I 0.032 0.034 NT-Pro-B Natriuret Pep 1700 H 11/04/17 17:50 Creatine Kinase Troponin I 0.037 NT-Pro-B Natriuret Pep Impressions: Chest X-Ray 11/03/17 06:53 IMPRESSION: 1. No acute pulmonary process identified. Cardiomegaly. Abdomen Ultrasound 11/03/17 08:21 IMPRESSION: Gallstones, gallbladder wall thickening and trace pericholecystic fluid worrisome for cholecystitis. However, patient's sonographic De La Cruz's sign is negative. Status: Imported from PACS Assessment & Plan - Diagnosis (1) Cholecystitis with cholelithiasis Qualifiers: Cholecystitis acuity: acute and chronic Is this a current diagnosis for this admission?: Yes Plan: Abdominal ultrasound indicative of cholecystitis -gallstones, gallbladder wall thickening and trace pericholecystic fluid. De La Cruz sign is negative. Surgery consulted, their recommendation is the patient would benefit from a laparoscopic cholecystectomy with intraoperative cholangiogram however due to very significant cardiac history and a low ejection fraction - patient requires pre-operative clearance from cardiology. Empiric coverage with IV Zosyn Cardiac diet Patient is currently awaiting nuclear stress test (2) Tobacco abuse Is this a current diagnosis for this admission?: Yes Plan: Patient admits to smoking 5 cigarettes per day Has been smoking approximately 40 years Nicotine patch offered (3) CHF (congestive heart failure) Qualifiers: Heart failure type: systolic Is this a current diagnosis for this admission?: Yes Plan: History of CHF with EF < 40% Elevated BNP >2500 Patient is currently taking carvedilol, lisinopril, Lasix, simvastatin and aspirin. He admits to intermittent compliance with these medications. Continue Anti-HTN medications ASA and statin therapy 2D ECHOcardiogram completed: LVEF 35%, grade III diastolic dysfunction, moderate MR and TR, moderate pulmonary HTN Awaiting nuclear stress test (4) Diabetes Qualifiers: Diabetes mellitus type: type 2 Diabetes mellitus complication status: without complication Is this a current diagnosis for this admission?: Yes Plan: Patient endorses history of DM 2 Accu-Cheks before meals at bedtime Humalog sliding scale insulin Cardiac diabetic diet (5) HTN (hypertension) Qualifiers: Hypertension type: essential hypertension Qualified Code(s): I10 - Essential (primary) hypertension Is this a current diagnosis for this admission?: Yes Plan: Patient has a history of HTN Resume home dose carvedilol, lisinopril, Lasix - Time Time Spent with patient: 25-34 minutes Medications reviewed and adjusted accordingly: Yes Anticipated discharge: Home - Inpatient Certification Based on my medical assessment, after consideration of the patient's comorbidities, presenting symptoms, or acuity I expect that the services needed warrant INPATIENT care.: Yes I certify that my determination is in accordance with my understanding of Medicare's requirements for reasonable and necessary INPATIENT services [42 CFR 412.3e].: Yes Medical Necessity: Need for IV Antibiotics, Risk of Complication if Not Cared For in Hospital - Plan Summary Plan Summary: CONTINUE IV ABX. PATIENT'S HOSPITAL STAY IS SIGNIFICANTLY PROLONGED DUE TO THE NUCLEAR MEDICINE LAB UNABLE TO PERFORM STRESS TEST FOR DAYS DUE TO FAULTY STRESS TEST EQUIPMENT. WAITING FOR STRESS TEST TO COMPLETE CARDIAC CLEARANCE WORKUP. PATIENT DOES NOT HAVE HEALTH INSURANCE AND WOULD LIKELY GET LOST TO FOLLOW UP IF HE WERE TO BE DISCHARGED AND ASKED TO PURSUE THIS WORKUP AND SURGICAL PROCEDURE ON AN OUTPATIENT BASIS.
[2017-11-04] MEDS: NICOTINE 21 MG/24 HR PATCH.TD24 TD SCH (21:17)
[2017-11-04] MEDS: SIMVASTATIN 40 MG TABLET PO SCH (21:17)
[2017-11-04] MEDS ORDERED: CARVEDILOL 3.125 MG TABLET PO SCH (22:00)
[2017-11-05] MEDS: PIPERACILLIN SODIUM/TAZOBACTAM 3.375 GM in NORMAL SALINE 100 ML IV SCH ×3 (05:27→17:25)
[2017-11-05] MEDS: LANSOPRAZOLE 30 MG TAB.RAP.DR PO SCH ×2 (05:27→17:25)
[2017-11-05 05:45] LABS: HEMATOCRIT 39.4 % (37.9-51.0); MEAN CORPUSCULAR HEMOGLOBIN 28.3 pg (27.0-33.4); MEAN CORPUSCULAR HGB CONC 33.1 g/dL (32.0-36.0); MEAN CORPUSCULAR VOLUME 86 fl (80-97); PLATELET COUNT 270 10^3/uL (150-450); RED BLOOD COUNT 4.61 10^6/uL (4.35-5.55); WHITE BLOOD COUNT 10.1 10^3/uL (4.0-10.5)
[2017-11-05 06:22] LABS: ALANINE AMINOTRANSFERASE 418 U/L (21-72); ALBUMIN 2.7 g/dL (3.5-5.0); ALKALINE PHOSPHATASE 79 U/L (38-126); ANION GAP 8 (5-19); ASPARTATE AMINO TRANSFERASE 416 U/L (17-59); BILIRUBIN,DIRECT 0.9 mg/dL (0.0-0.4); BILIRUBIN,TOTAL 1.3 mg/dL (0.2-1.3); BLOOD UREA NITROGEN 37 mg/dL (7-20); CARBON DIOXIDE 23 mmol/L (22-30); CHLORIDE 104 mmol/L (98-107); GLUCOSE 145 mg/dL (75-110); SODIUM 135.4 mmol/L (137-145); TOTAL PROTEIN 5.5 g/dL (6.3-8.2)
[2017-11-05 06:37] LABS: POTASSIUM 4.3 mmol/L (3.6-5.0)
[2017-11-05] MEDS: NORMAL SALINE 1000 ML 1,000 ML IV PRN (09:00)
[2017-11-05] MEDS: CARVEDILOL 3.125 MG TABLET PO SCH ×2 (09:01→22:04)
[2017-11-05] MEDS: ENOXAPARIN SODIUM INJ 30 MG/0.3 ML DISP.SYRIN SUBCUT SCH (09:01)
[2017-11-05] MEDS: NICOTINE 21 MG/24 HR PATCH.TD24 TD SCH (09:01)
[2017-11-05] MEDS: ASPIRIN 81 MG TABLET, ENT COATED PO SCH (09:05)
[2017-11-05] MEDS: FUROSEMIDE 40 MG TABLET PO SCH (09:05)
[2017-11-05] MEDS: DIGOXIN 0.125 MG TABLET PO SCH (09:05)
[2017-11-05] MEDS ORDERED: LISINOPRIL 5 MG TABLET PO SCH (10:00)
[2017-11-05] MEDS: SACUBITRIL/VALSARTAN 24 MG/26 MG TABLET PO SCH ×2 (11:41→22:04)
--- NOTE | 2017-11-05 11:46 | PDOC PROGRESS REPORT ---
Subjective Progress Note for:: 11/05/17 Subjective:: Patient seems to be doing better. Patient still has some abdominal discomfort but significantly improved. Pt is denying any chest arm or neck discomfort. Patient denying any PND, orthopnea. Patient denied any sustained palpitations, dizziness, syncope, near syncope. Patient denying any fever chills. Patient is maintaining sinus rhythm. Review of systems: Rest review of systems negative. Medications: Medications have been reviewed. Reason For Visit: CHOLECYSTITIS Physical Exam Vital Signs: Temp Pulse Resp BP Pulse Ox 97.8 F 94 12 104/84 100 11/05/17 07:24 11/05/17 07:24 11/05/17 07:24 11/05/17 07:24 11/05/17 07:24 Intake & Output 11/04/17 11/05/17 11/06/17 06:59 06:59 06:59 Intake Total 315 2298 Balance 315 2298 Weight 83.8 kg 81.2 kg Exam: GENERAL: well-nourished and in no acute distress. Alert and oriented x3 HEAD: Atraumatic, normocephalic. EYES: Pupils equal round and reactive to light, extraocular movements intact, sclera anicteric, conjunctiva are normal. ENT: TMs normal, nares patent, oropharynx clear without exudates. Moist mucous membranes. No oral ulcerations or bleeding gums noted NECK: supple without lymphadenopathy. Trachea is central. No cervical or axillary lymphadenopathy noted. Carotids are 2+, JVD WNL LUNGS: Respiration seems nonlabored, no significant accessory muscle action noted. Breath sounds clear to auscultation bilaterally and equal noted. No wheezes rales or rhonchi noted. No significant dullness noted on percussion. CHEST: Palpation of the chest wall shows no significant chest wall tenderness. HEART: [place] [employer], No PSH, 1/6 SOP[place] aortic area, 1/6 aanya systolic murmur mitral area, no rubs, no gallops. ABDOMEN: Soft, mild epigastric tenderness appreciated, normoactive bowel sounds. No guarding, no rebound. No rigidity noted . No masses appreciated. Abdomen however is noted to be somewhat firm. EXTREMITIES: Pedal pulses are 1-2+, no calf tenderness noted. No clubbing or cyanosis. negative pedal edema noted NEUROLOGICAL: Focused neurological exam showed no significant neurologic deficit. Normal speech, no focal weakness appreciated. PSYCH: Normal mood, normal affect. Judgment and insight within normal limits. SKIN: No significant ecchymosis, skin is noted to be warm. MUSCULOSKELETAL EXAM: No significant acute joint swelling noted. Results Laboratory Results: 11/05/17 04:36 11/05/17 04:36 11/05/17 11/05/17 04:36 04:36 WBC 10.1 RBC 4.61 Hgb 13.0 L Hct 39.4 MCV 86 MCH 28.3 MCHC 33.1 RDW 16.0 H Plt Count 270 Sodium 135.4 L Potassium 4.3 D Chloride 104 Carbon Dioxide 23 Anion Gap 8 BUN 37 H Creatinine 1.51 H Est GFR ( Amer) > 60 Est GFR (Non-Af Amer) 49 L Glucose 145 H Calcium 8.0 L Magnesium 2.4 H Total Bilirubin 1.3 AST 416 H ALT 418 H Alkaline Phosphatase 79 Total Protein 5.5 L Albumin 2.7 L 11/03/17 11/03/17 11/03/17 12:20 12:20 18:30 Creatine Kinase 151 127 Troponin I 0.025 NT-Pro-B Natriuret Pep 11/03/17 11/04/17 11/04/17 18:30 00:19 00:19 Creatine Kinase 198 H Troponin I 0.026 0.038 NT-Pro-B Natriuret Pep 11/04/17 11/04/17 11/04/17 04:41 04:41 10:25 Creatine Kinase Troponin I 0.032 0.034 NT-Pro-B Natriuret Pep 1700 H 11/04/17 11/05/17 17:50 04:36 Creatine Kinase Troponin I 0.037 NT-Pro-B Natriuret Pep 1380 H Impressions: Chest X-Ray 11/03/17 06:53 IMPRESSION: 1. No acute pulmonary process identified. Cardiomegaly. Abdomen Ultrasound 11/03/17 08:21 IMPRESSION: Gallstones, gallbladder wall thickening and trace pericholecystic fluid worrisome for cholecystitis. However, patient's sonographic De La Cruz's sign is negative. Assessment & Plan - Diagnosis (1) Cholecystitis with cholelithiasis Qualifiers: Cholecystitis acuity: acute and chronic Is this a current diagnosis for this admission?: Yes (2) Cardiomyopathy Qualifiers: Cardiomyopathy type: unspecified Qualified Code(s): I42.9 - Cardiomyopathy , unspecified Is this a current diagnosis for this admission?: Yes (3) Tobacco abuse Is this a current diagnosis for this admission?: Yes (4) Hyperkalemia Is this a current diagnosis for this admission?: Yes (5) Preoperative cardiovascular examination Is this a current diagnosis for this admission?: Yes - Notes Notes: 2D echo shows severely depressed LVEF at approximately 35%. In addition patient also noted to have moderate to severe, more towards moderate mitral regurgitation. This will falsely elevate LVEF to some extent. We are awaiting previous heart cath report from [facility] in [place]. Overall feels that due to depressed LVEF, patient is at risk for cardiac decompensation with anesthesia especially precipitation of CHF. I have provisionally scheduled patient for a stress test, however when this can be completed is a question. Also reviewed materials that came from [facility]. I could find right heart catheterization report but no left heart catheterization procedure report although multiple physicians did note no CAD being present but whether an actual left heart catheterization was performed or not is not evident Cholecystitis with cholelithiasis: Patient is noted to have that. Currently on antibiotic therapy. Have recommended medical management for the time being for this condition until we can optimize his underlying cardiac status. Congestive heart failure: BNP is elevated. Patient may have some element of right-sided heart failure. Recommend resuming diuretics and also other home medications. Chest x-ray shows cardiomegaly and no pulmonary venous congestion. Possible significant right-sided involvement in CHF. Cardiomyopathy: 2D echo shows severely depressed LVEF. H continue with digoxin , beta-leola, have added entresto therapy today. Will stop lisinopril. Tobacco abuse: Patient has been advised to quit smoking. Hyperkalemia: Potassium level has normalized. Will consider adding spironolactone. Preop cardiovascular assessment: Patient felt to be at increased risk of cardiac decompensation. We are trying to obtain records of previous cardiac evaluation. In the meantime continue with IV antibiotics. If medical therapy is an option, this should also be considered. - Time Time with patient: Greater than 35 minutes - CODE STATUS was discussed, patient remains full code. Surrogate decision-maker unchanged. Multiple medical problems were addressed. More than 50% of the time spent coordinating care, discussing management plans with involved caregivers. Management plans discussed with involved personnels. Medical decision making was of moderate to high complexity, patient's has multiple comorbidities. Medications reviewed and adjusted accordingly: Yes
--- NOTE | 2017-11-05 12:20 | PDOC PROGRESS REPORT ---
Subjective Progress Note for:: 11/05/17 Subjective:: feels better and reports no abdominal pain Reason For Visit: CHOLECYSTITIS Physical Exam Vital Signs: Temp Pulse Resp BP Pulse Ox 97.8 F 94 12 104/84 100 11/05/17 07:24 11/05/17 07:24 11/05/17 07:24 11/05/17 07:24 11/05/17 07:24 Intake & Output 11/04/17 11/05/17 11/06/17 06:59 06:59 06:59 Intake Total 315 2298 Balance 315 2298 Weight 83.8 kg 81.2 kg General appearance: PRESENT: no acute distress GI/Abdominal exam: PRESENT: distended, firm, other - no tenderness in the RUQ or epigastriumn Results Laboratory Results: 11/05/17 04:36 11/05/17 04:36 11/05/17 11/05/17 04:36 04:36 WBC 10.1 RBC 4.61 Hgb 13.0 L Hct 39.4 MCV 86 MCH 28.3 MCHC 33.1 RDW 16.0 H Plt Count 270 Sodium 135.4 L Potassium 4.3 D Chloride 104 Carbon Dioxide 23 Anion Gap 8 BUN 37 H Creatinine 1.51 H Est GFR ( Amer) > 60 Est GFR (Non-Af Amer) 49 L Glucose 145 H Calcium 8.0 L Magnesium 2.4 H Total Bilirubin 1.3 AST 416 H ALT 418 H Alkaline Phosphatase 79 Total Protein 5.5 L Albumin 2.7 L 11/03/17 11/03/17 11/03/17 12:20 12:20 18:30 Creatine Kinase 151 127 Troponin I 0.025 NT-Pro-B Natriuret Pep 11/03/17 11/04/17 11/04/17 18:30 00:19 00:19 Creatine Kinase 198 H Troponin I 0.026 0.038 NT-Pro-B Natriuret Pep 11/04/17 11/04/17 11/04/17 04:41 04:41 10:25 Creatine Kinase Troponin I 0.032 0.034 NT-Pro-B Natriuret Pep 1700 H 11/04/17 11/05/17 17:50 04:36 Creatine Kinase Troponin I 0.037 NT-Pro-B Natriuret Pep 1380 H Impressions: Chest X-Ray 11/03/17 06:53 IMPRESSION: 1. No acute pulmonary process identified. Cardiomegaly. Abdomen Ultrasound 11/03/17 08:21 IMPRESSION: Gallstones, gallbladder wall thickening and trace pericholecystic fluid worrisome for cholecystitis. However, patient's sonographic De La Cruz's sign is negative. Assessment & Plan - Diagnosis (1) Cholecystitis with cholelithiasis Qualifiers: Cholecystitis acuity: acute and chronic Is this a current diagnosis for this admission?: Yes - Plan Summary Plan Summary: A/ Severe cardiomyopathy with right side CHF of unknown cause, possibly secondary to drug abuse Patient feels better and denies abdominal pain even though he is c/o abdomen being foirm US findings () of thickened GB wall and pericholecystic fluid can be identified in severe right sided CHF Similarly, pain and transaminitis can occur with CHF as it could be in this patient Patient is tolerating regular diet well p/ Continue observation Stress test planned for next week However, due to the improvement of his symptoms after tuning up his cardiac status, I doubt he has acute cholecystitis and most likely he will not need the planned cholecystectomy
[2017-11-05] MEDS ORDERED: INSULIN LISPRO 100 UNIT/ML 3 ML VIAL SUBCUT PRN (14:53)
--- NOTE | 2017-11-05 16:05 | PDOC PROGRESS REPORT ---
Subjective Progress Note for:: 11/05/17 Subjective:: PRISCA ARMENTA is a 47 year old male who presented to the emergency department with a two-week history of epigastric/RUQ abdominal pain. His PMH includes CHF (EF 30%), AICD, HTN, DM 2, anxiety, depression, PTSD, bipolar disorder. The patient was seen this morning on rounds. He is resting comfortably in bed on room air. The patient states that his RUQ pain has greatly improved today. He denies N/V/D. Denies fever or chills. Upon assessment, the patient's abdomen is S/NT. Endorses mild abdominal distention. (+) BS. Conference with Surgery and Cardiology today. Unfortunately, the nuclear medicine lab is unable to perform any stress tests at this time. The plan is to discharge the patient home and schedule the stress test next week as an outpatient. Provide him with his cardiac (life-sustaining) medications, strongly encourage strict compliance, and have the patient follow up at the surgical clinic to determine the need for a cholecystectomy. Since the patient does not have health insurance, I have enlisted the help of discharge planning in order to get the patient his prescription medications. Discharge is currently on hold until we can guarantee that the patient will receive his cardiac medications prior to discharge from [facility]. Reason For Visit: CHOLECYSTITIS Physical Exam Vital Signs: Temp Pulse Resp BP Pulse Ox 97.8 F 94 12 104/84 100 11/05/17 07:24 11/05/17 07:24 11/05/17 07:24 11/05/17 07:24 11/05/17 07:24 Intake & Output 11/04/17 11/05/17 11/06/17 06:59 06:59 06:59 Intake Total 315 2298 400 Balance 315 2298 400 Weight 83.8 kg 81.2 kg General appearance: PRESENT: no acute distress, well-developed, well-nourished Head exam: PRESENT: atraumatic, normocephalic Eye exam: PRESENT: conjunctiva pink, EOMI, PERRLA. ABSENT: scleral icterus Ear exam: PRESENT: normal external ear exam Mouth exam: PRESENT: moist, tongue midline Neck exam: ABSENT: carotid bruit, JVD, lymphadenopathy, thyromegaly Respiratory exam: PRESENT: clear to auscultation brigido, symmetrical, unlabored Cardiovascular exam: PRESENT: RRR, +S1, +S2, systolic murmur Pulses: PRESENT: normal radial pulses, normal dorsalis pedis pul Vascular exam: PRESENT: normal capillary refill GI/Abdominal exam: PRESENT: normal bowel sounds, soft. ABSENT: distended, guarding, mass, organolmegaly, tenderness Rectal exam: PRESENT: deferred Extremities exam: PRESENT: full ROM. ABSENT: calf tenderness, clubbing, pedal edema Musculoskeletal exam: PRESENT: ambulatory, full ROM Neurological exam: PRESENT: alert, awake, oriented to person, oriented to place , oriented to time, oriented to situation Psychiatric exam: PRESENT: appropriate affect, normal mood Skin exam: PRESENT: dry, intact, warm Results Laboratory Results: 11/05/17 04:36 11/05/17 04:36 11/05/17 11/05/17 04:36 04:36 WBC 10.1 RBC 4.61 Hgb 13.0 L Hct 39.4 MCV 86 MCH 28.3 MCHC 33.1 RDW 16.0 H Plt Count 270 Sodium 135.4 L Potassium 4.3 D Chloride 104 Carbon Dioxide 23 Anion Gap 8 BUN 37 H Creatinine 1.51 H Est GFR ( Amer) > 60 Est GFR (Non-Af Amer) 49 L Glucose 145 H Calcium 8.0 L Magnesium 2.4 H Total Bilirubin 1.3 AST 416 H ALT 418 H Alkaline Phosphatase 79 Total Protein 5.5 L Albumin 2.7 L 11/03/17 11/03/17 11/03/17 12:20 12:20 18:30 Creatine Kinase 151 127 Troponin I 0.025 NT-Pro-B Natriuret Pep 11/03/17 11/04/17 11/04/17 18:30 00:19 00:19 Creatine Kinase 198 H Troponin I 0.026 0.038 NT-Pro-B Natriuret Pep 11/04/17 11/04/17 11/04/17 04:41 04:41 10:25 Creatine Kinase Troponin I 0.032 0.034 NT-Pro-B Natriuret Pep 1700 H 11/04/17 11/05/17 17:50 04:36 Creatine Kinase Troponin I 0.037 NT-Pro-B Natriuret Pep 1380 H Impressions: Chest X-Ray 11/03/17 06:53 IMPRESSION: 1. No acute pulmonary process identified. Cardiomegaly. Abdomen Ultrasound 11/03/17 08:21 IMPRESSION: Gallstones, gallbladder wall thickening and trace pericholecystic fluid worrisome for cholecystitis. However, patient's sonographic De La Cruz's sign is negative. Status: Imported from PACS Assessment & Plan - Diagnosis (1) Cholecystitis with cholelithiasis Qualifiers: Cholecystitis acuity: acute and chronic Is this a current diagnosis for this admission?: Yes Plan: Abdominal ultrasound indicative of cholecystitis -gallstones, gallbladder wall thickening and trace pericholecystic fluid. De La Cruz sign is negative. Surgery consulted, their recommendation is the patient would benefit from a laparoscopic cholecystectomy with intraoperative cholangiogram however due to very significant cardiac history and a low ejection fraction - patient requires pre-operative clearance from cardiology. At this time, cardiac clearance cannot be completed because the nuclear medicine lab is down. Clinically, the patient' s presentation has improved. The plan is to discharge the patient home on his proper cardiac medications and follow up in the surgical clinic in 1 month to determine need for cholecystectomy. Empiric coverage with IV Zosyn Cardiac diet Patient is currently awaiting nuclear stress test (2) Tobacco abuse Is this a current diagnosis for this admission?: Yes Plan: Patient admits to smoking 5 cigarettes per day Has been smoking approximately 40 years Nicotine patch offered (3) CHF (congestive heart failure) Qualifiers: Heart failure type: systolic Is this a current diagnosis for this admission?: Yes Plan: History of CHF with EF < 40% Elevated BNP >2500 Patient is currently taking carvedilol, lisinopril, Lasix, simvastatin and aspirin. He admits to intermittent compliance with these medications. Continue Anti-HTN medications ASA and statin therapy 2D ECHOcardiogram completed: LVEF 35%, grade III diastolic dysfunction, moderate MR and TR, moderate pulmonary HTN Awaiting nuclear stress test (4) Diabetes Qualifiers: Diabetes mellitus type: type 2 Diabetes mellitus complication status: without complication Is this a current diagnosis for this admission?: Yes Plan: Patient endorses history of DM 2 Accu-Cheks before meals at bedtime Humalog sliding scale insulin Cardiac diabetic diet (5) HTN (hypertension) Qualifiers: Hypertension type: essential hypertension Qualified Code(s): I10 - Essential (primary) hypertension Is this a current diagnosis for this admission?: Yes Plan: Patient has a history of HTN Resume home dose carvedilol, lisinopril, Lasix (6) DNR (do not resuscitate) Is this a current diagnosis for this admission?: Yes Plan: When asked about code status, the patient states he does not want any resuscitation or intubation (7) Non compliance w medication regimen Is this a current diagnosis for this admission?: Yes Plan: The patient's home regimen includes carvedilol, lisinopril, Lasix, simvastatin and aspirin. The patient admits to noncompliance with these medications. States that he last filled all of his prescriptions '2 months ago.' Requesting assistance from d/c planning to obtain free/discounted medications for the patient These are considered life sustaining - Time Time Spent with patient: 15-24 minutes Medications reviewed and adjusted accordingly: Yes Anticipated discharge: Home Within: within 72 hours - Inpatient Certification Based on my medical assessment, after consideration of the patient's comorbidities, presenting symptoms, or acuity I expect that the services needed warrant INPATIENT care.: Yes I certify that my determination is in accordance with my understanding of Medicare's requirements for reasonable and necessary INPATIENT services [42 CFR 412.3e].: Yes Medical Necessity: Need For Continuous Telemetry Monitoring, Risk of Complication if Not Cared For in Hospital - Plan Summary Plan Summary: PAIN MANAGEMENT. D/C PLANNING REQUESTED FOR MEDICATION ASSISTANCE.
[2017-11-05] MEDS: SIMVASTATIN 40 MG TABLET PO SCH (22:04)
[2017-11-05] MEDS: LORAZEPAM INJ 2 MG/1 ML VIAL IV PRN (22:11)
[2017-11-06] MEDS: PIPERACILLIN SODIUM/TAZOBACTAM 3.375 GM in NORMAL SALINE 100 ML IV SCH ×4 (00:13→17:38)
[2017-11-06] MEDS: NORMAL SALINE 1000 ML 1,000 ML IV PRN (00:16)
[2017-11-06] MEDS: LANSOPRAZOLE 30 MG TAB.RAP.DR PO SCH ×2 (05:38→17:35)
--- NOTE | 2017-11-06 07:52 | PDOC PROGRESS REPORT ---
Subjective Progress Note for:: 11/06/17 Subjective:: patient comfortable, no nausea or vomiting, no postprandial abdominal discomfort Reason For Visit: CHOLECYSTITIS Physical Exam Vital Signs: Temp Pulse Resp BP Pulse Ox 97.6 F 74 24 H 97/66 L 97 11/06/17 03:41 11/06/17 03:41 11/06/17 03:41 11/06/17 03:41 11/06/17 03:41 Intake & Output 11/05/17 11/06/17 11/07/17 06:59 06:59 06:59 Intake Total 2298 3413 Balance 2298 3413 Weight 81.2 kg 81.1 kg General appearance: PRESENT: no acute distress, cooperative GI/Abdominal exam: PRESENT: soft Results Laboratory Results: 11/05/17 04:36 11/05/17 04:36 11/03/17 11/03/17 11/03/17 12:20 12:20 18:30 Creatine Kinase 151 127 Troponin I 0.025 NT-Pro-B Natriuret Pep 11/03/17 11/04/17 11/04/17 18:30 00:19 00:19 Creatine Kinase 198 H Troponin I 0.026 0.038 NT-Pro-B Natriuret Pep 11/04/17 11/04/17 11/04/17 04:41 04:41 10:25 Creatine Kinase Troponin I 0.032 0.034 NT-Pro-B Natriuret Pep 1700 H 11/04/17 11/05/17 17:50 04:36 Creatine Kinase Troponin I 0.037 NT-Pro-B Natriuret Pep 1380 H Impressions: Chest X-Ray 11/03/17 06:53 IMPRESSION: 1. No acute pulmonary process identified. Cardiomegaly. Abdomen Ultrasound 11/03/17 08:21 IMPRESSION: Gallstones, gallbladder wall thickening and trace pericholecystic fluid worrisome for cholecystitis. However, patient's sonographic De La Cruz's sign is negative. Assessment & Plan - Diagnosis (1) Cholelithiasis Qualifiers: Cholelithiasis location: gallbladder Cholecystitis acuity: chronic Biliary obstruction: without biliary obstruction Is this a current diagnosis for this admission?: Yes - Plan Summary Plan Summary: A/ Patient comfortable, no epigastric pain, no postprandial nausea or vomiting Abdomen soft I believe the patient has cholelithiasis, occasional symptomatic, but he does not have an acute cholecystitis requiring an operation at this time. Pericholecystic fluid and gallbladder wall thickening identified in this patient 's US are features frequently encountered in CHF patients and can confuse the clinical picture. As his heart conditions have improved, his abdominal pain has subsided, proving the above. Surgery in this patient could be frown by a very complicated perioperative or postoperative course, including , which might no make it worthwhile in the abscence of an absolute indication. P/ I will sign off. Patient to be seen in the General Surgery clinic after discharge as needed
[2017-11-06] MEDS: ASPIRIN 81 MG TABLET, ENT COATED PO SCH (10:01)
[2017-11-06] MEDS: CARVEDILOL 3.125 MG TABLET PO SCH ×2 (10:01→21:12)
[2017-11-06] MEDS: SACUBITRIL/VALSARTAN 24 MG/26 MG TABLET PO SCH ×2 (10:01→21:13)
[2017-11-06] MEDS: FUROSEMIDE 40 MG TABLET PO SCH (10:01)
[2017-11-06] MEDS: DIGOXIN 0.125 MG TABLET PO SCH (10:01)
[2017-11-06] MEDS: NICOTINE 21 MG/24 HR PATCH.TD24 TD SCH (10:02)
[2017-11-06] MEDS: ENOXAPARIN SODIUM INJ 30 MG/0.3 ML DISP.SYRIN SUBCUT SCH (10:02)
--- NOTE | 2017-11-06 12:15 | PDOC PROGRESS REPORT ---
Subjective Progress Note for:: 11/06/17 Subjective:: Patient seems to be doing better. Today he denied any abdominal discomfort. Pt is denying any chest arm or neck discomfort. Patient denying any PND, orthopnea. Patient denied any sustained palpitations, dizziness, syncope, near syncope. Patient denying any fever chills. Patient is maintaining sinus rhythm. Review of systems: Rest review of systems negative. Medications: Medications have been reviewed. Reason For Visit: CHOLECYSTITIS Physical Exam Vital Signs: Temp Pulse Resp BP Pulse Ox 98.2 F 100 26 H 109/80 98 11/06/17 07:39 11/06/17 07:39 11/06/17 07:39 11/06/17 07:39 11/06/17 07:39 Intake & Output 11/05/17 11/06/17 11/07/17 06:59 06:59 06:59 Intake Total 2298 3413 Balance 2298 3413 Weight 81.2 kg 81.1 kg Exam: GENERAL: well-nourished and in no acute distress. Alert and oriented x3 HEAD: Atraumatic, normocephalic. EYES: Pupils equal round and reactive to light, extraocular movements intact, sclera anicteric, conjunctiva are normal. ENT: TMs normal, nares patent, oropharynx clear without exudates. Moist mucous membranes. No oral ulcerations or bleeding gums noted NECK: supple without lymphadenopathy. Trachea is central. No cervical or axillary lymphadenopathy noted. Carotids are 2+, JVD elevated 12 cm. LUNGS: Respiration seems nonlabored, no significant accessory muscle action noted. Breath sounds clear to auscultation bilaterally and equal noted. No wheezes rales or rhonchi noted. No significant dullness noted on percussion. CHEST: Palpation of the chest wall shows no significant chest wall tenderness. HEART: [place] [employer], No PSH, 1/6 SOPHIE aortic area, 1/6 anaya systolic murmur mitral area, no rubs, no gallops. ABDOMEN: Soft, no significant tenderness appreciated, normoactive bowel sounds. No guarding, no rebound. No rigidity noted . No masses appreciated. Abdomen is somewhat distended. EXTREMITIES: Pedal pulses are 1-2+, no calf tenderness noted. No clubbing or cyanosis. negative pedal edema noted NEUROLOGICAL: Focused neurological exam showed no significant neurologic deficit. Normal speech, no focal weakness appreciated. PSYCH: Normal mood, normal affect. Judgment and insight within normal limits. SKIN: No significant ecchymosis, skin is noted to be warm. MUSCULOSKELETAL EXAM: No significant acute joint swelling noted. Results Laboratory Results: 11/05/17 04:36 11/05/17 04:36 11/03/17 11/03/17 11/03/17 12:20 12:20 18:30 Creatine Kinase 151 127 Troponin I 0.025 NT-Pro-B Natriuret Pep 11/03/17 11/04/17 11/04/17 18:30 00:19 00:19 Creatine Kinase 198 H Troponin I 0.026 0.038 NT-Pro-B Natriuret Pep 11/04/17 11/04/17 11/04/17 04:41 04:41 10:25 Creatine Kinase Troponin I 0.032 0.034 NT-Pro-B Natriuret Pep 1700 H 11/04/17 11/05/17 17:50 04:36 Creatine Kinase Troponin I 0.037 NT-Pro-B Natriuret Pep 1380 H EKG Comments: Shows sinus rhythm. Impressions: Chest X-Ray 11/03/17 06:53 IMPRESSION: 1. No acute pulmonary process identified. Cardiomegaly. Abdomen Ultrasound 11/03/17 08:21 IMPRESSION: Gallstones, gallbladder wall thickening and trace pericholecystic fluid worrisome for cholecystitis. However, patient's sonographic De La Cruz's sign is negative. Assessment & Plan - Diagnosis (1) Cardiomyopathy Qualifiers: Cardiomyopathy type: unspecified Qualified Code(s): I42.9 - Cardiomyopathy , unspecified Is this a current diagnosis for this admission?: Yes (2) Tobacco abuse Is this a current diagnosis for this admission?: Yes (3) Hyperkalemia Is this a current diagnosis for this admission?: Yes (4) Preoperative cardiovascular examination Is this a current diagnosis for this admission?: Yes - Notes Notes: Recommend increasing diuretic dose since patient today noted to have increased JVP. May either increase Lasix to 40 mg p.o. twice daily, however better option is Demadex 20 mg p.o. daily as this has better bioavailability. Cholecystitis with cholelithiasis: Seems to have resolved. Currently on antibiotic therapy. Have recommended medical management for the time being for this condition until we can optimize his underlying cardiac status. Congestive heart failure: BNP is elevated. Patient may have some element of right-sided heart failure. Recommend resuming diuretics and also other home medications. Chest x-ray shows cardiomegaly and no pulmonary venous congestion. Possible significant right-sided involvement in CHF. Cardiomyopathy: 2D echo shows severely depressed LVEF. H continue with digoxin , beta-leola, have added entresto therapy today. Will stop lisinopril. Tobacco abuse: Patient has been advised to quit smoking. Hyperkalemia: Potassium level has normalized. Will consider adding spironolactone. Preop cardiovascular assessment: Surgeons have signed off case, they would rather see patient in follow-up as an outpatient after his cardiac status is stabilized. - Time Time with patient: Greater than 35 minutes - CODE STATUS was discussed, patient remains full code. Surrogate decision-maker unchanged. Multiple medical problems were addressed. More than 50% of the time spent coordinating care, discussing management plans with involved caregivers. Management plans discussed with involved personnels. Medical decision making was of moderate to high complexity, patient's has multiple comorbidities. Medications reviewed and adjusted accordingly: Yes
--- NOTE | 2017-11-06 16:52 | PDOC PROGRESS REPORT ---
Subjective Progress Note for:: 11/06/17 Subjective:: PRISCA ARMENTA is a 47 year old male who presented to the emergency department with a two-week history of epigastric/RUQ abdominal pain. His PMH includes CHF (EF 30%), AICD, HTN, DM 2, anxiety, depression, PTSD, bipolar disorder. The patient was seen this morning on rounds. He is resting comfortably in bed on room air. The patient states he has very mild RUQ pain but it 'is bearable.' He denies N/V/D. Denies fever or chills. Upon assessment, the patient's abdomen is S/NT. Endorses mild abdominal distention. (+) BS. Patient seen by cardiology this AM. Patient was scheduled to resume home dose Lasix today, but was switched to demedex PO for better bioavailability. Since the patient does not have health insurance, I have enlisted the help of discharge planning in order to get the patient his prescription medications. Discharge is currently on hold until we can guarantee that the patient will receive his cardiac medications prior to discharge from [facility]. Plan to send home tomorrow. Reason For Visit: CHOLECYSTITIS Physical Exam Vital Signs: Temp Pulse Resp BP Pulse Ox 98.1 F 95 22 H 102/76 100 11/06/17 11:31 11/06/17 11:31 11/06/17 11:31 11/06/17 11:31 11/06/17 11:31 Intake & Output 11/05/17 11/06/17 11/07/17 06:59 06:59 06:59 Intake Total 2298 3413 1181 Balance 2298 3413 1181 Weight 81.2 kg 81.1 kg General appearance: PRESENT: no acute distress, well-developed, well-nourished Head exam: PRESENT: atraumatic, normocephalic Eye exam: PRESENT: conjunctiva pink, EOMI, PERRLA. ABSENT: scleral icterus Ear exam: PRESENT: normal external ear exam Mouth exam: PRESENT: moist, tongue midline Neck exam: ABSENT: carotid bruit, JVD, lymphadenopathy, thyromegaly Respiratory exam: PRESENT: clear to auscultation brigido, symmetrical, unlabored. ABSENT: rales, rhonchi, wheezes Cardiovascular exam: PRESENT: RRR, +S1, +S2. ABSENT: diastolic murmur, rubs, systolic murmur Pulses: PRESENT: normal radial pulses, normal dorsalis pedis pul Vascular exam: PRESENT: normal capillary refill GI/Abdominal exam: PRESENT: normal bowel sounds, soft. ABSENT: distended, guarding, mass, organolmegaly, rebound, tenderness Rectal exam: PRESENT: deferred Extremities exam: PRESENT: full ROM. ABSENT: calf tenderness, clubbing, pedal edema Neurological exam: PRESENT: alert, awake, oriented to person, oriented to place , oriented to time, oriented to situation Psychiatric exam: ABSENT: homicidal ideation, suicidal ideation Skin exam: PRESENT: dry, intact, warm. ABSENT: cyanosis, rash Results Laboratory Results: 11/05/17 04:36 11/05/17 04:36 11/03/17 11/03/17 11/03/17 12:20 12:20 18:30 Creatine Kinase 151 127 Troponin I 0.025 NT-Pro-B Natriuret Pep 11/03/17 11/04/17 11/04/17 18:30 00:19 00:19 Creatine Kinase 198 H Troponin I 0.026 0.038 NT-Pro-B Natriuret Pep 11/04/17 11/04/17 11/04/17 04:41 04:41 10:25 Creatine Kinase Troponin I 0.032 0.034 NT-Pro-B Natriuret Pep 1700 H 11/04/17 11/05/17 17:50 04:36 Creatine Kinase Troponin I 0.037 NT-Pro-B Natriuret Pep 1380 H Impressions: Chest X-Ray 11/03/17 06:53 IMPRESSION: 1. No acute pulmonary process identified. Cardiomegaly. Abdomen Ultrasound 11/03/17 08:21 IMPRESSION: Gallstones, gallbladder wall thickening and trace pericholecystic fluid worrisome for cholecystitis. However, patient's sonographic De La Cruz's sign is negative. Status: Imported from PACS Assessment & Plan - Diagnosis (1) Tobacco abuse Is this a current diagnosis for this admission?: Yes Plan: Patient admits to smoking 5 cigarettes per day Has been smoking approximately 40 years Nicotine patch offered (2) CHF (congestive heart failure) Qualifiers: Heart failure type: systolic Is this a current diagnosis for this admission?: Yes Plan: History of CHF with EF < 40% Elevated BNP >2500 Patient is currently taking carvedilol, lisinopril, Lasix, simvastatin and aspirin. He admits to intermittent compliance with these medications. Continue Anti-HTN medications Initiate demedex in place of lasix, per cardiology ASA and statin therapy 2D ECHOcardiogram completed: LVEF 35%, grade III diastolic dysfunction, moderate MR and TR, moderate pulmonary HTN Plan for outpatient stress test (3) Diabetes Qualifiers: Diabetes mellitus type: type 2 Diabetes mellitus complication status: without complication Is this a current diagnosis for this admission?: Yes Plan: Patient endorses history of DM 2 Accu-Cheks before meals at bedtime Humalog sliding scale insulin Cardiac diabetic diet (4) HTN (hypertension) Qualifiers: Hypertension type: essential hypertension Qualified Code(s): I10 - Essential (primary) hypertension Is this a current diagnosis for this admission?: Yes Plan: Patient has a history of HTN Resume home dose carvedilol, lisinopril Change Lasix to Demedex PO for better bioavailability (per cardiology) (5) DNR (do not resuscitate) Is this a current diagnosis for this admission?: Yes Plan: When asked about code status, the patient states he does not want any resuscitation or intubation (6) Non compliance w medication regimen Is this a current diagnosis for this admission?: Yes Plan: The patient's home regimen includes carvedilol, lisinopril, Lasix, simvastatin and aspirin. The patient admits to noncompliance with these medications. States that he last filled all of his prescriptions '2 months ago.' Requesting assistance from d/c planning to obtain free/discounted medications for the patient These are considered life sustaining According to D/C Desire acuna, these medications will be available to the patient tomorrow - Time Time Spent with patient: 15-24 minutes Medications reviewed and adjusted accordingly: Yes Anticipated discharge: Home Within: within 24 hours - Inpatient Certification Based on my medical assessment, after consideration of the patient's comorbidities, presenting symptoms, or acuity I expect that the services needed warrant INPATIENT care.: Yes I certify that my determination is in accordance with my understanding of Medicare's requirements for reasonable and necessary INPATIENT services [42 CFR 412.3e].: Yes Medical Necessity: Need For Continuous Telemetry Monitoring, Risk of Complication if Not Cared For in Hospital - Plan Summary Plan Summary: D/C HOME TOMORROW ONCE PATIENT IS ABLE TO OBTAIN CARDIAC MEDICATIONS
[2017-11-06] MEDS ORDERED: TORSEMIDE 20 MG TABLET PO ONE (17:00)
[2017-11-06] MEDS ORDERED: TORSEMIDE 20 MG TABLET ONE (17:48)
[2017-11-06] MEDS ORDERED: FUROSEMIDE 40 MG TABLET PO SCH (18:00)
[2017-11-06] MEDS: SIMVASTATIN 40 MG TABLET PO SCH (21:12)
[2017-11-06] MEDS: LORAZEPAM INJ 2 MG/1 ML VIAL IV PRN (22:46)
[2017-11-07] MEDS: PIPERACILLIN SODIUM/TAZOBACTAM 3.375 GM in NORMAL SALINE 100 ML IV SCH ×4 (00:03→17:06)
[2017-11-07] MEDS: MORPHINE SULFATE 10 MG/ML INJ IV PRN (03:22)
[2017-11-07] MEDS: LANSOPRAZOLE 30 MG TAB.RAP.DR PO SCH ×2 (06:26→17:06)
--- NOTE | 2017-11-07 08:48 | EKG REPORT ---
SEVERITY:- ABNORMAL ECG - SINUS RHYTHM ZACHARY, CONSIDER BIATRIAL ABNORMALITIES LEFT AXIS DEVIATION NONSPECIFIC T ABNORMALITIES, DIFFUSE LEADS LVH : Confirmed by: Uli Willams 07-Nov-2017 08:47:28
[2017-11-07] MEDS: ASPIRIN 81 MG TABLET, ENT COATED PO SCH (09:20)
[2017-11-07] MEDS: SACUBITRIL/VALSARTAN 24 MG/26 MG TABLET PO SCH (09:20)
[2017-11-07] MEDS: DIGOXIN 0.125 MG TABLET PO SCH (09:20)
[2017-11-07] MEDS: NICOTINE 21 MG/24 HR PATCH.TD24 TD SCH (09:21)
[2017-11-07] MEDS: CARVEDILOL 3.125 MG TABLET PO SCH (09:21)
[2017-11-07] MEDS: ENOXAPARIN SODIUM INJ 30 MG/0.3 ML DISP.SYRIN SUBCUT SCH (09:21)
[2017-11-07] MEDS ORDERED: TORSEMIDE 20 MG TABLET PO SCH (10:00)
[2017-11-07 16:14] VITALS: BP 108/84
--- NOTE | 2017-11-19 08:50 | PDOC DISCHARGE SUMMARY ---
General - Admit/Disc Date/PCP Admission Date/Primary Care Provider: 11/03/17 10:40 Discharge Date: 11/07/17 - Discharge Diagnosis (1) Tobacco abuse Is this a current diagnosis for this admission?: Yes (2) CHF (congestive heart failure) Is this a current diagnosis for this admission?: Yes (3) Diabetes Is this a current diagnosis for this admission?: Yes (4) HTN (hypertension) Is this a current diagnosis for this admission?: Yes (5) DNR (do not resuscitate) Is this a current diagnosis for this admission?: Yes (6) Non compliance w medication regimen Is this a current diagnosis for this admission?: Yes - Additional Information Resuscitation Status: Do Not Resuscitate Discharge Diet: Cardiac, Diabetic Discharge Activity: Activity As Tolerated, Weigh Daily Prescriptions: Digoxin [Lanoxin 0.125 mg Tablet] 0.125 mg PO DAILY #30 tablet Furosemide [Lasix 40 mg Tablet] 40 mg PO DAILY #30 tablet Lisinopril [Zestril] 5 mg PO DAILY #30 tablet Home Medications: Aspirin [Adult Low Dose Aspirin EC] 81 mg PO DAILY 11/03/17 Carvedilol [Coreg 3.125 mg Tablet] 3.125 mg PO Q12 11/03/17 Digoxin [Lanoxin 0.125 mg Tablet] 0.125 mg PO DAILY #30 tablet 11/07/17 Furosemide [Lasix 40 mg Tablet] 40 mg PO DAILY #30 tablet 11/07/17 Lisinopril [Zestril] 5 mg PO DAILY #30 tablet 11/07/17 History of Present Illness History of Present Illness: PRISCA ARMENTA is a 47 year old male who presented to the emergency department with a two-week history of epigastric/RUQ abdominal pain. His PMH includes CHF (EF 30%), AICD, HTN, DM 2, anxiety, depression, PTSD, bipolar disorder. The patient states that for the last 2 weeks he has been experiencing intermittent epigastric/RUQ abdominal pain. He describes the pain as dull, sometimes experiencing heartburn-like pain. The patient endorses nausea, one episode of vomiting this morning, and endorses postprandial abdominal pain. Denies symptoms of diarrhea, fever or chills. The patient did not attempt to take any [id number] medications to alleviate his symptoms. Patient states that his symptoms have become so severe that they keep him up at night, which is what prompted him to seek treatment in the emergency department. Upon arrival to the ED, the patient's lab work was significant for hyperkalemia (K 5.7), DANNIE (Cr 1.51), transaminitis (AST 263 ALT 230), elevated ProBNP (2570) and mildly elevated troponin (0.031). All other lab work relatively benign. EKG shows NSR, inverted T waves in V2 and V3, no other evidence of acute infarction or ischemia. Abdominal ultrasound reveals gallstones, gallbladder wall thickening and trace pericholecystic fluid worrisome for cholecystitis. Review sign negative. Surgery was consulted. Given the patient's extensive cardiac history, initial management of cholecystitis will be with IV antibiotics. Patient will require cardiac clearance prior to any surgical procedure. Plan to admit to hospitalist service for cholecystitis with surgery and cardiology consulted. Hospital Course Hospital Course: PRISCA ARMENTA is a 47 year old male who presented to the emergency department with a two-week history of epigastric/RUQ abdominal pain. His PMH includes CHF (EF 30%), AICD, HTN, DM 2, anxiety, depression, PTSD, bipolar disorder. The patient was diagnosed with cholelithiasis and cholecystitis. Due to the patient's significant cardiac history, the surgical team requested clearance from the Research Pharmacist before moving forward with any surgical procedure. Following a complete cardiac workup that included laboratory studies, ECHOcardiogram, EKG, US and XRAYs, the conclusion was made that the pericholecystic fluid and gallbladder wall thickening identified in this patient 's US are features frequently encountered in CHF patients and can confuse the clinical picture. As his heart conditions improved, his abdominal pain has subsided. The patient does have cholelithiasis, occasional symptomatic, but he does not have an acute cholecystitis requiring an operation at this time. According to Dr. Dominguez, surgery in this patient is anticipated to be high risk , possibly with a very complicated perioperative or postoperative course, including , which might not make it worthwhile in the absence of an absolute indication. The decision was made to discharge the patient home with new prescriptions for his cardiac medications (the patient reports he was 'out of all meds') and a follow up appointment at the surgical clinic in 1 month. The patient admitted to multiple staff members that he uses methamphetamine. He was counseled on the dangers of illicit drug use, particularly amphetamines in the setting of his significant heart disease. For any further information, please refer to the EMR. Physical Exam Vital Signs: Temp Pulse Resp BP Pulse Ox 97.5 F 94 22 H 101/82 98 11/07/17 16:08 11/07/17 16:08 11/07/17 16:08 11/07/17 16:08 11/07/17 16:08 Results Laboratory Results: 11/05/17 04:36 11/05/17 04:36 11/03/17 11/03/17 11/03/17 12:20 12:20 18:30 Creatine Kinase 151 127 Troponin I 0.025 NT-Pro-B Natriuret Pep 11/03/17 11/04/17 11/04/17 18:30 00:19 00:19 Creatine Kinase 198 H Troponin I 0.026 0.038 NT-Pro-B Natriuret Pep 11/04/17 11/04/17 11/04/17 04:41 04:41 10:25 Creatine Kinase Troponin I 0.032 0.034 NT-Pro-B Natriuret Pep 1700 H 11/04/17 11/05/17 17:50 04:36 Creatine Kinase Troponin I 0.037 NT-Pro-B Natriuret Pep 1380 H Impressions: Chest X-Ray 11/03/17 06:53 IMPRESSION: 1. No acute pulmonary process identified. Cardiomegaly. Abdomen Ultrasound 11/03/17 08:21 IMPRESSION: Gallstones, gallbladder wall thickening and trace pericholecystic fluid worrisome for cholecystitis. However, patient's sonographic De La Cruz's sign is negative. Status: Imported from PACS Qualifiers - * PATIENT BEING DISCHARGED WITH ANY OF THE FOLLOWING DIAGNOSIS: Heart Failure HF Pt being discharged on ACEI for LVEF less than 40%?: Yes HF Pt being discharged on ARBS for LVEF less than 40%?: No Reason(s) for not prescribing ARBS:: Not indicated - patient is already on ACEI HF Pt with Afib discharged with Warfarin?: No Reason(s) for not prescribing Warfarin:: Not indicated - patient does not have afib HF Pt discharged on evidence-based Beta Torrey:: Yes Plan Discharge Plan: discharge home with refills of cardiac medications. instructed to follow up at surgical clinic within 1 month. unfortunately, unable to provide medication assistance due to patient admitting to methamphetamine use. Time Spent: Greater than 30 Minutes
== END 2017-11-07 18:59 | disposition home or self-care (01) | DRG 445 ==
LOC: ER 06:19 → EH 10:40 → 3N 17:46
PROVIDERS: ADMIT Emergency Medicine; ATTEND Emergency Medicine
DX: K80.12 Calculus of gallbladder with acute and chronic cholecystitis without obstruction (principal); I42.9 Cardiomyopathy, unspecified; I50.20 Unspecified systolic (congestive) heart failure; Z66 Do not resuscitate; E11.9 Type 2 diabetes mellitus without complications; F31.9 Bipolar disorder, unspecified; F17.210 Nicotine dependence, cigarettes, uncomplicated; F15.10 Other stimulant abuse, uncomplicated; F14.90 Cocaine use, unspecified, uncomplicated; I11.0 Hypertensive heart disease with heart failure; E87.5 Hyperkalemia; F43.10 Post-traumatic stress disorder, unspecified; F14.980 Cocaine use, unspecified with cocaine-induced anxiety disorder; F41.1 Generalized anxiety disorder; I34.0 Nonrheumatic mitral (valve) insufficiency; I25.2 Old myocardial infarction; Z91.14 Patient's other noncompliance with medication regimen; Z95.810 Presence of automatic (implantable) cardiac defibrillator; Z79.899 Other long term (current) drug therapy; Z79.82 Long term (current) use of aspirin; Z91.19 Patient's noncompliance with other medical treatment and regimen; Z82.49 Family history of ischemic heart disease and other diseases of the circulatory system
CPT/HCPCS: 36415; 71045; 76705; 80053; 80061; 81001; 82550; 82553; 82962; 83690; 83735; 83880; 84484; 85025; 85027; 87040; 93005; 93010; 93306; 96360; 99285; J1650; J2060; J2270; J2543; J3490

== ENCOUNTER 2017-11-16 22:03 | Inpatient (IN) | payer SELFPAY ==
--- NOTE | 2017-11-16 22:33 | ER Document Report ---
ED General - General Chief Complaint: abdminal pain Stated Complaint: ABDOMINAL PAIN Time Seen by Provider: 11/16/17 22:24 Notes: Patient is a 47-year-old male that comes to the emergency department for chief complaint of pain in his upper abdomen and right upper abdomen with nausea. He states that he was diagnosed with gallstones, decision was made to not perform cholecystectomy, states that he was admitted but then discharged, states that pain has begun to worsen. He states he is eating oatmeal and salads, vomited yesterday, pain increased today. Patient states it feels like it is hard to take a deep breath but he denies chest pain, fever, swelling of the legs. Past medical history includes AICD, CHF, compliant with his medications reportedly. He states he has had 3 heart attacks without stents. Denies alcohol, recreational drugs; smokes daily. TRAVEL OUTSIDE OF THE [place] IN LAST 30 DAYS: No - Related Data Allergies/Adverse Reactions: No Known Allergies Allergy (Verified 11/16/17 22:13) Past Medical History - General Information source: Patient - Social History Smoking Status: Current Every Day Smoker Frequency of alcohol use: Rare Drug Abuse: None Lives with: Family Family History: Other - PATIENT REPORTS HE IS ADOPTED Patient has suicidal ideation: No Patient has homicidal ideation: No - Past Medical History Cardiac Medical History: Reports: Hx Congestive Heart Failure, Hx Heart Attack - 2013 Pulmonary Medical History: Reports: Hx Pneumonia Neurological Medical History: Denies: Hx Seizures Endocrine Medical History: Reports: Hx Diabetes Mellitus Type 2 Renal/ Medical History: Denies: Hx Peritoneal Dialysis Psychiatric Medical History: Reports: Hx Bipolar Disorder, Hx Depression, Hx Post Traumatic Stress Disorder Past Surgical History: Reports: Hx Cardiac Catheterization, Hx Cardiac Surgery - AICD, Hx Internal Defibrillator, Other - AICD in June of 2014 Review of Systems - Review of Systems Constitutional: No symptoms reported EENT: No symptoms reported Cardiovascular: No symptoms reported Respiratory: See HPI Gastrointestinal: No symptoms reported Genitourinary: No symptoms reported Male Genitourinary: No symptoms reported Musculoskeletal: No symptoms reported Skin: No symptoms reported Hematologic/Lymphatic: No symptoms reported Neurological/Psychological: No symptoms reported Physical Exam - Vital signs Vitals: Temp Pulse Resp BP Pulse Ox 99.0 F 85 20 128/87 H 100 11/16/17 22:07 11/16/17 22:07 11/16/17 22:07 11/16/17 22:07 11/16/17 22:07 - Notes Notes: GENERAL: Alert, mildly uncomfortable, no severe distress HEAD: Normocephalic, atraumatic. EYES: Pupils equal, round, and reactive to light. Extraocular movements intact. ENT: Oral mucosa moist, tongue midline. [Nares patent, no nasal septal hematoma , TM's intact.] NECK: Full range of motion. Supple. Trachea midline. LUNGS: Clear to auscultation bilaterally, no wheezes, rales, or rhonchi. No respiratory distress. HEART: Regular rate and rhythm. No murmur ABDOMEN: Tender in the epigastric and right upper quadrant regions with positive De La Cruz sign. Remaining abdomen is unremarkable. EXTREMITIES: Moves all 4 extremities spontaneously. No edema, normal radial and dorsalis pedis pulses bilaterally. No cyanosis. BACK: no cervical, thoracic, lumbar midline tenderness. No saddle anesthesia, normal distal neurovascular exam. NEUROLOGICAL: Alert and oriented x3. Normal speech. [cranial nerves II through XII grossly intact]. PSYCH: Normal affect, normal mood. SKIN: Warm, dry, normal turgor. No rashes or lesions noted. Course - Re-evaluation Re-evalutation: CBC shows leukocytosis at 13.7 thousand with elevation of neutrophils, no bandemia, no fever, no tachycardia or hypotension. Patient does have right upper quadrant pain on examination no tachypnea, no hypoxia, he is not in any severe distress. Patient very comfortable on reevaluation. Urinalysis unremarkable. BNP is elevated but similar to prior readings. Chest x-ray without vascular congestion or obvious acute abnormality. Troponin indeterminate and unchanged from prior. Ultrasound consistent with acute cholecystitis. 11/17/17 01:10 Called and spoke with general surgeon employment instructional associate Dr. Adkins, discussed presentation workup, discussed recent admission, patient will be accepted to surgical service for acute cholecystitis. Dr. Adkins called back, concern because of need for cardiac clearance and management of patient's comorbidities, request IV fluids, IV antibiotics, n.p.o. status, and admission to hospitalist. I spoke with Dr. Cedillo, hospitalist, patient will be admitted to telemetry full admission. - Vital Signs Vital signs: Temp Pulse Resp BP Pulse Ox 98.2 F 100 16 112/86 H 93 11/17/17 02:59 10/04/18 02:59 11/17/17 02:59 11/17/17 02:59 11/17/17 02:59 - Laboratory Result Diagrams: 11/16/17 22:44 11/16/17 23:35 Laboratory results interpreted by me: 11/16/17 11/16/17 11/16/17 22:44 23:35 23:35 WBC 13.5 H RDW 16.1 H Absolute Neutrophils 8.7 H Absolute Monocytes 1.5 H BUN 24 H Creatinine 1.29 H Est GFR (Non-Af Amer) 59 L Glucose 156 H AST 65 H ALT 106 H NT-Pro-B Natriuret Pep 2730 H Discharge - Discharge Clinical Impression: Acute cholecystitis, Upper abdominal pain Condition: Stable Disposition: ADMITTED INPATIENT Admitting Provider: Hospitalist Unit Admitted: Telemetry
--- NOTE | 2017-11-16 22:50 | RADIOLOGY REPORT (SQ) ---
Chest single view on 11/16/2017 at 10:37 PM CLINICAL INDICATION: Shortness of breath COMPARISON: 11/03/2017 FINDINGS: Single lead left subclavian AICD device tip is in the right ventricle. Mild cardiomegaly is noted. There is slight elevation of the right hemidiaphragm. The lungs are clear. Hilar and mediastinal contours are within normal limits. Pulmonary vascularity is within normal limits. IMPRESSION: No acute disease.
[2017-11-16 22:58] LABS: ABSOLUTE BASOPHILS # (AUTO) 0.1 10^3/uL (0.0-0.2); ABSOLUTE EOSINOPHILS # (AUTO) 0.3 10^3/uL (0.0-0.6); ABSOLUTE LYMPHOCYTES (AUTO) 2.9 10^3/uL (0.5-4.7); ABSOLUTE MONOCYTES (AUTO) 1.5 10^3/uL (0.1-1.4); ABSOLUTE NEUT (AUTO) 8.7 10^3/uL (1.7-8.2); EOSINOPHILS % (AUTO) 2.2 % (0-6); HEMATOCRIT 40.9 % (37.9-51.0); LYMPHOCYTES % (AUTO) 21.3 % (13-45); MEAN CORPUSCULAR HEMOGLOBIN 28.5 pg (27.0-33.4); MEAN CORPUSCULAR HGB CONC 34.1 g/dL (32.0-36.0); MEAN CORPUSCULAR VOLUME 84 fl (80-97); MONOCYTES % (AUTO) 10.8 % (3-13); PLATELET COUNT 333 10^3/uL (150-450); RED CELL DISTRIBUTION WIDTH 16.1 % (11.5-14.0); SEGMENTED NEUTROPHILS % (AUTO) 64.7 % (42-78); TOTAL CELLS COUNTED % (AUTO) 100 %; WHITE BLOOD COUNT 13.5 10^3/uL (4.0-10.5)
[2017-11-16] MEDS ORDERED: MORPHINE SULFATE 10 MG/ML INJ IV ONE (23:20)
[2017-11-16] MEDS ORDERED: ONDANSETRON HCL INJ/PF 4 MG/2 ML SDV IV ONE (23:20)
[2017-11-16 23:55] LABS: APPEARANCE,URINE CLEAR; BILIRUBIN,URINE NEGATIVE (NEGATIVE); COLOR,URINE YELLOW; GLUCOSE, URINE NEGATIVE (NEGATIVE); KETONES,URINE NEGATIVE (NEGATIVE); LEUKOCYTE ESTERASE,URINE NEGATIVE (NEGATIVE); NITRITE,URINE NEGATIVE (NEGATIVE); PROTEIN,URINE NEGATIVE (NEGATIVE); URINE SPECIFIC GRAVITY 1.017; UROBILINOGEN,URINE NEGATIVE mg/dL (<2.0)
[2017-11-17] LABS: ALANINE AMINOTRANSFERASE 106 U/L (21-72); ALBUMIN 3.8 g/dL (3.5-5.0); ALKALINE PHOSPHATASE 83 U/L (38-126); ANION GAP 11 (5-19); ASPARTATE AMINO TRANSFERASE 65 U/L (17-59); BILIRUBIN,DIRECT 0.4 mg/dL (0.0-0.4); BILIRUBIN,TOTAL 0.6 mg/dL (0.2-1.3); BLOOD UREA NITROGEN 24 mg/dL (7-20); CARBON DIOXIDE 23 mmol/L (22-30); CHLORIDE 106 mmol/L (98-107); GLUCOSE 156 mg/dL (75-110); LIPASE 136.7 U/L (23-300); POTASSIUM 4.8 mmol/L (3.6-5.0); SODIUM 139.7 mmol/L (137-145)
[2017-11-17 00:11] LABS: TROPONIN I 0.031 ng/mL
--- NOTE | 2017-11-17 01:02 | RADIOLOGY REPORT (SQ) ---
EXAM DESCRIPTION: US ABDOMEN LIMITED COMPLETED DATE/TME: 11/16/2017 23:20 CLINICAL HISTORY: RUQ pain COMPARISON: 11/03/2017 TECHNIQUE: Real-time sonographic images of the right upper abdomen were obtained using a curved multihertz transducer. FINDINGS: Pancreas: The visualized portions of the pancreas are unremarkable. Vascular: The visualized portions of the aorta and IVC are unremarkable. Liver: The liver has normal contour and increased echogenicity. Hepatopedal flow in the portal vein. Findings confirmed with color and spectral Doppler imaging. The common bile duct measures 0.4 cm. Gallbladder: Echogenic structures with posterior shadowing in the gallbladder lumen. Gallbladder wall thickening. Small amount of pericholecystic fluid. Negative reported sonographic De La Cruz sign. Right Kidney: The right kidney measures 11.2 cm in length. No hydronephrosis, solid renal mass, or shadowing calculi. IMPRESSION: 1. Cholelithiasis with gallbladder wall thickening and pericholecystic fluid. These findings could be seen with acute cholecystitis. 2. Hepatic steatosis.
[2017-11-17] MEDS ORDERED: PIPERACILLIN/TAZOBACTAM 3.375 GM VIAL IV ONE (01:08)
[2017-11-17] MEDS ORDERED: ONDANSETRON HCL INJ/PF 4 MG/2 ML SDV IV PRN ×2 (01:17→14:00)
[2017-11-17] MEDS ORDERED: NORMAL SALINE 1000 ML 1,000 ML IV PRN (01:18)
[2017-11-17] MEDS: NORMAL SALINE 1000 ML 1,000 ML IV PRN (03:35)
[2017-11-17] MEDS: HEPARIN SOD (PORCINE) 5,000 UNIT/ML 1 ML SYRINGE SUBCUT SCH ×3 (05:17→21:26)
[2017-11-17 06:14] LABS: CREATINE KINASE MB 1.35 ng/mL (<4.55); TROPONIN I 0.034 ng/mL
--- NOTE | 2017-11-17 07:21 | PDOC H&P ---
History of Present Illness Admission Date/PCP: 11/17/17 01:31 Patient complains of: Abdominal pain History of Present Illness: PRISCA ARMENTA is a 47 year old male presenting to the emergency department secondary to abdominal pain. Patient states his pain is been for the past 1 month, primarily located in the epigastric region with generalized worsening over the past couple of days. Patient was evaluated in the hospital and in the outpatient setting with a surgeon for possible cholecystectomy but given severe worsening of pain associated with nausea and vomiting yesterday patient decided to return to the ER for further workup and evaluation. Past Medical History Cardiac Medical History: Reports: Congestive Heart Failure, Myocardial Infarction - 2013 Pulmonary Medical History: Reports: Pneumonia Neurological Medical History: Denies: Seizures Endocrine Medical History: Reports: Diabetes Mellitus Type 2 Psychiatric Medical History: Reports: Bipolar Disorder, Depression, Post Traumatic Stress Disorder Past Surgical History Past Surgical History: Reports: Cardiac Catheterization, Internal Defibrillator , Other - AICD in June of 2014 Social History Information Source: Patient Lives with: Family Smoking Status: Current Every Day Smoker Number of Years Smokin Last Time Smoked: 11/16/2017 Frequency of Alcohol Use: Occasional Hx Recreational Drug Use: No Drugs: None Hx Prescription Drug Abuse: No Family History Family History: Other - PATIENT REPORTS HE IS ADOPTED Parental Family History Reviewed: No Children Family History Reviewed: No Sibling(s) Family History Reviewed.: No Medication/Allergy Home Medications: Aspirin [Adult Low Dose Aspirin EC] 81 mg PO DAILY 11/03/17 Carvedilol [Coreg 3.125 mg Tablet] 3.125 mg PO BID 11/03/17 Digoxin [Lanoxin 0.125 mg Tablet] 0.125 mg PO DAILY #30 tablet 11/07/17 Furosemide [Lasix 40 mg Tablet] 40 mg PO DAILY #30 tablet 11/07/17 Lisinopril [Zestril] 5 mg PO DAILY #30 tablet 11/07/17 Allergies/Adverse Reactions: No Known Allergies Allergy (Verified 11/16/17 22:13) Review of Systems Constitutional: ABSENT: chills, fever(s), night sweats Cardiovascular: ABSENT: chest pain, dyspnea on exertion Respiratory: ABSENT: cough, dyspnea Gastrointestinal: PRESENT: abdominal pain, nausea, vomiting Musculoskeletal: ABSENT: back pain Neurological: ABSENT: confusion, numbness, tingling, weakness Psychiatric: ABSENT: anxiety, depression Physical Exam Vital Signs: Temp Pulse Resp BP Pulse Ox 98.2 F 100 16 112/86 H 93 11/17/17 02:59 11/17/17 02:59 11/17/17 02:59 11/17/17 02:59 11/17/17 02:59 Intake & Output 11/16/17 11/17/17 11/18/17 06:59 06:59 06:59 Weight 84.9 kg General appearance: PRESENT: no acute distress, well-developed, well-nourished Head exam: PRESENT: atraumatic, normocephalic Eye exam: PRESENT: conjunctiva pink, EOMI, PERRLA. ABSENT: scleral icterus Ear exam: PRESENT: normal external ear exam Mouth exam: PRESENT: moist, tongue midline Neck exam: ABSENT: carotid bruit, JVD, lymphadenopathy, thyromegaly Respiratory exam: PRESENT: clear to auscultation brigido. ABSENT: rales, rhonchi, wheezes Cardiovascular exam: PRESENT: RRR. ABSENT: diastolic murmur, rubs, systolic murmur Pulses: PRESENT: normal dorsalis pedis pul Vascular exam: PRESENT: normal capillary refill GI/Abdominal exam: PRESENT: normal bowel sounds, soft, tenderness. ABSENT: distended, guarding, mass, organolmegaly, rebound, rigid Rectal exam: PRESENT: deferred Extremities exam: PRESENT: full ROM. ABSENT: calf tenderness, clubbing, pedal edema Neurological exam: PRESENT: alert, awake, oriented to person, oriented to place , oriented to time, oriented to situation, CN II-XII grossly intact. ABSENT: motor sensory deficit Psychiatric exam: PRESENT: appropriate affect, normal mood. ABSENT: homicidal ideation, suicidal ideation Skin exam: PRESENT: dry, intact, warm. ABSENT: cyanosis, rash Results Laboratory Results: 11/17/17 11/17/17 05:36 05:36 Creatine Kinase 132 CK-MB (CK-2) 1.35 Troponin I 0.034 11/16/17 11/16/17 11/16/17 22:44 22:44 22:44 WBC 13.5 H AST Cancelled ALT Cancelled NT-Pro-B Natriuret Pep Cancelled Impressions: Chest X-Ray 11/16/17 22:30 IMPRESSION: No acute disease. Abdomen Ultrasound 11/16/17 23:20 IMPRESSION: 1. Cholelithiasis with gallbladder wall thickening and pericholecystic fluid. These findings could be seen with acute cholecystitis. 2. Hepatic steatosis. Assessment & Plan - Diagnosis (1) Acute cholecystitis Is this a current diagnosis for this admission?: Yes (2) Upper abdominal pain Is this a current diagnosis for this admission?: Yes (3) AICD (automatic cardioverter/defibrillator) present Is this a current diagnosis for this admission?: No (4) CHF (congestive heart failure) Qualifiers: Heart failure type: unspecified Heart failure chronicity: unspecified Qualified Code(s): I50.9 - Heart failure, unspecified Is this a current diagnosis for this admission?: Yes - Time Time Spent: 30 to 50 Minutes Medications reviewed and adjusted accordingly: Yes Anticipated discharge: Home - Inpatient Certification Medical Necessity: Need for IV Antibiotics, Need for Surgery - Plan Summary Plan Summary: [facility] and inpatient evaluation. Abdominal pain improved at this time. Tylenol as needed pain. Patient started on Zosyn secondary to acute cholecystitis. General surgeon consultation pending for this a.m. Patient will be in need of cardiac clearance given her underlying history of coronary artery disease, congestive heart failure and AICD placement. Patient's BNP elevated at 2730. No acute volume overload or other symptoms of CHF exacerbation noted at this time. Continue patient's home medications. Avoid nephrotoxic medications. Smoking cessation highly encouraged. Continue IV fluids overnight. Repeat CBC, BMP this a.m. Continue home medications. We will continue to monitor closely and adjust accordingly.
--- NOTE | 2017-11-17 08:57 | EKG REPORT ---
SEVERITY:- ABNORMAL ECG - SINUS TACHYCARDIA ZACHARY, CONSIDER BIATRIAL ABNORMALITIES LEFT ANTERIOR FASCICULAR BLOCK CONSIDER ANTERIOR INFARCT NONSPECIFIC T ABNORMALITIES, LATERAL LEADS : Confirmed by: Uli Willams 17-Nov-2017 08:57:00
[2017-11-17] MEDS: NICOTINE 14 MG/24 HR PATCH.TD24 TD SCH (10:52)
[2017-11-17] MEDS: PIPERACILLIN SODIUM/TAZOBACTAM 3.375 GM in NORMAL SALINE 100 ML IV SCH ×3 (10:52→21:31)
[2017-11-17] MEDS: FAMOTIDINE INJ/PF 20 MG/2 ML SDV IV SCH ×2 (10:52→21:31)
--- NOTE | 2017-11-17 11:53 | RADIOLOGY REPORT (SQ) ---
EXAM DESCRIPTION: NM HIDA SCAN COMPLETED DATE/TIME: 11/17/2017 11:21 am REASON FOR STUDY: R/O acute cholecystitis COMPARISON: Abdominal ultrasound dated 11/17/2017 RADIONUCLIDE AND DOSE: DOSAGE RADIONUCLIDE: 5.48 millicuries Tc99m Mebrofenin. DOSAGE MORPHINE: Not required. The route of agent administration: Intravenous TECHNIQUE: Serial imaging right upper quadrant up to 60 minutes following injection of radionuclide. Patient imaged AP and Right Lateral. LIMITATIONS: None. FINDINGS: LIVER: Normal visualization without areas of photopenia. INTRA-HEPATIC BILE DUCTS: Temporal visualization normal. No dilatation. COMMON BILE DUCT: Normal without dilatation or delayed visualization. GALLBLADDER: There is a focal accumulation of tracer activity in the expected position of the gallbla dder which does not conform with the ultrasound appearance of the gallbladder and may be within the c ystic duct. I cannot confirm gallbladder visualization on the basis of this study. OTHER: No other significant finding. IMPRESSION: There is a focal accumulation of tracer activity in the expected position of the gallbla dder which does not conform with the ultrasound appearance of the gallbladder and may be within the c ystic duct. I cannot confirm gallbladder visualization on the basis of this study. There is patency of the common bile duct with bowel activity being identified. Clinical correlation is recommended TECHNICAL DOCUMENTATION: JOB ID: [id number] [employer]- All Rights Reserved Reading location - IP/workstation name: [email or web address]
[2017-11-17 12:40] LABS: CREATINE KINASE MB 1.43 ng/mL (<4.55); TROPONIN I 0.023 ng/mL
--- NOTE | 2017-11-17 13:00 | PDOC CONSULTATION ---
Consultation Consult Date: 11/17/17 Consult reason:: abdominal pains with cholelithiasis History of Present Illness Admission Date/PCP: 11/17/17 01:31 Patient complains of: abdominal pains History of Present Illness: PRISCA ARMENTA is a 47 year old male with history of CHF,AICD for previous SC with low ejection fraction c/o off and on epigastric and RUQ pains for past 2-3 weeks. He was previously admitted about 2 weeks ago for the same abdominal pains. He was placed on IV antibiotics and the abdominal pains subsided and discharged. Claims pains came back after 2 days and has been off an on since. Claims his pains usually in the morning feels better after taking his meds including diuretics but pains recur at around midnight after his medications wore off. Has been having pains past 2 days and decided to go to ED. Ultrasound showed cholelithiasis with thickened gallbladder wall which was essentially same findings about 2 weeks ago. Past Medical History Cardiac Medical History: Reports: Congestive Heart Failure, Myocardial Infarction - 2013 Pulmonary Medical History: Reports: Pneumonia Neurological Medical History: Denies: Seizures Endocrine Medical History: Reports: Diabetes Mellitus Type 2 Psychiatric Medical History: Reports: Bipolar Disorder, Depression, Post Traumatic Stress Disorder Past Surgical History Past Surgical History: Reports: Cardiac Catheterization, Internal Defibrillator , Other - AICD in June of 2014 Social History Lives with: Family Smoking Status: Current Every Day Smoker Number of Years Smokin Last Time Smoked: 11/16/2017 Frequency of Alcohol Use: Occasional Hx Recreational Drug Use: No Drugs: None Hx Prescription Drug Abuse: No Family History Family History: Other - PATIENT REPORTS HE IS ADOPTED Parental Family History Reviewed: Yes Children Family History Reviewed: No Sibling(s) Family History Reviewed.: No Medication/Allergy Home Medications: Aspirin [Adult Low Dose Aspirin EC] 81 mg PO DAILY 11/03/17 Carvedilol [Coreg 3.125 mg Tablet] 3.125 mg PO Q12 11/03/17 Digoxin [Lanoxin 0.125 mg Tablet] 0.125 mg PO DAILY #30 tablet 11/07/17 Furosemide [Lasix 40 mg Tablet] 40 mg PO DAILY #30 tablet 11/07/17 Lisinopril [Zestril] 5 mg PO DAILY #30 tablet 11/07/17 Allergies/Adverse Reactions: No Known Allergies Allergy (Verified 11/16/17 22:13) Review of Systems Constitutional: PRESENT: other - no fever/chills Eyes: PRESENT: other - no visual/hearing changes Cardiovascular: PRESENT: other - no chest pains/cough Gastrointestinal: PRESENT: abdominal pain, nausea Genitourinary: PRESENT: other - no dysuria Neurological: PRESENT: other - no seizures Physical Exam Vital Signs: Temp Pulse Resp BP Pulse Ox 97.5 F 83 16 115/85 98 11/17/17 12:00 11/17/17 12:00 11/17/17 12:00 11/17/17 12:00 11/17/17 12:00 Intake & Output 11/16/17 11/17/17 11/18/17 06:59 06:59 06:59 Intake Total 100 Balance 100 Weight 84.9 kg General appearance: PRESENT: no acute distress Head exam: PRESENT: atraumatic Eye exam: PRESENT: conjunctiva pink Mouth exam: PRESENT: moist Neck exam: PRESENT: full ROM Respiratory exam: PRESENT: clear to auscultation brigido Cardiovascular exam: PRESENT: RRR Pulses: PRESENT: normal radial pulses Vascular exam: PRESENT: normal capillary refill GI/Abdominal exam: PRESENT: soft, tenderness - mild epigastric and RUQ tenderness Rectal exam: PRESENT: deferred Extremities exam: PRESENT: full ROM Musculoskeletal exam: PRESENT: ambulatory Neurological exam: PRESENT: alert, oriented to person, oriented to place, oriented to time, oriented to situation Psychiatric exam: PRESENT: appropriate affect Skin exam: PRESENT: normal color, warm Results Laboratory Results: 11/17/17 11/17/17 11/17/17 05:36 05:36 11:51 Creatine Kinase 132 123 CK-MB (CK-2) 1.35 Troponin I 0.034 Impressions: Chest X-Ray 11/16/17 22:30 IMPRESSION: No acute disease. Abdomen Ultrasound 11/16/17 23:20 IMPRESSION: 1. Cholelithiasis with gallbladder wall thickening and pericholecystic fluid. These findings could be seen with acute cholecystitis. 2. Hepatic steatosis. Hepatobiliary Scan Nuclear Medicine 11/17/17 00:00 IMPRESSION: There is a focal accumulation of tracer activity in the expected position of the gallbladder which does not conform with the ultrasound appearance of the gallbladder and may be within the cystic duct. I cannot confirm gallbladder visualization on the basis of this study. There is patency of the common bile duct with bowel activity being identified. Clinical correlation is recommended Assessment & Plan - Diagnosis (1) Cardiomyopathy Qualifiers: Cardiomyopathy type: unspecified Qualified Code(s): I42.9 - Cardiomyopathy , unspecified Is this a current diagnosis for this admission?: Yes (2) Cholelithiasis Qualifiers: Cholelithiasis location: gallbladder Cholecystitis acuity: chronic Biliary obstruction: without biliary obstruction Is this a current diagnosis for this admission?: Yes (3) Diabetes Qualifiers: Diabetes mellitus type: type 2 Diabetes mellitus complication status: without complication Is this a current diagnosis for this admission?: Yes (4) Leukocytosis Is this a current diagnosis for this admission?: Yes (5) Presence of automatic cardioverter/defibrillator (AICD) Is this a current diagnosis for this admission?: Yes (6) Tobacco abuse Is this a current diagnosis for this admission?: Yes - Time Time Spent: 30 to 50 Minutes - Inpatient Certification Medical Necessity: Need Close Monitoring Due to Risk of Patient Decompensation, Need for IV Antibiotics - Plan Summary Plan Summary: 47 yo male with history of cholelithiasis with wbc 13K. DM,CHF SC with AICD with cardiac ejection fraction 35%,Tobacco abuser c/o abdominal pains. Just had HIDA scan which showed cystic duct area but not whole gallbladder with patent CBD. Would watch closely next 24-48 hrs. Clinically he is feeling better. Would continue IV antibiotics and serial PE. Await cardiology consult. He is a very high risk for any procedure.
[2017-11-17] MEDS ORDERED: ACETAMINOPHEN 325 MG TABLET PO PRN (13:32)
[2017-11-17 14:07] LABS: URINE AMPHETAMINES SCREEN NEGATIVE; URINE BARBITURATES SCREEN NEGATIVE; URINE BENZODIAZEPINES SCREEN NEGATIVE; URINE COCAINE SCREEN NEGATIVE; URINE MARIJUANA (THC) SCREEN NEGATIVE; URINE METHADONE SCREEN NEGATIVE; URINE PHENCYCLIDINE SCREEN NEGATIVE
[2017-11-17] MEDS: MORPHINE SULFATE 10 MG/ML INJ IV PRN (17:58)
[2017-11-17 19:26] LABS: CREATINE KINASE MB 1.51 ng/mL (<4.55); TROPONIN I 0.023 ng/mL
--- NOTE | 2017-11-17 23:11 | Progress Note ---
Provider Note Provider Note: Jeri Dial is a 47 y.o. M with a PMH of CHF (EF 30%), AICD, DM2, HTN, anxiety, PTSD, bipolar disorder. Known diagnosis of cholecystitis - recently hospitalized at [facility] a few weeks ago. Scheduled outpatient follow up with surgical clinic but returned to [facility] ED for worsening epigastric pain and N/V. 1. CHOLECYSTITIS: HIDA scan done today reveals cystic duct area but not whole gallbladder with patent CBD. US reveals cholelithiasis with cholecystitis. Continue IV antibiotics. Advance to PO diet, closely monitor for postprandial acute pain. Awaiting cardiology input regarding risk of surgery. Patient reports pain is significantly worse at night - Morphine and Tylenol PRN. Zofran PRN. 2. CHF: LVEF 30%. Patient has a history of noncompliance with cardiac medications but reports he has been compliant with his daily medications since his discharge 2 weeks ago. Continue lasix, coreg, and digoxin. 3. SUBSTANCE ABUSE: Patient admits to methamphetamine use but states he has not used since his previous hospitalization. Plan to run UTOX from urine collected upon admission.
[2017-11-18] MEDS: PIPERACILLIN SODIUM/TAZOBACTAM 3.375 GM in NORMAL SALINE 100 ML IV SCH ×4 (02:09→20:38)
[2017-11-18] MEDS ORDERED: LORAZEPAM 1 MG TABLET PO ONE (02:10)
[2017-11-18] MEDS: NORMAL SALINE 1000 ML 1,000 ML IV PRN (02:12)
[2017-11-18 04:48] LABS: ABSOLUTE BASOPHILS # (AUTO) 0.2 10^3/uL (0.0-0.2); ABSOLUTE EOSINOPHILS # (AUTO) 0.2 10^3/uL (0.0-0.6); ABSOLUTE MONOCYTES (AUTO) 1.3 10^3/uL (0.1-1.4); BASOPHILS % (AUTO) 1.3 % (0-2); EOSINOPHILS % (AUTO) 1.6 % (0-6); HEMATOCRIT 39.8 % (37.9-51.0); MEAN CORPUSCULAR HEMOGLOBIN 27.7 pg (27.0-33.4); MEAN CORPUSCULAR HGB CONC 32.7 g/dL (32.0-36.0); MEAN CORPUSCULAR VOLUME 85 fl (80-97); MONOCYTES % (AUTO) 10.3 % (3-13); PLATELET COUNT 235 10^3/uL (150-450); RED BLOOD COUNT 4.71 10^6/uL (4.35-5.55); SEGMENTED NEUTROPHILS % (AUTO) 70.8 % (42-78); TOTAL CELLS COUNTED % (AUTO) 100 %; WHITE BLOOD COUNT 12.7 10^3/uL (4.0-10.5)
[2017-11-18 05:12] LABS: ANION GAP 14 (5-19); BLOOD UREA NITROGEN 27 mg/dL (7-20); CALCIUM 8.4 mg/dL (8.4-10.2); CARBON DIOXIDE 17 mmol/L (22-30); CHLORIDE 105 mmol/L (98-107); GLUCOSE 111 mg/dL (75-110); PHOSPHORUS 4.9 mg/dL (2.5-4.5); POTASSIUM 5.1 mmol/L (3.6-5.0); SODIUM 136.1 mmol/L (137-145)
[2017-11-18] MEDS: HEPARIN SOD (PORCINE) 5,000 UNIT/ML 1 ML SYRINGE SUBCUT SCH ×3 (05:17→21:20)
[2017-11-18] MEDS: FAMOTIDINE INJ/PF 20 MG/2 ML SDV IV SCH ×2 (09:17→21:20)
[2017-11-18] MEDS: DIGOXIN 0.125 MG TABLET PO SCH (09:17)
[2017-11-18] MEDS: FUROSEMIDE 40 MG TABLET PO SCH (09:18)
[2017-11-18] MEDS: ASPIRIN 81 MG TABLET, ENT COATED PO SCH (09:18)
[2017-11-18] MEDS: NICOTINE 14 MG/24 HR PATCH.TD24 TD SCH (09:19)
[2017-11-18] MEDS ORDERED: LISINOPRIL 5 MG TABLET PO SCH (10:00)
[2017-11-18] MEDS ORDERED: CARVEDILOL 3.125 MG TABLET PO SCH (10:00)
--- NOTE | 2017-11-18 10:00 | PDOC PROGRESS REPORT ---
Subjective Progress Note for:: 11/18/17 Subjective:: Comfortable this am. Tolerating diet well He claims develops abdominal pains late at night. This pains are not typical for acute cholecystitis. Most likely due to cardiac with passive congestion causing pains on the liver capsule rather than the gallbladder. His BNP is elevated. The HIDA scan shows cystic duct and CBD are patent and therefore no acute cholecystitis/CBD obstruction. Reason For Visit: ABD PAIN Physical Exam Vital Signs: Temp Pulse Resp BP Pulse Ox 97.5 F 109 H 20 117/81 96 11/18/17 08:21 11/18/17 08:21 11/18/17 08:21 11/18/17 08:21 11/18/17 08:21 Intake & Output 11/17/17 11/18/17 11/19/17 06:59 06:59 06:59 Intake Total 2726 Output Total 650 Balance 2076 Weight 84.9 kg 81.6 kg Exam: Abd is soft and non tender Results Laboratory Results: 11/18/17 03:40 11/18/17 03:40 11/18/17 11/18/17 03:40 03:40 WBC 12.7 H RBC 4.71 Hgb 13.0 L Hct 39.8 MCV 85 MCH 27.7 MCHC 32.7 RDW 16.0 H Plt Count 235 Seg Neutrophils % 70.8 Lymphocytes % 16.0 Monocytes % 10.3 Eosinophils % 1.6 Basophils % 1.3 Absolute Neutrophils 9.0 H Absolute Lymphocytes 2.0 Absolute Monocytes 1.3 Absolute Eosinophils 0.2 Absolute Basophils 0.2 Sodium 136.1 L Potassium 5.1 H Chloride 105 Carbon Dioxide 17 L Anion Gap 14 BUN 27 H Creatinine 1.33 H Est GFR ( Amer) > 60 Est GFR (Non-Af Amer) 57 L Glucose 111 H Calcium 8.4 Phosphorus 4.9 H Magnesium 2.4 H 11/17/17 11/17/17 11/17/17 05:36 05:36 11:51 Creatine Kinase 132 123 CK-MB (CK-2) 1.35 Troponin I 0.034 NT-Pro-B Natriuret Pep 11/17/17 11/17/17 11/17/17 11:51 18:34 18:34 Creatine Kinase 130 CK-MB (CK-2) 1.43 1.51 Troponin I 0.023 0.023 NT-Pro-B Natriuret Pep 11/18/17 03:40 Creatine Kinase CK-MB (CK-2) Troponin I NT-Pro-B Natriuret Pep 2870 H Impressions: Chest X-Ray 11/16/17 22:30 IMPRESSION: No acute disease. Abdomen Ultrasound 11/16/17 23:20 IMPRESSION: 1. Cholelithiasis with gallbladder wall thickening and pericholecystic fluid. These findings could be seen with acute cholecystitis. 2. Hepatic steatosis. Hepatobiliary Scan Nuclear Medicine 11/17/17 00:00 IMPRESSION: There is a focal accumulation of tracer activity in the expected position of the gallbladder which does not conform with the ultrasound appearance of the gallbladder and may be within the cystic duct. I cannot confirm gallbladder visualization on the basis of this study. There is patency of the common bile duct with bowel activity being identified. Clinical correlation is recommended Assessment & Plan - Diagnosis (1) Cardiomyopathy Qualifiers: Cardiomyopathy type: unspecified Qualified Code(s): I42.9 - Cardiomyopathy , unspecified Is this a current diagnosis for this admission?: Yes (2) Cholelithiasis Qualifiers: Cholelithiasis location: gallbladder Cholecystitis acuity: chronic Biliary obstruction: without biliary obstruction Is this a current diagnosis for this admission?: Yes (3) Diabetes Qualifiers: Diabetes mellitus type: type 2 Diabetes mellitus complication status: without complication Is this a current diagnosis for this admission?: Yes (4) Leukocytosis Is this a current diagnosis for this admission?: Yes (5) Presence of automatic cardioverter/defibrillator (AICD) Is this a current diagnosis for this admission?: Yes (6) Tobacco abuse Is this a current diagnosis for this admission?: Yes - Time Time Spent with patient: 15-24 minutes - Plan Summary Plan Summary: D/W Dr Boyd last night and Tiffanie Greer [employer] this am. Patient can be discharged from surgical viewpoint and follow up in the surgical clinic.
[2017-11-18] MEDS ORDERED: METOPROLOL SUCCINATE 25 MG TAB.SR.24H PO ONE (11:00)
[2017-11-18] MEDS ORDERED: FUROSEMIDE INJ/PF 20 MG/2 ML SDV IV ONE (11:00)
[2017-11-18] MEDS: LISINOPRIL 5 MG TABLET PO SCH ×2 (11:44→21:17)
[2017-11-18] MEDS ORDERED: INSULIN LISPRO 100 UNIT/ML 3 ML VIAL SUBCUT PRN (12:53)
[2017-11-18] MEDS ORDERED: DEXTROSE 40% GEL 15 GM TUBE PO PRN ×2 (12:53)
[2017-11-18] MEDS ORDERED: DEXTROSE 50%-WATER 25 GM/50 ML DISP.SYRIN IV PRN ×2 (12:53)
[2017-11-18] MEDS ORDERED: GLUCAGON,HUMAN RECOMB 1 MG INJ IM PRN (12:53)
[2017-11-18] MEDS ORDERED: DOBUTAMINE HCL/D5W 500 MG/250 ML RTUINJ IV PRN (13:38)
[2017-11-18] MEDS: CLONAZEPAM 1 MG TABLET PO SCH ×2 (14:01→21:10)
[2017-11-18] MEDS: DOBUTAMINE HCL/D5W 500 MG/250 ML RTUINJ IV PRN (15:13)
[2017-11-18] MEDS: NITROGLYCERIN 2% OINTMENT 1 GM PACKET TP SCH ×2 (15:34→20:25)
--- NOTE | 2017-11-18 17:07 | PDOC PROGRESS REPORT ---
Subjective Progress Note for:: 11/18/17 Subjective:: Jeri Dial is a 47 y.o. M with a PMH of CHF (EF 30%), AICD, DM2, HTN, anxiety, PTSD, bipolar disorder. Known diagnosis of cholecystitis - recently hospitalized at [facility] a few weeks ago. Scheduled outpatient follow up with surgical clinic but returned to [facility] ED for worsening epigastric pain and N/V. Upgraded to IMCU today by Dr. Boyd. The patient was seen this morning on rounds, he is visibly anxious. Pacing in his room, hands above his head, stating he feels very anxious. The patient endorses a history of anxiety, for which he takes Klonopin 2 mg twice daily. The patient also states he has been experiencing nightly epigastric pain at 0030 -0100. He states that the prescribed pain medication does offer relief. Metal Spinner and general surgeon both feel that the patient's pain is secondary to hepatic congestion stemming from severe CHF. According to Dr. Adkins, general surgeon, patient does have cholecystitis and will eventually need his gallbladder removed, but this procedure is nonemergent at this time and is recommending that the patient follow-up at the [place] surgical clinic. Reason For Visit: ABD PAIN Physical Exam Vital Signs: Temp Pulse Resp BP Pulse Ox 97.6 F 102 H 23 H 122/81 100 11/18/17 11:06 11/18/17 11:06 11/18/17 11:06 11/18/17 11:06 11/18/17 11:06 Intake & Output 11/17/17 11/18/17 11/19/17 06:59 06:59 06:59 Intake Total 2726 475 Output Total 650 Balance 2076 475 Weight 84.9 kg 81.6 kg General appearance: PRESENT: no acute distress, well-developed, well-nourished Eye exam: PRESENT: conjunctiva pink, PERRLA Mouth exam: PRESENT: moist, tongue midline Neck exam: PRESENT: full ROM Respiratory exam: PRESENT: clear to auscultation brigido, symmetrical, unlabored Cardiovascular exam: PRESENT: +S1, +S2, systolic murmur - Chronic. This is not a new finding Pulses: PRESENT: normal radial pulses, normal dorsalis pedis pul GI/Abdominal exam: PRESENT: distended - Mild distention, normal bowel sounds, soft, tenderness - Epigastric, left and right upper quadrants Rectal exam: PRESENT: deferred Extremities exam: PRESENT: full ROM. ABSENT: pedal edema Musculoskeletal exam: PRESENT: ambulatory, full ROM, normal inspection Neurological exam: PRESENT: alert, awake, oriented to person, oriented to place , oriented to time, oriented to situation Psychiatric exam: PRESENT: anxious Skin exam: PRESENT: dry, intact, normal color, warm Results Laboratory Results: 11/18/17 03:40 11/18/17 03:40 11/18/17 11/18/17 03:40 03:40 WBC 12.7 H RBC 4.71 Hgb 13.0 L Hct 39.8 MCV 85 MCH 27.7 MCHC 32.7 RDW 16.0 H Plt Count 235 Seg Neutrophils % 70.8 Lymphocytes % 16.0 Monocytes % 10.3 Eosinophils % 1.6 Basophils % 1.3 Absolute Neutrophils 9.0 H Absolute Lymphocytes 2.0 Absolute Monocytes 1.3 Absolute Eosinophils 0.2 Absolute Basophils 0.2 Sodium 136.1 L Potassium 5.1 H Chloride 105 Carbon Dioxide 17 L Anion Gap 14 BUN 27 H Creatinine 1.33 H Est GFR ( Amer) > 60 Est GFR (Non-Af Amer) 57 L Glucose 111 H Calcium 8.4 Phosphorus 4.9 H Magnesium 2.4 H 11/17/17 11/17/17 11/17/17 05:36 05:36 11:51 Creatine Kinase 132 123 CK-MB (CK-2) 1.35 Troponin I 0.034 NT-Pro-B Natriuret Pep 11/17/17 11/17/17 11/17/17 11:51 18:34 18:34 Creatine Kinase 130 CK-MB (CK-2) 1.43 1.51 Troponin I 0.023 0.023 NT-Pro-B Natriuret Pep 11/18/17 03:40 Creatine Kinase CK-MB (CK-2) Troponin I NT-Pro-B Natriuret Pep 2870 H Impressions: Chest X-Ray 11/16/17 22:30 IMPRESSION: No acute disease. Abdomen Ultrasound 11/16/17 23:20 IMPRESSION: 1. Cholelithiasis with gallbladder wall thickening and pericholecystic fluid. These findings could be seen with acute cholecystitis. 2. Hepatic steatosis. Hepatobiliary Scan Nuclear Medicine 11/17/17 00:00 IMPRESSION: There is a focal accumulation of tracer activity in the expected position of the gallbladder which does not conform with the ultrasound appearance of the gallbladder and may be within the cystic duct. I cannot confirm gallbladder visualization on the basis of this study. There is patency of the common bile duct with bowel activity being identified. Clinical correlation is recommended Status: Imported from PACS Assessment & Plan - Diagnosis (1) Cholecystitis Is this a current diagnosis for this admission?: Yes Plan: HIDA scan reveals cystic duct area but not whole gallbladder with patent CBD. US reveals cholelithiasis with cholecystitis. Continue IV Zosyn. Tolerating p.o. diet, denies postprandial abdominal pain Patient reports pain is significantly worse at night - Morphine and Tylenol PRN. Zofran PRN. Per Surgery, cholecystectomy is non-emergent at this time. Patient can follow up at the surgical clinic and schedule the procedure for a later date at a larger tertiary facility. Patient is considered to be too high risk for cholecystectomy (2) CHF (congestive heart failure) Qualifiers: Heart failure type: unspecified Heart failure chronicity: unspecified Qualified Code(s): I50.9 - Heart failure, unspecified Is this a current diagnosis for this admission?: Yes Plan: LVEF 30% based on ECHO performed last month Patient has a history of noncompliance with cardiac medications but reports he has been compliant with his daily medications since his discharge 2 weeks ago. BNP 2870, virtually unchanged from yesterday Continue digoxin. Cardiology consulted, appreciate Dr. Boyd's recommendations Initiate lisinopril and metoprolol Initiate Dobutamine gtt for inotropic activity and hopes of improving cardiac function Upgraded to IMCU Concern for hepatic congestion stemming from poorly controlled CHF (3) Diabetes Qualifiers: Diabetes mellitus type: type 2 Diabetes mellitus complication status: without complication Is this a current diagnosis for this admission?: Yes Plan: PMH of DM 2 Accu-Cheks AC at bedtime Humalog sliding scale insulin for mealtime coverage Check hemoglobin A1c in a.m. (4) Anxiety Is this a current diagnosis for this admission?: Yes Plan: Patient endorses history of generalized anxiety disorder Resume home dose Klonopin 2 mg twice daily - Time Time Spent with patient: 15-24 minutes Medications reviewed and adjusted accordingly: Yes Anticipated discharge: Home - Inpatient Certification Based on my medical assessment, after consideration of the patient's comorbidities, presenting symptoms, or acuity I expect that the services needed warrant INPATIENT care.: Yes I certify that my determination is in accordance with my understanding of Medicare's requirements for reasonable and necessary INPATIENT services [42 CFR 412.3e].: Yes Medical Necessity: Need For Continuous Telemetry Monitoring, Risk of Complication if Not Cared For in Hospital
--- NOTE | 2017-11-18 22:01 | Progress Note ---
Provider Note Provider Note: CARDIOLOGY PROGRESS NOTE by Dr. Gale Hewitt on 11/18/2017. SUBJECTIVE: As discussed with the patient and the hospitalist yesterday and also with the surgical list, I felt that the patient's right upper quadrant pain was due to his hepatic congestion causing an enlarged liver. This is also in light of the patient's abnormal LFTs. Review of his echocardiogram shows that the patient does have significant mitral and tricuspid regurgitation, severely reduced LV ejection fraction, and significant pulmonary hypertension. In view of this as planned and discussed with the patient the patient is being transferred to [facility] to place the patient on a dobutamine drip. Which has been started at 2.5 mcg/kg/min, and the patient feels much better. When I saw him in the evening he had no further right upper quadrant pain. He has been having good diuresis. There is no firing of his AICD. There is no arrhythmias seen of ventricular or atrial origin. He has no TIA CVA symptoms. On examination the patient is mildly obese at present in no acute distress, is well groomed. Selected Entries 11/18/17 10:18 Temperature 98.5 F Temperature Oral Source Pulse Rate 100 Respiratory 24 H Rate Blood Pressure 121/81 BP Location Left Arm BP Position Supine O2 Sat by Pulse 100 Oximetry Oxygen Flow 2.00 Rate HEAD: Is atraumatic normocephalic. EYES: Pupils equal round regular reactive to light accommodation. ENT: Is negative. NECK: Is supple there is mild JVD present. Carotids are equal there is no bruits. There is no lymphadenopathy. There is no goiter. Trachea central. LUNGS: There is diminished air entry and prolonged expiration. There is a few bibasilar rales of CHF. HEART: S1-S2 is heard there is no S3 gallop there is no S4 gallop the systolic murmur of mitral regurgitation and tricuspid regurgitation. There is no S3 gallop. There is no rub. ABDOMEN is soft liver is mildly enlarged and mildly tender. De La Cruz sign is negative. Bowel sounds well heard. There is no splenomegaly. There is no masses. There is no rebound guarding or rigidity.Extremities: Femorals are well felt. There is no femoral bruits. Leg pulses are well felt. There is no pedal edema. There is no DVT or cellulitis. There is no calf tenderness. 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 PSYCHIATRIC: The patient judgment and insight are intact his affect is normal. 11/18/17 11/18/17 11/18/17 03:40 03:40 03:40 WBC 12.7 H Hgb 13.0 L Hct 39.8 Sodium 136.1 L Potassium 5.1 H Chloride 105 Carbon Dioxide 17 L BUN 27 H Creatinine 1.33 H Est GFR (Non-Af Amer) 57 L Glucose 111 H Calcium 8.4 Phosphorus 4.9 H Magnesium 2.4 H NT-Pro-B Natriuret Pep 2870 H IMPRESSION/RECOMMENDATION: 1. ACUTE ON CHRONIC BIVENTRICULAR [left ventricular and right ventricular] SYSTOLIC heart failure. Suspect right heart failure more than left heart, especially with pulmonary hypertension which is significant. The patient's right upper quadrant pain may be at least in part due to hepatic congestion and liver distention. Although the patient does have chronic cholelithiasis/ cholecystitis. In view of this would start the patient on dobutamine drip at 2 mcg/kg/min and watch for any arrhythmias, and increase to 5 mcg/kg/min. We will start of the IV fluids have been stopped. We will continue the patient on Lasix, and NIKHIL inhibitor. In view of the patient's COPD would stop the patient' s Coreg and change to Toprol-XL. We will continue digoxin. 2. CORONARY ARTERY DISEASE: History of ID? Reevaluate revascularization done. Await records from [place]. The patient has no anginal symptoms. No ID this admission. Will try if the blood pressure allows to place the patient on nitrates, which will also help the patient's pulmonary hypertension. 3. HYPERTENSION: Well controlled. 4. COPD: At present no acute exacerbation symptoms of COPD. 5. Diabetes mellitus: Continue the patient's antidiabetic regimen. 6. Chronic cholelithiasis/cholecystitis. The patient may need surgery at would optimize the patient's cardiac status. 7. Status post AICD.: No firing of AICD. 8. History of tobacco abuse. Tobacco cessation counseling given to the patient. 3-5 minutes spent on this. 9. BIPOLAR DISORDER: Stable. 10. POST TRAUMATIC STRESS DISORDER: Appears to be stable. 11.: Abnormal LIVER FUNCTION TESTS: This is most likely due to hepatic congestion. We will recheck the patient's LFTs in the morning. Medications have been reviewed, and new medications added. Discussed with other caregiving providers on the case. Medical decision making is of high complexity. 40 minutes spent on this patient with more than 50% of time spent in direct patient care. The patient continues to be a full code, and his girlfriend is a surrogate healthcare decision maker, which is unchanged.
[2017-11-19] MEDS: PIPERACILLIN SODIUM/TAZOBACTAM 3.375 GM in NORMAL SALINE 100 ML IV SCH ×4 (03:10→21:00)
[2017-11-19] MEDS: NITROGLYCERIN 2% OINTMENT 1 GM PACKET TP SCH ×4 (03:10→21:00)
[2017-11-19] MEDS: HEPARIN SOD (PORCINE) 5,000 UNIT/ML 1 ML SYRINGE SUBCUT SCH ×3 (05:08→21:09)
[2017-11-19 06:24] LABS: ALANINE AMINOTRANSFERASE 115 U/L (21-72); ALBUMIN 3.1 g/dL (3.5-5.0); ALKALINE PHOSPHATASE 73 U/L (38-126); ANION GAP 9 (5-19); ASPARTATE AMINO TRANSFERASE 107 U/L (17-59); BILIRUBIN,DIRECT 0.6 mg/dL (0.0-0.4); BILIRUBIN,TOTAL 0.6 mg/dL (0.2-1.3); BLOOD UREA NITROGEN 29 mg/dL (7-20); CALCIUM 8.4 mg/dL (8.4-10.2); CARBON DIOXIDE 24 mmol/L (22-30); CHLORIDE 106 mmol/L (98-107); GLUCOSE 97 mg/dL (75-110); POTASSIUM 4.4 mmol/L (3.6-5.0); SODIUM 139.4 mmol/L (137-145); TOTAL PROTEIN 5.9 g/dL (6.3-8.2)
[2017-11-19] MEDS: ASPIRIN 81 MG TABLET, ENT COATED PO SCH (09:41)
[2017-11-19] MEDS: DIGOXIN 0.125 MG TABLET PO SCH (09:41)
[2017-11-19] MEDS: CLONAZEPAM 1 MG TABLET PO SCH ×2 (09:41→21:10)
[2017-11-19] MEDS: FAMOTIDINE INJ/PF 20 MG/2 ML SDV IV SCH (09:42)
[2017-11-19] MEDS: FUROSEMIDE 40 MG TABLET PO SCH (09:42)
[2017-11-19] MEDS: NICOTINE 14 MG/24 HR PATCH.TD24 TD SCH (09:42)
[2017-11-19] MEDS: LISINOPRIL 5 MG TABLET PO SCH ×2 (09:43→21:10)
[2017-11-19] MEDS: METOPROLOL SUCCINATE 25 MG TAB.SR.24H PO SCH ×2 (10:12→21:10)
[2017-11-19] MEDS: FAMOTIDINE 20 MG TABLET PO SCH ×2 (10:12→21:10)
[2017-11-19] MEDS: POLYETHYLENE GLYCOL 3350 POWDER 17 GM/1 PACKET PO SCH (12:07)
[2017-11-19] MEDS: SENNOSIDES/DOCUSATE 8.6-50 MG 1 EACH TABLET PO SCH ×2 (12:08→17:00)
[2017-11-19] MEDS: DOBUTAMINE HCL/D5W 500 MG/250 ML RTUINJ IV PRN (12:10)
[2017-11-19] MEDS ORDERED: LISINOPRIL 5 MG TABLET PO ONE (12:45)
--- NOTE | 2017-11-19 17:18 | PDOC PROGRESS REPORT ---
Subjective Progress Note for:: 11/19/17 Subjective:: Jeri Dial is a 47 y.o. M with a PMH of CHF (EF 30%), AICD, DM2, HTN, anxiety, PTSD, bipolar disorder. Known diagnosis of cholecystitis - recently hospitalized at [facility] a few weeks ago. Scheduled outpatient follow up with surgical clinic but returned to [facility] ED for worsening epigastric pain and N/V. The patient was seen this morning on rounds. The patient states he is experiencing very mild epigastric pain but was able to sleep through the night. This is an improvement compared to yesterday when the patient stated he was experiencing excruciating abdominal pain every night at 0100. Additionally, the patient states that he feels constipated (he was able to have a BM yesterday). Commercial Door Installer and general surgeon both feel that the patient's pain is secondary to hepatic congestion stemming from severe CHF. The patient remains on a dobutamine gtt. Reason For Visit: ABD PAIN Physical Exam Vital Signs: Temp Pulse Resp BP Pulse Ox 98.4 F 92 18 113/70 100 11/19/17 15:26 11/19/17 17:00 11/19/17 15:26 11/19/17 17:00 11/19/17 15:26 Intake & Output 11/18/17 11/19/17 11/20/17 06:59 06:59 06:59 Intake Total 2726 1358 829 Output Total 650 1750 300 Balance 2076 -392 529 Weight 81.6 kg 86.5 kg General appearance: PRESENT: no acute distress, well-developed, well-nourished Head exam: PRESENT: atraumatic Eye exam: PRESENT: conjunctiva pink, PERRLA Mouth exam: PRESENT: moist, tongue midline Neck exam: PRESENT: full ROM Respiratory exam: PRESENT: clear to auscultation brigido, symmetrical, unlabored Cardiovascular exam: PRESENT: irregular rhythm, +S1, +S2, systolic murmur Pulses: PRESENT: normal radial pulses, normal dorsalis pedis pul Vascular exam: PRESENT: normal capillary refill GI/Abdominal exam: PRESENT: distended, normal bowel sounds, soft. ABSENT: tenderness Rectal exam: PRESENT: deferred Extremities exam: PRESENT: full ROM. ABSENT: pedal edema Musculoskeletal exam: PRESENT: ambulatory, full ROM Neurological exam: PRESENT: alert, awake, oriented to person, oriented to place , oriented to time, oriented to situation Psychiatric exam: PRESENT: appropriate affect Skin exam: PRESENT: dry, intact, normal color Results Laboratory Results: 11/18/17 03:40 11/19/17 05:32 11/19/17 05:32 Sodium 139.4 Potassium 4.4 Chloride 106 Carbon Dioxide 24 Anion Gap 9 BUN 29 H Creatinine 1.37 H Est GFR ( Amer) > 60 Est GFR (Non-Af Amer) 55 L Glucose 97 Calcium 8.4 Magnesium 2.2 Total Bilirubin 0.6 AST 107 H ALT 115 H Alkaline Phosphatase 73 Total Protein 5.9 L Albumin 3.1 L 11/17/17 11/17/17 11/17/17 05:36 05:36 11:51 Creatine Kinase 132 123 CK-MB (CK-2) 1.35 Troponin I 0.034 NT-Pro-B Natriuret Pep 11/17/17 11/17/17 11/17/17 11:51 18:34 18:34 Creatine Kinase 130 CK-MB (CK-2) 1.43 1.51 Troponin I 0.023 0.023 NT-Pro-B Natriuret Pep 11/18/17 11/19/17 03:40 05:32 Creatine Kinase CK-MB (CK-2) Troponin I NT-Pro-B Natriuret Pep 2870 H 1610 H Impressions: Chest X-Ray 11/16/17 22:30 IMPRESSION: No acute disease. Abdomen Ultrasound 11/16/17 23:20 IMPRESSION: 1. Cholelithiasis with gallbladder wall thickening and pericholecystic fluid. These findings could be seen with acute cholecystitis. 2. Hepatic steatosis. Hepatobiliary Scan Nuclear Medicine 11/17/17 00:00 IMPRESSION: There is a focal accumulation of tracer activity in the expected position of the gallbladder which does not conform with the ultrasound appearance of the gallbladder and may be within the cystic duct. I cannot confirm gallbladder visualization on the basis of this study. There is patency of the common bile duct with bowel activity being identified. Clinical correlation is recommended Status: Imported from PACS Assessment & Plan - Diagnosis (1) Cholecystitis Is this a current diagnosis for this admission?: Yes Plan: HIDA scan reveals cystic duct area but not whole gallbladder with patent CBD. US reveals cholelithiasis with cholecystitis. Continue IV Zosyn. Tolerating p.o. diet, denies postprandial abdominal pain Morphine and Tylenol PRN pain Zofran PRN pain Per Surgery, cholecystectomy is non-emergent at this time. Patient can follow up at the surgical clinic and schedule the procedure for a later date at a larger tertiary facility. Patient is considered to be too high risk for cholecystectomy (2) CHF (congestive heart failure) Qualifiers: Heart failure type: unspecified Heart failure chronicity: unspecified Qualified Code(s): I50.9 - Heart failure, unspecified Is this a current diagnosis for this admission?: Yes Plan: LVEF 30% based on ECHO performed last month Patient has a history of noncompliance with cardiac medications but reports he has been compliant with his daily medications since his discharge 2 weeks ago. BNP 1650, improved from yesterday Continue digoxin. Cardiology consulted, appreciate Dr. Boyd's recommendations Continue lisinopril and metoprolol Continue Dobutamine gtt for inotropic activity and hopes of improving cardiac function/liver congestion Upgraded to [facility] Concern for hepatic congestion stemming from poorly controlled CHF (3) Diabetes Qualifiers: Diabetes mellitus type: type 2 Diabetes mellitus complication status: without complication Is this a current diagnosis for this admission?: Yes Plan: PMH of DM 2 Accu-Cheks AC at bedtime Humalog sliding scale insulin for mealtime coverage Hgb A1c 6.5% (4) Anxiety Is this a current diagnosis for this admission?: Yes Plan: Patient endorses history of generalized anxiety disorder He was visibly anxious upon arrival to [facility] on 11/18, pacing in his room, pressured speech, unable to verbalize why he was feeling anxious just stating " I feel like I can't breath" Today (11/19) patient reports his anxiety has greatly improved since restarting klonopin Continue home dose Klonopin 2 mg twice daily (5) Constipation Qualifiers: Constipation type: slow transit constipation Qualified Code(s): K59.01 - Slow transit constipation Is this a current diagnosis for this admission?: Yes Plan: Patient endorses constipation, states he is able to go to the bathroom but feels like his abdomen is 'full' Patient states he normally is able to have larger bowel movements Abdominal fullness could be secondary to liver congestion (see above) vs. chronic induced constipation Daily senna and MiraLAX for constipation relief - Time Time Spent with patient: 15-24 minutes Medications reviewed and adjusted accordingly: Yes Anticipated discharge: Home - Inpatient Certification Based on my medical assessment, after consideration of the patient's comorbidities, presenting symptoms, or acuity I expect that the services needed warrant INPATIENT care.: Yes I certify that my determination is in accordance with my understanding of Medicare's requirements for reasonable and necessary INPATIENT services [42 CFR 412.3e].: Yes Medical Necessity: Need For Continuous Telemetry Monitoring, Risk of Complication if Not Cared For in Hospital - Plan Summary Plan Summary: CONTINUE DOBUTAMINE GTT. INITIATE BOWEL REGIMEN.
--- NOTE | 2017-11-19 22:48 | Progress Note ---
Provider Note Provider Note: CARDIOLOGY PROGRESS NOTE by Dr. Gale Hewitt on 11/19/2017. SUBJECTIVE: The patient denies any further right upper quadrant pain. He has mild pain in the epigastric area. He has no nausea or vomiting. There is no PND orthopnea. There is no leg edema. There is no arrhythmias seen, and no firing of his AICD. The patient is tolerating the dobutamine at 5 mcg/kg/min well. He is diuresing well also. The patient has no anginal symptoms, no palpitations. There is no shortness of breath. PHYSICAL EXAMINATION: The patient is well-built and well-nourished, in no acute distress. He is well-groomed. Selected Entries 11/19/17 11/19/17 11:42 12:00 Temperature 97.6 F Temperature Oral Source Pulse Rate 98 Respiratory 18 Rate Blood Pressure 112/76 Blood Pressure 88 Mean BP Location Right Arm O2 Sat by Pulse 98 Oximetry Oxygen Delivery Room Air Method HEAD: Is atraumatic normocephalic. EYES: Pupils equal round regular reactive to light accommodation. ENT: Is negative. NECK: Is supple there is mild JVD present. Carotids are equal there is no bruits. There is no lymphadenopathy. There is no goiter. Trachea central. LUNGS: There is diminished air entry and prolonged expiration. There is a few bibasilar rales of CHF. HEART: S1-S2 is heard there is no S3 gallop there is no S4 gallop the systolic murmur of mitral regurgitation and tricuspid regurgitation. There is no S3 gallop. There is no rub. ABDOMEN is soft liver is mildly enlarged and there is no known tender. De La Cruz sign is negative. There is mild discomfort and pressing on the epigastrium, but no rebound or guarding. There is no rigidity. Bowel sounds well heard. There is no splenomegaly. There is no masses. There is no rebound guarding or rigidity.Extremities: Femorals are well felt. There is no femoral bruits. Leg pulses are well felt. There is no pedal edema. There is no DVT or cellulitis. There is no calf tenderness. EMPLOYMENT CASE MANAGER: Patient is conscious awake alert oriented x3 with no focal deficit. PSYCHIATRIC: The patient judgment and insight are intact his affect is normal. 11/19/17 11/19/17 05:32 05:32 Sodium 139.4 Potassium 4.4 Chloride 106 Carbon Dioxide 24 BUN 29 H Creatinine 1.37 H Est GFR (Non-Af Amer) 55 L Glucose 97 Calcium 8.4 Magnesium 2.2 Total Bilirubin 0.6 Direct Bilirubin 0.6 H Neonat Total Bilirubin Not Reportable Neonat Direct Bilirubin Not Reportable Neonat Indirect Bili Not Reportable AST 107 H ALT 115 H Alkaline Phosphatase 73 NT-Pro-B Natriuret Pep 1610 H Total Protein 5.9 L Albumin 3.1 L IMPRESSION/RECOMMENDATION: 1. ACUTE ON CHRONIC BIVENTRICULAR [left ventricular and right ventricular] SYSTOLIC heart failure. Suspect right heart failure more than left heart, especially with pulmonary hypertension which is significant. The patient's right upper quadrant pain may be at least in part due to hepatic congestion and liver distention. Although the patient does have chronic cholelithiasis/ cholecystitis. In view of this would start the patient on dobutamine drip at 2 mcg/kg/min and watch for any arrhythmias, and increase to 5 mcg/kg/min. We will start of the IV fluids have been stopped. We will continue the patient on Lasix, and NIKHIL inhibitor. In view of the patient's COPD would stop the patient' s Coreg and change to Toprol-XL. We will continue digoxin. 2. CORONARY ARTERY DISEASE: History of OR? Reevaluate revascularization , if at all done. Await records from [place]. The patient has no anginal symptoms. No OR this admission. Will try if the blood pressure allows to place the patient on nitrates, which will also help the patient's pulmonary hypertension. 3. HYPERTENSION: Well controlled. 4. COPD: At present no acute exacerbation symptoms of COPD. 5. Diabetes mellitus: Continue the patient's antidiabetic regimen. 6. Chronic cholelithiasis/cholecystitis. The patient may need surgery at would optimize the patient's cardiac status. 7. Status post AICD.: No firing of AICD. 8. History of tobacco abuse. Tobacco cessation counseling given to the patient. 3-5 minutes spent on this. 9. BIPOLAR DISORDER: Stable. 10. POST TRAUMATIC STRESS DISORDER: Appears to be stable. 11.: Abnormal LIVER FUNCTION TESTS: This is most likely due to hepatic congestion. But note the liver function tests are abnormal, although the patient is clinically much improved. The patient is not on any medication that can affect her liver enzymes. MEDICATIONS reviewed. Will most likely stop the patient's dobutamine tomorrow. Continue the patient's Lasix, nitrates, NIKHIL inhibitor, and Toprol-XL. Continue digoxin. Medical decision making history of high complexity. 40 minutes spent on this patient more than 50% time spent in direct patient care. We will follow with you. Discussed with the surgical list, and the hospitalist taking care of the patient.
[2017-11-20] MEDS: PIPERACILLIN SODIUM/TAZOBACTAM 3.375 GM in NORMAL SALINE 100 ML IV SCH ×4 (02:14→21:13)
[2017-11-20] MEDS: NITROGLYCERIN 2% OINTMENT 1 GM PACKET TP SCH ×2 (02:14→09:05)
[2017-11-20] MEDS: MORPHINE SULFATE 10 MG/ML INJ IV PRN ×2 (02:15→22:10)
[2017-11-20] MEDS: HEPARIN SOD (PORCINE) 5,000 UNIT/ML 1 ML SYRINGE SUBCUT SCH ×3 (06:28→21:25)
[2017-11-20] MEDS: DOBUTAMINE HCL/D5W 500 MG/250 ML RTUINJ IV PRN (07:49)
[2017-11-20] MEDS: FUROSEMIDE 40 MG TABLET PO SCH (09:07)
[2017-11-20] MEDS: CLONAZEPAM 1 MG TABLET PO SCH ×2 (09:08→21:23)
[2017-11-20] MEDS: ASPIRIN 81 MG TABLET, ENT COATED PO SCH (09:08)
[2017-11-20] MEDS: METOPROLOL SUCCINATE 25 MG TAB.SR.24H PO SCH ×2 (09:08→21:24)
[2017-11-20] MEDS: LISINOPRIL 5 MG TABLET PO SCH ×2 (09:08→21:24)
[2017-11-20] MEDS: NICOTINE 14 MG/24 HR PATCH.TD24 TD SCH (09:08)
[2017-11-20] MEDS: SENNOSIDES/DOCUSATE 8.6-50 MG 1 EACH TABLET PO SCH ×2 (09:08→18:44)
[2017-11-20] MEDS: FAMOTIDINE 20 MG TABLET PO SCH ×2 (09:08→21:23)
[2017-11-20] MEDS: DIGOXIN 0.125 MG TABLET PO SCH (09:09)
[2017-11-20] MEDS: POLYETHYLENE GLYCOL 3350 POWDER 17 GM/1 PACKET PO SCH (09:09)
[2017-11-20 12:04] LABS: HEMATOCRIT 36.5 % (37.9-51.0); HEMOGLOBIN 11.8 g/dL (13.5-17.0); MEAN CORPUSCULAR HEMOGLOBIN 27.2 pg (27.0-33.4); MEAN CORPUSCULAR HGB CONC 32.3 g/dL (32.0-36.0); MEAN CORPUSCULAR VOLUME 84 fl (80-97); RED BLOOD COUNT 4.35 10^6/uL (4.35-5.55); RED CELL DISTRIBUTION WIDTH 16.2 % (11.5-14.0); WHITE BLOOD COUNT 11.2 10^3/uL (4.0-10.5)
[2017-11-20 12:19] LABS: ALANINE AMINOTRANSFERASE 97 U/L (21-72); ALBUMIN 3.1 g/dL (3.5-5.0); ALKALINE PHOSPHATASE 57 U/L (38-126); ANION GAP 8 (5-19); ASPARTATE AMINO TRANSFERASE 64 U/L (17-59); BILIRUBIN,DIRECT 0.6 mg/dL (0.0-0.4); BILIRUBIN,TOTAL 0.9 mg/dL (0.2-1.3); BLOOD UREA NITROGEN 20 mg/dL (7-20); CALCIUM 8.6 mg/dL (8.4-10.2); CARBON DIOXIDE 23 mmol/L (22-30); CHLORIDE 107 mmol/L (98-107); GLUCOSE 123 mg/dL (75-110); PHOSPHORUS 3.7 mg/dL (2.5-4.5); POTASSIUM 4.8 mmol/L (3.6-5.0); SODIUM 138.3 mmol/L (137-145); TOTAL PROTEIN 5.6 g/dL (6.3-8.2)
[2017-11-20 12:38] LABS: PLATELET COUNT 180 10^3/uL (150-450)
[2017-11-20] MEDS: NITROGLYCERIN 5 MG (0.2 MG/HR) PATCH.TD24 TD SCH (13:28)
--- NOTE | 2017-11-20 17:34 | PDOC PROGRESS REPORT ---
Subjective Progress Note for:: 11/20/17 Subjective:: Jeri Dial is a 47 y.o. M with a PMH of CHF (EF 30%), AICD, DM2, HTN, anxiety, PTSD, bipolar disorder. Known diagnosis of cholecystitis - recently hospitalized at [facility] a few weeks ago. Scheduled outpatient follow up with surgical clinic but returned to [facility] ED for worsening epigastric pain and N/V. The patient was seen this morning on rounds. He is resting comfortably in bed on room air. The patient was asleep but easily arousable to verbal stimuli. The patient denies epigastric pain and was able to sleep through the night. The patient still endorses constipation despite initiating Miralax and Senna yesterday. Abdomen still appears moderately distended. Financial Aid Officer and general surgeon both feel that the patient's pain is secondary to hepatic congestion stemming from severe CHF. Plan for outpatient surgical referral for cholecystectomy. The patient remains on a dobutamine gtt, plan to discontinue today and optimize patient's oral medications. Reason For Visit: ABD PAIN Physical Exam Vital Signs: Temp Pulse Resp BP Pulse Ox 97.5 F 96 18 110/43 L 97 11/20/17 11:17 11/20/17 11:17 11/20/17 11:17 11/20/17 11:17 11/20/17 11:17 Intake & Output 11/19/17 11/20/17 11/21/17 06:59 06:59 06:59 Intake Total 1358 3142 341 Output Total 1750 2900 Balance -392 242 341 Weight 86.5 kg 85.9 kg General appearance: PRESENT: no acute distress, well-developed, well-nourished Head exam: PRESENT: atraumatic, normocephalic Eye exam: PRESENT: conjunctiva pink, EOMI, PERRLA. ABSENT: scleral icterus Ear exam: PRESENT: normal external ear exam Mouth exam: PRESENT: moist, tongue midline Neck exam: ABSENT: carotid bruit, JVD, lymphadenopathy, thyromegaly Respiratory exam: PRESENT: clear to auscultation brigido, symmetrical, unlabored. ABSENT: rales, rhonchi, wheezes Cardiovascular exam: PRESENT: irregular rhythm, +S1, +S2, systolic murmur. ABSENT: diastolic murmur, rubs Pulses: PRESENT: normal radial pulses, normal dorsalis pedis pul Vascular exam: PRESENT: normal capillary refill GI/Abdominal exam: PRESENT: distended, normal bowel sounds, soft. ABSENT: guarding, mass, organolmegaly, rebound, tenderness Rectal exam: PRESENT: deferred Extremities exam: PRESENT: full ROM. ABSENT: calf tenderness, clubbing, pedal edema Neurological exam: PRESENT: alert, awake, oriented to person, oriented to place , oriented to time, oriented to situation, CN II-XII grossly intact. ABSENT: motor sensory deficit Psychiatric exam: PRESENT: appropriate affect, normal mood. ABSENT: homicidal ideation, suicidal ideation Skin exam: PRESENT: dry, intact, warm. ABSENT: cyanosis, rash Results Laboratory Results: 11/18/17 03:40 11/19/17 05:32 11/17/17 11/17/17 11/17/17 05:36 05:36 11:51 Creatine Kinase 132 123 CK-MB (CK-2) 1.35 Troponin I 0.034 NT-Pro-B Natriuret Pep 11/17/17 11/17/17 11/17/17 11:51 18:34 18:34 Creatine Kinase 130 CK-MB (CK-2) 1.43 1.51 Troponin I 0.023 0.023 NT-Pro-B Natriuret Pep 11/18/17 11/19/17 03:40 05:32 Creatine Kinase CK-MB (CK-2) Troponin I NT-Pro-B Natriuret Pep 2870 H 1610 H Impressions: Chest X-Ray 11/16/17 22:30 IMPRESSION: No acute disease. Abdomen Ultrasound 11/16/17 23:20 IMPRESSION: 1. Cholelithiasis with gallbladder wall thickening and pericholecystic fluid. These findings could be seen with acute cholecystitis. 2. Hepatic steatosis. Hepatobiliary Scan Nuclear Medicine 11/17/17 00:00 IMPRESSION: There is a focal accumulation of tracer activity in the expected position of the gallbladder which does not conform with the ultrasound appearance of the gallbladder and may be within the cystic duct. I cannot confirm gallbladder visualization on the basis of this study. There is patency of the common bile duct with bowel activity being identified. Clinical correlation is recommended Status: Imported from PACS Assessment & Plan - Diagnosis (1) Cholecystitis Is this a current diagnosis for this admission?: Yes Plan: HIDA scan reveals cystic duct area but not whole gallbladder with patent CBD. US reveals cholelithiasis with cholecystitis. Continue IV Zosyn. Tolerating p.o. diet, denies postprandial abdominal pain Morphine and Tylenol PRN pain Zofran PRN pain Per Surgery, cholecystectomy is non-emergent at this time. Patient can follow up at the surgical clinic and schedule the procedure for a later date at a larger tertiary facility. Patient is considered to be too high risk for cholecystectomy (2) CHF (congestive heart failure) Qualifiers: Heart failure type: unspecified Heart failure chronicity: unspecified Qualified Code(s): I50.9 - Heart failure, unspecified Is this a current diagnosis for this admission?: Yes Plan: LVEF 30% based on ECHO performed last month Patient has a history of noncompliance with cardiac medications but reports he has been compliant with his daily medications since his discharge 2 weeks ago. BNP 1650, improved from yesterday Continue digoxin. Cardiology consulted, appreciate Dr. Boyd's recommendations Continue lisinopril and metoprolol Dobutamine gtt initiated for inotropic activity, plan to d/c today Initiate transdermal Nitro Upgraded to [facility] Concern for hepatic congestion stemming from poorly controlled CHF (3) Diabetes Qualifiers: Diabetes mellitus type: type 2 Diabetes mellitus complication status: without complication Is this a current diagnosis for this admission?: Yes Plan: PMH of DM 2 Accu-Cheks AC at bedtime Humalog sliding scale insulin for mealtime coverage Hgb A1c 6.5% (4) Anxiety Is this a current diagnosis for this admission?: Yes Plan: Patient endorses history of generalized anxiety disorder He was visibly anxious upon arrival to [facility] on 11/18, pacing in his room, pressured speech, unable to verbalize why he was feeling anxious just stating " I feel like I can't breath" Resumed home dose Klonopin 2 mg twice daily (5) Constipation Qualifiers: Constipation type: slow transit constipation Qualified Code(s): K59.01 - Slow transit constipation Is this a current diagnosis for this admission?: Yes Plan: Patient endorses constipation, states he is able to go to the bathroom but feels like his abdomen is 'full' Patient states he normally is able to have larger bowel movements Abdominal fullness could be secondary to liver congestion (see above) vs. chronic induced constipation Daily senna and MiraLAX for constipation relief - Time Time Spent with patient: 15-24 minutes Medications reviewed and adjusted accordingly: Yes Anticipated discharge: Home - Inpatient Certification Based on my medical assessment, after consideration of the patient's comorbidities, presenting symptoms, or acuity I expect that the services needed warrant INPATIENT care.: Yes I certify that my determination is in accordance with my understanding of Medicare's requirements for reasonable and necessary INPATIENT services [42 CFR 412.3e].: Yes Medical Necessity: Need For Continuous Telemetry Monitoring, Risk of Complication if Not Cared For in Hospital - Plan Summary Plan Summary: Discontinue dobutamine infusion. Initiate transdermal nitroglycerin. Increase lisinopril dosing. Likely discharge home tomorrow.
--- NOTE | 2017-11-20 22:07 | Progress Note ---
Provider Note Provider Note: CARDIOLOGY PROGRESS NOTES by Dr. Gale Hewitt on 11/20/2017. SUBJECTIVE: The patient denies any chest pain or discomfort. There is no shortness of breath. There is no PND orthopnea. He has no abdominal pain either right upper quadrant or epigastric. There is no nausea vomiting. His appetite is fair. The patient does have constipation. There is no leg edema. There is no firing of his AICD. There is no ventricular arrhythmias seen. There is no leg edema. There is no TIA CVA symptoms.. PHYSICAL EXAMINATION: The patient is well-built and well-nourished. He is well- groomed groomed. He is in no acute distress. Selected Entries 11/20/17 11:17 Temperature 97.5 F Temperature Axillary Source Pulse Rate 96 Respiratory 18 Rate Blood Pressure 110/43 L Blood Pressure 65 Mean BP Location Right Arm BP Position Supine O2 Sat by Pulse 97 Oximetry Oxygen Delivery Room Air Method HEAD: Is atraumatic normocephalic. EYES: Pupils equal round regular reactive to light accommodation. ENT: Is negative. NECK: Is supple there is mild JVD present. Carotids are equal there is no bruits. There is no lymphadenopathy. There is no goiter. Trachea central. LUNGS: There is diminished air entry and prolonged expiration. There is a few bibasilar rales of CHF. HEART: S1-S2 is heard there is no S3 gallop there is no S4 gallop the systolic murmur of mitral regurgitation and tricuspid regurgitation. There is no S3 gallop. There is no rub. ABDOMEN is soft liver is mildly enlarged and there is no known tender. De La Cruz sign is negative. There is mild discomfort and pressing on the epigastrium, but no rebound or guarding. There is no rigidity. Bowel sounds well heard. There is no splenomegaly. There is no masses. There is no rebound guarding or rigidity.Extremities: Femorals are well felt. There is no femoral bruits. Leg pulses are well felt. There is no pedal edema. There is no DVT or cellulitis. There is no calf tenderness. CFO: Patient is conscious awake alert oriented x3 with no focal deficit. PSYCHIATRIC: The patient judgment and insight are intact his affect is normal. 11/20/17 11/20/17 11/20/17 11:40 11:40 11:40 WBC 11.2 H Hgb 11.8 L Hct 36.5 L Plt Count 180 Sodium 138.3 Potassium 4.8 Chloride 107 Carbon Dioxide 23 BUN 20 Creatinine 1.07 Est GFR (Non-Af Amer) > 60 Glucose 123 H Calcium 8.6 Phosphorus 3.7 Magnesium 2.3 Total Bilirubin 0.9 Direct Bilirubin 0.6 H Neonat Total Bilirubin Not Reportable Neonat Direct Bilirubin Not Reportable Neonat Indirect Bili Not Reportable AST 64 H ALT 97 H Alkaline Phosphatase 57 NT-Pro-B Natriuret Pep 1130 H IMPRESSION/RECOMMENDATION: 1. ACUTE ON CHRONIC BIVENTRICULAR [left ventricular and right ventricular] SYSTOLIC heart failure. Suspect right heart failure more than left heart, especially with pulmonary hypertension which is significant. This has improved with the patient going to baseline. Note the patient has no further abdominal pain, and hence definitely the abdominal pain was secondary to the patient's right heart failure. The patient has had good urine output, although the output collection is not accurate. We will stop the patient's dobutamine. We will continue the patient on Toprol-XL 25 mg p.o. every 12 hours, and NIKHIL inhibitor. Continue the patient on aspirin. Will continue digoxin. 2. CORONARY ARTERY DISEASE: History of RI? Reevaluate revascularization , if at all done. Await records from [place]. The patient has no anginal symptoms. No RI this admission. We will continue the patient's nitrates topically. 3. HYPERTENSION: Well controlled. 4. COPD: At present no acute exacerbation symptoms of COPD. 5. Diabetes mellitus: Continue the patient's antidiabetic regimen. 6. Chronic cholelithiasis/cholecystitis. The patient may need surgery at would optimize the patient's cardiac status. 7. Status post AICD.: No firing of AICD. 8. History of tobacco abuse. Tobacco cessation counseling given to the patient. 3-5 minutes spent on this. 9. BIPOLAR DISORDER: Stable. 10. POST TRAUMATIC STRESS DISORDER: Appears to be stable. 11.: Abnormal LIVER FUNCTION TESTS: This is most likely due to hepatic congestion. Note with the treatment of the right heart failure with dobutamine and NIKHIL inhibitors and beta-leola and digoxin and nitrates, the patient's hepatic congestion is improved, he is asymptomatic with no abdominal pain, and the liver function tests are improved. 12. CONSTIPATION: The patient's been given oral laxatives. ON reassessing the patient's cardiac status, at present the patient seems to be well compensated. Hence he would be at moderate risk for elective gallbladder surgery, and high risk if attached to be done emergently. Would recommend that patient be scheduled electively for outpatient cholecystectomy. The patient is a patient of mine who is followed up in the office, will follow in the office. The patient has my cell phone number to call me if he has any problems. The patient can be discharged tomorrow morning. Will sign off the case, and follow the patient as an outpatient. MEDICATIONS have been discussed with the hospitalist and the patient. Medical decision making at present is of moderate complexity. She will await records from [place]. Note 40 minutes spent on this patient more than 50% of time spent in direct patient care. Thanking you for allowing me to participate in the care of this patient.
[2017-11-21] MEDS: PIPERACILLIN SODIUM/TAZOBACTAM 3.375 GM in NORMAL SALINE 100 ML IV SCH ×4 (02:56→20:40)
[2017-11-21 05:48] LABS: HEMATOCRIT 39.2 % (37.9-51.0); HEMOGLOBIN 12.8 g/dL (13.5-17.0); MEAN CORPUSCULAR HEMOGLOBIN 27.8 pg (27.0-33.4); MEAN CORPUSCULAR HGB CONC 32.7 g/dL (32.0-36.0); MEAN CORPUSCULAR VOLUME 85 fl (80-97); PLATELET COUNT 211 10^3/uL (150-450); RED BLOOD COUNT 4.62 10^6/uL (4.35-5.55); WHITE BLOOD COUNT 10.3 10^3/uL (4.0-10.5)
[2017-11-21] MEDS: HEPARIN SOD (PORCINE) 5,000 UNIT/ML 1 ML SYRINGE SUBCUT SCH ×3 (05:57→21:13)
[2017-11-21 07:27] LABS: ALANINE AMINOTRANSFERASE 104 U/L (21-72); ALBUMIN 3.4 g/dL (3.5-5.0); ALKALINE PHOSPHATASE 73 U/L (38-126); ANION GAP 11 (5-19); ASPARTATE AMINO TRANSFERASE 59 U/L (17-59); BILIRUBIN,DIRECT 0.5 mg/dL (0.0-0.4); BILIRUBIN,TOTAL 0.8 mg/dL (0.2-1.3); BLOOD UREA NITROGEN 25 mg/dL (7-20); CALCIUM 8.9 mg/dL (8.4-10.2); CARBON DIOXIDE 21 mmol/L (22-30); CHLORIDE 107 mmol/L (98-107); GLUCOSE 114 mg/dL (75-110); POTASSIUM 5.2 mmol/L (3.6-5.0); SODIUM 138.5 mmol/L (137-145); TOTAL PROTEIN 6.6 g/dL (6.3-8.2)
[2017-11-21] MEDS: CLONAZEPAM 1 MG TABLET PO SCH ×2 (09:52→21:15)
[2017-11-21] MEDS: NITROGLYCERIN 5 MG (0.2 MG/HR) PATCH.TD24 TD SCH (09:52)
[2017-11-21] MEDS: LISINOPRIL 5 MG TABLET PO SCH ×2 (09:53→21:20)
[2017-11-21] MEDS: ASPIRIN 81 MG TABLET, ENT COATED PO SCH (09:53)
[2017-11-21] MEDS: DIGOXIN 0.125 MG TABLET PO SCH (09:53)
[2017-11-21] MEDS: NICOTINE 14 MG/24 HR PATCH.TD24 TD SCH (09:53)
[2017-11-21] MEDS: SENNOSIDES/DOCUSATE 8.6-50 MG 1 EACH TABLET PO SCH ×2 (09:53→18:15)
[2017-11-21] MEDS: FUROSEMIDE 40 MG TABLET PO SCH (09:53)
[2017-11-21] MEDS: FAMOTIDINE 20 MG TABLET PO SCH ×2 (09:53→21:17)
[2017-11-21] MEDS: POLYETHYLENE GLYCOL 3350 POWDER 17 GM/1 PACKET PO SCH (09:53)
[2017-11-21] MEDS: METOPROLOL SUCCINATE 25 MG TAB.SR.24H PO SCH ×2 (09:53→21:19)
--- NOTE | 2017-11-21 17:05 | PDOC PROGRESS REPORT ---
Subjective Progress Note for:: 11/21/17 Reason For Visit: ABD PAIN Patient still having pain in the right, worse when eating; but overall symptoms improved. Physical Exam Vital Signs: Temp Pulse Resp BP Pulse Ox 97.4 F 82 21 H 102/75 96 11/21/17 15:14 11/21/17 15:14 11/21/17 15:14 11/21/17 15:14 11/21/17 15:14 Intake & Output 11/20/17 11/21/17 11/22/17 06:59 06:59 06:59 Intake Total 3142 2756 873 Output Total 2900 1875 Balance 242 881 873 Weight 85.9 kg 85.2 kg General appearance: PRESENT: no acute distress GI/Abdominal exam: PRESENT: other - Moderately tender right upper quadrant to deep palpation no rigidity no peritoneal signs Results Laboratory Results: 11/21/17 05:10 11/21/17 05:10 11/21/17 11/21/17 05:10 05:10 WBC 10.3 RBC 4.62 Hgb 12.8 L Hct 39.2 MCV 85 MCH 27.8 MCHC 32.7 RDW 16.0 H Plt Count 211 Sodium 138.5 Potassium 5.2 H Chloride 107 Carbon Dioxide 21 L Anion Gap 11 BUN 25 H Creatinine 1.43 H Est GFR ( Amer) > 60 Est GFR (Non-Af Amer) 53 L Glucose 114 H Calcium 8.9 Total Bilirubin 0.8 AST 59 ALT 104 H Alkaline Phosphatase 73 Total Protein 6.6 Albumin 3.4 L 11/17/17 11/17/17 11/17/17 05:36 05:36 11:51 Creatine Kinase 132 123 CK-MB (CK-2) 1.35 Troponin I 0.034 NT-Pro-B Natriuret Pep 11/17/17 11/17/17 11/17/17 11:51 18:34 18:34 Creatine Kinase 130 CK-MB (CK-2) 1.43 1.51 Troponin I 0.023 0.023 NT-Pro-B Natriuret Pep 11/18/17 11/19/17 11/20/17 03:40 05:32 11:40 Creatine Kinase CK-MB (CK-2) Troponin I NT-Pro-B Natriuret Pep 2870 H 1610 H 1130 H 11/21/17 05:10 Creatine Kinase CK-MB (CK-2) Troponin I NT-Pro-B Natriuret Pep 1920 H Impressions: Chest X-Ray 11/16/17 22:30 IMPRESSION: No acute disease. Abdomen Ultrasound 11/16/17 23:20 IMPRESSION: 1. Cholelithiasis with gallbladder wall thickening and pericholecystic fluid. These findings could be seen with acute cholecystitis. 2. Hepatic steatosis. Hepatobiliary Scan Nuclear Medicine 11/17/17 00:00 IMPRESSION: There is a focal accumulation of tracer activity in the expected position of the gallbladder which does not conform with the ultrasound appearance of the gallbladder and may be within the cystic duct. I cannot confirm gallbladder visualization on the basis of this study. There is patency of the common bile duct with bowel activity being identified. Clinical correlation is recommended Assessment & Plan - Diagnosis (1) Acute cholecystitis Is this a current diagnosis for this admission?: Yes Plan: Impression: Symptomatic cholelithiasis cholecystitis in a 47-year-old white male with a history of cardiomyopathy; symptoms improved but not resolved. Recommendations: 1. Dr. MONTAGUE called me this morning to discuss the patient. He recommended we proceed with surgical intervention during this hospitalization. I agreed the patient should undergo interval laparoscopic cholecystectomy to minimize complications in this moderate to high risk patient. I did discuss the patient with Dr. Salter as well as hvac service manager, Dr. Glez. There is concern amongst the cardiologists that patient may require postoperative cardio vascular support that may be limited at [facility]. 2. I believe the patient would be willing to undergo the operation here at [facility] , with the understanding that postoperatively he may require transfer to a tertiary care level institution. We will keep him n.p.o.
--- NOTE | 2017-11-21 18:08 | PDOC PROGRESS REPORT ---
Subjective Progress Note for:: 11/21/17 Subjective:: Jeri Dial is a 47 y.o. M with a PMH of CHF (EF 30%), AICD, DM2, HTN, anxiety, PTSD, bipolar disorder. Known diagnosis of cholecystitis - recently hospitalized at [facility] a few weeks ago. Scheduled outpatient follow up with surgical clinic but returned to [facility] ED for worsening epigastric pain and N/V. The patient was seen this morning on rounds. He is resting comfortably in bed on room air. The patient endorses mild epigastric pain and was able to sleep through the night. The patient no longer endorses constipation, states Miralax and Senna have significantly helped his symptoms. Abdomen still appears moderately distended. Chip Drier and general surgeon both feel that the patient's pain is secondary to hepatic congestion stemming from severe CHF. Dr. Soria, General Surgery, feels that the cholesystectomy can be performed tomorrow. While the procedure is not emergent, there is concern that the patient will be lost to follow up due to a history of non-compliance. Reason For Visit: ABD PAIN Physical Exam Vital Signs: Temp Pulse Resp BP Pulse Ox 97.4 F 82 21 H 102/75 96 11/21/17 15:14 11/21/17 15:14 11/21/17 15:14 11/21/17 15:14 11/21/17 15:14 Intake & Output 11/20/17 11/21/17 11/22/17 06:59 06:59 06:59 Intake Total 3142 2756 873 Output Total 2900 1875 Balance 242 881 873 Weight 85.9 kg 85.2 kg General appearance: PRESENT: no acute distress, well-developed, well-nourished Head exam: PRESENT: atraumatic, normocephalic Eye exam: PRESENT: conjunctiva pink, EOMI, PERRLA. ABSENT: scleral icterus Ear exam: PRESENT: normal external ear exam Mouth exam: PRESENT: moist, neck supple, tongue midline Neck exam: PRESENT: JVD. ABSENT: carotid bruit, lymphadenopathy, thyromegaly Respiratory exam: PRESENT: clear to auscultation brigido, symmetrical, unlabored. ABSENT: rales, rhonchi, wheezes Cardiovascular exam: PRESENT: RRR, +S1, +S2, systolic murmur. ABSENT: diastolic murmur, rubs Pulses: PRESENT: normal radial pulses, normal dorsalis pedis pul Vascular exam: PRESENT: normal capillary refill GI/Abdominal exam: PRESENT: distended, normal bowel sounds, soft. ABSENT: guarding, mass, organolmegaly, rebound, tenderness Rectal exam: PRESENT: deferred Extremities exam: PRESENT: full ROM. ABSENT: calf tenderness, clubbing, pedal edema Musculoskeletal exam: PRESENT: full ROM Neurological exam: PRESENT: alert, awake, oriented to person, oriented to place , oriented to time, oriented to situation Skin exam: PRESENT: dry, intact, warm. ABSENT: cyanosis, rash Results Laboratory Results: 11/21/17 05:10 11/21/17 05:10 11/21/17 11/21/17 05:10 05:10 WBC 10.3 RBC 4.62 Hgb 12.8 L Hct 39.2 MCV 85 MCH 27.8 MCHC 32.7 RDW 16.0 H Plt Count 211 Sodium 138.5 Potassium 5.2 H Chloride 107 Carbon Dioxide 21 L Anion Gap 11 BUN 25 H Creatinine 1.43 H Est GFR ( Amer) > 60 Est GFR (Non-Af Amer) 53 L Glucose 114 H Calcium 8.9 Total Bilirubin 0.8 AST 59 ALT 104 H Alkaline Phosphatase 73 Total Protein 6.6 Albumin 3.4 L 11/17/17 11/17/17 11/17/17 05:36 05:36 11:51 Creatine Kinase 132 123 CK-MB (CK-2) 1.35 Troponin I 0.034 NT-Pro-B Natriuret Pep 11/17/17 11/17/17 11/17/17 11:51 18:34 18:34 Creatine Kinase 130 CK-MB (CK-2) 1.43 1.51 Troponin I 0.023 0.023 NT-Pro-B Natriuret Pep 11/18/17 11/19/17 11/20/17 03:40 05:32 11:40 Creatine Kinase CK-MB (CK-2) Troponin I NT-Pro-B Natriuret Pep 2870 H 1610 H 1130 H 11/21/17 05:10 Creatine Kinase CK-MB (CK-2) Troponin I NT-Pro-B Natriuret Pep 1920 H Impressions: Chest X-Ray 11/16/17 22:30 IMPRESSION: No acute disease. Abdomen Ultrasound 11/16/17 23:20 IMPRESSION: 1. Cholelithiasis with gallbladder wall thickening and pericholecystic fluid. These findings could be seen with acute cholecystitis. 2. Hepatic steatosis. Hepatobiliary Scan Nuclear Medicine 11/17/17 00:00 IMPRESSION: There is a focal accumulation of tracer activity in the expected position of the gallbladder which does not conform with the ultrasound appearance of the gallbladder and may be within the cystic duct. I cannot confirm gallbladder visualization on the basis of this study. There is patency of the common bile duct with bowel activity being identified. Clinical correlation is recommended Status: Imported from PACS Assessment & Plan - Diagnosis (1) Cholecystitis Is this a current diagnosis for this admission?: Yes Plan: HIDA scan reveals cystic duct area but not whole gallbladder with patent CBD. US reveals cholelithiasis with cholecystitis. Continue IV Zosyn. Tolerating p.o. diet, denies postprandial abdominal pain Morphine and Tylenol PRN pain Zofran PRN pain Per Surgery, cholecystectomy is non-emergent at this time. There is concern that he will be lost to follow up if discharged home. Patient is considered to be high risk for cholecystectomy due to significant cardiac history. (2) CHF (congestive heart failure) Qualifiers: Heart failure type: unspecified Heart failure chronicity: unspecified Qualified Code(s): I50.9 - Heart failure, unspecified Is this a current diagnosis for this admission?: Yes Plan: LVEF 30% based on ECHO performed last month Patient has a history of noncompliance with cardiac medications but reports he has been compliant with his daily medications since his discharge 2 weeks ago. BNP 1650-->1920, slightly worse than yesterday Continue digoxin. Cardiology consulted, appreciate Dr. Boyd's recommendations Continue lisinopril and metoprolol Previously on Dobutamine gtt initiated for inotropic activity, has since been d/ c'd Continue transdermal Nitro Admit to [facility] Cardiology and Surgery believe much of the patient's abdominal pain is stemming from hepatic congestion secondary to poorly controlled CHF (3) Diabetes Qualifiers: Diabetes mellitus type: type 2 Diabetes mellitus complication status: without complication Is this a current diagnosis for this admission?: Yes Plan: PMH of DM 2 Accu-Cheks AC at bedtime Humalog sliding scale insulin for mealtime coverage Hgb A1c 6.5% (4) Anxiety Is this a current diagnosis for this admission?: Yes Plan: Patient endorses history of generalized anxiety disorder He was visibly anxious upon arrival to [facility] on 11/18, pacing in his room, pressured speech, unable to verbalize why he was feeling anxious just stating " I feel like I can't breath" Resumed home dose Klonopin 2 mg twice daily Patient states he feels that his anxiety is now well controlled on this regimen (5) Constipation Qualifiers: Constipation type: slow transit constipation Qualified Code(s): K59.01 - Slow transit constipation Is this a current diagnosis for this admission?: Yes Plan: Patient endorses constipation, states he is able to go to the bathroom but feels like his abdomen is 'full' Patient states he normally is able to have larger bowel movements Abdominal fullness could be secondary to liver congestion (see above) vs. chronic induced constipation Daily senna and MiraLAX for constipation relief - Time Time Spent with patient: 15-24 minutes Medications reviewed and adjusted accordingly: Yes Anticipated discharge: Home - Inpatient Certification Based on my medical assessment, after consideration of the patient's comorbidities, presenting symptoms, or acuity I expect that the services needed warrant INPATIENT care.: Yes I certify that my determination is in accordance with my understanding of Medicare's requirements for reasonable and necessary INPATIENT services [42 CFR 412.3e].: Yes Medical Necessity: Need for IV Antibiotics, Risk of Complication if Not Cared For in Hospital - Plan Summary Plan Summary: TENTATIVE PLAN FOR SURGERY TOMORROW AM. PATIENT POSTED ON SCHEDULE BY [facility]. IF GILBERTO DOES NOT PLAN TO OPERATE, DR SORIA STATED HE WILL OPERATE ON TUESDAY.
[2017-11-21] MEDS: MORPHINE SULFATE 10 MG/ML INJ IV PRN (20:40)
--- NOTE | 2017-11-21 20:43 | Progress Note ---
Provider Note Provider Note: CARDIOLOGY PROGRESS NOTES by Dr. Gale Hewitt on 11/21/2017. SUBJECTIVE: The patient states his abdominal pain is only mild and occurs only when eating. He has no nausea vomiting. His constipation is resolved. There is no fever chills or rigors. There is no firing of his AICD. There is no shortness of breath. There is no PND orthopnea or leg edema. The patient denies any palpitations or syncope or near syncope. There is no anginal symptoms. PHYSICAL EXAMINATION: The patient is well-built and well-nourished. He is in no acute distress. Selected Entries 11/21/17 11:47 Temperature 97.4 F Temperature Axillary Source Pulse Rate 92 Respiratory 20 Rate Blood Pressure 104/81 Blood Pressure 88 Mean BP Location Left Arm BP Position Sitting O2 Sat by Pulse 100 Oximetry Oxygen Delivery Room Air Method HEAD: Is atraumatic normocephalic. EYES: Pupils equal round regular reactive to light accommodation. ENT: Is negative. NECK: Is supple there is mild JVD present. Carotids are equal there is no bruits. There is no lymphadenopathy. There is no goiter. Trachea central. LUNGS: There is diminished air entry and prolonged expiration. There is a few bibasilar rales of CHF. HEART: S1-S2 is heard there is no S3 gallop there is no S4 gallop the systolic murmur of mitral regurgitation and tricuspid regurgitation. There is no S3 gallop. There is no rub. ABDOMEN is soft liver is is not enlarged no no no and there is no tenderness. De La Cruz sign is negative. There is mild discomfort and pressing on the epigastrium, but no rebound or guarding. There is no rigidity. Bowel sounds well heard. There is no splenomegaly. There is no masses. There is no rebound guarding or rigidity.Extremities: Femorals are well felt. There is no femoral bruits. Leg pulses are well felt. There is no pedal edema. There is no DVT or cellulitis. There is no calf tenderness. EMBROIDERY SPECIALIST: Patient is conscious awake alert oriented x3 with no focal deficit. PSYCHIATRIC: The patient judgment and insight are intact his affect is normal. 11/20/17 11/21/17 11/21/17 11:40 05:10 05:10 WBC 10.3 Hgb 12.8 L Hct 39.2 Plt Count 211 Sodium 138.5 Potassium 5.2 H Chloride 107 BUN 25 H Creatinine 1.43 H Est GFR (Non-Af Amer) 53 L Glucose 114 H Calcium 8.9 Total Bilirubin 0.8 Direct Bilirubin 0.6 H 0.5 H Neonat Total Bilirubin Not Reportable Neonat Direct Bilirubin Not Reportable Neonat Indirect Bili Not Reportable AST 64 H 59 ALT 97 H 104 H Alkaline Phosphatase 57 73 NT-Pro-B Natriuret Pep Total Protein 6.6 Albumin 3.4 L 11/21/17 05:10 WBC Hgb Hct Plt Count Sodium Potassium Chloride BUN Creatinine Est GFR (Non-Af Amer) Glucose Calcium Total Bilirubin Direct Bilirubin Neonat Total Bilirubin Neonat Direct Bilirubin Neonat Indirect Bili AST ALT Alkaline Phosphatase NT-Pro-B Natriuret Pep 1920 H Total Protein Albumin IMPRESSION/RECOMMENDATION: 1. ACUTE ON CHRONIC BIVENTRICULAR [left ventricular and right ventricular] SYSTOLIC heart failure. Suspect right heart failure more than left heart, especially with pulmonary hypertension which is significant. This has improved with the patient going to baseline. Note the patient has no further abdominal pain, and hence definitely the abdominal pain was secondary to the patient's right heart failure. The patient has had good urine output, although the output collection is not accurate. We will stop the patient's dobutamine. We will continue the patient on Toprol-XL 25 mg p.o. every 12 hours, and NIKHIL inhibitor. Continue the patient on aspirin. Will continue digoxin. 2. CORONARY ARTERY DISEASE: History of CO? Reevaluate revascularization , if at all done. Await records from [place]. The patient has no anginal symptoms. No CO this admission. We will continue the patient's nitrates topically. 3. HYPERTENSION: Well controlled. 4. COPD: At present no acute exacerbation symptoms of COPD. 5. Diabetes mellitus: Continue the patient's antidiabetic regimen. 6. Chronic cholelithiasis/cholecystitis. The patient may need surgery at would optimize the patient's cardiac status. I feel at present that the patient cardiac status is optimally controlled. Hence it might be prudent to have the patient undergo surgery now when he is at the peak of his cardiac status. Since if he sent home he might decompensate from his congestive heart failure point of view, and also him if he comes in with acute cholecystitis, the patient will be at high risk. At present the patient is moderate to high risk, but not prohibitively high. Dr. Willams will see the patient tomorrow and decide depending on the patient's cardiac status on 11/22/2017. Discussed this with Dr. Soria. Discussed with the patient and he is agreeable, and willing to take the risk. 7. Status post AICD.: No firing of AICD. 8. History of tobacco abuse. Tobacco cessation counseling given to the patient. 3-5 minutes spent on this. Continue transdermal nicotine patch. 9. BIPOLAR DISORDER: Stable. 10. POST TRAUMATIC STRESS DISORDER: Appears to be stable. 11.: Abnormal LIVER FUNCTION TESTS: This is most likely due to hepatic congestion. Note with the treatment of the right heart failure with dobutamine and NIKHIL inhibitors and beta-leola and digoxin and nitrates, the patient's hepatic congestion is improved, he is asymptomatic with no abdominal pain, and the liver function tests are improved. There is further improvement in his liver function tests., And the liver is not enlarged anymore. 12. CONSTIPATION: The patient's been given oral laxatives. This is resolved The patient's medications have been reviewed. Medical decision making is of high complexity. 40 minutes spent on this patient, with more than 50% of time spent in direct patient care. Dr. Willams will follow the patient tomorrow morning. I will follow the patient in the office, since he is a patient of mine who gets followed up in the office regularly.
[2017-11-22] MEDS: PIPERACILLIN SODIUM/TAZOBACTAM 3.375 GM in NORMAL SALINE 100 ML IV SCH ×3 (02:14→16:17)
[2017-11-22] MEDS: MORPHINE SULFATE 10 MG/ML INJ IV PRN ×2 (03:40→11:31)
[2017-11-22] MEDS: HEPARIN SOD (PORCINE) 5,000 UNIT/ML 1 ML SYRINGE SUBCUT SCH ×2 (05:33→13:18)
[2017-11-22 06:27] LABS: HEMATOCRIT 40.6 % (37.9-51.0); HEMOGLOBIN 13.2 g/dL (13.5-17.0); MEAN CORPUSCULAR HEMOGLOBIN 27.7 pg (27.0-33.4); MEAN CORPUSCULAR HGB CONC 32.5 g/dL (32.0-36.0); MEAN CORPUSCULAR VOLUME 85 fl (80-97); PLATELET COUNT 222 10^3/uL (150-450); RED BLOOD COUNT 4.76 10^6/uL (4.35-5.55); RED CELL DISTRIBUTION WIDTH 16.1 % (11.5-14.0); WHITE BLOOD COUNT 9.8 10^3/uL (4.0-10.5)
[2017-11-22 07:05] LABS: ALANINE AMINOTRANSFERASE 92 U/L (21-72); ALBUMIN 3.6 g/dL (3.5-5.0); ALKALINE PHOSPHATASE 70 U/L (38-126); ANION GAP 9 (5-19); ASPARTATE AMINO TRANSFERASE 52 U/L (17-59); BILIRUBIN,DIRECT 0.6 mg/dL (0.0-0.4); BILIRUBIN,TOTAL 0.7 mg/dL (0.2-1.3); BLOOD UREA NITROGEN 30 mg/dL (7-20); CALCIUM 8.9 mg/dL (8.4-10.2); CARBON DIOXIDE 24 mmol/L (22-30); CHLORIDE 104 mmol/L (98-107); GLUCOSE 117 mg/dL (75-110); POTASSIUM 4.6 mmol/L (3.6-5.0); SODIUM 137.1 mmol/L (137-145); TOTAL PROTEIN 6.8 g/dL (6.3-8.2)
[2017-11-22] MEDS ORDERED: NORMAL SALINE 1000 ML 1,000 ML IV PRN ×2 (08:39→13:30)
[2017-11-22] MEDS: NICOTINE 14 MG/24 HR PATCH.TD24 TD SCH (09:09)
[2017-11-22] MEDS: NITROGLYCERIN 5 MG (0.2 MG/HR) PATCH.TD24 TD SCH (09:09)
[2017-11-22] MEDS: ASPIRIN 81 MG TABLET, ENT COATED PO SCH (09:09)
[2017-11-22] MEDS: CLONAZEPAM 1 MG TABLET PO SCH (09:10)
[2017-11-22] MEDS: METOPROLOL SUCCINATE 25 MG TAB.SR.24H PO SCH (09:10)
[2017-11-22] MEDS: SENNOSIDES/DOCUSATE 8.6-50 MG 1 EACH TABLET PO SCH ×2 (09:10→17:12)
[2017-11-22] MEDS: DIGOXIN 0.125 MG TABLET PO SCH (09:10)
[2017-11-22] MEDS: FUROSEMIDE 40 MG TABLET PO SCH (09:11)
[2017-11-22] MEDS: POLYETHYLENE GLYCOL 3350 POWDER 17 GM/1 PACKET PO SCH (09:11)
[2017-11-22] MEDS: LISINOPRIL 5 MG TABLET PO SCH (09:11)
[2017-11-22] MEDS: FAMOTIDINE 20 MG TABLET PO SCH (09:12)
--- NOTE | 2017-11-22 13:43 | PDOC TRANSFER SUMMARY ---
General Admission Date/PCP: 11/17/17 01:31 Admission Date: 11/17/17 Transfer Date: 11/22/17 Accepting Facility: [facility] Accepting Physician: Dr. Dailey Resuscitation Status: Full Code - Transfer Diagnosis (1) Cholecystitis Is this a current diagnosis for this admission?: Yes Diagnosis Summary: Transferred to [facility] for definitive care. (2) Anxiety Is this a current diagnosis for this admission?: Yes Diagnosis Summary: Well-controlled on his home medication regiment. (3) Constipation Is this a current diagnosis for this admission?: Yes Diagnosis Summary: Resolved. (4) CHF (congestive heart failure) Is this a current diagnosis for this admission?: Yes Diagnosis Summary: Cardiology was consulted; medication management has been optimized. ProBNP remains elevated at 27,000; near baseline. Lung sounds are clear and he is without peripheral edema. Patient is currently ambulatory in the hallways independently on room air. Cardiology recommends pursuing cholecystectomy at this time as he is at his peak cardiac function. (5) Diabetes Is this a current diagnosis for this admission?: Yes Diagnosis Summary: Hemoglobin A1c 6.5%. (6) Tobacco abuse Is this a current diagnosis for this admission?: Yes Diagnosis Summary: Smoking cessation is encouraged; nicotine replacement therapy is provided. (7) AICD (automatic cardioverter/defibrillator) present Is this a current diagnosis for this admission?: No - Transfer Medications Home Medications: Aspirin [Adult Low Dose Aspirin EC] 81 mg PO DAILY 11/03/17 Carvedilol [Coreg 3.125 mg Tablet] 3.125 mg PO Q12 11/03/17 Transfer Medications: Current Medications Acetaminophen (Tylenol 325 Mg Tablet) 975 mg PO Q6HP PRN PRN Reason: FOR PAIN OR TEMP > 101 Stop: 12/17/17 13:31 Aspirin (Ecotrin 81 Mg Ec Tablet) 81 mg PO DAILY EDMUND Stop: 12/18/17 09:59 Last Admin: 11/22/17 09:09 Dose: 81 mg Clonazepam (Klonopin 1 Mg Tablet) 2 mg PO Q12 EDMUND Stop: 11/25/17 12:59 Last Admin: 11/22/17 09:10 Dose: 2 mg Dextrose (Dextrose Inj 50% Syringe (25 Gm/50 Ml)) 25 gm IV PRN PRN; Protocol PRN Reason: PER PROTOCOL Stop: 12/18/17 12:52 Dextrose (Dextrose Inj 50% Syringe (25 Gm/50 Ml)) 12.5 gm IV PRN PRN; Protocol PRN Reason: FOR BG 50-69 IN ALERT PATIENT Stop: 12/18/17 12:52 Digoxin (Lanoxin 0.125 Mg Tablet) 0.125 mg PO DAILY [facility] Stop: 12/18/17 09:59 Last Admin: 11/22/17 09:10 Dose: 0.125 mg Famotidine (Pepcid 20 Mg Tablet) 20 mg PO Q12 EDMUND Stop: 12/19/17 10:14 Last Admin: 11/22/17 09:12 Dose: 20 mg Furosemide (Lasix 40 Mg Tablet) 40 mg PO DAILY EDMUND Stop: 12/18/17 09:59 Last Admin: 11/22/17 09:11 Dose: 40 mg Glucagon (Glucagen Inj 1 Mg Vial) 1 mg IM PRN PRN; Protocol PRN Reason: Evaluate for BG < 70 Stop: 12/18/17 12:52 Glucose (Glutose 40% Gel 15 Gm Tube) 15 gm PO PRN PRN; Protocol PRN Reason: FOR BG 50-69 IN ALERT PATIENT Stop: 12/18/17 12:52 Glucose (Glutose 40% Gel 15 Gm Tube) 30 gm PO PRN PRN; Protocol PRN Reason: FOR BG < 50 IN ALERT PATIENT Stop: 12/18/17 12:52 Heparin Sodium (Porcine) (Heparin Inj 5,000 Units/Ml 1 Ml Syringe) 5,000 unit SUBCUT Q8 [facility] Stop: 12/17/17 05:59 Last Admin: 11/22/17 13:18 Dose: Not Given Piperacillin Sod/Tazobactam (Sod 3.375 gm/ Sodium Chloride) 100 mls @ 200 mls/ hr IV Q6A [facility] Stop: 11/24/17 08:59 Last Infusion: 11/22/17 10:08 Dose: Infused Sodium Chloride (Nacl 0.9% 1000 Ml Iv Soln) 1,000 mls @ 100 mls/hr IV CONTINUOUS PRN PRN Reason: THIS MED IS NOT "PRN" Stop: 12/22/17 08:38 Last Admin: 11/22/17 10:11 Dose: 100 mls/hr Insulin Human Lispro (Humalog Insulin 100 Unit/1 Ml 3 Ml Vial) 0 - 12 unit SUBCUT ACHSP PRN; Protocol PRN Reason: PER PROTOCOL Stop: 12/18/17 12:52 Last Admin: 11/20/17 12:59 Dose: 2 units Lisinopril (Prinivil 5 Mg Tablet) 5 mg PO Q12 EDMUND Stop: 12/19/17 21:59 Last Admin: 11/22/17 09:11 Dose: 5 mg Metoprolol Succinate (Toprol Xl 25 Mg Tab.Sr) 25 mg PO Q12 EDMUND Stop: 12/19/17 09:59 Last Admin: 11/22/17 09:10 Dose: 25 mg Morphine Sulfate (Morphine 10 Mg/Ml Inj) 2 mg IV Q4HP PRN PRN Reason: FOR PAIN Stop: 11/24/17 13:31 Last Admin: 11/22/17 11:31 Dose: 2 mg Nicotine (Nicoderm 14 Mg/24 Hr Transdermal Patch) 1 each TD DAILY EDMUND Stop: 12/17/17 09:59 Last Admin: 11/22/17 09:09 Dose: 1 each Nitroglycerin (Nitro-Dur 5 Mg (0.2 Mg/Hr) Transdermal Patch) 1 each TD DAILY EDMUND Stop: 12/20/17 12:59 Last Admin: 11/22/17 09:09 Dose: 1 each Ondansetron HCl (Zofran Inj/Pf 4 Mg/2 Ml Sdv) 4 mg IV Q8HP PRN PRN Reason: FOR NAUSEA/VOMITING Stop: 12/17/17 01:16 Last Admin: 11/21/17 15:02 Dose: 4 mg Polyethylene Glycol (Miralax Powder 17 Gm/Packet) 17 gm PO DAILY EDMUND Stop: 12/19/17 11:59 Last Admin: 11/22/17 09:11 Dose: 17 gm Senna/Docusate Sodium (Senna Plus Tablet) 2 each PO BID EDMUND Stop: 12/19/17 11:59 Last Admin: 11/22/17 09:10 Dose: 2 each - Allergies Allergies/Adverse Reactions: No Known Allergies Allergy (Verified 11/16/17 22:13) - Diet/Activity Discharge Diet: Cardiac Hospital Course Hospital Course: Per H&P: PRISCA ARMENTA is a 47 year old male presenting to the emergency department secondary to abdominal pain. Patient states his pain is been for the past 1 month, primarily located in the epigastric region with generalized worsening over the past couple of days. Patient was evaluated in the hospital and in the outpatient setting with a surgeon for possible cholecystectomy but given severe worsening of pain associated with nausea and vomiting yesterday patient decided to return to the ER for further workup and evaluation. Course: The patient was admitted with abdominal pain and noted to be in acute systolic CHF exacerbation; per echocardiogram performed last month the patient has an LVEF of 30%. Patient does have an AICD, but is known to be noncompliant with medications and dietary recommendations. He was found to have an elevated proBNP with peak of 2870, currently 2700, which appears to be near the patient' s baseline. Cardiology was consulted for CHF management and cardiology clearance. He was briefly placed on a dobutamine drip. He is currently managed with digoxin, lisinopril, metoprolol, and furosemide. Cardiology states that the patient is at the peak for his cardiac status and recommends consideration of cholecystectomy at this time as he is likely to decompensate once discharged and he resumed his normal habits. Cardiology reports that the patient is moderate to high risk, but not prohibitively high. The patient's abdominal pain was evaluated with an ultrasound which revealed cholelithiasis with cholecystitis. Follow-up HIDA scan confirmed patency of the common bile duct. As the patient CHF exacerbation was managed, his LFTs trended downward and are nearing normal limits. The patient was empirically placed on IV Zosyn. His leukocytosis is subsequently resolved and he has been afebrile for greater than 48 hours. Currently tolerating p.o. meals and medications; has been n.p.o. pending surgical intervention. Dr. Sroia, surgery, has arranged for the patient to be transferred to [facility] for cholecystectomy. Physical Exam Vital Signs: Temp Pulse Resp BP Pulse Ox 97.7 F 87 20 105/80 95 11/22/17 11:45 11/22/17 11:45 11/22/17 11:45 11/22/17 11:45 11/22/17 11:45 Intake & Output 11/21/17 11/22/17 11/23/17 06:59 06:59 06:59 Intake Total 2756 2122 100 Output Total 1875 400 700 Balance 881 1722 -600 Weight 85.2 kg 86.5 kg General appearance: PRESENT: no acute distress, well-developed, well-nourished - Overweight Head exam: PRESENT: atraumatic, normocephalic Eye exam: PRESENT: conjunctiva pink, EOMI, PERRLA. ABSENT: scleral icterus Ear exam: PRESENT: normal external ear exam Mouth exam: PRESENT: moist, tongue midline Neck exam: ABSENT: carotid bruit, JVD, lymphadenopathy, thyromegaly Respiratory exam: PRESENT: clear to auscultation brigido, symmetrical, unlabored. ABSENT: rales, rhonchi, wheezes Cardiovascular exam: PRESENT: RRR, +S1, +S2. ABSENT: diastolic murmur, rubs, systolic murmur Pulses: PRESENT: normal dorsalis pedis pul Vascular exam: PRESENT: normal capillary refill GI/Abdominal exam: PRESENT: normal bowel sounds, soft. ABSENT: distended, guarding, mass, organolmegaly, rebound, tenderness Rectal exam: PRESENT: deferred Extremities exam: PRESENT: full ROM. ABSENT: calf tenderness, clubbing, pedal edema Musculoskeletal exam: PRESENT: ambulatory - independently on room air Neurological exam: PRESENT: alert, awake, oriented to person, oriented to place , oriented to time, oriented to situation, CN II-XII grossly intact. ABSENT: motor sensory deficit Psychiatric exam: PRESENT: normal mood, unusual affect. ABSENT: homicidal ideation, suicidal ideation Skin exam: PRESENT: dry, intact, warm. ABSENT: cyanosis, rash Results Laboratory Results: 11/22/17 05:48 11/22/17 05:48 11/22/17 11/22/17 05:48 05:48 WBC 9.8 RBC 4.76 Hgb 13.2 L Hct 40.6 MCV 85 MCH 27.7 MCHC 32.5 RDW 16.1 H Plt Count 222 Sodium 137.1 Potassium 4.6 Chloride 104 Carbon Dioxide 24 Anion Gap 9 BUN 30 H Creatinine 1.53 H Est GFR ( Amer) 59 L Est GFR (Non-Af Amer) 49 L Glucose 117 H Calcium 8.9 Total Bilirubin 0.7 AST 52 ALT 92 H Alkaline Phosphatase 70 Total Protein 6.8 Albumin 3.6 11/17/17 11/17/17 11/17/17 05:36 05:36 11:51 Creatine Kinase 132 123 CK-MB (CK-2) 1.35 Troponin I 0.034 NT-Pro-B Natriuret Pep 11/17/17 11/17/17 11/17/17 11:51 18:34 18:34 Creatine Kinase 130 CK-MB (CK-2) 1.43 1.51 Troponin I 0.023 0.023 NT-Pro-B Natriuret Pep 11/18/17 11/19/17 11/20/17 03:40 05:32 11:40 Creatine Kinase CK-MB (CK-2) Troponin I NT-Pro-B Natriuret Pep 2870 H 1610 H 1130 H 11/21/17 11/22/17 05:10 05:48 Creatine Kinase CK-MB (CK-2) Troponin I NT-Pro-B Natriuret Pep 1920 H 2700 H Impressions: Chest X-Ray 11/16/17 22:30 IMPRESSION: No acute disease. Abdomen Ultrasound 11/16/17 23:20 IMPRESSION: 1. Cholelithiasis with gallbladder wall thickening and pericholecystic fluid. These findings could be seen with acute cholecystitis. 2. Hepatic steatosis. Hepatobiliary Scan Nuclear Medicine 11/17/17 00:00 IMPRESSION: There is a focal accumulation of tracer activity in the expected position of the gallbladder which does not conform with the ultrasound appearance of the gallbladder and may be within the cystic duct. I cannot confirm gallbladder visualization on the basis of this study. There is patency of the common bile duct with bowel activity being identified. Clinical correlation is recommended Plan Discharge Plan: Transfer to [facility], Dr. Dailey accepting; arrangements made by Dr. Mcclellan. Time Spent: Less than 30 Minutes
--- NOTE | 2017-11-22 18:38 | PDOC PROGRESS REPORT ---
Subjective Progress Note for:: 11/22/17 Subjective:: Patient seems to be doing better with gradual improvement. Patient still describing distended abdomen. He has an enlarged liver. Pt is denying any chest arm or neck discomfort. Patient denying any PND, orthopnea. Patient denied any sustained palpitations, dizziness, syncope, near syncope. Patient denying any fever chills. Patient denying any other significant discomfort. Patient is maintaining sinus rhythm. Review of systems: Rest review of systems negative. Medications: Medications have been reviewed. Reason For Visit: ABD PAIN Physical Exam Vital Signs: Temp Pulse Resp BP Pulse Ox 97.7 F 95 20 97/50 L 100 11/22/17 15:58 11/22/17 15:58 11/22/17 15:58 11/22/17 15:58 11/22/17 15:58 Intake & Output 11/21/17 11/22/17 11/23/17 06:59 06:59 06:59 Intake Total 2756 2122 540 Output Total 1875 400 700 Balance 881 1722 -160 Weight 85.2 kg 86.5 kg Exam: GENERAL: well-nourished and in no acute distress. Alert and oriented x3 HEAD: Atraumatic, normocephalic. EYES: Pupils equal round and reactive to light, extraocular movements intact, sclera anicteric, conjunctiva are normal. ENT: TMs normal, nares patent, oropharynx clear without exudates. Moist mucous membranes. No oral ulcerations or bleeding gums noted NECK: supple without lymphadenopathy. Trachea is central. No cervical or axillary lymphadenopathy noted. Carotids are 2+, JVD 10-12 cm LUNGS: Respiration seems nonlabored, no significant accessory muscle action noted. Breath sounds clear to auscultation bilaterally and equal noted. No wheezes rales or rhonchi noted. No significant dullness noted on percussion. CHEST: Palpation of the chest wall shows no significant chest wall tenderness. HEART: [employer] MEDICAL DEVICE, No PSH, 1/6 SOPHIE aortic area, 1/6 anaya systolic murmur mitral area, no rubs, no gallops. ABDOMEN: Distended and somewhat firm., Liver tenderness appreciated, normoactive bowel sounds. No guarding, no rebound. No rigidity noted . No masses appreciated. EXTREMITIES: Pedal pulses are 1-2+, no calf tenderness noted. No clubbing or cyanosis. negative pedal edema noted NEUROLOGICAL: Focused neurological exam showed no significant neurologic deficit. Normal speech, no focal weakness appreciated. PSYCH: Normal mood, normal affect. Judgment and insight within normal limits. SKIN: No significant ecchymosis, skin is noted to be warm. MUSCULOSKELETAL EXAM: No significant acute joint swelling noted. Results Laboratory Results: 11/22/17 05:48 11/22/17 05:48 11/22/17 11/22/17 05:48 05:48 WBC 9.8 RBC 4.76 Hgb 13.2 L Hct 40.6 MCV 85 MCH 27.7 MCHC 32.5 RDW 16.1 H Plt Count 222 Sodium 137.1 Potassium 4.6 Chloride 104 Carbon Dioxide 24 Anion Gap 9 BUN 30 H Creatinine 1.53 H Est GFR ( Amer) 59 L Est GFR (Non-Af Amer) 49 L Glucose 117 H Calcium 8.9 Total Bilirubin 0.7 AST 52 ALT 92 H Alkaline Phosphatase 70 Total Protein 6.8 Albumin 3.6 11/17/17 11/17/17 11/17/17 05:36 05:36 11:51 Creatine Kinase 132 123 CK-MB (CK-2) 1.35 Troponin I 0.034 NT-Pro-B Natriuret Pep 11/17/17 11/17/17 11/17/17 11:51 18:34 18:34 Creatine Kinase 130 CK-MB (CK-2) 1.43 1.51 Troponin I 0.023 0.023 NT-Pro-B Natriuret Pep 11/18/17 11/19/17 11/20/17 03:40 05:32 11:40 Creatine Kinase CK-MB (CK-2) Troponin I NT-Pro-B Natriuret Pep 2870 H 1610 H 1130 H 11/21/17 11/22/17 05:10 05:48 Creatine Kinase CK-MB (CK-2) Troponin I NT-Pro-B Natriuret Pep 1920 H 2700 H Impressions: Chest X-Ray 11/16/17 22:30 IMPRESSION: No acute disease. Abdomen Ultrasound 11/16/17 23:20 IMPRESSION: 1. Cholelithiasis with gallbladder wall thickening and pericholecystic fluid. These findings could be seen with acute cholecystitis. 2. Hepatic steatosis. Hepatobiliary Scan Nuclear Medicine 11/17/17 00:00 IMPRESSION: There is a focal accumulation of tracer activity in the expected position of the gallbladder which does not conform with the ultrasound appearance of the gallbladder and may be within the cystic duct. I cannot confirm gallbladder visualization on the basis of this study. There is patency of the common bile duct with bowel activity being identified. Clinical correlation is recommended Assessment & Plan - Diagnosis (1) Acute exacerbation of CHF (congestive heart failure) Qualifiers: Heart failure type: systolic Qualified Code(s): I50.23 - Acute on chronic systolic (congestive) heart failure Is this a current diagnosis for this admission?: Yes (2) Cholelithiasis and cholecystitis without obstruction Qualifiers: Cholelithiasis location: gallbladder Cholecystitis acuity: unspecified acuity Qualified Code(s): K80.10 - Calculus of gallbladder with chronic cholecystitis without obstruction Is this a current diagnosis for this admission?: Yes (3) HTN (hypertension) Qualifiers: Hypertension type: essential hypertension Qualified Code(s): I10 - Essential (primary) hypertension Is this a current diagnosis for this admission?: Yes - Notes Notes: Acute congestive heart failure: Patient seems to have predominantly right-sided heart failure. He does seem to have some ascites on clinical exam and also a enlarged liver. Patient has had recurrent decompensation. He would be considered moderate to high risk. Patient also has been noncompliant. There is some risk of decompensation with anesthesia. Acute cholecystitis, versus pain from hepatic congestion: Patient presentation is very similar to last time. If surgery is felt to be urgent, the surgeon can proceed. Currently still has some right-sided CHF based on exam but fairly compensated. I agree with Dr. Hewitt's assessment that the surgery can be performed while he is hospitalized as he is likely to decompensate because of his noncompliant nature if he is discharged. However feel that surgery would be considered at least moderate if not high risk. I am told that this morning by the patient he is being transferred to [facility]. Medical noncompliance: This has been a chronic problem with this patient. Patient does admit to become compliant with medication in future. - Time Time with patient: 15-25 minutes - More than 50% of the time spent coordinating care, discussing management plans with involved caregivers. Management plans discussed with involved personnels. Medical decision making was of moderate to high complexity, patient's has multiple comorbidities. Medications reviewed and adjusted accordingly: Yes
[2017-11-22 20:02] VITALS: BP 123/71
== END 2017-11-22 20:08 | disposition short-term general hospital (02) | DRG 444 ==
LOC: ER 22:03 → EH 11-17 01:31 → 5 11-17 02:50 → 3S 11-18 09:59
PROVIDERS: ADMIT Family Medicine; ATTEND Family Medicine
DX: K80.00 Calculus of gallbladder with acute cholecystitis without obstruction (principal); I50.23 Acute on chronic systolic (congestive) heart failure; I42.9 Cardiomyopathy, unspecified; R10.9 Unspecified abdominal pain; E11.9 Type 2 diabetes mellitus without complications; K76.0 Fatty (change of) liver, not elsewhere classified; F31.9 Bipolar disorder, unspecified; F17.210 Nicotine dependence, cigarettes, uncomplicated; I11.0 Hypertensive heart disease with heart failure; K59.01 Slow transit constipation; F41.1 Generalized anxiety disorder; I25.2 Old myocardial infarction; Z87.891 Personal history of nicotine dependence; Z95.810 Presence of automatic (implantable) cardiac defibrillator; Z79.899 Other long term (current) drug therapy; Z91.14 Patient's other noncompliance with medication regimen; Z91.11 Patient's noncompliance with dietary regimen
CPT/HCPCS: 36415; 71045; 76705; 78226; 80048; 80053; 80076; 80307; 81001; 82550; 82553; 82962; 83036; 83690; 83735; 83880; 84100; 84484; 85025; 85027; 93005; 93010; 96374; 96375; 99285; A9537; J1250; J1644; J1815; J1940; J2270; J2405; J2543; J3490; J7030; Q9969; S0028

== ENCOUNTER 2017-12-03 18:29 | Emergency (ER) | payer SELFPAY ==
[2017-12-03 18:38] VITALS: BP 137/88
[2017-12-03] MEDS ORDERED: OXYCODONE-ACETAMINOPHEN 5-325 MG TABLET PO ONE (19:53)
--- NOTE | 2017-12-03 20:04 | RADIOLOGY REPORT (SQ) ---
EXAM DESCRIPTION: FOOT RIGHT COMPLETE COMPLETED DATE/TIME: 12/03/2017 7:50 pm REASON FOR STUDY: fall injury COMPARISON: None. NUMBER OF VIEWS: Three views. TECHNIQUE: AP, lateral and oblique radiographic images acquired of the right foot. LIMITATIONS: None. FINDINGS: MINERALIZATION: Normal. BONES: Comminuted fracture of the calcaneus. JOINTS: No effusions. SOFT TISSUES: Mild circumferential soft tissue swelling of the hindfoot. OTHER: No other significant finding. IMPRESSION: Comminuted fracture of the calcaneus. TECHNICAL DOCUMENTATION: JOB ID: [id number] [employer]- All Rights Reserved Reading location - IP/workstation name: [email or web address]
--- NOTE | 2017-12-03 20:05 | RADIOLOGY REPORT (SQ) ---
EXAM DESCRIPTION: ANKLE RIGHT COMPLETE COMPLETED DATE/TIME: 12/03/2017 7:50 pm REASON FOR STUDY: fall injury COMPARISON: None. NUMBER OF VIEWS: Three views. TECHNIQUE: AP, lateral, and oblique radiographic images acquired of the right ankle. LIMITATIONS: None. FINDINGS: MINERALIZATION: Normal. BONES: Comminuted fracture of the calcaneus. JOINTS: No effusions. SOFT TISSUES: Mild circumferential soft tissue swelling. OTHER: No other significant finding. IMPRESSION: Comminuted fracture of the calcaneus. TECHNICAL DOCUMENTATION: JOB ID: [id number] [employer]- All Rights Reserved Reading location - IP/workstation name: [email or web address]
[2017-12-03] MEDS ORDERED: HYDROCODONE/ACETAMINOPHEN 5-325 MG (6 TAB/ER DISP) PO PRN (20:28)
--- NOTE | 2017-12-03 20:53 | ER Document Report ---
HPI - HPI Pain Level: 4 Notes: Patient is a 47-year-old male who presents with chief complaint of right ankle and foot pain after falling flat onto his foot off of a ladder. Patient reports he fell approximately 3-4 feet. Patient reports he is able to ambulate however it is painful. - CONSTITUTIONAL Constitutional: DENIES: Fever, Chills - EENT EENT: DENIES: Sore Throat, Ear Pain, Eye problems - NEURO Neurology: DENIES: Headache, Weakness, Vision blurred, Dizzinesss / Vertigo - CARDIOVASCULAR Cardiovascular: DENIES: Chest pain - RESPIRATORY Respiratory: DENIES: Trouble Breathing, Coughing - GASTROINTESTINAL Gastrointestinal: DENIES: Abdominal Pain, Black / Bloody Stools - URINARY Urinary: DENIES: Dysuria, Urgency, Frequency - REPRODUCTIVE Reproductive: DENIES: : - MUSCULOSKELETAL Musculoskeletal: REPORTS: Extremity pain Past Medical History - General Information source: Patient - Social History Smoking Status: Former Smoker Chew tobacco use (# tins/day): No Frequency of alcohol use: None Drug Abuse: None Family History: Other - PATIENT REPORTS HE IS ADOPTED Patient has suicidal ideation: No Patient has homicidal ideation: No - Past Medical History Cardiac Medical History: Reports: Hx Congestive Heart Failure, Hx Heart Attack - 2013 Pulmonary Medical History: Reports: Hx Pneumonia Neurological Medical History: Denies: Hx Seizures Endocrine Medical History: Reports: Hx Diabetes Mellitus Type 2 Renal/ Medical History: Denies: Hx Peritoneal Dialysis Psychiatric Medical History: Reports: Hx Bipolar Disorder, Hx Depression, Hx Post Traumatic Stress Disorder Past Surgical History: Reports: Hx Cardiac Catheterization, Hx Cardiac Surgery - AICD, Hx Internal Defibrillator, Other - AICD in June of 2014 Vertical Provider Document - CONSTITUTIONAL Notes: PHYSICAL EXAMINATION: GENERAL: Well-appearing, well-nourished and in no acute distress. HEAD: Atraumatic, normocephalic. EYES: Pupils equal round extraocular movements intact, conjunctiva are normal. ENT: Nares patent NECK: Normal range of motion LUNGS: No respiratory distress Musculoskeletal: Normal range of motion, swelling and ecchymosis noted to right medial ankle. Cap refill less than 3 seconds, normal motor and sensation distal to injury. NEUROLOGICAL: Normal speech, normal gait. PSYCH: Normal mood, normal affect. SKIN: Warm, Dry, normal turgor, no rashes or lesions noted. - INFECTION CONTROL TRAVEL OUTSIDE OF THE [place] IN LAST 30 DAYS: No Course - Re-evaluation Re-evalutation: X-ray shows right calcaneal fracture. Patient will be placed in a splint and on crutches. Patient will follow-up with orthopedics. - Vital Signs Vital signs: Temp Pulse Resp BP Pulse Ox 98.7 F 114 H 24 H 137/88 H 98 12/03/17 18:36 12/03/17 18:36 12/03/17 18:36 12/03/17 18:36 12/03/17 18:36 Procedures - Immobilization Right foot Pre-Proc Neuro Vasc Exam: Normal Immobilizer type: Posterior ankle Performed by: PCT Post-Proc Neuro Vasc Exam: Normal Discharge - Discharge Clinical Impression: Avulsion fracture of right calcaneus Qualifiers: Encounter type: initial encounter Calcaneus location: tuberosity Fracture type : closed Fracture alignment: nondisplaced Qualified Code(s): S92.034A - Nondisplaced avulsion fracture of tuberosity of right calcaneus, initial encounter for closed fracture Condition: Stable Disposition: HOME, SELF-CARE Additional Instructions: Fracture Calcaneus You have a fracture of the calcaneus (heel bone). This type of fracture tends to swell a great deal. It is usually quite painful. Many fractures of the calcaneus need an operation to heal properly. Elevate and ice pack the heel area. Do not walk on the injured foot (use crutches). If a splint was put on, keep the splint in place. Be sure to follow up for further care as instructed. If the toes become swollen, discolored, or numb, loosen the wrapping. If the symptoms don't go away, return at once. Come back if there is increasingly severe pain. Ice & Elevation Apply ice packs frequently against the painful area. Many different schedules are recommended, such as "20 minutes on, 20 minutes off" or "one hour ice, two hours rest." If you need to work, you may need to go longer between ice treatments. You should plan to have the area ice packed AT LEAST one- fourth of the time. The ice should be applied over the wrap, tape, or splint, or over a layer of cloth -- not directly against the skin. Some ice bags have a built-in cloth and can be put directly on the skin. Your injured part should be elevated as much as possible over the next 48 hours. Try to keep the injury above the level of the heart. Avoid use of the injured area. Elevation and rest will decrease the swelling. Please follow-up with orthopedics, call them Tuesday to schedule an appointment. Let them know you were seen here in the emergency room and you have a fracture of your calcaneus. Take ibuprofen 600 mg every 6 hours, use the narcotic pain medication for severe pain. Ice and elevate as outlined above. Keep the splint in place until cleared by orthopedics. Prescriptions: Hydrocodone Bit/Acetaminophen [Hydrocodon-Acetaminophen 5-325] 1 each PO Q4H PRN #10 tablet PRN Reason: Oxycodone HCl/Acetaminophen [Percocet 5-325 mg Tablet] 1 - 2 tab PO Q4H PRN #12 tablet PRN Reason: Forms: Return to Work Referrals: GUY RAIN, [ACTIVE STAFF] - Follow up as needed
== END 2017-12-03 21:00 | disposition home or self-care (01) ==
LOC: ER 18:29
PROC: 2W3QX1Z Immobilization of Right Lower Leg using Splint (ICD-10-PCS; principal; 2017-12-03)
DX: S92.034A Nondisplaced avulsion fracture of tuberosity of right calcaneus, initial encounter for closed fracture (principal); M25.571 Pain in right ankle and joints of right foot; M79.671 Pain in right foot; W11.XXXA Fall on and from ladder, initial encounter; E11.9 Type 2 diabetes mellitus without complications; Z87.891 Personal history of nicotine dependence
CPT/HCPCS: 99283